=== PATIENT | female | born 1995 | race Caucasian/White ===

== ENCOUNTER 2021-07-13 05:53 | Emergency (ER) | payer OTHER ==
--- NOTE | 2021-07-13 06:06 | ER ---
Nurse's Notes [facility] Name: Lilliana Aragon Age: 25 yrs Sex: Female : 1995 Arrival Date: 07/13/2021 Time: 05:57 Bed 14 Private MD: Diagnosis: Allergic contact dermatitis due to other agents-Icy Hot Presentation: 07/13 06:04 Chief complaint: Patient states: Used IcyHot cream to posterior neck about 0300 this lp1 AM, reports burning to site and redness. Coronavirus screen: At this time, the client does not indicate any symptoms associated with coronavirus-19. Ebola Screen: No symptoms or risks identified at this time. Onset: The symptoms/episode began/occurred gradually. Anaphylaxis evaluation, no signs or symptoms of anaphylaxis were noted. Initial Sepsis Screen: Does the patient meet any 2 criteria? No. Patient's initial sepsis screen is negative. Does the patient have a suspected source of infection? No. Patient's initial sepsis screen is negative. Risk Assessment: Do you want to hurt yourself or someone else? Patient reports no desire to harm self or others. Onset of symptoms was July 13, 2021. 06:04 Method Of Arrival: Ambulatory lp1 06:04 Acuity: CRISTAL 4 lp1 Triage Assessment: 06:11 General: Appears in no apparent distress. Behavior is appropriate for age. Pain: lp1 Complains of pain in thoracic area and neck. Neuro: Level of Consciousness is awake, alert, obeys commands, Oriented to person, place, time, situation. Cardiovascular: Patient's skin is warm and dry. Respiratory: Airway is patent Respiratory effort is even, unlabored, Denies shortness of breath. Derm: Skin is pink, warm \T\ dry. Rash noted that is Slight redness noted to posterior neck, upper back. Musculoskeletal: Circulation, motion, and sensation intact. 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 - Social history:: Smoking status: Patient denies any tobacco usage or history of. Screenin:06 Abuse screen: Denies threats or abuse. Denies injuries from another. Nutritional lp1 screening: No deficits noted. Tuberculosis screening: No symptoms or risk factors identified. Fall Risk None identified. Vital Signs: 06:04 BP 134 / 82; Pulse 67; Resp 16; Temp 98.6; Pulse Ox 100% on R/A; Weight 63.5 kg (R); lp1 Height 5 ft. 3 in. (160.02 cm); 06:04 Body Mass Index 24.80 (63.50 kg, 160.02 cm) lp1 ED Course: 05:57 Patient arrived in ED. wm 05:59 Angela Gentile FNP-C is [facility]. kb 05:59 Doug Caro MD is Attending Physician. kb 06:06 Triage completed. lp1 06:06 Arm band placed on. lp1 06:06 Patient has correct armband on for positive identification. lp1 06:07 Mallory Wolff, RN is Primary Nurse. lp1 06:12 No provider procedures requiring assistance completed. Patient did not have IV access lp1 during this emergency room visit. Administered Medications: 06:11 Drug: Pepcid (famotidine) 20 mg Route: PO; lp1 06:11 Follow up: Response: Medication administered at discharge. lp1 Outcome: 06:05 Discharge ordered by . kb 06:12 Discharged to home ambulatory. lp1 06:12 Condition: good 06:12 Discharge instructions given to patient, Instructed on discharge instructions, follow up and referral plans. medication usage, Demonstrated understanding of instructions, follow-up care, medications, Prescriptions given X 1. 06:12 Patient left the ED. lp1 Signatures: Angela Gentile FNP-C FNP-Mallory Anne, RN RN lp1 Geno Donovan
--- NOTE | 2021-07-13 06:06 | EDPHYS ---
Physician Documentation [facility] Name: Lilliana Aragon Age: 25 yrs Sex: Female : 1995 Arrival Date: 07/13/2021 Time: 05:57 Bed 14 Private MD: ED Physician Doug Caro HPI: 07/13 06:08 This 25 yrs old Female presents to ER via Ambulatory with complaints of Allergic kb Reaction. 06:08 The patient presents with redness of skin. Onset: The symptoms/episode began/occurred kb at 03:00. Associated signs and symptoms: Pertinent positives: rash. Possible causes: icy hot. At home the patient or guardian has treated the symptoms with washed area with soap and water. Severity of symptoms: At their worst the symptoms were mild in the emergency department the symptoms are unchanged. The patient has not experienced similar symptoms in the past. The patient has not recently seen a physician. Pt states she put icy hot on the back of her neck at 0300, it burned upon application, but she thought it was just how it worked. When pt woke up she still had burning to area and it was red so she came in. . 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 - Social history:: Smoking status: Patient denies any tobacco usage or history of. ROS: 06:06 Constitutional: Negative for fever, chills, and weight loss. kb 06:06 Skin: Positive for erythema, of the right posterior aspect of neck and left posterior aspect of neck. 06:06 All other systems are negative. Exam: 06:06 Constitutional: This is a well developed, well nourished patient who is awake, alert, kb and in no acute distress. Head/Face: Normocephalic, atraumatic. ENT: Moist Mucous membranes Respiratory: Respirations even and unlabored. No increased work of breathing. Talking in full sentences MS/ Extremity: Pulses equal, no cyanosis. Neurovascular intact. Full, normal range of motion. Neuro: Awake and alert, GCS 15, oriented to person, place, time, and situation. Moves all extremities. Normal gait. Psych: Awake, alert, with orientation to person, place and time. Behavior, mood, and affect are within normal limits. 06:06 Skin: rash a mild rash is noted, rash can be described as erythematous, consistent with contact dermatitis, on the left posterior aspect of neck and right posterior aspect of neck. Vital Signs: 06:04 BP 134 / 82; Pulse 67; Resp 16; Temp 98.6; Pulse Ox 100% on R/A; Weight 63.5 kg (R); lp1 Height 5 ft. 3 in. (160.02 cm); 06:04 Body Mass Index 24.80 (63.50 kg, 160.02 cm) lp1 MDM: 06:04 Patient medically screened. kb 06:06 Data reviewed: vital signs, nurses notes. Data interpreted: Pulse oximetry: on room air kb is 100 %. Interpretation: normal. Counseling: I had a detailed discussion with the patient and/or guardian regarding: the historical points, exam findings, and any diagnostic results supporting the discharge/admit diagnosis, the need for outpatient follow up, a family practitioner, to return to the emergency department if symptoms worsen or persist or if there are any questions or concerns that arise at home. Administered Medications: 06:11 Drug: Pepcid (famotidine) 20 mg Route: PO; lp1 06:11 Follow up: Response: Medication administered at discharge. lp1 Disposition Summary: 07/13/21 06:05 Discharge Ordered Location: Home kb Condition: Stable kb Diagnosis - Allergic contact dermatitis due to other agents - Icy Hot kb Followup: kb - With: Emergency Department - When: As needed - Reason: Worsening of condition Followup: kb - With: Private Physician - When: 2 - 3 days - Reason: Recheck today's complaints, Continuance of care, Re-evaluation by your physician Discharge Instructions: - Discharge Summary Sheet kb - Contact Dermatitis kb Forms: - Medication Reconciliation Form kb - Thank You Letter kb - Antibiotic Education kb - Prescription Opioid Use kb Prescriptions: - Pepcid 20 mg Oral Tablet - take 1 tablet by ORAL route every 12 hours for 5 days; 10 tablet; Refills: 0, kb Product Selection Permitted Addendum: 07/15/2021 01:16 Co-signature as Attending Physician, Doug Caro MD. [facility] Signatures: Angela Gentile FNP-C FNP-Mallory Anne RN RN lp1 Doug Caro MD MD [id number]
[2021-07-13] MEDS ORDERED: FAMOTIDINE 20 MG TAB ONE (06:09)
[2021-07-13 06:17] VITALS: BP 134/82; TEMP 98.6; O2SAT 100
== END 2021-07-13 06:12 | disposition home or self-care (01) ==
LOC: ER 05:53
DX: L23.89 Allergic contact dermatitis due to other agents (principal); Z88.8 Allergy status to other drugs, medicaments and biological substances
CPT/HCPCS: 99283

== ENCOUNTER 2021-08-02 04:18 | Emergency (ER) | payer OTHER ==
--- NOTE | 2021-08-02 05:39 | ER ---
Nurse's Notes [facility] Name: Lilliana Aragon Age: 25 yrs Sex: Female : 1995 Arrival Date: 08/02/2021 Time: 04:24 Bed 16 Private MD: Diagnosis: Cellulitis and acute lymphangitis of other parts of limb;Sprain of other part of right wrist and hand;Abrasion of right wrist Presentation: 08/02 04:32 Chief complaint: Patient states: "About a week ago I was making an arrest and I had to tw5 wrestle the meagan down to get the cuffs on him. I had EMS look at my wrist then and they said it may just be sprained, but it still hurt so move it. However, the main reason I am here today are these bumps that started to appear on both of my legs. They are hard, hot to the touch and extremely painful. I cannot even walk right now they are so painful.". Coronavirus screen: Vaccine status: Patient reports being unvaccinated. [employer] [place]. Ebola Screen: Patient negative for fever greater than or equal to 101.5 degrees Fahrenheit, and additional compatible Ebola Virus Disease symptoms Patient denies exposure to infectious person. Patient denies travel to an Ebola-affected area in the 21 days before illness onset. Initial Sepsis Screen: Does the patient meet any 2 criteria? No. Patient's initial sepsis screen is negative. Does the patient have a suspected source of infection? No. Patient's initial sepsis screen is negative. Risk Assessment: Do you want to hurt yourself or someone else? Patient reports no desire to harm self or others. Onset of symptoms is unknown. 04:32 Method Of Arrival: Wheelchair tw5 04:32 Acuity: CRISTAL 3 tw5 Triage Assessment: 04:35 General: Appears in no apparent distress. Behavior is calm, cooperative, appropriate tw5 for age. Pain: Complains of pain in right leg and left leg Pain currently is 8 out of 10 on a pain scale. Musculoskeletal: Range of motion: limited in MCP of right ring finger and MCP of right little finger. Injury Description: Bruise. 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 - Social history:: Smoking status: Patient denies any tobacco usage or history of. Screenin:36 Abuse screen: Denies threats or abuse. Denies injuries from another. Nutritional tw5 screening: No deficits noted. Tuberculosis screening: No symptoms or risk factors identified. Fall Risk Gait- Impaired (20 pts.). Assessment: 06:32 Reassessment: Cleared for discharge to home by the provider. . sv1 Vital Signs: 04:32 BP 108 / 78; Pulse 74; Resp 20; Temp 98.1(O); Pulse Ox 99% on R/A; Weight 68.04 kg; tw5 Height 5 ft. 3 in. (160.02 cm); Pain 8/10; 04:49 BP 110 / 75; Pulse 72; Resp 17; Temp 98.6; Pulse Ox 99% ; Weight 68.04 kg; Height 5 ft. sv1 3 in. (160.02 cm); 06:30 BP 111 / 80; Pulse 69; Resp 18; Temp 98.2; Pulse Ox 100% ; Pain 7/10; sv1 04:49 Body Mass Index 26.57 (68.04 kg, 160.02 cm) sv1 ED Course: 04:24 Patient arrived in ED. ja2 04:35 Triage completed. tw5 04:35 Arm band placed on left wrist. tw5 04:40 Anam Escobedo MD is Attending Physician. suha 04:48 Clovis Sims, RN is Primary Nurse. sv1 04:50 Patient has correct armband on for positive identification. Bed in low position. Call sv1 light in reach. Side rails up X2. Adult w/ patient. 05:30 Wrist Right 3 View XRAY In Process Unspecified. EDMS 05:43 Clovis Olivier MD is Referral Physician. suha 06:31 No provider procedures requiring assistance completed. Patient did not have IV access sv1 during this emergency room visit. Administered Medications: 06:12 Drug: Bactrim (trimethoprim-sulfamethoxazole) (160 mg-800 mg (DS) 1 tablet Route: PO; sv1 06:33 Follow up: Response: No adverse reaction sv1 06:12 Drug: Pepcid (famotidine) 40 mg Route: PO; sv1 06:33 Follow up: Response: No adverse reaction sv1 06:13 Drug: Bactroban (mupirocin) Ointment 2 % 1 application Route: Topical; Site: affected sv1 area; 06:34 Follow up: Response: No adverse reaction sv1 06:13 Drug: Doxycycline 200 mg Route: PO; sv1 06:34 Follow up: Response: No adverse reaction sv1 Outcome: 05:39 Discharge ordered by MD. borden 06:31 Discharged to home sv1 06:31 Condition: good 06:31 Discharge instructions given to patient, Demonstrated understanding of instructions. 06:35 Patient left the ED. sv1 Signatures: Dispatcher [employer] EDAnam Yanes MD MD cha Alexander, Jessica ja2 Wood, Tiffany tw5 Clovis Sims RN RN sv1
--- NOTE | 2021-08-02 05:39 | EDPHYS ---
Physician Documentation [facility] Name: Lilliana Aragon Age: 25 yrs Sex: Female : 1995 Arrival Date: 08/02/2021 Time: 04:24 Bed 16 Private MD: ED Physician Anam Escobedo HPI: 08/02 05:31 This 25 yrs old Female presents to ER via Wheelchair with complaints of Wrist suha Injury, BUMBS ON LEG. 05:31 The patient or guardian reports decreased range of motion, pain. 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 - Social history:: Smoking status: Patient denies any tobacco usage or history of. ROS: 05:32 Constitutional: Negative for fever, chills, and weight loss, Eyes: Negative for injury, suha pain, redness, and discharge, ENT: Negative for injury, pain, and discharge, Neck: Negative for injury, pain, and swelling, Cardiovascular: Negative for chest pain, palpitations, and edema, Respiratory: Negative for shortness of breath, cough, wheezing, and pleuritic chest pain, Abdomen/GI: Negative for abdominal pain, nausea, vomiting, diarrhea, and constipation, Back: Negative for injury and pain, : Negative for injury, bleeding, discharge, and swelling, Skin: Negative for injury, rash, and discoloration, Neuro: Negative for headache, weakness, numbness, tingling, and seizure, Psych: Negative for depression, anxiety, suicide ideation, homicidal ideation, and hallucinations, Allergy/Immunology: Negative for hives, rash, and allergies, Endocrine: Negative for neck swelling, polydipsia, polyuria, polyphagia, and marked weight changes, Hematologic/Lymphatic: Negative for swollen nodes, abnormal bleeding, and unusual bruising. 05:32 MS/extremity: Positive for decreased range of motion, erythema, pain, swelling, tenderness, of the right leg and left leg. Exam: 05:32 Constitutional: This is a well developed, well nourished patient who is awake, alert, suha and in no acute distress. Head/Face: Normocephalic, atraumatic. Eyes: Pupils equal round and reactive to light, extra-ocular motions intact. Lids and lashes normal. Conjunctiva and sclera are non-icteric and not injected. Cornea within normal limits. Periorbital areas with no swelling, redness, or edema. ENT: Nares patent. No nasal discharge, no septal abnormalities noted. Tympanic membranes are normal and external auditory canals are clear. Oropharynx with no redness, swelling, or masses, exudates, or evidence of obstruction, uvula midline. Mucous membranes moist. Neck: Trachea midline, no thyromegaly or masses palpated, and no cervical lymphadenopathy. Supple, full range of motion without nuchal rigidity, or vertebral point tenderness. No Meningismus. Chest/axilla: Normal chest wall appearance and motion. Nontender with no deformity. No lesions are appreciated. Cardiovascular: Regular rate and rhythm with a normal S1 and S2. No gallops, murmurs, or rubs. Normal PMI, no JVD. No pulse deficits. Respiratory: Lungs have equal breath sounds bilaterally, clear to auscultation and percussion. No rales, rhonchi or wheezes noted. No increased work of breathing, no retractions or nasal flaring. Abdomen/GI: Soft, non-tender, with normal bowel sounds. No distension or tympany. No guarding or rebound. No evidence of tenderness throughout. Back: No spinal tenderness. No costovertebral tenderness. Full range of motion. Female : Normal external genitalia. Skin: Warm, dry with normal turgor. Normal color with no rashes, no lesions, and no evidence of cellulitis. Neuro: Awake and alert, GCS 15, oriented to person, place, time, and situation. Cranial nerves II-XII grossly intact. Motor strength 5/5 in all extremities. Sensory grossly intact. Cerebellar exam normal. Normal gait. 05:32 Musculoskeletal/extremity: Extremities: noted in the right leg and left leg: erythema, pain, noted in the right wrist: decreased ROM, pain. Vital Signs: 04:32 BP 108 / 78; Pulse 74; Resp 20; Temp 98.1(O); Pulse Ox 99% on R/A; Weight 68.04 kg; tw5 Height 5 ft. 3 in. (160.02 cm); Pain 8/10; 04:49 BP 110 / 75; Pulse 72; Resp 17; Temp 98.6; Pulse Ox 99% ; Weight 68.04 kg; Height 5 ft. sv1 3 in. (160.02 cm); 06:30 BP 111 / 80; Pulse 69; Resp 18; Temp 98.2; Pulse Ox 100% ; Pain 7/10; sv1 04:49 Body Mass Index 26.57 (68.04 kg, 160.02 cm) sv1 MDM: 04:40 Patient medically screened. [facility] 08/02 05:45 Order name: Urine Dipstick-Ancillary EDCT 08/02 04:44 Order name: Wrist Right 3 View XRAY [facility] 08/02 04:44 Order name: Urine Dipstick-Ancillary (obtain specimen); Complete Time: 05:48 [facility] 08/02 04:44 Order name: Urine Test (obtain specimen); Complete Time: 05:48 [facility] 08/02 04:44 Order name: Ice pack; Complete Time: 05:48 [facility] 08/02 05:36 Order name: Splint: cock up velcro; Complete Time: 06:12 suha Administered Medications: 06:12 Drug: Bactrim (trimethoprim-sulfamethoxazole) (160 mg-800 mg (DS) 1 tablet Route: PO; sv1 06:33 Follow up: Response: No adverse reaction sv1 06:12 Drug: Pepcid (famotidine) 40 mg Route: PO; sv1 06:33 Follow up: Response: No adverse reaction sv1 06:13 Drug: Bactroban (mupirocin) Ointment 2 % 1 application Route: Topical; Site: affected sv1 area; 06:34 Follow up: Response: No adverse reaction sv1 06:13 Drug: Doxycycline 200 mg Route: PO; sv1 06:34 Follow up: Response: No adverse reaction sv1 Disposition Summary: 08/02/21 05:39 Discharge Ordered Location: Home suah Problem: new suha Symptoms: have improved suha Condition: Stable suha Diagnosis - Cellulitis and acute lymphangitis of other parts of limb suha - Sprain of other part of right wrist and hand suha - Abrasion of right wrist suha Followup: suha - With: Private Physician - When: 2 - 3 days - Reason: Recheck today's complaints, Continuance of care, Re-evaluation by your physician Followup: suha - With: Clovis Olivier MD - When: 2 - 3 days - Reason: Recheck today's complaints, Re-evaluation by your physician Discharge Instructions: - Discharge Summary Sheet suha - Abrasion suha - Wrist Splint, Adult suha - Wrist Splint, Adult, [id number] suha - Abrasion, [id number] suha - Folliculitis [facility] Forms: - Medication Reconciliation Form [facility] - Thank You Letter [facility] - Antibiotic Education [facility] - Prescription Opioid Use [facility] - Work release form sv1 Prescriptions: - Centany 2 % Topical ointment - apply 1 application by TOPICAL route 3 times per day for 5 days; 15 gram; [facility] Refills: 0, Product Selection Permitted - Ibuprofen 600 mg Oral Tablet - take 1 tablet by ORAL route every 8 hours As needed take with food; 21 tablet; [facility] Refills: 0, Product Selection Permitted - Pepcid 20 mg Oral Tablet - take 1 tablet by ORAL route every 12 hours for 10 days; 20 tablet; Refills: 0, [facility] Product Selection Permitted - Doxycycline Hyclate 100 mg Oral Tablet - take 1 tablet by ORAL route every 12 hours; 20 tablet; Refills: 0, Product [facility] Selection Permitted - Bactrim DS 800-160 mg Oral Tablet - take 1 tablet by ORAL route every 12 hours for 10 days; 20 tablet; Refills: 0, [facility] Product Selection Permitted Signatures: Dispatcher [employer] Anam Gandhi MD MD cha Wood, Tiffany tw5 Clovis Sims, RN RN sv1
[2021-08-02 05:45] LABS: Urine Blood Negative (Negative); Urine Glucose Negative (Negative); Urine Protein Trace (Negative); Urine Specific Gravity >=1.030 (1.005-1.030)
[2021-08-02] MEDS ORDERED: SMZ./TMP. 800/160 MG TABLET ONE (05:57)
[2021-08-02] MEDS ORDERED: FAMOTIDINE 20 MG TAB ONE (05:57)
[2021-08-02] MEDS ORDERED: DOXYCYCLINE 100 MG CAP PO ONE (05:57)
[2021-08-02] MEDS ORDERED: MUPIROCIN 2% OINT 22GM TUBE TOP ONE (05:58)
[2021-08-02 06:42] VITALS: BP 111/80; TEMP 98.2; O2SAT 100
--- NOTE | 2021-08-02 11:53 | RAD REPORT ---
EXAM DESCRIPTION: RAD - Wrist Right 3 View - 08/02/2021 5:30 am CLINICAL HISTORY: PAIN Pain COMPARISON: No comparisons FINDINGS: No fracture or dislocation seen. Soft tissue swelling is seen along medial margin of the hand and wrist.
== END 2021-08-02 06:35 | disposition home or self-care (01) ==
LOC: ER 04:18
DX: S63.8X1A Sprain of other part of right wrist and hand, initial encounter (principal); L03.116 Cellulitis of left lower limb; L03.115 Cellulitis of right lower limb; L03.126 Acute lymphangitis of left lower limb; L03.125 Acute lymphangitis of right lower limb; S60.811A Abrasion of right wrist, initial encounter; Z88.8 Allergy status to other drugs, medicaments and biological substances
CPT/HCPCS: 81003; 99283

== ENCOUNTER 2021-08-03 16:08 | Emergency (ER) | payer OTHER ==
--- NOTE | 2021-08-03 19:35 | ER ---
Nurse's Notes [facility] Name: Lilliana Aragon Age: 25 yrs Sex: Female : 1995 Arrival Date: 08/03/2021 Time: 16:15 Bed Waiting Private MD: Diagnosis: Presentation: 08/03 16:49 Chief complaint: Patient states: she had a recent right wrist injury at work. Patient ap3 reports wounds on her legs that are also not healing. Patient states she was seen in the ER recently, and was informed if the symptoms didn't improve to come get reevaluated. Coronavirus screen: At this time, the client does not indicate any symptoms associated with coronavirus-19. Ebola Screen: No symptoms or risks identified at this time. Initial Sepsis Screen: Does the patient meet any 2 criteria? No. Patient's initial sepsis screen is negative. Does the patient have a suspected source of infection? No. Patient's initial sepsis screen is negative. Risk Assessment: Do you want to hurt yourself or someone else? Patient reports no desire to harm self or others. Onset of symptoms. 16:49 Method Of Arrival: Ambulatory ap3 16:49 Acuity: CRISTAL 4 ap3 Triage Assessment: 16:52 General: Appears in no apparent distress. comfortable, Behavior is calm, cooperative. ap3 Pain: Complains of pain in right arm Pain currently is 8 out of 10 on a pain scale. Pain began 2 weeks ago. Neuro: Level of Consciousness is awake, alert, obeys commands, Oriented to person, place, time, situation. Respiratory: Airway is patent Respiratory effort is even, unlabored. Musculoskeletal: wrist brace on right wrist. 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 - Social history:: Smoking status: Patient denies any tobacco usage or history of. Vital Signs: 16:49 BP 111 / 82; Pulse 78; Resp 18; Temp 98.8(O); Pulse Ox 100% on R/A; Weight 63.5 kg; ap3 Height 5 ft. 3 in. (160.02 cm); 16:49 Body Mass Index 24.80 (63.50 kg, 160.02 cm) ap3 ED Course: 16:15 Patient arrived in ED. ds1 16:52 Triage completed. ap3 19:35 Patient's name was called from ER lobby. No response. Unable to locate patient. Will jh5 disposition as left without being seen by a provider. Administered Medications: No medications were administered Outcome: 19:35 Patient left the ED. jh5 Signatures: Taniya Francis ds1 Delia Francisco, RN RN ap3 Michelle Pineda RN RN jh5
[2021-08-03 20:19] VITALS: BP 111/82; TEMP 98.8; O2SAT 100
== END 2021-08-03 19:35 | disposition left against medical advice (07) ==
LOC: ER 16:08
DX: Z53.21 Procedure and treatment not carried out due to patient leaving prior to being seen by health care provider (principal)
CPT/HCPCS: 99281

== ENCOUNTER 2022-05-30 14:04 | Emergency (ER) | payer OTHER ==
--- OUTSIDE RECORDS SUMMARY | 2022-05-30 14:10 | XMS REPORT | Continuity of Care Document ---
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 rsity of Dosage 00:00:00 [facility] Hep B, Adol or Pedi 1997 Completed Unive rsity of Dosage 00:00:00 [facility] Hep B, Adol or Pedi 1997 Completed Unive rsity of Dosage 00:00:00 [facility] Hep B, Adol or Pedi 1997 Completed Unive rsity of Dosage 00:00:00 [facility] Hep B, Adol or Pedi 1997 Completed Unive rsity of Dosage 00:00:00 [facility] Hep B, Adol or Pedi 1997 Completed Unive rsity of Dosage 00:00:00 [facility] Hep B, Adol or Pedi 1997 Completed Unive rsity of Dosage 00:00:00 [facility] Hep B, Adol or Pedi 1997 Completed Unive rsity of Dosage 00:00:00 [facility] Hep B, Adol or Pedi 1997 Completed Unive rsity of Dosage 00:00:00 [facility] Vital Signs Vital Name Observation Time Observation Value Comments Source Systolic blood 2022-05-21 128 mm[Hg] University of pressure 21:16:00 [facility] Diastolic blood 2022-05-21 87 mm[Hg] University o f pressure 21:16:00 [facility] Heart rate 2022-05-21 83 /min University of 21:16:00 [facility] Body temperature 2022-05-21 36.5 Rita University of 21:16:00 [facility] Respiratory rate 2022-05-21 16 /min University of 21:16:00 [facility] Body height 2022-05-21 157.5 cm University of 21:16:00 [facility] Body weight 2022-05-21 76.403 kg University of 21:16:00 [facility] BMI 2022-05-21 30.81 kg/m2 University of 21:16:00 [facility] Oxygen saturation 2022-05-21 99 /min University of in Arterial blood 21:16:00 [facility] Pulse oxim[facility] Body temperature 2022-05-06 36.78 Rita University of 22:02:00 [facility] Systolic blood 2022-05-06 132 mm[Hg] University of pressure 22:00:00 [facility] Diastolic blood 2022-05-06 89 mm[Hg] University o f pressure 22:00:00 [facility] Heart rate 2022-05-06 74 /min University of 22:00:00 [facility] Respiratory rate 2022-05-06 18 /min University of 22:00:00 [facility] Body height 2022-05-06 160 cm University of 22:00:00 [facility] Body weight 2022-05-06 68.04 kg University of 22:00:00 [facility] BMI 2022-05-06 26.57 kg/m2 University of 22:00:00 [facility] Oxygen saturation 2022-05-06 99 /min University of in Arterial blood 22:00:00 [facility] P[facility] Systolic blood 2022-03-30 126 mm[Hg] University of pressure 16:47:00 [facility] Diastolic blood 2022-03-30 88 mm[Hg] University o f pressure 16:47:00 [facility] Heart rate 2022-03-30 69 /min University of 16:47:00 [facility] Body temperature 2022-03-30 37.06 Rita University of 16:47:00 [facility] Respiratory rate 2022-03-30 16 /min University of 16:47:00 [facility] Body height 2022-03-30 162.6 cm University of 16:47:00 [facility] Body weight 2022-03-30 75.66 kg [facility] 16:47:00 [facility] BMI 2022-03-30 28.63 kg/m2 [facility] 16:47:00 [facility] Oxygen saturation 2022-03-30 98 /min [facility] in Arterial blood 16:47:00 [facility] by Pulse oximetry Branch Systolic blood 2021-11-01 120 mm[Hg] University of pressure 04:26:03 [facility] Diastolic blood 2021-11-01 92 mm[Hg] [place] o f pressure 04:26:03 [facility] Heart rate 2021-11-01 62 /min [facility] 04:26:03 [facility] Respiratory rate 2021-11-01 17 /min [facility] 04:26:03 [facility] Oxygen saturation 2021-11-01 100 /min [facility] in Arterial blood 04:26:03 [facility] by Pulse oximetry Branch Body temperature 2021-11-01 36.44 Rita [facility] 00:42:00 [facility] Body weight 2021-11-01 63.504 kg [facility] 00:42:00 [facility] BP Systolic 2018-11-22 122 mm[Hg] Location: RUE; [facility] 15:50:00 Position: Sitting BP Diastolic 2018-11-22 73 mm[Hg] Location: RUE; [facility] 15:50:00 Position: Sitting Height 2018-11-22 63 [in_us] [facility] 15:50:00 Weight 2018-11-22 175 [lb_av] [facility] 15:50:00 Body Mass Index 2018-11-22 31 kg/m2 [facility] Calculated 15:50:00 Heart Rate 2018-11-22 76 /min [facility] 15:50:00 BP Systolic 2018-11-08 126 mm[Hg] Location: RUE; [facility] 10:10:00 Position: Sitting BP Diastolic 2018-11-08 84 mm[Hg] Location: RUE; [facility] 10:10:00 Position: Sitting Height 2018-11-08 63 [in_us] [facility] 10:10:00 Weight 2018-11-08 175.375 [lb_av] [facility] 10:10:00 Body Mass Index 2018-11-08 31.07 kg/m2 [facility] Calculated 10:10:00 Heart Rate 2018-11-08 90 /min [facility] 10:10:00 Procedures Procedure Date / Time Performing Clinician Source Performed XR KNEE <3 VW RIGHT 2022-05-07 00:59:00 Eri Burgos [facility] XR ANKLE 3+ VW RIGHT 2022-05-06 23:38:00 Russell Rod [facility] XR FOOT 3+ VW RIGHT 2022-05-06 23:38:00 Russell [facility] TIBIA FIBULA 2 VW RIGHT 2022-05-06 23:38:[address] [facility] NOTICE OF PRIVACY 2022-05-06 21:56:28 Doctor Unassigned, [facility] PRACTICES [facility] CONSENT/REFUSAL FOR 2022-05-06 21:54:24 Doctor Unassbarbara, [facility] DIAGNOSIS AND TREATMENT [facility] XR FOREARM 2 VW RIGHT 2022-03-30 17:36:20 Norman, [facility] XR WRIST 3+ VW RIGHT 2022-03-30 17:35:58 Norman, [facility] ASSIGNMENT OF BENEFITS 2022-03-30 16:44:49 Doctor Unassigned, [facility] ABDOMEN PELVIS W 2021-11-01 05:04:00 Nadir Vega [facility] CONTRAST [facility] Branch CT CHEST PULMONARY 2021-11-01 05:04:00 Nadir Vega [facility] ANGIOGRAM Medical Branch US GALL BLADDER 2021-11-01 02:22:29 Silvia [facility] XR ABDOMEN 1 VW 2021-11-01 01:55:00 Silvia [facility] XR CHEST 1 VW 2021-11-01 01:55:00 Silvia [facility] LIPASE 2021-11-01 01:37:00 Silvia [facility] TEST, SERUM 2021-11-01 01:37:00 Nadir Vega [facility] COMP. METABOLIC PANEL 2021-11-01 01:37:00 Nadir Vega [facility] ([id number]) Medical Branch CBC WITH DIFF 2021-11-01 01:37:00 Nadir Vega [facility] Medical Branch COVID-19 (ID NOW RAPID 2021-11-01 01:37:00 Nadir Vega [facility] TESTING) Medical Branch CONSENT/REFUSAL FOR 2021-11-01 00:42:06 Doctor Unassigned, Norma [facility] DIAGNOSIS AND TREATMENT [facility] . [facility] - Affirm VPIII 2018-11-08 00:00:00 [facility] (BV Panel) [Q] HEMOGLOBINOPATHY 2018-11-08 00:00:00 [facility] EVALUATION [Q] OBSTETRIC PANEL 2018-11-08 00:00:00 [facility] [Q] TREPONEMA PALLIDUM AB, 2018-11-08 00:00:00 [facility] PARTICLE AGGLUTINATION [QH] [id number] 2018-11-08 00:00:00 [facility] DEHYDROGENASE, QUANT. [QH] HIV AB, HIV 1/2, EIA, 2018-11-08 00:00:00 [facility] WITH REFLEXES [QLH] CULTURE, URINE, 2018-11-08 00:00:00 [facility] ROUTINE [QLH] URINALYSIS, COMPLETE 2018-11-08 00:00:00 [facility] . [facility] - GC/Chlamydia 2018-11-08 00:00:00 [facility] [QH] DRUG 2018-11-08 00:00:00 [facility] SCREEN,COMPREHENSIVE (URINE) [QH] QUAD SCREEN 2018-11-08 00:00:00 [facility] Plan of Care Planned Activity Planned Date Details Comments Source Future Scheduled Test 2022-05-08 00:00:00 IMM Influenza [facility] Seasonal (>/= 19 yrs) [code = IMM Influenza Seasonal (>/= 19 yrs)] Future Scheduled Test 2018 00:00:00 Screening for [facility] malignant neoplasm of cervix (procedure) [code = 698031055] Future Scheduled Test 1998-06-19 00:00:00 COVID-19 Vaccine (#1) [facility] [code = COVID-19 Vaccine (#1)] Future Scheduled Test 1997 00:00:00 Fluoride Varnish [facility] [code = Fluoride Varnish] Encounters Start End Encounter Admission Attending Care Care Encounter Source Date/Time Date/Time Type Type Clinicians Facility Department ID 2022-02-10 Outpatient maggy [facility] [id number] [facility] 14:51:02 [id number] [facility] 2021-05-21 Outpatient maggy [facility] [id number] [facility] 20:13:56 [id number] [facility] 2022-05-21 2022-05-21 [facility] [id number] Univers 16:00:00 16:57:20 DELIA [facility] 2022-05-21 2022-05-[address] [facility] [id number] Univers 16:00:00 16:57:20 Care Unknown, [facility] [id number] ity [place] [id number] Mani as KATHRIN?BLEA [id number] [address] OFFICE [facility] 2022-05-19 2022-05-19 [facility] [id number] Univers 16:00:00 16:00:00 KALEB [facility] 2022-05-06 2022-05-06 Emergency [facility] [id number] Univers 17:03:00 20:20:00 ERI [facility] 2022-05-06 2022-05-06 Emergency [facility] [id number] Univers 17:03:00 20:20:00 [facility] [id number] [place] NAT[place] [id number] [address] 2022-05-06 2022-05-06 [facility] [id number] Univers 00:00:00 00:00:00 (Out) [facility] [id number] it y of [place] 4.2.7.2.686 Mani as KATHRIN?BLEA [id number] [address] 2022-05-04 2022-05-04 Laboratory Only, Ang Db Test [facility] 1.2.8 40.114 [id number] Univers 13:00:00 13:15:00 Only Nevin Benoit [facility] [id number] ity of [place] 4.2.7.2.686 Mani as KATHRIN?BLEA [id number] [facility] [address] [facility] OFFICE [facility] 2022-05-04 2022-05-04 [facility]patient [facility] [id number] Univers 13:00:00 13:00:00 NEVIN ity [facility] 2022-04-14 2022-04-14 Outpatient [facility] [id number] Univers 15:00:00 15:00:00 JULIO CESAR ity [facility] 2022-03-30 2022-03-30 [facility] [id number] Univers 12:06:40 23:59:00 Encounter [facility] [id number] ity of [place] 4.2.7.2.686 Mani as KATHRIN?BLEA [id number] [facility] [address] [facility] OFFICE [facility] 2022-03-30 2022-03-30 [facility] [id number] Univers 12:06:40 23:59:00 Encounter [facility] [id number] ity of [place] 4.2.7.2.686 Mani as KATHRIN?BLEA [id number] Nc andrew HUGHES [address] [facility] OFFICE [facility] 2022-03-30 2022-03-30 Outpatient R [facility] [id number] Univers 12:06:40 23:59:00 JAREN ittracee o f [facility] 2022-03-30 2022-03-30 Urgent Norman [facility] 1.2.840. 114 [id number] Univers 13:00:00 13:20:00 Care Xavier Delia HEALTH 350.1.13.10 ity of [place] 4.2.7.2.686 Mani as KATHRIN?BLEA [id number] [facility] [address] MEDICAL OFFICE [facility] 2022-03-30 2022-03-30 Orders Doctor OWEN 1.2.840.114 [id number] Univers 00:00:00 00:00:00 Only Unassigned, ROSE MARIE 350.1.13.10 ity of [place] [facility] 4.2.7.2.686 Mani as [id number] [facility] 009 Branch 2021-10-31 2021-11-01 Emergency X NADIR VEGA [facility] ERT [id number] Univers 19:45:00 01:04:00 NADIR VEGA ity of [facility] 2021-10-31 2021-11-01 Emergency Dalmedo, TRAUMA 1.2.840.114 [id number] Univers 19:45:00 01:04:00 [facility] 350.1.13.10 [place] [id number] [facility] 014 Branch 2020-12-19 2020-12-19 Emergency E VANESSA GERMAN [facility]NE 7513 [facility]NE 02:45:00 05:21:00 LIP[place] 2020-08-20 2020-08-23 [facility] [id number] [facility] 23:55:00 06:47:18 [facility] 2019-02-05 2019-02-05 Outpatient [facility] [id number] [place] 00:00:00 00:00:00 Health 2019-02-04 2019-02-04 Outpatient [facility] [id number] [place] 20:46:53 20:46:53 [facility] 2018-12-06 2018-12-06 Emergency E [facility] [id number] [facility] 15:34:00 15:34:00 2018-11-22 2018-11-22 [facility] [id number] 15:30:00 17:09:30 2018-11-22 2018-11-22 Appointmen NISHANT ROJAS Safety Investigator [id number] [place] 15:30:00 15:30:00 t; MICHELLE ROJAS, Ph ysici MICHELLE Urbina M.D. 2018-11-15 2018-11-15 Appointmen NISHANT DEMARCO Safety Investigator [id number] [place] 10:45:00 10:45:00 t; JOSEPH DEMARCO, Physi ci Bernard RUIZ M.D. 2018-11-08 2018-11-08 Appointmen COOLER ROOM WORKER, [facility] [id number] [place] 12:00:00 12:00:00 t; COOLER ROOM WORKER, ROOM1 Julius mendezi ROOM1 ans 2018-11-08 2018-11-08 Appointkim LINDSEY NISHANT Safety Investigator [id number] [place] 10:00:00 10:00:00 t; Bernard STAUFFER Ph, ans IVANA, M.D. Results Test Description Test Time Test Comments Results Result Comments Source TEST, SERUM 2021-11-01 02:18:10 Test Item Value Reference Range Interpretation Comme nts PREG SERUM (test code = 6849177898) Negative SILVA (test code = SILVA) Less than 10 IU/L. ?If low titer or ectopic is suspected, resubmit specimen in 48-72 hours. [facility]. METABOLIC PANEL ([id number])2021-11-01 02:01:26 Test Item Value Reference Range Interpretation Comments NA (test code = 137 mmol/L 135-145 6051741962) K (test code = 3.9 mmol/L 3.5-5.0 8938806190) CL (test code = 107 mmol/L 98-108 3762147231) CO2 TOTAL (test code 24 mmol/L 23-31 = 6167500145) AGAP (test code = 2-16 1510940923) BUN (test code = 10 mg/dL 7-23 9835452112) GLUCOSE (test code = 87 mg/dL 70-110 9752470838) CREATININE (test code 0.59 mg/dL 0.50-1.04 = 2998575299) TOTAL BILI (test code 0.6 mg/dL 0.1-1.1 = 3409568860) CALCIUM (test code = 9.1 mg/dL 8.6-10.6 2001786135) T PROTEIN (test code 7.2 g/dL 6.3-8.2 = 0716306636) ALBUMIN (test code = 4.4 g/dL 3.5-5.0 7442919254) ALK PHOS (test code = 42 U/L 34-122 3670006325) ALTv (test code = 14 U/L 5-35 1742-6) AST(SGOT) (test code 20 U/L 13-40 = 3611853038) eGFR (test code = mL/min/1.73m2 3055154661) SILVA (test code = SILVA) Association of Glomerular Filtration Rate (GFR) and Staging of Kidney Disease* + + +- +| GFR (mL/min/1.73 m2) ?| With Kidney Damage ?| ?Without Kidney Damage+ ------+ ----+ ------+| ?>90 ?| ?Stage one ?| ? Normal ?+ -+ + -+| ?60-89 ?| ?Stage two ?| ? Decreased GFR ? + + +- +| ?30-59 ?| ?Stage three ?| ? Stage three ? + + +- +| ?15-29 ?| ?Stage four ? | ? Stage four ?+ -+ + -+| ?<15 (or dialysis) ? ?| ?Stage five ? | ? Stage five ?+ -+ + -+ *Each stage assumes the associated GFR level has been in effect for at least three months. ?Stages 1 to 5, with or without kidney disease, indicate chronic kidney disease. Notes: Determination of stages one and two (with eGFR >59mL/min/1.73 m2) requires estimation of kidney damage for at least three months as defined by structural or functional abnormalities of the kidney, manifested by either:Pathological abnormalities or Markers of kidney damage (including abnormalities in the composition of the blood or urine or abnormalities in imaging tests). [facility] 02:01:26 Test Item Value Reference Range Interpretation Comments LIPASE (test code = 6896117456) 65 U/L 0-220 Lab Interpretation (test code = Normal 76673-9) [facility] [id number] 01:46:02 Test Item Value Reference Range Interpretation Comments WBC (test code = See_Comment [Automated message] 6690-2) The system [employer] generated this result transmitted ref erence range: 4.30 - 1 1.10 10*3/?L. The re ference range was not u sed to interpret this result as normal/abnor mal. RBC (test code = See_Comment [Automated message] 789-8) The system [employer] generated this result transmitted ref erence range: 3.93 - 5 .25 10*6/?L. The re ference range was not u sed to interpret this result as normal/abnor mal. HGB (test code = 12.8 g/dL 11.6-15.0 718-7) HCT (test code = 40.0 % 35.7-45.2 4544-3) MCV (test code = 85.3 fL 80.6-95.5 787-2) MCH (test code = 27.3 pg 25.9-32.8 785-6) MCHC (test code = 32.0 g/dL 31.6-35.1 786-4) RDW-SD (test code 45.6 fL 39.0-49.9 = 60451-6) RDW-CV (test code 14.8 % 12.0-15.5 = 788-0) PLT (test code = See_Comment [Automated message] 777-3) The system [employer] generated this result transmitted ref erence range: 166 - 35 8 10*3/?L. The re ference range was not u sed to interpret this result as normal/abnor mal. MPV (test code = 11.6 fL 9.5-12.9 44746-9) NRBC/100 WBC (test See_Comment [Automat ed message] code = 6732533300) The syste m which generated this result transmitted ref erence range: 0.0 - 10 .0 /100 WBCs. The refer ence range was not u sed to interpret this result as normal/abnor mal. NRBC x10^3 (test <0.01 See_Comment [Automated message] code = 5195871908) The syste m which generated this result transmitted ref erence range: 10*3/?L. The reference range was not used to interpr et this result as normal/abnormal . GRAN MAT (NEUT) % 59.9 % (test code = 770-8) IMM GRAN % (test 0.20 % code = 9114060558) LYMPH % (test code 31.7 % = 736-9) MONO % (test code 6.8 % = 5905-5) EOS % (test code = 0.9 % 713-8) BASO % (test code 0.5 % = 706-2) GRAN MAT 5.20 10*3/uL 1.88-7.09 x10^3(ANC) (test code = 6806069691) IMM GRAN x10^3 <0.03 0.00-0.06 (test code = 2552613928) LYMPH x10^3 (test 2.75 10*3/uL 1.32-3.29 code = 731-0) MONO x10^3 (test 0.59 10*3/uL 0.33-0.92 code = 742-7) EOS x10^3 (test 0.08 10*3/uL 0.03-0.39 code = 711-2) BASO x10^3 (test 0.04 10*3/uL 0.01-0.07 code = 704-7) [facility] US PELVIS [id number] 11:04:00 [facility] : 1995 Sex: F Patient Name: MEME HERNANDEZ Unit No: [id number] EXAMS: CPT CODE: [id number] US PELVIS COMPLETE 76755 EXAM:US, US TRANSVAGINAL W/PELVIS: 08/21/2020, 0035 hours EXAM: US, DUP AB/PEL/SC LTD: 08/21/2020, 0035 hours Clinical Indication: Left lower quadrant pain. Comparison: Ultrasound dated 08/04/2019. TECHNIQUE: Technique: Grayscale, color and Doppler transabdominal and transvaginal imaging of the pelvis was p erformed with standard technique. FINDINGS: Transabdominal pelvic ultrasound: UTERUS: There is an anteverted uterus measuring 8.0 x 4.7 x 6.2 cm in size. Normal uterine contour and morphology. There isnormal parenchymal echotexture. The endometrial stripe measures 8.3 mm in thickness. OVARIES: RIGHT:3.5 x 2.4 x 2.1 cm. LEFT: 3.8 x 3.9 x 3.3 cm. A 2.2 x 2.1 x 2.2 cm cyst is seen in the left ovary. There are no adnexal masses. The limited Doppler images show normal bilateral ovarian blood flow. Transvaginal pelvic ultrasound: UTERUS: There is an anteverted uterus measuring 8.7 x 4.3 x 5.2 cm in size. Normal uterine contour and morphology. There is normal parenchymal echotexture. The endometrial stripe measures 11.4 mm in thickness. OVARIES: RIGHT: 3.0 x 2.1 x 2.2 cm. LEFT: 4.0 x 3.0 x 3.0 cm. A 2.3 x 2.2 x 2.1 cm cyst is seen in the left ovary. There are no adnexal masses. The limited Doppler images show normal bilateral ovarian blood flow. OTHER FINDINGS: Small free fluid in the cul-de-sac. If there is further concern, followup pelvic sonography or MRI of the pelvis may be performed. IMPRESSION: [facility] NAME: JACINTO HERNANDEZA Radiology Department PHYS: Lawson Regalado [address] : 1995 AGE: 24 SEX: F [place], [place] [address] LOC: [facility] PHONE #: [phone] EXAM DATE: 08/21/2020 STATUS: [facility] ER FAX #: [phone] RAD NO: Page 1 Signed Report (CONTINUED) Patient Name: MEME HERNANDEZ Unit No: [id number] EXAMS: CPT CODE: [id number] US PELVIS COMPLETE 92967 (Continued) 1. Left ovarian cyst 2. Small free fluid seen in the cul-de-sac. SL: DANYELL at 1104 Reported and signed by: Td Hylton M.D. CC: Lawson Moreland MD Technologist: TAI MCKEON RDMS, RVT Probe: Trnscrbd D/ (1104) Champ.JS38 Orig Print D/T: S: 08/22/2020 (1105) [facility] NAME: BOYNYMARIANOMEME Radiology Department PHYS: Lawson Regalado [address]inDOB: 1995 AGE: 24 SEX: F [place] [address] LOC: PattieERS PHONE #: [phone] EXAM DATE: 08/21/2020 STATUS: DEP ER FAX #: [phone] RAD NO: Page 2 Signed Report Patient Name: MEME HERNANDEZ Unit No: [id number] EXAMS: CPT CODE: [id number] US PELVIS COMPLETE 95352 (Continued) [facility] NAME[facility] Radiology Department PHYS: Lawson [address] : 1995 AGE: 24 SEX: F [place] [address] LOC: PattieERS PHONE #: [phone] EXAM DATE: 08/21/2020 STATUS: DEP ER FAX #: [phone] RAD NO: Page 3Signed Report- DUP AB/PEL/SC/[id number] 02:25:[address] [facility] : 1995 Sex: F Patient Name: MEME HERNANDEZ Unit No: [id number] EXAMS: CPT CODE: [id number] DUP AB/PEL/SC/LTD 52411 EXAM: US, US TRANSVAGINAL W/PELVIS: 08/21/2020, 0035 hours EXAM: US, DUP AB/PEL/SC LTD: 08/21/2020, 0035 hours Clinical Indication: Left lower quadrant pain. Comparison: Ultrasound dated 08/04/2019. TECHNIQUE: Technique: Grayscale, color and Doppler transabdominal and transvaginal imaging of the pelvis was pe rformed with standard technique. FINDINGS: Transabdominal pelvic ultrasound: UTERUS: There is an anteverted uterus measuring 8.0 x 4.7 x 6.2 cm in size. Normal uterine contour and morphology. There is normal parenchymal echotexture. The endometrial stripe measures 8.3 mm in thickness. OVARIES: RIGHT: 3.5 x 2.4 x 2.1 cm. LEFT: 3.8 x 3.9 x 3.3 cm. A 2.2 x 2.1 x 2.2 cm cyst is seen in the left ovary. There are no adnexal masses. The limited Doppler images show normal bilateral ovarian blood flow. Transvaginal pelvic ultrasound: UTERUS: There is an anteverted uterus measuring 8.7 x 4.3 x 5.2 cm in size. Normal uterine contour and morphology. There is normal parenchymal echotexture. The endometrial stripe measures 11.4 mm in thickness. OVARIES: RIGHT: 3.0 x 2.1 x 2.2 cm. LEFT: 4.0 x 3.0 x 3.0 cm. A 2.3 x 2.2 x 2.1 cm cyst is seen in the left ovary. There are no adnexal masses. The limited Doppler images show normal bilateral ovarian blood flow. OTHER FINDINGS: Small free fluid in the cul-de-sac. Ifthere is further concern, followup pelvic sonography or MRI of the pelvis may be performed. IMPRESSION: [facility] NAME: MEME HERNANDEZ Radiology Department PHYS: Lawson [address] : 1995 AGE: 24 SEX: F [place] [address] LOC: PattieERS PHONE #: [phone] EXAM DATE: 08/21/2020 STATUS: REG ER FAX #: [phone] RAD NO: Page 1 Signed Report (CONTINUED) Patient Name: MEME HERNANDEZ Unit No: [id number] EXAMS: CPT CODE: [id number] DUP AB/PEL/SC/LTD 09534 (Continued) 1. Left ovarian cyst 2. Small free fluid seen in the cul-de-sac. SL: DANYELL at 0225 Reported and signed by: Td Hylton M.D. CC: Lawson Moreland MD Technologist: TAI MCKEON RDMS, RVT Probe:Trnscrbd D/ (0225) [email or web address] Orig Print D/T: S: 08/21/2020 (0228) [facility] NAME: [facility] Radiology Department PHYS: Lawson [address] : 1995 AGE: 24 SEX: Lu [place] [address] LOC: CLARKE PHONE #: [phone] EXAM DATE: 08/21/2020 STATUS: REG ER FAX #: [phone] RAD NO: Page 2 Signed Report Patient Name: MEME HERNANDEZ Unit No: [id number] EXAMS: CPT CODE: [id number] DUP AB/PEL/SC/LTD 23957 (Continued) [facility] NAME: [facility] Radiology Department PHYS: Lawson [address] : 1995 AGE: 24 SEX: Lu [place] [address] LOC: PattieERS PHONE #: [phone] EXAM DATE: 08/21/2020 STATUS: REG ER FAX #: [phone] RAD NO: Page 3 Signed Report- US TRANSVAGINAL [id number] 02:25:00 [facility] : 1995 Sex: F Patient Name: MEME HERNANDEZ Unit No: [id number] EXAMS: CPT CODE: [id number] US TRANSVAGINAL W/PELVIS 59137 EXAM: US, US TRANSVAGINAL W/PELVIS: 08/21/2020, 0035 hours EXAM: US, DUP AB/PEL/SC LTD: 08/21/2020,0035 hours Clinical Indication: Left lower quadrant pain. Comparison: Ultrasound dated 08/04/2019. TECHNIQUE: Technique: Grayscale, color and Doppler transabdominal and transvaginal imaging of the pelvis was performed with standard technique. FINDINGS: Transabdominal pelvic ultrasound: UTERUS: There is an anteverted uterus measuring 8.0 x 4.7 x 6.2 cm in size. Normal uterine contour and morphology. There is normal parenchymal echotexture. The endometrial stripe measures 8.3 mm in thickness. OVARIES: RIGHT: 3.5 x 2.4 x 2.1 cm. LEFT: 3.8 x 3.9 x 3.3 cm. A 2.2 x 2.1 x 2.2 cm cyst is seen in the left ovary. There are no adnexal masses. The limited Doppler images show normal bilateral ovarian blood flow. Transvaginal pelvic ultrasound: UTERUS: There is an anteverted uterus measuring 8.7 x 4.3 x 5.2 cm in size. Normal uterine contour and morphology. There is normal parenchymal echotexture. The endometrial stripe measures 11.4 mm in thickness. OVARIES: RIGHT: 3.0 x 2.1 x 2.2 cm. LEFT: 4.0 x 3.0 x 3.0cm. A 2.3 x 2.2 x 2.1 cm cyst is seen in the left ovary. There are no adnexal masses. The limited Doppler images show normal bilateral ovarian blood flow. OTHER FINDINGS: Small free fluid in the cul-de- sac. If there is further concern, followup pelvic sonography or MRI of the pelvis may be performed.IMPRESSION: [facility] NAME: [facility] Radiology Department PHYS: Lawson [address] : 1995 AGE: 24 SEX: F [place] [address] LOC: PattieERS PHONE #: [phone] EXAM DATE: 08/21/2020 STATUS: REG ER FAX #: [phone] RAD NO: Page 1 Signed Report (CONTINUED) Patient Name: MEME HERNANDEZ Unit No: [id number] EXAMS: CPT CODE:[id number] US TRANSVAGINAL W/PELVIS 39338 (Continued) 1. Left ovarian cyst 2. Small free fluid seen in the cul-de-sac. SL: DANYELL at 0225 Reported and signed by: Td Hylton M.D. CC: Lawson Moreland MD Technologist: TAI MCKEON RDMS, T Probe: [id number] Trnscrbd D/ (022) [email or web address] Orig Print D/T: S: 08/21/2020 (0228) [facility] Radiology Department PHYS: Lawson [address] : 1995 AGE: 24 SEX: F [place], [place] [address] LOC: PattieERS PHONE #: [phone] EXAM DATE: 08/21/2020 STATUS: REG ER FAX #: [phone] RAD NO: Page2 Signed Report Patient Name: MEME HERNANDEZ Unit No: [id number] EXAMS: CPT CODE: [id number] US TRANSVAGINAL W/PELVIS 93665 (Continued) [facility] NAME: MEME HERNANDEZ Radiology Department PHYS: Lawson [address] : 1995 AGE: 24 SEX: F [place], [place] [address] LOC: CLARKE PHONE #: [phone] EXAM DATE: 08/21/2020 STATUS: REG ER FAX#: [phone] RAD NO: Page 3 Signed ReportUA RFLX MICR CULT IF INDICATED 2020-08-21 00:47:00 Test Item Value Reference Range Interpretation Comments UA COLOR (test code = COLU) YELLOW YELLOW UA APPEARANCE (test code = CLEAR CLEAR APPU) UA GLUCOSE DIPSTICK (test code NEGATIVE NEG = DGLUU) UA BILIRUBIN DIPSTICK (test NEGATIVE NEG code = BILU) UA KETONE DIPSTICK (test code NEGATIVE NEG = KETU) UA SPECIFIC GRAVITY (test code 1.025 1.001-1.035 N = SGU) UA BLOOD DIPSTICK (test code = NEG NEG ROSEANN) UA PH DIPSTICK (test code = 5.0 5-9 MARK) UA PROTEIN DIPSTICK (test code NEGATIVE NEG = PROU) UA UROBILINIOGEN DIPSTICK NEGATIVE mg/dL NEG (test code = URO) UA NITRITE DIPSTICK (test code NEG NEG = CARTER) UA LEUKOCYTE ESTERASE DIPSTICK TRACE NEG A (test code = LEUU) UA WBC (test code = WBCU) 2-5 #/hpf NONE SEEN A UA RBC (test code = RBCU) 0-2 #/hpf NONE SEEN UA EPITHELIAL CELLS (test code RARE #/HPF RARE-FEW = EPIU) UA BACTERIA (test code = BACU) RARE /HPF RARE-FEW UA MUCUS (test code = MUCU) RARE NONE SEEN Indication for culture: Suprapubic PainSpecimen Description: CLEAN CATCHUR HCG [id number] 00:47:00 Test Item Value Reference Range Interpretation Comments UR HCG QUAL (test NEGATIVE 1. Very di lute urine code = HCGQLU) specimens, as indicated by a lowspecific g ravity, may not contain rep resentative levels ofhCG. 2 . False negative result s may occur when the levels of hCGare below the sensi tivity level of the test. If is still suspec fanta, a first morningurine sp ecimen should be colle cted 48 hours later and tested. Indication for culture: Suprapubic PainSpecimen Description: CLEAN CATCHUA RFLX MICR CULT IF [id number] 00:31:00 Test Item Value Reference Range Interpretation Comments UA COLOR (test code = COLU) YELLOW UA APPEARANCE (test code = APPU) CLEAR UA GLUCOSE DIPSTICK (test code = NEGATIVE DGLUU) UA BILIRUBIN DIPSTICK (test code = NEGATIVE BILU) UA KETONE DIPSTICK (test code = KETU) NEGATIVE UA SPECIFIC GRAVITY (test code = SGU) 1.001-1.035 UA BLOOD DIPSTICK (test code = ROSEANN) NEGATIVE UA PH DIPSTICK (test code = MARK) 5-9 UA PROTEIN DIPSTICK (test code = PROU) NEGATIVE UA UROBILINIOGEN DIPSTICK (test code = mg/dL NEG URO) UA NITRITE DIPSTICK (test code = CARTER) NEGATIVE UA LEUKOCYTE ESTERASE DIPSTICK (test NEG code = LEUU) UA WBC (test code = WBCU) #/hpf NONE SEEN UA EPITHELIAL CELLS (test code = EPIU) #/HPF RARE-FEW Indication for culture: Suprapubic PainSpecimen Description: CLEAN CATCHUR HCG [id number] 00:31:00 Test Item Value Reference Range Interpretation Comments UR HCG QUAL (test NEGATIVE 1. Very di lute urine code = HCGQLU) specimens, as indicated by a lowspecific g ravity, may not contain rep resentative levels ofhCG. 2 . False negative result s may occur when the levels of hCGare below the sensi tivity level of the test. If is still suspec fanta, a first morningurine sp ecimen should be colle cted 48 hours later and tested. Indication for culture: Suprapubic PainSpecimen Description: CLEAN CATCH- US TRANSVAGINAL [id number] 03:14:00 Patient Name: MEME HERNANDEZ Unit No: [id number] EXAMS: CPT CODE: [id number] US TRANSVAGINAL [id number] Pelvic and transvaginal ultrasound dated 08/04/2019. HISTORY: Pelvic pain. Vomiting. A transabdominal pelvic ultrasound was performed with subsequent transvaginal imaging to better visualize the endometrium and adnexa. Correlation is made with a prior pelvic ultrasound dated 10/07/2017. The uterusmeasures approximately 7.0 x 4.4 x 5.6 cm and has a normal contour. The myometrium appears heterogeneous with prominence of the myometrial vessels. No myometrial masses are identified. The endometrium appears within normal limits with an AP thickness of 10 mm. A couple of tiny endometrial cysts are noted. The right ovary measures 2.8 x 1.4 x 1.9 cm and the left ovary measures 3.0 x 2.4 x 1.8 cm. The ovaries maintain normal echotexture. Ovarian blood flow is documented bilaterally using Doppler ultras ound. No adnexal masses are identified. Trace free intraperitoneal fluid is noted in the pelvic cul-de-sac. IMPRESSION: 1. No acute sonographic abnormalities of the pelvis are detected. SL: 131 at 0314 Reported and signed by: Aneudy Ortega MD CC: Jose Luis MD; Gm Cuevas DO Technologist: Martha Wan RDMS Probe: [id number] Trnscrbd D/ (031) Tray Orig Print D/T: S: 08/04/2019 (031) [facility] NAME: MEME HERNANDEZ Radiology Department PHYS: Jose Padilla MD [address] : 1995 AGE: 23 SEX: F [place], [place] [address] LOC: CLARKE PHONE #: [phone] EXAM DATE: 08/04/2019 STATUS: REG ER FAX #: [phone] RAD NO: Page 1 Signed Report Patient Name: MEME HERNANDEZ Unit No: [id number] EXAMS: CPT CODE: [id number] US TRANSVAGINAL W/PELVIS 80489 (Continued) [facility] [place] [facility] NAME: MEME HERNANDEZ Radiology Department PHYS: Jose Walker MD [address] : 1995 AGE: 23 SEX: F [place], [place] [address] LOC: CLARKE PHONE #: [phone] EXAM DATE: 08/04/2019 STATUS: REG ER FAX #: [phone] RAD NO: Page 2 Signed Report- DUP AB/PEL/SC/[id number] 03:14:00 Patient Name: MEME HERNANDEZ Unit No: [id number] EXAMS: CPT CODE: [id number] DUP AB/PEL/SC/LTD 05731 Pelvic and transvaginal ultrasound dated 08/04/2019. HISTORY: Pelvic pain. Vomiting. A transabdominalpelvic ultrasound was performed with subsequent transvaginal imaging to better visualize the endometrium and adnexa. Correlation is made with a prior pelvic ultrasound dated 10/07/2017. The uterus measures approximately 7.0 x 4.4 x 5.6 cm and has a normal contour. The myometrium appears heterogeneous with prominence of the myometrial vessels. No myometrial masses are identified. The endometrium appearswithin normal limits with an AP thickness of 10 mm. A couple of tiny endometrial cysts are noted. The right ovary measures 2.8 x 1.4 x 1.9 cm and the left ovary measures 3.0 x 2.4 x 1.8 cm. The ovariesmaintain normal echotexture. Ovarian blood flow is documented bilaterally using Doppler ultrasound. No adnexal masses are identified. Trace free intraperitoneal fluid is noted in the pelvic cul-de-sac.IMPRESSION: 1. No acute sonographic abnormalities of the pelvis are detected. SL: 131 at 0314 Reported and signed by: Aneudy Ortega MD CC: Jose Luis MD; Gm Cuevas DO Technologist: Martha Wan RDMS Probe: Trnscrbd D/ (0314) t.SDR.DMM Orig Print D/T: S: 08/04/2019 (0317) [facility] NAME: MEME HERNANDEZ Radiology Department PHYS: Jose Padilla MD [address] : 1995 AGE: 23 SEX: F [place] [address] LOC: CLARKE PHONE #: [phone] EXAM DATE: 08/04/2019 STATUS: REG ER FAX #: [phone] RAD NO: Page 1 Signed Report Patient Name: MMEE HERNANDEZ Unit No: [id number] EXAMS: CPT CODE: [id number] DUP AB/PEL/SC/LTD 87574 (Continued) [facility] NAME: MEME HERNANDEZ Radiology Department PHYS: Jose Padilla MD [address] : 1995 AGE: 23 SEX: F [place] [address] LOC: PattieERS PHONE #: [phone] EXAM DATE: 08/04/2019 STATUS: REG ER FAX #: [phone] RAD NO: Page 2 Signed Report- US PELVIS [id number] 03:14:00 Patient Name: MEME HERNANDEZ Unit No: [id number] EXAMS: CPT CODE: [id number] US PELVIS COMPLETE 51026 Pelvic and transvaginal ultrasound dated 08/04/2019. HISTORY: Pelvic pain. Vomiting. A transabdominal pelvic ultrasound was performed with subsequent transvaginal imaging to better visualize the endometrium and adnexa. Correlation is made with a prior pelvic ultrasound dated 10/07/2017. The uterus measures approximately 7.0 x 4.4 x 5.6 cm and has a normal contour. The myometrium appears heterogeneous with prominence of the myometrial vessels. No myometrial masses are identified. The endometrium appears within normal limits with an AP thickness of 10 mm. A couple of tiny endometrial cysts are noted.The right ovary measures 2.8 x 1.4 x 1.9 cm and the left ovary measures 3.0 x 2.4 x 1.8 cm. The ovaries maintain normal echotexture. Ovarian blood flow is documented bilaterally using Doppler ultrasound. No adnexal masses are identified. Trace free intraperitoneal fluid is noted in the pelvic cul-de-sac. IMPRESSION: 1. No acute sonographic abnormalities of the pelvis are detected. SL: 131 at 0314 Reported and signed by: Aneudy Ortega MD CC: Jose Luis MD; Gm Cuevas DO Technologist: Martha Wan RDMS Probe: Trnscrbd D/ (0314) t.SDR.DMM Orig Print D/T: S: 08/04/2019 (0317) [facility] NAME: [facility] Radiology Department PHYS: Jose Padilla MD [address] : 07/1996 AGE: 23 SEX: F [place] [address] LOC: PattieERS PHONE #: [phone] EXAM DATE: 08/04/2019 STATUS: REG ER FAX #: [phone] RAD NO: Page 1 Signed Report Patient Name: MEME HERNANDEZ Unit No: [id number] EXAMS: CPT CODE: [id number] US PELVIS COMPLETE 17218 (Continued) [facility] NAME: [facility] Radiology Department PHYS: Jose Padilla MD [address] : 1995 AGE: 23 SEX: F [place] [address] LOC: Lu.ERS PHONE #: [phone] EXAM DATE: 08/04/2019 STATUS: REG ER FAX #: [phone] RAD NO: Page 2 Signed ReportCBC W/AUTO [id number] 23:55:00 Test Item Value Reference Range Interpretation Comments WHITE BLOOD CELL (test code = WBC) 9.5 K/mm3 6.6-12.1 N RED BLOOD CELL (test code = RBC) 4.06 M/mm3 3.45-5.01 N HEMOGLOBIN (test code = HGB) 11.2 g/dL 10.7-13.9 N HEMATOCRIT (test code = HCT) 34.8 % 32.1-42.1 N MEAN CELL VOLUME (test code = MCV) 86 fL 84.1-94.8 N MEAN CELL HGB (test code = MCH) 27.6 pg 27-35 N MEAN CELL HGB CONCETRATION (test 32.2 gm/dL 32.2-34.1 N code = MCHC) RED CELL DISTRIBUTION WIDTH (test 13.9 % 12.4-16.5 N code = RDW) PLATELET COUNT (test code = PLT) 177 K/mm3 133-385 N IMMATURE PLATELET FRACTION (test 0.0 % 0.0-10.8 N code = IPF) MEAN PLATELET VOLUME (test code = 12.5 fl 9.1-12.7 N MPV) NEUTROPHIL % (test code = NT%) 61.8 % 56.5-79.4 N LYMPHOCYTE % (test code = LY%) 30.3 % 14.3-34.3 N MONOCYTE % (test code = MO%) 6.0 % 5.1-10.4 N EOSINOPHIL % (test code = EO%) 1.5 % 0.1-3.0 N BASOPHIL % (test code = BA%) 0.2 % 0.1-1.0 N NEUTROPHIL # (test code = NT#) 5.8 K/mm3 LYMPHOCYTE # (test code = LY#) 2.9 K/mm3 MONOCYTE # (test code = MO#) 0.6 K/mm3 EOSINOPHIL # (test code = EO#) 0.14 K/mm3 BASOPHIL # (test code = BA#) 0.0 K/mm3 RBC MORPHOLOGY REQUIRED (test code NORMAL NORMAL = RBCM) PLATELET MORPHOLOGY REQUIRED (test NORMAL NORMAL code = PLTMR) HCG [id number] 23:40:00 Test Item Value Reference Range Interpretation Comments HCG SERUM (test <1 INTERPRETATI ON:VALUES BETWEEN code = HCG) 15-20 milliInte rnational units/mL NEED T O BERETESTED WITHIN 48 HOURS . All units for these ranges ar e in milliInternatio nalunits/mL0-1 WK AFTER CONCEP TION 0-50 1-2 WKS AFTER NAKIA PTION 40-3002-3 WKS AFTER NAKIA PTION 100-1,0003-4 WK S AFTER CONCEPTION 500- 6,0001-2 MONTHS AFTER CONCEPTIO N 5,000-200,0002- 3 MONTHS AFTER CONCEPTION 10,0 00-100,0002ND TRIMESTER 3,000 -50,0003RD TRIMESTER 1,000 -50,000 SPECIMENS WITH AN HCG LEVEL FROM 0-6 milliInternatio nalunits/mL SHOULD BE CONSI DERED NEGATIVE CHEMISTRY 7 [id number] 23:27:00 Test Item Value Reference Range Interpretation Comments SODIUM (test code = NA) 141 mEq/L 135-145 N POTASSIUM (test code = K) 3.8 mEq/L 3.5-5.0 N CHLORIDE (test code = CL) 106 mEq/L 100-115 N CARBON DIOXIDE (test code = CO2) 26 mEq/L 22-31 N ANION GAP (test code = GAP) 12.40 10-20 N GLUCOSE (test code = GLU) 95 mg/dL 65-110 N BLOOD UREA NITROGEN (test code = 14 mg/dL 7-18 N BUN) GLOMERULAR FILTRATION RATE (test 156 ml/min >60 N code = GFR) CREATININE (test code = CREAT) 0.5 mg/dL 0.5-1.0 N CALCIUM (test code = CA) 8.7 mg/dL 8.4-10.2 N LIVER [id number] 23:27:00 Test Item Value Reference Range Interpretation Comments TOTAL PROTEIN (test code = PROT) 6.3 gm/dL 6.3-8.2 N ALBUMIN (test code = ALB) 3.4 gm/dL 3.4-4.8 N BILIRUBIN TOTAL (test code = BILT) 0.2 mg/dL 0.2-1.0 N BILIRUBIN DIRECT (test code = 0.1 mg/dL <0.2 N BILD) SGOT/AST (test code = AST) 15 units/L 15-37 N SGPT/ALT (test code = ALT) 22 units/L 12-78 N ALKALINE PHOSPHATASE TOTAL (test 57 units/L 46-116 N code = ALKP) [id number] 23:27:00 Test Item Value Reference Range Interpretation Comments LIPASE (test code = LIP) 129 units/L 73-393 N UA RFLX MICR CULT IF [id number] 22:56:00 Test Item Value Reference Range Interpretation Comments UA COLOR (test code = COLU) YELLOW YELLOW UA APPEARANCE (test code = CLEAR CLEAR APPU) UA GLUCOSE DIPSTICK (test code NEGATIVE NEG = DGLUU) UA BILIRUBIN DIPSTICK (test NEGATIVE NEG code = BILU) UA KETONE DIPSTICK (test code NEGATIVE NEG = KETU) UA SPECIFIC GRAVITY (test code 1.017 1.001-1.035 N = SGU) UA BLOOD DIPSTICK (test code = 2+ NEG A ROSEANN) UA PH DIPSTICK (test code = 6.0 5-9 MARK) UA PROTEIN DIPSTICK (test code NEGATIVE NEG = PROU) UA UROBILINIOGEN DIPSTICK NEGATIVE mg/dL NEG (test code = URO) UA NITRITE DIPSTICK (test code NEG NEG = CARTER) UA LEUKOCYTE ESTERASE DIPSTICK NEG NEG (test code = LEUU) UA WBC (test code = WBCU) 0-2 #/hpf NONE SEEN UA RBC (test code = RBCU) 0-2 #/hpf NONE SEEN UA EPITHELIAL CELLS (test code RARE #/HPF RARE-FEW = EPIU) UA MUCUS (test code = MUCU) RARE NONE SEEN Indication for culture: Suprapubic PainPLACENTA THIRD [id number] 18:16:00 RUN DATE: 02/21/19 [facility] PAGE 1 RUN TIME: 0759 Specimen Inquiry RUN USER: INTERFACE -PATIENT: MEME HERNANDEZ LOC: DURGA U #: [id number] AGE/SX: 23/F ROOM: RE02/17/19REG DR: Gm Cuevas DO : [birth year] BED: A DIS: 02/19/19 STATUS: DIS IN TLOC: SPEC #: [id number] RECD: 02/18/19 STATUS: DESMOND LAFLEUR #: [id number] MAURISIO: 02/18/19- SUBM DR: Gm Cuevas DO ENTERED: 02/19/19 SP TYPE: PLACIII OTHR DR: ORDERED: LEVEL V SURGICA/3 CODES: U90102 - FALLOPIAN TUBE [id number] - PLACENTA, NOS PROCEDURES: LEVEL V SURGICA (Incomplete) TISSUES: PLACENTA, NOS - PLACENTA FALLOPIAN TUBE, NOS - BILATERAL FALLOPIAN TUBES CLINICAL HISTORY 23 year old, IUP @ 32.5 weeks, , section (wpd) FINAL DIAGNOSIS Right fallopian tube, ligation: - completely transected unremarkable fallopian tube Left fallopian tube, ligation: - completely transected unremarkable fallopian tube Placenta, 32.5 weeks gestational age, section: - third trimester placenta, 440 gms (90th percentile) - multifocal villous edema - paramarginally inserted, trivascular umbilical cord and membranes free of inflammation Tissue code 1 CPT code(s): 30182 x2, 246[address] [facility] 02/20/19 GROSS DESCRIPTION DANILO OMIC SOURCE OF TISSUE (per Requisition): 1. Right and left tubal segment 2. Placenta Each specimen is labeled with the patient's name and medical record number. Specimen #1 is designated "right tube" and consists of a 0.7 cm in length and 0.4 cm in diameter pink-purple and hyperemic segment of fallopian tube. The lumen is CONTINUED ON NEXT PAGE RUN DATE: 02/21/19 [facility] PAGE 2 RUN TIME: 758 Specimen Inquiry RUN USER: INTERFACE SPEC #: [id number] PATIENT: MEME HERNANDEZ #[id number] (Continued ) GROSS DESCRIPTION (Continued) pinpoint. Compounding Technician sections are submitted as A1. Specimen #2 is designated "left" and consists of a 1.2 cm in length and 0.4 cm in diameter pink-purple and hyperemic segment of fallopian tube. The lumen is pinpoint. Compounding Technician sections are submitted as B1. The specimenwas received in a container, labeled with the patient's name, unit number and designated "placenta".The following attributes are observed: Cord insertion: 2 cm from margin Cord length: 34 cm Number ofvessels: 3 Cord color: Beltran Other cord findings: Slightly edematous surface findings: Steel blue, wrinkled, glistening with focal subchorionic fibrin deposition Vasculature: Displays unremarkable blood vasculature Membranes rupture site: 4 cm to margin Membrane color: Beltran Other membrane findings:Thickened The trimmed placental weight: 440 gm Disk measurement: 17.0 x 15.0 x 4.0 cm in greatest dimension Accessory lobes: None Maternal surface: Lobulated and intact Parenchyma: Red, beefy, and spongy with peripheral fibrosis Parenchyma lesions: There is a 0.5 cm beltran-yellow, firm, peripheral focus which grossly involves less than 5% of the placental parenchyma Cassettes: C1 through C4 mary/george 02/19/19 @ 1334 Signed Zo Mahan MD 02/20/19 1816 END OF REPORT - CT ANGIO [id number] 14:14:00 Patient Name: MEME HERNANDEZ Unit No: [id number] EXAMS: CPT CODE: [id number] CT ANGIO CHEST 63972 EXAMINATION: CTA of the chest with contrast 02/19/2019. CLINICAL HISTORY: Chest pain. Shortness of breath. COMPARISON: Chest x-ray 02/19/2019. TECHNIQUE: CTA of the chest was performed following intravenousadministration of 100 mL of Isovue 300. Reconstructed images, 2-D sagittal, coronal, and oblique reformatted images, and 3-D mid images were also performed and reviewed. One or more of the following dose techniques were utilized; automated exposure control, adjustment of the mA and/or kV according to patient size, and/or utilization of iterative reconstruction technique. DLP: 736.35 mGy-cm. FINDINGS:The heart and great vessels are within normal limits in appearance. There is no evidence of pulmonary embolism. The thoracic aorta is also within normal limits in appearance. The lungs demonstrate mildbilateral dependent atelectasis, left greater than right. There is no evidence of focal consolidation, pleural effusion, nodule, or mass. The mediastinum is within normal limits in appearance. There isno evidence of hilar or mediastinal lymphadenopathy. The visualized portions of the upper abdomen demonstrate free intraperitoneal air, likely related to recent . The visualized osseous structures are within normal limits. The thyroid is prominent and heterogeneous in appearance. IMPRESSION: 1. No CT evidence of pulmonary embolism. 2. Mild bilateral dependent atelectasis. 3. Free intraperitoneal air likely related to recent . 4. The thyroid is more prominent and heterogeneous in appearance than expected. Consider further evaluation with thyroid ultrasound. [facility] NAME: MEME HERNANDEZ Radiology Department PHYS: Laura Dash MD [address] : 1995 AGE: 23 SEX: F [place] [address] LOC: A PHONE #: [phone] EXAM DATE: 02/19/2019 STATUS: ADM IN FAX #: [phone] RAD NO: Page 1 Signed Report 1 Patient Name: MEME FRIEND Unit No: [id number] EXAMS: CPT CODE: [id number] CT ANGIO CHEST 59795 (Continued) at 1414 Reported and signed by: Geno Rosario MD CC: Gm Cuevas DO; Laura Pryor MD Technologist: Alyse Hernandez RT, CT CTDI: 31.08 DLP: 736.35 Trnscrbd D/ (1414) [facility]: Laura Dash MD [address] : 1995 AGE: 23 SEX: F [place] [address] LOC: A PHONE #: [phone] EXAM DATE: 02/19/2019 STATUS: ADM IN FAX #: [phone] RAD NO: Page 2 Signed Report 1 Patient Name: MEME HERNANDEZ Unit No: [id number] EXAMS: CPT CODE: [id number] CT ANGIO CHEST 26414 (Continued) Orig Print D/T: S: 02/19/2019 (1417) [facility] NAME: MEME HERNANDEZ Radiology Department PHYS: Laura Dash MD [address] : 1995 AGE: 23 SEX: F [place], [place] [address] LOC: F.2013 A PHONE #: [phone] EXAM DATE: 02/19/2019 STATUS: ADM IN FAX #: [phone] RAD NO: Page 3 Signed Report 1BLOOD UREA [id number] 14:03:00 Test Item Value Reference Range Interpretation Comments BLOOD UREA NITROGEN (test code = BUN) 5 mg/dL 7-18 L [id number] 14:03:00 Test Item Value Reference Range Interpretation Comments CREATININE (test code = CREAT) 0.5 mg/dL 0.5-1.0 N - XR CHEST 2 [id number] 12:45:00 Patient Name: MEME HERNANDEZ Unit No: [id number] EXAMS: CPT CODE: [id number] XR CHEST 2 V 44918 CLINICAL HISTORY: chest pain; sob COMPARISON: December 13, 2014. PA and lateral films of the chest demonstrate that heart size is normal. Lung horton are clear. No evidence of pneumonia or congestive failure is seen. There is no evidence of pleural effusion or pneumothorax. Regional skeletal structures are within normal limits. Small amount of free peritoneal air is seen thought to be related to recent . IMPRESSION: No evidence of pneumonia or congestive failure is seen. at 1247 Reported and signed by: Frantz Demarco MD CC: Gm Cuevas DO; Laura Pryor MD Technologist: RT Stone Trnscrbd D/ (0918) Ragini Orig Print D/T: S: 02/19/2019 (1248) [facility] NAME: MEME HERNANDEZ Radiology Department PHYS: Laura Dash MD [address] : 1995 AGE: 23 SEX: F [place], [place] [address] LOC: Pattie2013 A PHONE #: [phone] EXAM DATE: 02/19/2019 STATUS: ADM IN FAX #: [phone] RAD NO: Page 1 Signed ReportHGB [id number] 07:21:00 Test Item Value Reference Range Interpretation Comments HEMOGLOBIN (test code = HGB) 9.9 g/dL 10.7-13.9 L HEMATOCRIT (test code = HCT) 30.7 % 32.1-42.1 L DRUGS OF ABUSE [id number] 02:15:00 Test Item Value Reference Range Interpretation Comments UR COCAINE (test code = NEGATIVE NEGATIVE DETE CTION CUT OFF: COCAU) 150 ng/mL UR CANNABINOIDS (test NEGATIVE NEGATIVE DETECT ION CUT OFF: code = CANU) 50 ng/mL UR AMPHETAMINE (test code NEGATIVE NEGATIVE DE TECTION CUT OFF: = AMPHU) 500 ng/mL UR BARBITURATE QUAL (test NEGATIVE NEGATIVE DE TECTION CUT OFF: code = BARBQLU) 200 ng/mL UR BENZODIAZEPINE (test NEGATIVE NEGATIVE DETE CTION CUT OFF: code = BENZU) 150 ng/mL UR OPIATES QUAL (test NEGATIVE NEGATIVE DETECT ION CUT OFF: code = OPIAQLU) 100 ng/mL UR PHENCYCLIDINE (PCP) NEGATIVE NEGATIVE DETEC TION CUT OFF: (test code = PHENCU) 25 ng/m L AG HEPATITIS B [id number] 01:20:00 Test Item Value Reference Range Interpretation Comments AG HEPATITIS B SURFACE (test code NONREACTIVE NONREACTIVE = HBSAG) Comments to Migration Agent: LDO AIS CONSENT FORM SIGNED FOR HIV TESTING? YAB HEPATITIS C [id number] 01:20:00 Test Item Value Reference Range Interpretation Comments AB HEPATITIS C (test code = NONREACTIVE NONREACTIVE HCVAB) SIGNAL TO CUTOFF (test code = 0.05 <0.80 N CUTOFF) Comments to Migration Agent: LDO AIS CONSENT FORM SIGNED FOR HIV TESTING? YRUBELLA [id number] 01:20:00 Test Item Value Reference Range Interpretation Comments RUBELLA SCREEN 10.9 IUnit/ml Results >10. 0IUnits/ml (test code = are considered positive RUBSC) inaccordance wi th the CLSI guidelines and based on the [employer] S tandard for Anti-Rubell a serum as anindicator of immune status and a br eakpoint to detect mostseropositiv e persons. Comments to Migration Agent: LDO AIS CONSENT FORM SIGNED FOR HIV TESTING? YAB [id number] 01:20:00 Test Item Value Reference Range Interpretation Comments AB TREPONEMA (test code = TREPAB) NONREACTIVE NONREACTIVE Comments to Migration Agent: LDO AIS CONSENT FORM SIGNED FOR HIV TESTING? YAB HIV 1 01:20:00 Test Item Value Reference Range Interpretation Comments AB HIV 1 2 (test NONREACTIVE NONREACTIVE Done by Sie M[employer] code = [id number]) 4th Gen HIV Ag/Ab Combo Screen Comments to Migration Agent: LDO AIS CONSENT FORM SIGNED FOR HIV TESTING? Y URINALYSIS [id number] 01:01:00 Test Item Value Reference Range Interpretation Comments UA COLOR (test code = COLU) YELLOW YELLOW UA APPEARANCE (test code = CLEAR CLEAR APPU) UA GLUCOSE DIPSTICK (test code NEGATIVE NEG = DGLUU) UA BILIRUBIN DIPSTICK (test NEGATIVE NEG code = BILU) UA KETONE DIPSTICK (test code TRACE NEG A = KETU) UA SPECIFIC GRAVITY (test code 1.015 1.001-1.035 N = SGU) UA BLOOD DIPSTICK (test code = NEG NEG ROSEANN) UA PH DIPSTICK (test code = 6.0 5-9 MARK) UA PROTEIN DIPSTICK (test code NEGATIVE NEG = PROU) UA UROBILINIOGEN DIPSTICK NEGATIVE mg/dL NEG (test code = URO) UA NITRITE DIPSTICK (test code NEG NEG = CARTER) UA LEUKOCYTE ESTERASE DIPSTICK NEG NEG (test code = LEUU) UA WBC (test code = WBCU) 0-2 #/hpf NONE SEEN UA RBC (test code = RBCU) 0-2 #/hpf NONE SEEN UA EPITHELIAL CELLS (test code RARE #/HPF RARE-FEW = EPIU) UA MUCUS (test code = MUCU) RARE NONE SEEN URINE SAMPLE: CLEAN CATCHCBC W/AUTO [id number] 00:11:00 Test Item Value Reference Range Interpretation Comments WHITE BLOOD CELL (test code = WBC) 10.1 K/mm3 6.6-12.1 N RED BLOOD CELL (test code = RBC) 3.45 M/mm3 3.45-5.01 N HEMOGLOBIN (test code = HGB) 9.6 g/dL 10.7-13.9 L HEMATOCRIT (test code = HCT) 30.4 % 32.1-42.1 L MEAN CELL VOLUME (test code = MCV) 88 fL 84.1-94.8 N MEAN CELL HGB (test code = MCH) 27.8 pg 27-35 N MEAN CELL HGB CONCETRATION (test 31.6 gm/dL 32.2-34.1 L code = MCHC) RED CELL DISTRIBUTION WIDTH (test 13.6 % 12.4-16.5 N code = RDW) PLATELET COUNT (test code = PLT) 175 K/mm3 133-385 N IMMATURE PLATELET FRACTION (test 0.0 % 0.0-10.8 N code = IPF) MEAN PLATELET VOLUME (test code = 11.5 fl 9.1-12.7 N MPV) NEUTROPHIL % (test code = NT%) 66.4 % 56.5-79.4 N LYMPHOCYTE % (test code = LY%) 25.5 % 14.3-34.3 N MONOCYTE % (test code = MO%) 6.2 % 5.1-10.4 N EOSINOPHIL % (test code = EO%) 1.2 % 0.1-3.0 N BASOPHIL % (test code = BA%) 0.3 % 0.1-1.0 N NEUTROPHIL # (test code = NT#) 6.7 K/mm3 LYMPHOCYTE # (test code = LY#) 2.6 K/mm3 MONOCYTE # (test code = MO#) 0.6 K/mm3 EOSINOPHIL # (test code = EO#) 0.12 K/mm3 BASOPHIL # (test code = BA#) 0.0 K/mm3 RBC MORPHOLOGY REQUIRED (test code NORMAL NORMAL = RBCM) PLATELET MORPHOLOGY REQUIRED (test NORMAL NORMAL code = PLTMR) - US [id number] 23:45:00 Patient Name: MEME HERNANDEZ Unit No: [id number] EXAMS: CPT CODE: [id number] [place] [address] Limited obstetrical ultrasound dated 02/17/2019. HISTORY: 32 week . Evaluate for uterine rupture. A limited transabdominal obstetrical ultrasound was performed and reveals presence of a single intrauterine in cephalic position. cardiac activity is documented with a heart rate of 134 bpm. The placenta is positioned in the fundus and demonstrates grade 2 echotexture. There is no ev idence of placenta previa or retroplacental hemorrhage. Amniotic fluid volume appears within normal limits with a measured RUSTAM of 16.4. The cervix is not well visualized. measurements were not obtained. A anatomic survey was not performed. The ovaries were not identified. No adnexal massesor pelvic fluid collections are imaged. IMPRESSION: 1. Single living intrauterine in cephalic position. SL: 131 at 2345 Reported and signed by: Aneudy Ortega MD CC: Gm Cuevas DO Technologist: Elaine Zhao RDMS Probe: Trnscrbd D/ (2345) t.MEJIARNATA Orig Print D/T: S: 02/17/2019 (7494) [facility] NAME: MEME HERNANDEZ Radiology Department PHYS: Gm Beltran DO [address] : 1995 AGE: 23 SEX: F [place] [address] LOC: F.016 A PHONE #: [phone] EXAM DATE: 02/17/2019 STATUS: ADM IN FAX #: [phone] RAD NO: Page 1 Signed Report P atient Name: MEME HERNANDEZ Unit No: [id number] EXAMS: CPT CODE: [id number] [place] [address]248 (Continued) [facility] NAME: MEME HERNANDEZ Radiology Department PHYS: Gm Beltran DO [address] : 1995 AGE: 23 SEX: F [place] [address] LOC: F.016 A PHONE #: [phone] EXAM DATE: 02/17/2019 STATUS: ADM IN FAX #: [phone] RAD NO: Page 2 Signed Report- US FLW [id number] 15:54:00 Patient Name: MEME HERNANDEZ Unit No: [id number] EXAMS: CPT CODE: [id number] [place] [address] [facility] [address] [place], [place] [address] OBSTETRICAL ULTRASOUND REPORT Pat. Name: MEME HERNANDEZ Pat. No: [id number] Study Date: 12/13/2018 2:18pm , Age: 7 1995, 22 Pregnancies: 5, Para 4 LMP: Unknown GA by 1st: 23w1d GA by US: 22w4d GA Selected: 23w1d (From Known E) SUSAN: 04/10/2019 Referring MD:Bennett Collins M.D. Coal Miner: Michelle Cotto RDMS CPT4: USPREGLTD Hist/Ind: Scan 2: previous c/s/ abd pain ( c/s scar ) CHIN UREMENTS AGE GROWTH EVALUATION Measurement GA Range Srce %for GA Ratios ----- ---- ------- BPD 5.3 cm 22w1d (36z0d-39h0h) Hadl BPD 21% FL/BPD 0.81 (0.71 - 0.87) HC 19.8 cm 21w6d (17m5b-85z2p) Hadl HC 13% FL/AC 0.24 (0.20 - 0.24) APD 5.9 cm APD HC/AC 1.09 (1.03 - 1.22) TAD 5.7 cm TAD CI 0.79 (0.70 - 0.86) AC 18.2 cm 22w6d (20w6d- 24w6d) Hadl AC 43% FL 4.3 cm 23w5d (37s1i-59z7w) Hadl FL 62% HL 4.1 cm 24w5d (71j8z-49s7t) Dionisio HL 77% GA for sonogram 22w4d (34o9h-74j8z) Weight Estimate: based on (BPD,HC,AC,FL) Hadlock Weight: 580 gm (495-665) Hadlock : 1lbs, 4oz Normal: 563 gm (377-1003) Aylin Wt% 52% for 23.1 wks Cervical Length: 3.3 cm Heart Rate: 143 bpm MATERNAL ANATOMY Ovaries LxHxW (cm) Right 2.6 x 1.8 x 1.2 Vol: 2.9cc Left 2.3 x 1.1 x 1.9 Vol: 2.5cc CLINICAL SUMMARY Type of Gestation: Patino Intrauterine in vertex presentati on. size is appropriate for gestational age. growth: Consistent with normal growthFetal motion and organs seen: heart motion seen Placental location: Posterior [facility] Rad[facility] Department PHYS: Tristan Lares III, MD [address] : 1995 AGE: 22 SEX: Lu [place] [address] LOC: CUCO PHONE #: [phone] EXAM DATE: 12/13/2018 STATUS: REG ER FAX #: [phone] RAD NO: Page 1 Signed Report (CONTINUED) Patient Name: MEME HERNANDEZ Unit No: [id number] EXAMS: CPT [place]: [id number] [place] [address] (Continued) Placental maturity : Grade 2 There is no evidence of placenta previa. Amniotic fluid volume is normal. Uterus and adnexa: No significant abnormality is seen. Serena Bean M.D. Electronic Signature 12/13/2018 03:54pm at 1554 Reported and signed by: Serena Bean MD CC: Tristan Sarmiento III, MD Technologist: Michelle Cotto RDMS Probe: Trnscrbd D/ (6450) Pierce Orig Print D/T: S: 12/13/2018 (8599) [facility] NAME: MARIANO HERNANDEZERRA Radiology Department PHYS: Tristan Lares III, MD [address] : 1995 AGE: 22 SEX: [place] [address] LOC: F.CLAY PHONE #: [phone] EXAM DATE: 12/13/2018 STATUS: REG ER FAX #: [phone] RAD NO: Page 2 Signed Report Patient Name: MEME HERNANDEZ Unit No: [id number] EXAMS: CPT CODE: [id number] [place] [address] (Continued) [facility] NAME: MEME HERNANDEZ Radiology Department PHYS: Tristan Lares III, MD [address] : 1995 AGE: 22 SEX: F [place], [place] [address] LOC: PattieCLAY PHONE #: [phone] EXAM DATE: 12/13/2018 STATUS: REG ER FAX #: [phone] RAD NO: Page 3 Signed Report PROTHROMBIN [id number] 14:52:00 Test Item Value Reference Range Interpretation Comments PROTHROMBIN TIME PATIENT (test code 12.4 secs 10.4-12.4 N = PTP) THROMBOPLASTIN TIME [id number] 14:52:00 Test Item Value Reference Range Interpretation Comments THROMBOPLASTIN TIME PARTIAL (test 30.7 secs 22-38 N code = PTT) [id number] 14:52:00 Test Item Value Reference Range Interpretation Comments FIBRINOGEN (test code = FIB) 399 mg/dL 309-518 N DRUGS OF ABUSE [id number] 13:00:00 Test Item Value Reference Range Interpretation Comments UR COCAINE (test code = NEGATIVE NEGATIVE DETE CTION CUT OFF: COCAU) 150 ng/mL UR CANNABINOIDS (test NEGATIVE NEGATIVE DETECT ION CUT OFF: code = CANU) 50 ng/mL UR AMPHETAMINE (test code NEGATIVE NEGATIVE DE TECTION CUT OFF: = AMPHU) 500 ng/mL UR BARBITURATE QUAL (test NEGATIVE NEGATIVE DE TECTION CUT OFF: code = BARBQLU) 200 ng/mL UR BENZODIAZEPINE (test NEGATIVE NEGATIVE DETE CTION CUT OFF: code = BENZU) 150 ng/mL UR OPIATES QUAL (test NEGATIVE NEGATIVE DETECT ION CUT OFF: code = OPIAQLU) 100 ng/mL UR PHENCYCLIDINE (PCP) NEGATIVE NEGATIVE DETEC TION CUT OFF: (test code = PHENCU) 25 ng/m L COMPREHENSIVE METABOLIC [id number] 12:54:00 Test Item Value Reference Range Interpretation Comments SODIUM (test code = NA) 137 mEq/L 135-145 N POTASSIUM (test code = K) 3.6 mEq/L 3.5-5.0 N CHLORIDE (test code = CL) 105 mEq/L 100-115 N CARBON DIOXIDE (test code = CO2) 26 mEq/L 22-31 N ANION GAP (test code = GAP) 10.00 10-20 N GLUCOSE (test code = GLU) 112 mg/dL 65-110 H BLOOD UREA NITROGEN (test code = 6 mg/dL 7-18 L BUN) GLOMERULAR FILTRATION RATE (test 203 ml/min >60 N code = GFR) CREATININE (test code = CREAT) 0.4 mg/dL 0.5-1.0 L TOTAL PROTEIN (test code = PROT) 5.9 gm/dL 6.3-8.2 L ALBUMIN (test code = ALB) 2.8 gm/dL 3.4-4.8 L CALCIUM (test code = CA) 8.0 mg/dL 8.4-10.2 L BILIRUBIN TOTAL (test code = BILT) 0.3 mg/dL 0.2-1.0 N SGOT/AST (test code = AST) 14 units/L 15-37 L SGPT/ALT (test code = ALT) 16 units/L 12-78 N ALKALINE PHOSPHATASE TOTAL (test 46 units/L 46-116 N code = ALKP) URINALYSIS [id number] 12:42:00 Test Item Value Reference Range Interpretation Comments UA COLOR (test code = COLU) YELLOW YELLOW UA APPEARANCE (test code = Slightly-Cloudy CLEAR APPU) UA GLUCOSE DIPSTICK (test NEGATIVE NEG code = DGLUU) UA BILIRUBIN DIPSTICK (test NEGATIVE NEG code = BILU) UA KETONE DIPSTICK (test code NEGATIVE NEG = KETU) UA SPECIFIC GRAVITY (test 1.024 1.001-1.035 N code = SGU) UA BLOOD DIPSTICK (test code NEG NEG = ROSEANN) UA PH DIPSTICK (test code = 6.0 5-9 MARK) UA PROTEIN DIPSTICK (test NEGATIVE NEG code = PROU) UA UROBILINIOGEN DIPSTICK NEGATIVE mg/dL NEG (test code = URO) UA NITRITE DIPSTICK (test NEG NEG code = CARTER) UA LEUKOCYTE ESTERASE TRACE NEG A DIPSTICK (test code = LEUU) UA WBC (test code = WBCU) 6-10 #/hpf NONE SEEN A UA RBC (test code = RBCU) 0-2 #/hpf NONE SEEN UA EPITHELIAL CELLS (test MODERATE #/HPF RARE-FEW A code = EPIU) UA BACTERIA (test code = RARE /HPF RARE-FEW BACU) UA MUCUS (test code = MUCU) 2+ NONE SEEN Comments to Migration Agent: DAGOBERTO SEPULVEDA SAMPLE: CLEAN CATCHCBC W/AUTO DIFF 2018-12-13 12:39:00 Test Item Value Reference Range Interpretation Comments WHITE BLOOD CELL (test code = WBC) 8.7 K/mm3 6.6-12.1 N RED BLOOD CELL (test code = RBC) 3.46 M/mm3 3.45-5.01 N HEMOGLOBIN (test code = HGB) 10.1 g/dL 10.7-13.9 L HEMATOCRIT (test code = HCT) 31.2 % 32.1-42.1 L MEAN CELL VOLUME (test code = MCV) 90 fL 84.1-94.8 N MEAN CELL HGB (test code = MCH) 29.2 pg 27-35 N MEAN CELL HGB CONCETRATION (test 32.4 gm/dL 32.2-34.1 N code = MCHC) RED CELL DISTRIBUTION WIDTH (test 14.6 % 12.4-16.5 N code = RDW) PLATELET COUNT (test code = PLT) 135 K/mm3 133-385 N IMMATURE PLATELET FRACTION (test 0.0 % 0.0-10.8 N code = IPF) MEAN PLATELET VOLUME (test code = 11.6 fl 9.1-12.7 N MPV) NEUTROPHIL % (test code = NT%) 73.9 % 56.5-79.4 N LYMPHOCYTE % (test code = LY%) 19.0 % 14.3-34.3 N MONOCYTE % (test code = MO%) 5.3 % 5.1-10.4 N EOSINOPHIL % (test code = EO%) 1.1 % 0.1-3.0 N BASOPHIL % (test code = BA%) 0.2 % 0.1-1.0 N NEUTROPHIL # (test code = NT#) 6.4 K/mm3 LYMPHOCYTE # (test code = LY#) 1.7 K/mm3 MONOCYTE # (test code = MO#) 0.5 K/mm3 EOSINOPHIL # (test code = EO#) 0.10 K/mm3 BASOPHIL # (test code = BA#) 0.0 K/mm3 RBC MORPHOLOGY REQUIRED (test code NORMAL NORMAL = RBCM) PLATELET MORPHOLOGY REQUIRED (test NORMAL NORMAL code = PLTMR) [] DRUG SCREEN,COMPREHENSIVE (URINE)2018-11-08 13:09:00 Test Item Value Reference Interpretation Comments Range Fluoroquin See Below * These results are for medical Resist 1 (test treatment onl y. * * Analysis code = was performed a s non-forensic Fluoroquin testing. * Resist 1) URINE RESULTS DRUG(S) A (test code = DETECTED: URINE RESULTS) See Comment See Comment A PATIENT RESULTS ARE INDICATED (test code = ABOVE. URINE WA S TESTED FOR THE See Comment) FOLLOWING: ANAL GESICS BARBITURATES PHENCYCLIDINEAN TIARRYTHMICS BENZODIAZEPINE METABS. SEDATIVES/HYPNO TICSANTICONVULSA NTS CANNABINOID S STIMULANTSANTID EPRESSANTS COCAINE METABOL ITE VOLATILESANTIHI STAMINES OPIATES/NARCOTI CSANTIPSYCHOTICS MUSCLE RELAXANT S PLEASE REFER TO CURRENT DIRE CTORY OF SERVICES FOR SP ECIFICS ONWHICH DRUGS ARE TESTE D. SPECIMEN RECEIVED DATE A ND TIME: [facility]] URINALYSIS, [id number] 13:09:00 Test Item Value Reference Range Interpretation Comments COLOR; Normal (test YELLOW YELLOW N code = 5778-6) APPEARANCE (test code CLEAR CLEAR N = APPEARANCE) SPECIFIC GRAVITY; 1.025 1.001-1.035 N Normal (test code = 2965-2) PH; Normal (test code 6.0 5.0-8.0 N = 2756-5) GLUCOSE; Normal (test NEGATIVE NEGATIVE N code = 1547-9) BILIRUBIN; Normal NEGATIVE NEGATIVE N (test code = 50253-7) KETONES; Normal (test NEGATIVE NEGATIVE N code = 25976-7) OCCULT BLOOD; Normal NEGATIVE NEGATIVE N (test code = 33586-1) PROTEIN; Normal (test NEGATIVE NEGATIVE N code = 97754-3) NITRITE; Normal (test NEGATIVE NEGATIVE N code = 65088-0) LEUKOCYTE ESTERASE NEGATIVE NEGATIVE N (test code = LEUKOCYTE ESTERASE) WBC; Normal (test 0-5 < OR = 5 N code = 6690-2) RBC; Normal (test NONE SEEN < OR = 2 N code = 789-8) SQUAMOUS EPITHELIAL 0-5 < OR = 5 CELLS (test code = 22921-4) BACTERIA; Normal NONE SEEN NONE SEEN N (test code = 630-4) HYALINE CAST; Normal NONE SEEN NONE SEEN N SPECIME N RECEIVED DATE (test code = 69709-2) AND TI ME: [id number] [facility]] [id number] DEHYDROGENASE, QUANT.2018-11-08 13:09:00 Test Item Value Reference Range Interpretation Comments [id number] 19.3 {U/g 7.0-20.5 SPECIMEN RECEIVED DEHYDROGENASE (test Hgb} DATE AND TIME: code = [id number] [id number] DEHYDROGENASE) [facility][QH] QUAD [id number] 13:09:00 Test Item Value Reference Interpretation Comments Range INTERPRETATION: See Comment Screen negat clara for open (test code = NTD, Down syndr ome INTERPRETATION:) andTrisomy 18. MSAFP RISK OPEN <1 IN 5000 NTD (test code = 01061-9) AGE RISK DOWN 1 IN 1164 SYNDROME (test code = AGE RISK DOWN SYNDROME) QUAD RISK DOWN <1 IN 5000 SYNDROME (test code = QUAD RISK DOWN SYNDROME) MSS3 TRISOMY 18 <1 IN 5000 RISK (test code = MSS3 TRISOMY 18 RISK) MSAFP (test code 37.1 ng/ml = 84656-4) ADJ MULTIPLE OF 0.41 MEDIAN (test code = ADJ MULTIPLE OF MEDIAN) ESTRIOL, 1.11 ng/ml UNCONJUGATED (test code = ESTRIOL, UNCONJUGATED) HCG (test code = 11.65 {IU/ml} HCG) INHIBIN A (test 71 pg/ml code = INHIBIN A) COMMENTS: (test See Comment This patient 's SUSAN code = COMMENTS:) (estimated date of delivery)was us ed to calculate the g estational age. Performanc e of maternal serum AFP, hCG, estriol, anddim thor inhibin A provides a us eful screening test fordetection of open neural tube defects and somechromos omal abnormalities. It should be noted thatnorma l results can never guara ntee the of anorma l baby and that 2 to 3 per cent of newborns haveso me type of physical or men cristine defect, many of whichar e undetectable th rough any known diagnostictechn ique. See Below (test See Below This is a sc reening test, code = See Below) not a diag nostic test. Noretelmat aldoe m establishing th e risk of chromosomeabnor malities during pregnanc y has been approved by the FDA. This risk assessment report is based in part o ndemographic data provided b y the ordering physic rosalva.It has been observed t hat patients who smoke cigar ettesduring may h ave a slightly increa sed risk of having a false positive ALBERTO screen for Down syndrome ortrisomy 18. P lease notify the laboratory promptly if any data are in correct. For assistance with recalculations, please call your local [facility] oratory. Forassistance w ith interpretation of these results, please contact your local [facility] [facility] licensed professional counselor oror call [phone]( [phone]). Interpretive Cu t-offsScreen Positive For Op en NTD: > or = 2.50 adjusted MOM > or = 1.90 adjusted M OM for Insulin-depende nt diabetics > or = 4.00 ad justed MOM for Twins > or = 3.50 adjusted MOM fo r Twins insulin-depende nt Diabetics > or = 4.50 adjusted MOM fo r TripletsScreen Positive For Down Syndrome: "QUAD Risk Down Syndrome" that equals or exceeds 1 in 270Screen Positive For Tr isomy 18: "MSS3 Trisomy 1 8 Risk" that equals or excee ds 1 in 100 GESTATIONAL AGE 19.9 {WEEKS} (test code = GESTATIONAL AGE) MATERNAL WEIGHT 175 {LBS} (test code = MATERNAL WEIGHT) EST'D DATE OF 03/29/2019 DELIVERY (test code = EST'D DATE OF DELIVERY) SUSAN DETERMINED BY LMP (test code = SUSAN DETERMINED BY) MOTHER'S ETHNIC ORIGIN (test code = MOTHER'S ETHNIC ORIGIN) NUMBER OF FETUSES 1 (test code = NUMBER OF FETUSES) INSULIN-DEPEND NO DIABETIC (test code = INSULIN-DEPEND DIABETIC) REPEAT SPECIMEN NO (test code = REPEAT SPECIMEN) HX OF NEURAL TUBE NO DEFECTS (test code = HX OF NEURAL TUBE DEFECTS) HISTORY OF DOWN NO SYNDROME (test code = HISTORY OF DOWN SYNDROME) DONOR EGG (test NO code = DONOR EGG) Donor Age: Egg NOT GIVEN Retrieval (test code = Donor Age: Egg Retrieval) Cigarette smoker NO SPECIMEN RE CEIVED DATE AND (test code = TIME: Cigarette smoker) [facility][Q] TREPONEMA PALLIDUM AB, PARTICLE [id number] 13:09:00 Test Item Value Reference Range Interpretation Comments TREPONEMA PALLIDUM NONREACTIVE Reference Range: AB, PARTICLE NonreactiveSPEC IMEN AGGLUTINATION (test RECEIVED DATE AND TIME: code = TREPONEMA [id number] PALLIDUM AB, PARTICLE AGGLUTINATION) [facility]] CULTURE, URINE, [id number] 13:09:00 Test Item Value Reference Range Interpretation Comments SOURCE: (test URINE, CLEAN CATCH code = SOURCE:) STATUS: (test FINAL code = STATUS:) Result (test Multiple organisms CFU/mL. T hese code = Result) present, each less organis ms, commonly than 10,000 found onexterna l and internal genita mandy, are consideredt o be colonizers. No further testing performed.SPECI MEN RECEIVED DATE A ND TIME: 318 [facility][Q] OBSTETRIC [id number] 13:09:00 Test Item Value Reference Range Interpretation Comments WHITE BLOOD CELL 9.0 {Thousand/u} 3.8-10.8 N COUNT (test code = WHITE BLOOD CELL COUNT) RED BLOOD CELL 4.04 3.80-5.10 N COUNT (test code = {Million/uL} RED BLOOD CELL COUNT) HEMAGLOBIN; Below 11.5 g/dl 11.7-15.5 Low Threshold (test code = 58189-0) HEMATOCRIT; Below 34.2 % 35.0-45.0 Low Threshold (test code = 4544-3) MCV; Normal (test 84.7 fL 80.0-100.0 N code = 787-2) MCHC; Normal (test 33.6 g/dl 32.0-36.0 N code = 98297-7) RDW; Above High 15.2 % 11.0-15.0 Threshold (test code = 788-0) PLATELET COUNT; 168 {Thousand/u} 140-400 N Normal (test code = 777-3) MPV; Normal (test 12.4 fL 7.5-12.5 N code = 05470-3) ABSOLUTE 6426 {cells/uL} 6946-8370 N NEUTROPHILS (test code = ABSOLUTE NEUTROPHILS) ABSOLUTE 1971 {cells/uL} 850-3900 N LYMPHOCYTES (test code = ABSOLUTE LYMPHOCYTES) ABSOLUTE MONOCYTES 450 {cells/uL} 200-950 N (test code = ABSOLUTE MONOCYTES) ABSOLUTE 126 {cells/uL} 15-500 N EOSINOPHILS (test code = ABSOLUTE EOSINOPHILS) ABSOLUTE BASOPHILS 27 {cells/uL} 0-200 N (test code = ABSOLUTE BASOPHILS) NEUTROPHILS (test 71.4 % N code = NEUTROPHILS) LYMPHOCYTES (test 21.9 % N code = LYMPHOCYTES) MONOCYTES; Normal 5.0 % N (test code = 26619-4) EOSINOPHILS; Normal 1.4 % N (test code = 88014-7) BASOPHILS; Normal 0.3 % N SPECIMEN R ECEIVED (test code = DATE AND TIME: 81626-4) [id number] ANTIBODY SCREEN, NO ANTIBODIES N Reference range No RBC W/REFL ID, DETECTED antibodies de tected TITER AND AG; This assay is a Normal (test code = screenin g test for ) the detection o f red blood cell antibodies. The test is not to be us ed for pretransfus ion screening or fo r the medical managem ent of an alloimmun ized . SPEC IMEN RECEIVED DATE A ND TIME: 318 ABO GROUP (test A code = 883-9) RH TYPE (test code RH(D) POSITIVE SPECIME N RECEIVED = 61494-1) DATE AND TIME: RPR (DX) W/REFL NON-REACTIVE NON-REACTIVE N SPECIMEN REC EIVED TITER AND DATE AND TIME: CONFIRMATORY [id number] TESTING (test code = RPR (DX) W/REFL TITER AND CONFIRMATORY TESTING) HEPATITIS B SURFACE NON-REACTIVE NON-REACTIVE N SPECIMEN RECEIVED ANTIGEN; Normal DATE AND CADEN E: (test code = 709846963724 5195-3) RUBELLA ANTIBODY <0.90 Index Inter pretation (IGG); Below Low ----- ----- --------- Threshold (test <0.90 Not code = 54196-0) consistent w ith Immunity 0.90-0 .99 Equivocal > or = 1.00 Consistent with Immunity The presence of rub sowmya IgG antibody suggests immunization or past or current infe ction withrubella virus.SPECIMEN RECEIVED DATE A ND TIME: 318 [facility][Q] HIV-1/2 Antigen and Antibodies, Fourth Generation, with [id number] 13:09:00 Test Item Value Reference Range Interpretation Comments HIV AG/AB, 4TH NON-REACTIVE NON-REACTIVE N HIV-1 antigen and GEN; Normal HIV-1/HIV-2 ant ibodies were (test code = [place] [address]-4) laboratory evid ence of HIVinfection. Yandel RAY NOTE: This informatio n has been disclosed toyou from records whose confidentiality may beprotected by state law. If your state r equires suchprotection, then the state law prohi bits you frommaking any further disclosure of t he informationwith out the specific writte n consent of the personto wh om it pertains, or as otherwise permitted by katharina montes.A general authorization f or the release of medi jeanine orother information is NOT sufficient for this purpose. For ad ditional information ple ase refer tohttp://educat ion.[employer]/fa q/OMN639(Thi s link is being provided for informational/e ducational purposes only.) The performance of this assay has not been clinicallyvalid ated in patients less t encinas 2 years old. SPECIMEN R ECEIVED DATE AND TIME: 1476106 [facility]. [facility] - Affirm VPIII (BV Panel)2018-11-08 00:00:00 Test Item Value Reference Range Interpretation Comments Affirm VPIII (BV Panel) REPORT See Comment (test code = Affirm VPIII (BV Panel) REPORT) ID PhysiciansCOMPREHENSIVE METABOLIC [id number] 20:23:00 Test Item Value Reference Range Interpretation Comments SODIUM (test code = NA) 137 mEq/L 135-145 N POTASSIUM (test code = K) 3.5 mEq/L 3.5-5.0 N CHLORIDE (test code = CL) 103 mEq/L 100-115 N CARBON DIOXIDE (test code = CO2) 25 mEq/L 22-31 N ANION GAP (test code = GAP) 12.70 10-20 N GLUCOSE (test code = GLU) 99 mg/dL 65-110 N BLOOD UREA NITROGEN (test code = 10 mg/dL 7-18 N BUN) GLOMERULAR FILTRATION RATE (test 127 ml/min >60 N code = GFR) CREATININE (test code = CREAT) 0.6 mg/dL 0.5-1.0 N TOTAL PROTEIN (test code = PROT) 6.0 gm/dL 6.3-8.2 L ALBUMIN (test code = ALB) 3.0 gm/dL 3.4-4.8 L CALCIUM (test code = CA) 8.3 mg/dL 8.4-10.2 L BILIRUBIN TOTAL (test code = BILT) 0.3 mg/dL 0.2-1.0 N SGOT/AST (test code = AST) 15 units/L 15-37 N SGPT/ALT (test code = ALT) 14 units/L 12-78 N ALKALINE PHOSPHATASE TOTAL (test 41 units/L 46-116 L code = ALKP) HCG [id number] 20:23:00 Test Item Value Reference Range Interpretation Comments HCG SERUM (test 8508 INTERPRETATI ON:VALUES BETWEEN code = HCG) 15-20 milliInte rnational units/mL NEED T O BERETESTED WITHIN 48 HOURS . All units for these ranges ar e in milliInternatio nalunits/mL0-1 WK AFTER CONCEP TION 0-50 1-2 WKS AFTER NAKIA PTION 40-3002-3 WKS AFTER NAKIA PTION 100-1,0003-4 WK S AFTER CONCEPTION 500- 6,0001-2 MONTHS AFTER CONCEPTIO N 5,000-200,0002- 3 MONTHS AFTER CONCEPTION 10,0 00-100,0002ND TRIMESTER 3,000 -50,0003RD TRIMESTER 1,00 0-50,000 SPECIMENS WITH AN HCG LEVEL FROM 0-6 milliInternatio nalunits/mL SHOULD BE CONSI DERED NEGATIVE UA RFLX MICR CULT IF [id number] 20:15:00 Test Item Value Reference Range Interpretation Comments UA COLOR (test code = COLU) STRAW YELLOW UA APPEARANCE (test code = CLEAR CLEAR APPU) UA GLUCOSE DIPSTICK (test code NEGATIVE NEG = DGLUU) UA BILIRUBIN DIPSTICK (test NEGATIVE NEG code = BILU) UA KETONE DIPSTICK (test code NEGATIVE NEG = KETU) UA SPECIFIC GRAVITY (test code 1.008 1.001-1.035 N = SGU) UA BLOOD DIPSTICK (test code = NEG NEG ROSEANN) UA PH DIPSTICK (test code = 7.0 5-9 MARK) UA PROTEIN DIPSTICK (test code NEGATIVE NEG = PROU) UA UROBILINIOGEN DIPSTICK NEGATIVE mg/dL NEG (test code = URO) UA NITRITE DIPSTICK (test code NEG NEG = CARTER) UA LEUKOCYTE ESTERASE DIPSTICK TRACE NEG A (test code = LEUU) UA WBC (test code = WBCU) 0-2 #/hpf NONE SEEN UA RBC (test code = RBCU) 0-2 #/hpf NONE SEEN UA EPITHELIAL CELLS (test code RARE #/HPF RARE-FEW = EPIU) UA BACTERIA (test code = BACU) RARE /HPF RARE-FEW PROTHROMBIN [id number] 20:06:00 Test Item Value Reference Range Interpretation Comments PROTHROMBIN TIME PATIENT (test code 12.3 secs 10.4-12.4 N = PTP) THROMBOPLASTIN TIME [id number] 20:06:00 Test Item Value Reference Range Interpretation Comments THROMBOPLASTIN TIME PARTIAL (test 30.1 secs 22-38 N code = PTT) [id number] 20:06:00 Test Item Value Reference Range Interpretation Comments FIBRINOGEN (test code = FIB) 385 mg/dL 309-518 N - US PREG AFTER [id number] 19:04:00 Patient Name: MEME HERNANDEZ Unit No: [id number] EXAMS: CPT CODE: [id number] US PREG AFTER TRI 07389 TRANSABDOMINAL OBSTETRICAL PELVIC ULTRASOUND INDICATION: 21 WEEKS, PREVIA . TECHNIQUE: Transabdominal obstetrical pelvic ultrasound was performed with turcios scale and Doppler images. COMPARISONS: Obstetric ultrasound 03/31/2018 FINDINGS: The cervix is closed and the cervical length is 3.6 cm. The placenta is posterior and terminates 3.8 cm from the internal cervical os. There is no evidence of placen ta previa or placental abruption. There is a single viable intrauterine gestation in variable presentation. The spine appears normal as visualized. There is a three-vessel umbilical cord. The urinary bladder appears normal. The placental umbilical cord insertion appears normal. The kidneys are normal. The lower extremities appear normal. The stomach is normal. There is a four-chamber heart. The heart rate is 144 bpm. The upper extremities appear normal. The facialstructures are normal. The brain appears normal. There is no hydrocephalus. The cerebellum appears normal. There is a normal interhemispheric fissure. The amniotic fluid volume appears normal with the largest vertical pocket measuring 4.5 cm. BIOMETRY: Biparietal diameter: 3.7 cm. 17 weeks1 day Head circumference: 13.4 cm. 16 weeks 6 days Abdominal circumference: 11.8 cm. 17 weeks 1 day Femur length: 2.9 cm. 18 weeks 4 days Humerus length: 2.8 cm. 19 weeks 0 days Estimated weight: 222 g. The maternal right ovary measures 2.5 x 1.6 x 2.8 cm. There is normal color Doppler blood flow. There is a normal low resistance venous spectral Doppler waveform with peak velocity of 10 cm/s. The left ovary measures 2.6 x 0.9 x 2.7 cm. There is a normal low resistance arterial and venous spectral Doppler waveform with peak velocity of 15 cm/s. IMPRESSION: 1. There is a single viable intrauterine gestation in variable presentation. The estimated gestational age is 17 weeks and 6 days. The estimated date of delivery is 04/09/2019. 2. There is no placenta previa or placental abruption. 3. The cervix is closed and the cervical length is 3.6 cm. 4. The amniotic fluid volume appears qualitatively normal. [facility] NAME: BOYCHLOEMEME Radiology Department PHYS: Sarah Arboleda MD [address] : 1995 AGE: 22 SEX: F [place], [place] [address] LOC: [place] PHONE #: [phone] EXAM DATE: 11/05/2018 STATUS: REG ER FAX #: [phone] RAD NO: Page 1 Signed Report (CONTINUED) Patient Name: MEME HERNANDEZ Unit No: [id number] EXAMS: CPT CODE: [id number] US PREG AFTER TRI 30356 (Continued) [id number] Reported and signed by: Devendra Chappell DO CC: Sarah Lopez MD Technologist: Elaine Zhao RDMS Probe: Trnscrbd D/ (1903) SharonR.[email or web address] Orig Print D/T: S: 11/05/2018 (190) [facility] NAME: MEME HERNANDEZ Radiology Department PHYS: Sarah Arboleda MD [address] : 1995 AGE: 22 SEX: F [place] [address] LOC: Lu.ERS PHONE #: [phone] EXAM DATE: 11/05/2018 STATUS: REG ER FAX #: [phone] RAD NO: Page 2 Signed Report Patient Name: MEME HERNANDEZ Unit No: [id number] EXAMS: CPT CODE: [id number] US PREG AFTER TRI 49739 (Continued) [facility] NAME: MEME HERNANDEZ Radiology Department PHYS: Sarah Arboleda MD [address] : 1995 AGE: 22 SEX: F [place] [address] LOC: Lu.ERS PHONE #: [phone] EXAM DATE: 11/05/2018 STATUS: REG ER FAX #: [phone] RAD NO: Page3 Signed ReportLEX[facility] W/AUTO [id number] 18:24:00 Test Item Value Reference Range Interpretation Comments WHITE BLOOD CELL (test code = WBC) 9.2 K/mm3 6.6-12.1 N RED BLOOD CELL (test code = RBC) 3.66 M/mm3 3.45-5.01 N HEMOGLOBIN (test code = HGB) 10.2 g/dL 10.7-13.9 L HEMATOCRIT (test code = HCT) 31.9 % 32.1-42.1 L MEAN CELL VOLUME (test code = MCV) 87 fL 84.1-94.8 N MEAN CELL HGB (test code = MCH) 27.9 pg 27-35 N MEAN CELL HGB CONCETRATION (test 32.0 gm/dL 32.2-34.1 L code = MCHC) RED CELL DISTRIBUTION WIDTH (test 14.9 % 12.4-16.5 N code = RDW) PLATELET COUNT (test code = PLT) 143 K/mm3 133-385 N IMMATURE PLATELET FRACTION (test 6.8 % 0.0-10.8 N code = IPF) MEAN PLATELET VOLUME (test code = 12.8 fl 9.1-12.7 H MPV) NEUTROPHIL % (test code = NT%) 74.1 % 56.5-79.4 N LYMPHOCYTE % (test code = LY%) 19.3 % 14.3-34.3 N MONOCYTE % (test code = MO%) 4.7 % 5.1-10.4 L EOSINOPHIL % (test code = EO%) 1.4 % 0.1-3.0 N BASOPHIL % (test code = BA%) 0.2 % 0.1-1.0 N NEUTROPHIL # (test code = NT#) 6.8 K/mm3 LYMPHOCYTE # (test code = LY#) 1.8 K/mm3 MONOCYTE # (test code = MO#) 0.4 K/mm3 EOSINOPHIL # (test code = EO#) 0.13 K/mm3 BASOPHIL # (test code = BA#) 0.0 K/mm3 RBC MORPHOLOGY REQUIRED (test code NORMAL NORMAL = RBCM) PLATELET MORPHOLOGY REQUIRED (test NORMAL NORMAL code = PLTMR) PLACENTA THIRD [id number] 14:26:00 RUN DATE: 04/04/18 [facility] PAGE 1 RUN TIME: 1704 Specimen Inquiry RUN USER: INTERFACE -PATIENT: MEME HERNANDEZ LOC: RANGEL #: [id number] AGE/SX: 22F ROOM: 3034 RE03/31/18REG DR: Yaneth Guidry MD : [birth year] BED: A DIS: 04/04/18 STATUS: DIS IN TLOC: SPEC #: [id number] RECD: 04/02/18 STATUS: DESMOND LAFLEUR #: [id number] MAURISIO: 04/02/18- SUBM DR: Yaneth Guidry MD ENTERED: 04/03/18 SP TYPE: PLACIII OTHR DR: Norris Gonsalves MD ORDERED: LEVEL V SURGICA CODES: [id number] - PLACENTA, NOS COPIES TO: Yaneth Guidry MD [address] [facility] [address] [place], [place] [id number] Norris Gonsalves MD [address] [facility] [address] [place], [place] [id number] PROCEDURES: LEVEL V SURGICA (Incomplete) TISSUES: PLACENTA, NOS - PLACENTA CLINICAL HISTORY 22 year old, 29.3 weeks, , section, IUGR, prematu rity, previa (kr) FINAL DIAGNOSIS Placenta, section: - placenta with third trimester morphology (141 gms), mean placental weight at 29 weeks - 293 gms (placenta is very small for dates, much less than the 10th percentile for weight at 29 weeks) - accelerated villous maturation with multifocalincrease in the syncytial knots, suggestive of hypoperfusion - distal villous hypoplasia, multifocal(see comment) - 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 Pathologic features of uteroplacental malperfusion can be seen in maternal conditions with a component of vascular disease (preeclampsia, hypertension, diabetes mellitus, and autoimmunity). There can be an increased risk for recurrence in future pregnancies. CONTINUED ON NEXT PAGE RUN DATE: 04/04/18 [facility] PAGE 2 RUN TIME: 1704 Specimen Inquiry RUN USER: INTERFACE ----- -------SPEC #: [id number] PATIENT: MEME HERNANDEZ #[id number] (Continued) FINAL DIAGNOSIS (Continued) Tissue code 1 CPT code(s): 96710 pkg/wpd 04/04/18 @ 1419 GROSS DESCRIPTION The specimen was received in a container, labeledwith the patient's name, unit number and designated "placenta". The following attributes are observed: Cord insertion: 1 cm from margin Cord length: 9 cm Number of vessels: 3 Cord color: Blue-beltran Othercord findings: None surface findings: Steel blue, wrinkled, glistening Vasculature: Displays unremarkable blood vasculature Membranes rupture site: 0.0 cm to margin Membrane color: Beltran Other membrane findings: Slightly thickened and opaque with only scant membranes noted along the edge of the placental disc The trimmed placental weight: 141 gm Disk measurement: 13 x 9 x 2.8 cm in greatest dimension Accessory lobes: None Maternal surface: Lobulated and intact Parenchyma: Red, beefy, and spongy Parenchyma lesions: None Cassettes: A through D /wpd 04/03/18 @ 1156 MICROSCOPIC DESCRIPTION The matt centa is composed of small vascular villi which are much smaller and more mature than expected for the given gestational age. Multifocal increase in the syncytial knots is present. Multifocal distal villous hypoplasia is present. The trivascular umbilical cord and membranes are free of inflammation. The decidual blood vessels are muscularized. marcellus/george 04/04/18 @ 1420 Signed Cynthia Ma 04/04/18 1426 END OF REPORT
[2022-05-30] MEDS ORDERED: TETANUS & DIPHTHERIA TOX,ADULT 0.5 ML VIAL ONE (14:43)
[2022-05-30] MEDS ORDERED: HYDROCODONE/APAP 5/325 MG TAB ONE (14:43)
[2022-05-30] MEDS ORDERED: LIDOCAINE 1% MPF 30 ML VIAL ONE (14:44)
--- NOTE | 2022-05-30 16:19 | RAD REPORT ---
EXAM DESCRIPTION: - Finger-Thumb Left - 05/30/2022 3:50 pm CLINICAL HISTORY: PAIN COMPARISON: No comparisons FINDINGS: No left hand fractures identified. Laceration to the second digit. No radiopaque foreign b odies identified. IMPRESSION: No radiopaque foreign body or fracture identified.
--- NOTE | 2022-05-30 16:20 | ER ---
Nurse's Notes [facility] Name: Lilliana Aragon Age: 26 yrs Sex: Female : 1995 Arrival Date: 05/30/2022 Time: 14:05 Bed 9 Private MD: Diagnosis: Laceration without foreign body of left index finger without damage to nail Presentation: 05/30 14:10 Chief complaint: Left index finger laceration from cleaning up glass today. Bleeding hb controlled. Coronavirus screen: At this time, the client does not indicate any symptoms associated with coronavirus-19. Ebola Screen: No symptoms or risks identified at this time. Initial Sepsis Screen: Does the patient meet any 2 criteria? No. Patient's initial sepsis screen is negative. Does the patient have a suspected source of infection? No. Patient's initial sepsis screen is negative. Risk Assessment: Do you want to hurt yourself or someone else? Patient reports no desire to harm self or others. Onset of symptoms was May 30, 2022. 14:10 Method Of Arrival: Ambulatory hb 14:10 Acuity: CRISTAL 4 hb Historical: - Allergies: 14:11 Benadryl; hb 14:11 Amoxicillin; hb - Home Meds: 14:11 None [Active]; hb - PMHx: 14:11 None; hb - PSHx: 14:11 ; hb - Immunization history:: Last tetanus immunization: unknown. - Social history:: Smoking status: Patient denies any tobacco usage or history of. Screenin:09 Abuse screen: Denies threats or abuse. Denies injuries from another. Nutritional eh3 screening: No deficits noted. Tuberculosis screening: No symptoms or risk factors identified. Fall Risk None identified. Assessment: 14:09 General: Appears distressed, uncomfortable, Behavior is cooperative, appropriate for eh3 age, anxious. Pain: Complains of pain in palmar aspect of proximal phalanx of left index finger Pain radiates to left hand Pain currently is 10 out of 10 on a pain scale. Quality of pain is described as sharp, throbbing, Pain began 1 hour ago. Is continuous, Alleviated by nothing. Noted to be grimacing, guarding, resistant to movement. Neuro: Level of Consciousness is awake, alert, obeys commands, Oriented to person, place, time, situation. Cardiovascular: Capillary refill < 3 seconds Patient's skin is warm and dry. Respiratory: Airway is patent Respiratory effort is even, unlabored, Respiratory pattern is regular, symmetrical. GI: No signs and/or symptoms were reported involving the gastrointestinal system. : No signs and/or symptoms were reported regarding the genitourinary system. EENT: No signs and/or symptoms were reported regarding the EENT system. Derm: Skin is healthy with good turgor. Musculoskeletal: Circulation, motion, and sensation intact. Range of motion: intact in all extremities. Injury Description: Laceration sustained to palmar aspect of proximal phalanx of left index finger is 0.5 to 2.5 cm long, was sustained 30-60 minutes ago. a small amount of bleeding noted at this time. 15:00 Reassessment: Patient and/or family updated on plan of care and expected duration. Pain eh3 level reassessed. Patient is alert, oriented x 3, equal unlabored respirations, skin warm/dry/pink. 16:00 Reassessment: Patient and/or family updated on plan of care and expected duration. Pain eh3 level reassessed. Patient is alert, oriented x 3, equal unlabored respirations, skin warm/dry/pink. Vital Signs: 14:10 BP 132 / 88; Pulse 86; Resp 16; Temp 98.1; Pulse Ox 100% on R/A; Weight 63.5 kg; Height hb 5 ft. 3 in. (160.02 cm); Pain 8/10; 14:51 BP 135 / 90; Pulse 92; Resp 18; Pulse Ox 100% on R/A; Pain 10/10; eh3 16:00 BP 137 / 87; Pulse 89; Resp 18; Pulse Ox 100% on R/A; Pain 10/10; eh3 14:10 Body Mass Index 24.80 (63.50 kg, 160.02 cm) hb ED Course: 14:05 Patient arrived in ED. am2 14:07 Anam Scott PA is PHCP. cp 14:07 Torsten Alejandre MD is Attending Physician. cp 14:09 Patient has correct armband on for positive identification. Bed in low position. Call eh3 light in reach. Adult w/ patient. Pulse ox on. Pulse ox on. Door closed. Noise minimized. Lights dimmed. Warm blanket given. 14:11 Triage completed. hb 14:11 Arm band placed on. hb 14:21 Jessica Cisneros, RN is Primary Nurse. eh3 15:52 XRAY Finger-Thumb Left In Process Unspecified. EDMS 16:31 No provider procedures requiring assistance completed. Patient did not have IV access eh3 during this emergency room visit. Dressings: Kerlix X 1; left hand. Administered Medications: 14:51 Drug: Tetanus-Diphtheria Toxoid Adult 0.5 ml {Wrapper Leaf Inspector: vocaltap. Exp: eh3 12/26/2023. Lot #: [id number]. } Route: IM; Site: right deltoid; 15:55 Follow up: Response: No adverse reaction eh3 14:52 Drug: HYDROcodone-acetaminophen 5 mg-325 mg 1 tabs Route: PO; eh3 15:55 Follow up: Response: Pain is decreased eh3 15:20 Drug: Lidocaine (1 %) 10 ml {Note: administered by RONN Crury.} Volume: 20 ml; eh3 Route: Infiltration; 15:55 Follow up: Response: Pain is decreased eh3 Medication: 14:51 Vaccine Information Statement (VIS) provided today. Questions and/or concerns eh3 addressed. VIS edition date: March 13, 2021. Outcome: 16:19 Discharge ordered by MD. cp 16:31 Discharged to home ambulatory, with significant other. eh3 16:31 Condition: stable 16:31 Discharge instructions given to patient, significant other, Instructed on discharge instructions, follow up and referral plans. medication usage, wound care, Demonstrated understanding of instructions, follow-up care, medications, wound care, Prescriptions given X 1. 16:37 Patient left the ED. eh3 Signatures: Dispatcher [employer] EDID Anam Scott PA PA cp Ce Garcia RN RN Dleia Clay am2 Jesscia Cisneros, RN RN eh3 Corrections: (The following items were deleted from the chart) 14:11 14:10 Immunization history: Adult Immunizations up to date, [facility] 14:27 14:09 Pain: Complains of pain in palmar aspect of middle phalanx of right index finger eh3 Pain radiates to right hand Pain currently is 10 out of 10 on a pain scale. Quality of pain is described as sharp, throbbing, Pain began 1 hour ago. Is continuous, Alleviated by nothing. Noted to be grimacing, guarding, resistant to movement, [facility] 14: 14:09 Injury Description: Laceration sustained to palmar aspect of proxima; phalanx of eh3 right index finger is 0.5 to 2.5 cm long, was sustained 30-60 minutes ago. a small amount of bleeding noted at this time. [facility] : 14:09 Pain: Complains of pain in palmar aspect of proxima; phalanx of right index 3 finger Pain radiates to right hand Pain currently is 10 out of 10 on a pain scale. Quality of pain is described as sharp, throbbing, Pain began 1 hour ago. Is continuous, Alleviated by nothing. Noted to be grimacing, guarding, resistant to movement, [facility]
--- NOTE | 2022-05-30 16:20 | EDPHYS ---
Physician Documentation [facility] Name: Lilliana Aragon Age: 26 yrs Sex: Female : 1995 Arrival Date: 05/30/2022 Time: 14:05 Bed 9 Private MD: ED Physician Torsten Alejandre HPI: 05/30 14:45 This 26 yrs old Female presents to ER via Ambulatory with complaints of Finger Injury, cp Laceration. 14:45 The patient or guardian reports a laceration. cp 14:45 The complaints affect the radial side middle phalanx left index finger. Context: cp resulted from piece of broken glass. Onset: The symptoms/episode began/occurred just prior to arrival. Associated signs and symptoms: The patient has no apparent associated signs or symptoms. Historical: - Allergies: 14:11 Benadryl; hb 14:11 Amoxicillin; hb - Home Meds: 14:11 None [Active]; hb - PMHx: 14:11 None; hb - PSHx: 14:11 ; hb - Immunization history:: Last tetanus immunization: unknown. - Social history:: Smoking status: Patient denies any tobacco usage or history of. ROS: 14:50 Constitutional: Negative for body aches, chills, fever, poor PO intake. cp 14:50 Cardiovascular: Negative for chest pain, palpitations. cp 14:50 Respiratory: Negative for cough, shortness of breath, wheezing. 14:50 Abdomen/GI: Negative for abdominal pain, nausea, vomiting, and diarrhea. 14:50 Skin: Positive for laceration(s), of the radial side middle phalanx left index finger. 14:50 All other systems are negative. Exam: 14:55 Constitutional: The patient appears in no acute distress, alert, awake, well developed, cp well nourished. 14:55 Head/Face: Normocephalic, atraumatic. cp 14:55 Cardiovascular: Rate: normal. 14:55 Respiratory: the patient does not display signs of respiratory distress, Respirations: normal, no use of accessory muscles, no retractions, labored breathing, is not present. 14:55 Musculoskeletal/extremity: Extremities: grossly normal except: noted in the left index finger: pain, laceration radial side middle phalanx with mild swelling, no AROM restriction, left index finger neurovascular intact and no signs of tendon injury. Vital Signs: 14:10 BP 132 / 88; Pulse 86; Resp 16; Temp 98.1; Pulse Ox 100% on R/A; Weight 63.5 kg; Height hb 5 ft. 3 in. (160.02 cm); Pain 8/10; 14:51 BP 135 / 90; Pulse 92; Resp 18; Pulse Ox 100% on R/A; Pain 10/10; eh3 16:00 BP 137 / 87; Pulse 89; Resp 18; Pulse Ox 100% on R/A; Pain 10/10; eh3 14:10 Body Mass Index 24.80 (63.50 kg, 160.02 cm) hb Laceration: 16:17 Wound Repair of 2.5cm ( 1.0in ) subcutaneous laceration to radial side middle phalanx cp left index finger. Linear shaped.. Distal neuro/vascular/tendon intact. Anesthesia: Wound infiltrated with 4 mls of 1% lidocaine. Wound prep: Moderate cleansing by me, Wound irrigation by me. Skin closed with 4 4-0 Prolene using interrupted sutures and sterile technique. Dressed with Bacitracin, 4x4's. Patient tolerated well. MDM: 14:10 Patient medically screened. cp 16:19 Data reviewed: vital signs, nurses notes, radiologic studies, plain films. cp 16:19 Differential diagnosis: open fracture, tendon injury, foreign body, simple laceration. cp Test interpretation: by ED physician or midlevel provider: plain radiologic studies. Counseling: I had a detailed discussion with the patient and/or guardian regarding: the historical points, exam findings, and any diagnostic results supporting the discharge/admit diagnosis, radiology results, the need for outpatient follow up, a family practitioner, to return to the emergency department if symptoms worsen or persist or if there are any questions or concerns that arise at home. Response to treatment: the patient's symptoms have markedly improved after treatment, and as a result, I will discharge patient. 05/30 14:38 Order name: XRAY Finger-Thumb Left; Complete Time: 16:22 cp 05/30 16:22 Interpretation: Report reviewed. cp 05/30 14:38 Order name: Dressing - Wound; Complete Time: 16:31 cp 05/30 14:38 Order name: Gloves, Sterile; Complete Time: 14:54 cp 05/30 14:38 Order name: Setup Suture Tray; Complete Time: 14:54 cp 05/30 16:16 Order name: Wound dressing; Complete Time: 16:31 cp Administered Medications: 14:51 Drug: Tetanus-Diphtheria Toxoid Adult 0.5 ml {Drilling Fluids Specialist: [employer]. Exp: 3 12/26/2023. Lot #: [id number]. } Route: IM; Site: right deltoid; 15:55 Follow up: Response: No adverse reaction 3 14:52 Drug: HYDROcodone-acetaminophen 5 mg-325 mg 1 tabs Route: PO; eh3 15:55 Follow up: Response: Pain is decreased 3 15:20 Drug: Lidocaine (1 %) 10 ml {Note: administered by PA. Patricio} Volume: 20 ml; 3 Route: Infiltration; 15:55 Follow up: Response: Pain is decreased 3 Disposition: 18:53 Co-signature as Attending Physician, Torsten Alejandre MD. rn Disposition Summary: 05/30/22 16:19 Discharge Ordered Location: Home cp Problem: new cp Symptoms: have improved cp Condition: Stable cp Diagnosis - Laceration without foreign body of left index finger without damage to nail cp Followup: cp - With: Private Physician - When: 10 - 14 days - Reason: Staple/Suture removal Discharge Instructions: - Discharge Summary Sheet cp - Laceration Care, Adult cp Forms: - Medication Reconciliation Form cp - Thank You Letter cp - Antibiotic Education cp - Prescription Opioid Use cp Prescriptions: - Cephalexin 500 mg Oral Capsule - take 1 capsule by ORAL route every 8 hours for 10 days; 30 capsule; Refills: 0, cp Product Selection Permitted Signatures: Dispatcher [employer] Torsten Darnell MD MD rn Page, Corey, PA PA cp Ce Garcia RN RN hb Hall, Erin, RN RN 3 Corrections: (The following items were deleted from the chart) 14:11 14:10 Immunization history: Adult Immunizations up to date, roshni
[2022-05-30 16:44] VITALS: TEMP 98.1; O2SAT 100
[2022-05-30 16:46] VITALS: BP 137/87
== END 2022-05-30 16:37 | disposition home or self-care (01) ==
LOC: ER 14:04
PROC: 0JQK0ZZ Repair Left Hand Subcutaneous Tissue and Fascia, Open Approach (ICD-10-PCS; principal; 2022-05-30)
DX: S61.211A Laceration without foreign body of left index finger without damage to nail, initial encounter (principal); Z23 Encounter for immunization; Z88.1 Allergy status to other antibiotic agents; Z88.8 Allergy status to other drugs, medicaments and biological substances
CPT/HCPCS: 90471; 90714; 99284

== ENCOUNTER 2022-07-01 19:59 | Emergency (ER) | payer OTHER ==
--- OUTSIDE RECORDS SUMMARY | 2022-07-01 20:05 | XMS REPORT | Continuity of Care Document ---
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 2022-05-06 23:38:[address] [facility] XR TIBIA FIBULA 2 VW RIGHT 2022-05-06 23:38:[address] [facility] NOTICE OF PRIVACY 2022-05-06 21:56:28 Doctor Unassigned, [facility] PRACTICES [facility] CONSENT/REFUSAL FOR 2022-05-06 21:54:24 Doctor Unassbarbara, [facility] DIAGNOSIS AND TREATMENT [place] [facility] [place] XR FOREARM 2 VW RIGHT 2022-03-30 17:36:20 Norman[facility]aren [facility] XR WRIST 3+ VW RIGHT 2022-03-30 17:35:58 Norman [facility] ASSIGNMENT OF BENEFITS 2022-03-30 16:44:49 Doctor Unassigned, [facility] CT ABDOMEN PELVIS W 2021-11-01 05:04:00 Nadir Vega [facility] CONTRAST Medical Branch CT CHEST PULMONARY 2021-11-01 05:04:00 Nadir Vega [facility] ANGIOGRAM Medical Branch US GALL BLADDER 2021-11-01 02:22:29 Silvia [facility] XR ABDOMEN 1 VW 2021-11-01 01:55:00 Silvia [facility] XR CHEST 1 VW 2021-11-01 01:55:00 Silvia [facility] [place] LIPASE 2021-11-01 01:37:00 Silvia [facility] TEST, SERUM 2021-11-01 01:37:00 Nadir Vega [facility] COMP. METABOLIC PANEL 2021-11-01 01:37:00 [facility] ([id number]) Medical Branch CBC WITH DIFF 2021-11-01 01:37:[address] [facility] COVID-19 (ID NOW RAPID 2021-11-01 01:37:00 [facility] TESTING) Medical Branch CONSENT/REFUSAL FOR 2021-11-01 00:42:06 Doctor Unassigned [facility] DIAGNOSIS AND TREATMENT [facility] . [facility] - Affirm VPIII 2018-11-08 00:00:00 [facility] (BV Panel) [Q] HEMOGLOBINOPATHY 2018-11-08 00:00:00 [facility] EVALUATION [Q] OBSTETRIC PANEL 2018-11-08 00:00:00 [facility] [Q] TREPONEMA PALLIDUM AB, 2018-11-08 00:00:00 [facility] PARTICLE AGGLUTINATION [QH] [id number] 2018-11-08 00:00:00 [facility] DEHYDROGENASE, QUANT. [QH] [...] Future Scheduled Test 2022-05-08 00:00:00 IMM Influenza [facility] Seasonal (>/= 19 yrs) [code = IMM Influenza Seasonal (>/= 19 yrs)] Future Scheduled Test 2022-05-08 00:00:00 IMM Influenza [facility] Seasonal (>/= 19 yrs) [code = IMM Influenza Seasonal (>/= 19 yrs)] Future Scheduled Test 2018 00:00:00 Screening for [facility] malignant neoplasm of cervix (procedure) [code = 184344851] Future Scheduled Test 2018 00:00:00 Screening for [facility] malignant neoplasm of cervix (procedure) [code = 396609319] Future Scheduled Test 1998-06-19 00:00:00 COVID-19 Vaccine (#1) [facility] [code = COVID-19 Vaccine (#1)] Future Scheduled Test 1998-06-19 00:00:00 COVID-19 Vaccine (#1) [facility] [code = COVID-19 Vaccine (#1)] Future Scheduled Test 1997 00:00:00 Fluoride Varnish [facility] [code = Fluoride Varnish] Encounters Start End Encounter Admission Attending Care Care Encounter Source Date/Time Date/Time Type Type Clinicians Facility Department ID 2022-02-10 Outpatient maggy [facility] [id number] [facility] 14:51:02 [id number] Critical access hospital 2021-05-21 [facility] [id number] [facility] 20:13:56 44127 Critical access hospital 2022-05-21 2022-05-21 Outpatient Ign[facility] [id number] Univers 16:00:00 16:57:20 DELIA [facility] 2022-05-21 2022-05-21 Urgent Delia Park [facility] 1.2.840.114 [id number] Univers 16:00:00 16:57:20 Care Unknown, [facility] 350.1.13.10 zackery bishop [place] 4.2.7.2.686 Mani as KATHRIN?BLEA [id number] [address] MEDICAL OFFICE BUILDING 2022-05-19 2022-05-19 Outpatient Ignacio [facility] [id number] Univers 16:00:00 16:00:00 KALEB [facility] 2022-05-06 2022-05-06 Emergency [facility] [id number] Univers 17:03:00 20:20:00 ERI vizcarra [facility] 2022-05-06 2022-05-[address] [facility] [id number] Univers 17:03:00 20:20:00 Eri ROSADO 350.1.13.10 ity [facility] [place] [id number] [address] 2022-05-06 2022-05-06 Lisa Morrissey [facility] 1.2.840.114 [id number] Univers 00:00:00 00:00:00 (Out) Rania HEALTH 350.1.13.10 it y of [place] 4.2.7.2.686 Mani as KATHRIN?BLEA [id number] Ne andrew ROMERO [address] MEDICAL OFFICE [facility] 2022-05-04 2022-05-04 Laboratory Only, Ang Db Test [facility] 1.2.8 40.114 [id number] Univers 13:00:00 13:15:00 Only Cy [facility] 350.1.13.10 ity of [place] 4.2.7.2.686 Mani as KATHRIN?BLEA [id number] [address] OFFICE [facility] 2022-05-04 2022-05-04 Outpatient R CY [facility] [id number] Univers 13:00:00 13:00:00 NEVIN ity [facility] 2022-04-14 2022-04-14 Outpatient R TOMÁS [facility] [id number] Univers 15:00:00 15:00:00 JULIO CESAR ity of [facility] 2022-03-30 2022-03-30 [facility] 1.2.728.199 [id number] Univers 12:06:40 23:59:00 Encounter [facility] 350.1.13.10 ity of [place] 4.2.7.2.686 Mani as KATHRIN?BLEA [id number] [facility] 808 [facility] OFFICE [facility] 2022-03-30 2022-03-30 [facility] 1.2.735.149 [id number] Univers 12:06:40 23:59:00 Encounter Jaren HEALTH 350.1.13.10 ity of [place] 4.2.7.2.686 Mani as KATHRIN?BLEA [id number] Ne andrew HUGHES 808 [facility] OFFICE [facility] 2022-03-30 2022-03-30 Outpatient R [facility] [id number] Univers 12:06:40 23:59:00 JAREN ittracee o f [facility] 2022-03-30 2022-03-30 Urgent Jaren Austin [facility] 1.2.840. 114 [id number] Univers 13:00:00 13:20:00 Delia Arias [facility] 350.1.13.10 ity of [place] 4.2.7.2.686 Mani as KATHRIN?BLEA [id number] [address] MEDICAL OFFICE BUILDING 2022-03-30 2022-03-30 Orders Doctor OWEN 1.2.840.114 [id number] Univers 00:00:00 00:00:00 Only Unassigned, ROSE MARIE 350.1.13.10 ity of [place] [facility] 4.2.7.2.686 Mani as [id number] [place] [address] Branch 2021-10-31 2021-11-01 Emergency X NADIR VEGA [facility] ERT [id number] Univers 19:45:00 01:04:00 NADIR VEGA ity of [facility] 2021-10-31 2021-11-01 Emergency Dalmedo, TRAUMA 1.2.840.114 [id number] Univers 19:45:00 01:04:00 Nadir IMAN 350.1.13.10 [id number] [address] Branch 2020-12-19 2020-12-19 Emergency E VANESSA GERMAN 7513 VANESSA 02:45:00 05:21:00 [place]IP[place] 2020-08-20 2020-08-23 Inpatient [facility] [id number] [facility] 23:55:00 06:47:18 70 [facility] 2019-02-05 2019-02-05 Outpatient [facility] [id number] Jacques 00:00:00 00:00:00 Health 2019-02-04 2019-02-04 Outpatient [facility] [id number] Jacques 20:46:53 20:46:53 [facility] 2018-12-06 2018-12-06 Emergency E [id number] 15:34:00 15:34:00 2018-11-22 2018-11-22 [facility] [id number] 15:30:00 17:09:30 2018-11-22 2018-11-22 Appointmen BOB [facility] Washer Off [id number] [place] 15:30:00 15:30:00 t; MICHELLE ROJAS, Ph martin Urbina M.D. 2018-11-15 2018-11-15 Appointmen DEMARCO [facility] [place] Off [id number] [place] 10:45:00 10:45:00 t; JOSEPH DEMARCO, Physi ci Bernard RUIZ M.D. 2018-11-08 2018-11-08 Appointmen BRAID CUTTER, [facility] [id number] [place] 12:00:00 12:00:00 t; BRAID CUT[facility] 2018-11-08 2018-11-08 Appointmen CÉSAR [facility] Washer Off [id number] [place] 10:00:00 10:00:00 t; Bernard STAUFFER Ph nelda Cohen M.D. Results Test Description Test Time Test Comments Results Result Comments Source TEST, SERUM 2021-11-01 02:18:10 Test Item Value Reference Range Interpretation Comme nts PREG SERUM (test code = 3491477437) Negative SILVA (test code = SILVA) Less than 10 IU/L. ?If low titer or ectopic is suspected, resubmit specimen in 48-72 hours. [facility]. METABOLIC PANEL (49369)2021-11-01 02:01:26 Test Item Value Reference Range Interpretation Comments NA (test code = 137 mmol/L 135-145 0815332284) K (test code = 3.9 mmol/L 3.5-5.0 4134748980) CL (test code = 107 mmol/L 98-108 2519165184) CO2 TOTAL (test code 24 mmol/L 23-31 = 0585799082) AGAP (test code = 2-16 8391321125) BUN (test code = 10 mg/dL 7-23 0689599558) GLUCOSE (test code = 87 mg/dL 70-110 3669911998) CREATININE (test code 0.59 mg/dL 0.50-1.04 = 2921359553) TOTAL BILI (test code 0.6 mg/dL 0.1-1.1 = 7568877596) CALCIUM (test code = 9.1 mg/dL 8.6-10.6 3859115551) T PROTEIN (test code 7.2 g/dL 6.3-8.2 = 5307176758) ALBUMIN (test code = 4.4 g/dL 3.5-5.0 0034411674) ALK PHOS (test code = 42 U/L 34-122 7458927468) ALTv (test code = 14 U/L 5-35 1742-6) AST(SGOT) (test code 20 U/L 13-40 = 5130968920) eGFR (test code = mL/min/1.73m2 7896157913) SILVA (test code = SILVA) Association of [...] or urine or abnormalities in imaging tests). [facility] Test Item Value Reference Range Interpretation Comments LIPASE (test code = 0150718594) 65 U/L 0-220 Lab Interpretation (test code = Normal 93619-8) [facility] WITH [id number] 01:46:02 Test Item Value Reference Range Interpretation Comments WBC (test code = See_Comment [Automated message] 6690-2) The system [employer] generated this result transmitted ref erence range: 4.30 - 1 1.10 10*3/?L. The re ference range was not u sed to interpret this result as normal/abnor mal. RBC (test code = See_Comment [Automated message] 059-8) The system [employer] generated this result transmitted ref erence range: [...] RDW-SD (test code 45.6 fL 39.0-49.9 = 78618-8) RDW-CV (test code 14.8 % 12.0-15.5 = 788-0) PLT (test code = See_Comment [Automated message] 777-3) The system [employer] generated this result transmitted ref erence range: 166 - 35 8 10*3/?L. The re ference range was not u sed to interpret this result as normal/abnor mal. MPV (test code = 11.6 fL 9.5-12.9 65722-6) NRBC/100 WBC (test See_Comment [Automat ed message] code = 7002449420) The syste m which generated this result transmitted ref erence range: 0.0 - 10 .0 /100 WBCs. The refer ence range was not u sed to interpret this result as normal/abnor mal. NRBC x10^3 (test <0.01 See_Comment [Automated message] code = 8844569496) The syste m which generated this result transmitted ref erence range: 10*3/?L. The reference range was not used to interpr et this result as normal/abnormal . GRAN MAT (NEUT) % 59.9 % (test code = 770-8) IMM GRAN % (test 0.20 % code = 1719695608) LYMPH % (test code 31.7 % = 736-9) MONO % (test code 6.8 % = 5905-5) EOS % (test code = 0.9 % 713-8) BASO % (test code 0.5 % = 706-2) GRAN MAT 5.20 10*3/uL 1.88-7.09 x10^3(ANC) (test code = 3970921909) IMM GRAN x10^3 <0.03 0.00-0.06 (test code = 8111991844) LYMPH x10^3 (test 2.75 10*3/uL 1.32-3.29 code = 731-0) MONO x10^3 (test 0.59 10*3/uL 0.33-0.92 code = 742-7) EOS x10^3 (test 0.08 10*3/uL 0.03-0.39 code = 711-2) BASO x10^3 (test 0.04 10*3/uL 0.01-0.07 code = 704-7) [facility]- PELVIS [id number] 11:04:[address] [facility] : 1995 Sex: F Patient Name: MEME HERNANDEZ Unit No: [id number] EXAMS: CPT CODE: [id number] US PELVIS COMPLETE 02018 EXAM:US, US TRANSVAGINAL W/PELVIS: 08/21/2020, 0035 hours [...] the pelvis may be performed. IMPRESSION: The [facility] NAME: MEME HERNANDEZ Radiology Department PHYS: Lawson Regal[address] : 1995 AGE: 24 SEX: F [place], [place] [address] LOC:CLARKE PHONE #: [phone] EXAM DATE: 08/21/2020 STATUS: DEP ER FAX #: [phone] RAD NO: Page 1Signed Report (CONTINUED) Patient Name: MEME HERNANDEZ Unit No: [id number] EXAMS: CPT CODE: [id number] PELVIS COMPLETE 67358 (Continued) 1. Left ovarian cyst 2. Small free fluid seen in the cul-de-sac. SL: DANYELL at 1104 Reported and signed by: Td Hylton M.D. CC: Lawson Moreland MD Technologist: TAI MCKEON RDMS, RVT Probe: Trnscrbd D/ (1104) [email or web address] Orig Print D/T: S: 08/22/2020 (1105) [facility] NAME: [facility] Radiology Department PHYS: Lawson Regalado [address] : 1995 AGE: 24 SEX: Lu [place] [address] LOC: [place] PHONE #: [phone] EXAM DATE: 08/21/2020 STATUS: [facility] ER FAX #: [phone] RAD NO: Page 2 Signed Report Patient Name: MEME HERNANDEZ Unit No: [id number] EXAMS: CPT CODE: [id number] US PELVIS COMPLETE 39785 (Continued) [facility] NAME: [facility] Radiology Department PHYS: Lawson Regalado [address] : 1995 AGE: 24 SEX: F [place] [address] LOC: [place] PHONE #: [phone] EXAM DATE: 08/21/2020 STATUS: DEP ER FAX #: [phone] RAD NO: Page 3 Signed Report- DUP AB/PEL/SC/[id number] 02:25:[address] [facility] : 1995 Sex: F Patient Name: MEME HERNANDEZ Unit No: [id number] EXAMS: CPT CODE: [id number] DUP AB/PEL/SC/LTD 61538 EXAM: US, US TRANSVAGINAL W/PELVIS: 08/21/2020, 0035 [...] the pelvis may be performed. IMPRESSION: [facility] NAME: MEME HERNANDEZ Radiology Department PHYS: DAVID MorelandLawson [address] : 1995 AGE: 24 SEX: F [place] [address] LOC: Lu.ERS PHONE #: [phone] EXAM DATE: 08/21/2020 STATUS: REG ER FAX #: [phone] RAD NO: Page 1Signed Report (CONTINUED) Patient Name: MEME HERNANDEZ Unit No: [id number] EXAMS: CPT CODE: [id number] AB/PEL/SC/LTD 30765 (Continued) 1. Left ovarian cyst 2. Small free fluid seen in the cul-de-sac.SL: LIVIAH at 0225 Reported and signedby: Td Hylton M.D. CC: Lawson Moreland MD Technologist: TAI MCKEON RDMS, RVT Probe: Trnscrbd D/ (224) [email or web address] Orig Print D/T: S: 08/21/2020 (022) [facility] NAME: MARIANO HERNANDEZERRA Radiology Department PHYS: DAVID MorelandLawson [address] : 1995 AGE: 24 SEX: F [place] [address] LOC: PattieERS PHONE #: [phone] EXAM DATE: 08/21/2020 STATUS: REG ER FAX #: [phone] RAD NO: Page 2 Signed Report Patient Name: MEME HERNANDEZ Unit No: [id number] EXAMS: CPT CODE: [id number] DUP AB/PEL/SC/LTD 60001 (Continued) [facility] NAME: MEME HERNANDEZ Radiology Department PHYS: Lawson Regalado [address] : 1995 AGE: 24 SEX: F [place], [place] [address] LOC: PattieERS PHONE #: [phone] EXAM DATE: 08/21/2020 STATUS: REG ER FAX #: [phone] RAD NO: Page 3 Signed Report- US TRANSVAGINAL [id number] 02:25:00 [facility] : 1995 Sex: F Patient Name: MEME HERNANDEZ Unit No: [id number] EXAMS: CPT CODE: [id number] US TRANSVAGINAL W/PELVIS 98356 EXAM: US, US TRANSVAGINAL W/PELVIS: 08/21/2020, 0035 hours EXAM: US, DUP AB/PEL/SC LTD: 08/21/2020,0035 hours Clinical Indication: Left lower quadrant pain. Comparison: Ultrasound dated 08/04/2019. TECHNIQUE: Technique: Grayscale, color and Doppler transabdominal and transvaginal imaging of the pelv is was performed with standard technique. FINDINGS: Transabdominal [...] the pelvis may be performed. IMPRESSION: The [facility] [place] [facility] NAME: JACINTO HERNANDEZA Radiology Department PHYS: Lawson [address] : 1995 AGE: 24 SEX: F [place], [place] [address] 670 LOC: CLARKE PHONE #: [phone] EXAM DATE: 08/21/2020 STATUS: REG ER FAX #: [phone] RAD NO: Page 1 Signed Report (CONTINUED) Patient Name: MEME HERNANDEZ Unit No: [id number] EXAMS: CPT CODE:[id number] US TRANSVAGINAL W/PELVIS 38845 (Continued) 1. Left ovarian cyst 2. Small free fluid seen in the cul-de-sac. SL: DANYELL at 0225 Reported and signed by: Td Hylton M.D. CC: Lawson Moreland MD Technologist: TAI MCKEON RDMS, RVT Probe: [id number] Trnscrbd D/ (0225) [email or web address] Orig Print D/T: S: 08/21/2020 (0228) [facility] NAME: MEME HERNANDEZ Radiology Department [facility] [address] : 1995 AGE: 24 SEX: F [place] [address] LOC: PattieERS PHONE #: [phone] EXAM DATE: 08/21/2020 STATUS: REG ER FAX #: [phone] RAD NO: Page 2 Signed Report Patient Name: MEME HERNANDEZ Unit No: [id number] EXAMS: CPT CODE: [id number] US TRANSVAGINAL W/PELVIS 13367 (Continued) [facility] NAME: [facility] Radiology Department PHYS: [facility] [place] [address] : 1995 AGE: 24 SEX: F [place] [address] LOC: PattieERS PHONE #: [phone] EXAM DATE: 08/21/2020 STATUS: REG ER FAX #: [phone] RAD NO: Page 3 Signed ReportUA RFLX [...] culture: Suprapubic PainSpecimen Description: CLEAN CATCHUR HCG [id number] 00:47:00 Test Item Value Reference Range Interpretation [...] Description: CLEAN CATCHUA RFLX MICR CULT IF [id number] 00:31:00 Test Item Value Reference Range Interpretation [...] culture: Suprapubic PainSpecimen Description: CLEAN CATCHUR HCG [id number] 00:31:00 Test Item Value Reference Range Interpretation [...] Suprapubic PainSpecimen Description: CLEAN CATCH- US TRANSVAGINAL [id number] 03:14:00 Patient Name: MEME HERNANDEZ Unit No: [id number] EXAMS: CPT CODE: [id number] US TRANSVAGINAL W/[id number] Pelvic and transvaginal ultrasound dated 08/04/2019. HISTORY: [...] Cuevas DO Technologist: Martha Wan RDMS Probe: [id number] Trnscrbd D/ (0314) Tray Orig Print D/T: S: 08/04/2019 (0317) [facility] NAME: MEME HERNANDEZ Radiology Department PHYS: Jose Padilla MD [address] : 1995 AGE: 23 SEX: F [place], [place] [address] LOC: CLARKE PHONE #: [phone] EXAM DATE: 08/04/2019 STATUS: REG ER FAX #: [phone] RAD NO: Page 1 Signed Report Patient Name: MEME HRENANDEZ Unit No: [id number] EXAMS: CPT CODE: [id number] US TRANSVAGINAL W/PELVIS 48037 (Continued) [facility] NAME: MARIANO HERNANDEZERRA Radiology Department PHYS: Jose Walker MD [address] : 1995 AGE: 23 SEX: F [place], [place] [address] LOC: [place] PHONE #: [phone] EXAM DATE: 08/04/2019 STATUS: REG ER FAX #: [phone] RAD NO: Page 2 Signed Report- DUP AB/PEL/SC/[id number] 03:14:00 Patient Name: MEME HERNANDEZ Unit No: [id number] EXAMS: CPT CODE: [id number] DUP AB/PEL/SC/LTD 00781Skyigo and transvaginal ultrasound dated 08/04/2019. HISTORY: Pelvic [...] blood flow is documented bilaterally using Doppler ultrasound.No adnexal masses are identified. Trace free intraperitoneal fluid is noted in the pelvic cul-de-sac. IMPRESSION: 1. No acute sonographic abnormalities of the pelvis are detected. SL: 131 at 0314 Reported and signed by: Aneudy Ortega MD CC: Jose Luis MD; Gm Cuevas DO Technologist: Martha Wan RDMS Probe: Trnscrbd D/ (031) [email or web address] Orig Print D/T: S: 08/04/2019 (031) [facility] NAME: [facility] Radiology Department PHYS: Jose Padilla MD [address] : 1995 AGE: 23 SEX: F [place] [address] LOC: PattieERS PHONE #: [phone] EXAM DATE: 08/04/2019 STATUS: REG ER FAX #: [phone] RAD NO: Page 1 Signed Report Patient Name: MEME HERNANDEZ Unit No: [id number] EXAMS: CPT CODE: [id number] [facility] AB/PEL/SC/LTD 93771 (Continued) [facility] NAME: [facility] Radiology Department PHYS: Jose Padilla MD [address] : 1995 AGE: 23 SEX: F [place] [address] LOC: PattieERS PHONE #: [phone] EXAM DATE: 08/04/2019 STATUS: REG ER FAX #: [phone] RAD NO: Page 2 Signed Report- US PELVIS [id number] 03:14:00 Patient Name: MEME HERNANDEZ Unit No: [id number] EXAMS: CPT CODE: [id number] US PELVIS COMPLETE 87890 Pelvic and transvaginal ultrasound dated 08/04/2019. HISTORY: Pelvic pain. Vomiting. A transabdominal pelvic ultrasound was performed with subsequent transvaginal imaging to better visualize the endometrium and adnexa. Correlation is made with a prior pelvic ultrasound dated 10/07/2017. The uterus measures approximately 7.0 x 4.4 x 5.6 cm and has a normal contour. The myometrium appears heterogeneous w ith prominence of the myometrial vessels. No myometrial [...] Martha Wan RDMS Probe: Trnscrbd D/ (0314) tGINNY Orig Print D/T: S: 08/04/2019 (0317) [facility] NAME: MEME HERNANDEZ Radiology Department PHYS: Jose Padilla MD [id number] : 07/1996 AGE: 23 SEX: F [place] [address] LOC: F.ERS PHONE #: [phone] EXAM DATE: 08/04/2019 STATUS: REG ER FAX #: [phone] RAD NO: Page 1 Signed Report Patient Name: MEME HERNANDEZ Unit No: [id number] EXAMS: CPT CODE: [id number] US PELVIS COMPLETE [id number] (Continued) [facility] NAME: MEME HERNANDEZ Radiology Department PHYS: Jose Padilla MD [address] : 1995 AGE: 23 SEX: F [place] [address] LOC: F.ERS PHONE #: [phone] EXAM DATE: 08/04/2019 STATUS: BENOIT LANDRY FAX #: [phone] RAD NO: Page 2 Signed ReportCBC W/AUTO [id number] 23:55:00 Test Item Value Reference Range Interpretation [...] (test NORMAL NORMAL code = PLTMR) HCG [id number] 23:40:00 Test Item Value Reference Range Interpretation [...] 3 MONTHS AFTER CONCEPTION 10,0 00-100,0002ND TRIMESTER 3,00 0-50,0003RD TRIMESTER 1,000 -50,000 SPECIMENS WITH AN HCG LEVEL FROM 0-6 milliInternatio nalunits/mL SHOULD BE CONSI DERED NEGATIVE CHEMISTRY 7 [id number] 23:27:00 Test Item Value Reference Range Interpretation [...] = CA) 8.7 mg/dL 8.4-10.2 N LIVER [id number] 23:27:00 Test Item Value Reference Range Interpretation [...] 57 units/L 46-116 N code = ALKP) [id number] 23:27:00 Test Item Value Reference Range Interpretation Comments LIPASE (test code = LIP) 129 units/L 73-393 N UA RFLX MICR CULT IF [id number] 22:56:00 Test Item Value Reference Range Interpretation [...] SEEN Indication for culture: Suprapubic PainPLACENTA THIRD [id number] 18:16:00 RUN DATE: 02/21/19 [facility] PAGE 1 RUN TIME: 0759 Specimen Inquiry RUN USER: INTERFACE --PATIENT: [facility] HER[facility]NDEZ [facility] #: [id number] AGE/SX: ROOM: 2011 RE02/17/19REG DR:Gm Cuevas DO : [birth year] BED: A DIS: 02/19/19 STATUS: DIS IN TLOC: SPEC #: [id number] RECD: 02/18/19 STATUS: DESMOND CIARRA #: [id number] MAURISIO: 02/18/19- SUBM DR: Gm Cuevas DO ENTERED: 02/19/19 SP TYPE: PLACIII OTHR DR: ORDERED: LEVEL V SURGICA/3 CODES: Z65612 - FALLOPIAN TUBE [id number] - PLACENTA, NOS PROCEDURES: LEVEL V SURGICA (Incomplete) TISSUES: PLACENTA, NOS - PLACENTA FALLOPIANTUBE, NOS - BILATERAL FALLOPIAN TUBES CLINICAL HISTORY 23 year old, IUP @ 32.5 weeks, , Cesareansection (wpd) FINAL DIAGNOSIS Right fallopian tube, ligation: - completely transected unremarkable fallopian tube Left fallopian tube, ligation: - completely transected unremarkable fallopian tube Placenta, 32.5 weeks gestational age, section: - third trimester placenta, 440 gms (90th percentile) - multifocal villous edema - paramarginally inserted, trivascular umbilical cord and membranes free of inflammation Tissue code 1 CPT code(s): [address] , [address] [facility] 02/20/19 GROSS DESCRIPTION ANATOMIC SOURCE OF TISSUE (per Requisition): 1. Right and left tubal segment 2. Placenta Each specimenis labeled with the patient's name and medical record number. Specimen #1 is designated "right tube"and consists of a 0.7 cm in length and 0.4 cm in diameter pink-purple and hyperemic segment of fallopian tube. The lumen is CONTINUED ON NEXT PAGE RUN DATE: 02/21/19 [facility] PAGE 2 RUN TIME: 758 Specimen Inquiry RUN USER: INTERFACE SPEC #: [id number] PATIENT: DAVIDMEME #[id number] (Continu ed) GROSS DESCRIPTION (Continued) pinpoint. School Adjustment Counselor sections are submitted as A1. Specimen #2 is designated "left" and consists of a 1.2 cm in length and 0.4 cm in diameter pink-purple and hyperemic segment of fallopian tube. The lumen is pinpoint. School Adjustment Counselor sections are submitted as B1. The specimen was received in a container, labeled with the patient's name, unit number and designated "placenta". The following attributes are observed: Cord insertion: 2 cm from margin Cord length: 34 cm Number of vessels: 3 Cord color: Beltran Other cord findings: Slightly edematous surface findings: Steel blue, wrinkled, glistening with focal subchorionic fibrin deposition Vasculature: Displays unremarkable blood vasculature Membranes rupture site: 4 cm to margin Membrane color: Beltran Other membrane findings: Thickened The trimmed placental weight: 440 gm Disk [...] 1816 END OF REPORT - CT ANGIO [id number] 14:14:00 Patient Name: MEME HERNANDEZ Unit No: [id number] EXAMS: CPT CODE: [id number] CT ANGIO CHEST 84790 EXAMINATION: CTA of the chest with contrast 02/19/2019. CLINICAL HISTORY: Chest pain. Shortness of breath. COMPARISON: Chest x-ray 02/19/2019. TECHNIQUE: CTA of the chest was performed following intravenous administration of 100 mL of Isovue 300. Reconstructed images, 2-D sagittal, coronal, and oblique reformatted images, and 3-D mid images were also performed and reviewed. One or more of the following dose techniques were utilized; automated exposure control, adjustment of the mA and/or kV according to patient size, and/or utilization of iterative reconstruction technique. DLP: 736.35 mGy-cm. FINDINGS: The heart and great vessels are within normal limits in appearance. There is no evidence of pulmonaryembolism. The thoracic aorta is also within normal limits in appearance. The lungs demonstrate mild bilateral dependent atelectasis, left greater than right. There is no evidence of focal consolidation, pleural effusion, nodule, or mass. The mediastinum is within normal limits in appearance. There is no evidence of hilar or mediastinal lymphadenopathy. The [...] Consider further evaluation with thyroid ultrasound. [facility] NAME: MEME HERNANDEZ Radiology Department PHYS: Laura Dash MD [address] : 1995 AGE: 23 SEX: F [place], [place] [address] LOC: F A PHONE #: [phone] EXAM DATE: 02/19/2019 STATUS: ADM IN FAX #: [phone] RAD NO: Page 1 Signed Report 1 Patient Name: MEME HERNANDEZ Unit No: [id number] EXAMS: CPT CODE: [id number] CT ANGIO CHEST 45978 (Continued) at 1414 Reported and signed by: Geno Rosario MD CC: Gm Cuevas DO; Laura Pryor MD Technologist: Alyse Hernandez, RT, CT CTDI: 31.08 DLP:736.35 Trnscrbd D/ (6271) [facility]: MEME [facility]Z Ra diology Department PHYS: Laura Dash MD [address] : 1995 AGE: 23 SEX: F [place] [address] LOC: F.2013 A PHONE #: [phone] EXAM DATE: 02/19/2019 STATUS:ADM IN FAX #: [phone] RAD NO: Page 2 Signed Report 1 Patient Name: MEME HERNANDEZ Unit No: [id number] EXAMS: CPT CODE: [id number] CT ANGIO CHEST 71107 (Continued) Orig Print D/T: S: 02/19/2019 (9465) [facility] NAME: MARIANO HERNANDEZERRA Radiology Department PHYS: Sunitha Dash [address] : 1995 AGE: 23 SEX: F [place] [address] LOC: F PHONE #: [phone] EXAM DATE: 02/19/2019 STATUS: ADM IN FAX #: [phone] RAD NO: Page 3 Signed Report 1BLOOD UREA [id number] 14:03:00 Test Item Value Reference Range Interpretation Comments BLOOD UREA NITROGEN (test code = BUN) 5 mg/dL 7-18 L [id number] 14:03:00 Test Item Value Reference Range Interpretation Comments CREATININE (test code = CREAT) 0.5 mg/dL 0.5-1.0 N - XR CHEST 2 [id number] 12:45:00 Patient Name: MEME HERNANDEZ Unit No: [id number] EXAMS: CPT CODE: [id number] XR CHEST 2 V 34000 CLINICAL HISTORY: chest pain; sob COMPARISON: December [...] pneumonia or congestive failure is seen. at 1245 Reported and signed by: Frantz Demarco MD CC: Gm Cuevas DO; Laura Pryor MD Technologist: RT Stone Trnscrbd D/ (3048) tEHYOS Orig Print D/T: S: 02/19/2019 (7806) [facility] NAME: MEME HERNANDEZ Radiology Department PHYS: Laura Dash MD [address] : 1995 AGE: 23 SEX: F [place], [place] [address] LOC: F.2013 A PHONE #: [phone] EXAM DATE: 02/19/2019 STATUS: ADM IN FAX #: [phone] RAD NO: Page 1 Signed ReportHGB [id number] 07:21:00 Test Item Value Reference Range Interpretation Comments HEMOGLOBIN (test code = HGB) 9.9 g/dL 10.7-13.9 L HEMATOCRIT (test code = HCT) 30.7 % 32.1-42.1 L DRUGS OF ABUSE [id number] 02:15:00 Test Item Value Reference Range Interpretation [...] PHENCU) 25 ng/m L AG HEPATITIS B [id number] 01:20:00 Test Item Value Reference Range Interpretation Comments AG HEPATITIS B SURFACE (test code NONREACTIVE NONREACTIVE = HBSAG) Comments to Assistant Brand Manager: [facility] AIS CONSENT FORM SIGNED FOR HIV TESTING? HOWARDB HEPATITIS C [id number] 01:20:00 Test Item Value Reference Range Interpretation Comments AB HEPATITIS C (test code = NONREACTIVE NONREACTIVE HCVAB) SIGNAL TO CUTOFF (test code = 0.05 <0.80 N CUTOFF) Comments to Assistant Brand Manager: [facility] AIS CONSENT FORM SIGNED FOR HIV TESTING? YRUBELLA [id number] 01:20:00 Test Item Value Reference Range Interpretation Comments RUBELLA SCREEN 10.9 IUnit/ml Results >10. 0IUnits/ml (test code = are considered positive RUBSC) inaccordance wi th the CLSI guidelines and based on the [employer] S tandard for Anti-Rubell a serum as anindicator of immune status and a br eakpoint to detect mostseropositiv e persons. Comments to Assistant Brand Manager: [facility] CONSENT FORM SIGNED FOR HIV TESTING? HOWARDB [id number] 01:20:00 Test Item Value Reference Range Interpretation Comments AB TREPONEMA (test code = TREPAB) NONREACTIVE NONREACTIVE Comments to Assistant Brand Manager: [facility] CONSENT FORM SIGNED FOR HIV TESTING? HOWARDB HIV 1 01:20:00 Test Item Value Reference Range Interpretation Comments AB HIV 1 2 (test NONREACTIVE NONREACTIVE Done by [facility] code = NBJ86GD) 4th Gen HIV Ag/Ab Combo Screen Comments to Assistant Brand Manager: [facility] CONSENT FORM SIGNED FOR HIV TESTING? Y URINALYSIS [id number] 01:01:00 Test Item Value Reference Range Interpretation [...] NONE SEEN URINE SAMPLE: CLEAN CATCHCBC W/AUTO [id number] 00:11:00 Test Item Value Reference Range Interpretation [...] NORMAL NORMAL code = PLTMR) - US [id number] 23:45:00 Patient Name: MEME HERNANDEZ Unit No: [id number] EXAMS: CPT CODE: [id number] [place] L[place] [address]7034 Limited obstetrical ultrasound dated 02/17/2019. HISTORY: 32 week . Evaluate for uterine rupture. A limited transabdominal obstetrical ultrasound was performed and reveals presence of a single intrauterine in cephalic position. cardiac activity is documented with a heart rate of134 bpm. The placenta is positioned in the fundus and demonstrates grade 2 echotexture. There is no e vidence of placenta previa or retroplacental hemorrhage. Amniotic fluid volume appears within normallimits with a measured RUSTAM of 16.4. The cervix is not well visualized. measurements were not obtained. A anatomic survey was not performed. The ovaries were not identified. No adnexal masses or pelvic fluid collections are imaged. IMPRESSION: 1. Single living intrauterine in cephalic position. SL: 131 at 2340 Reported and signed by: Aneudy Ortega MD CC: Gm Cuevas DO Technologist: Elaine Zhao RDMS Probe: Trnscrbd D/ (3883) tGINNY Orig Print D/T: S: 02/17/2019 (7177) [facility] [place] NAME: MEME HERNANDEZ Radiology Department PHYS: Gm Beltran DO [address] : 1995 AGE: 23 SEX: F [place], [place] [address] LOC: F.016 A PHONE #: [phone] EXAM DATE: 02/17/2019 STATUS: ADM IN FAX #: [phone] RAD NO: Page 1 Signed Report Patient Name: MEME HERNANDEZ Unit No: [id number] EXAMS: CPT CODE: [id number] [place] L[place] [address]250 (Continued) [facility] NAME: MEME HERNANDEZ Radiology Department PHYS: Gm Beltran [address] : 1995 AGE: 23 SEX: F [place] [address]177 LOC: FFranklyn Valentin PHONE #: [phone] EXAM DATE: 02/17/2019 STATUS: ADM IN FAX #: [phone] RAD NO: Page 2 Signed Report- US FLW [id number] 15:54:00 Patient Name: MEME HERNANDEZ Unit No: [id number] EXAMS: [place]: [id number] [address] [place] [address] [place], [place] [address] OBSTETRICAL ULTRASOUND REPORT Pat. Name: MEME HERNANDEZ Pat. No: [id number] Study Date: 12/13/2018 2:18pm , Age: 7 1995, 22 Pregnancies: 5, Para 4 LMP: Unknown GA by 1st: 23w1d GA by US: 22w4d GA Selected: 23w1d (From Known E) SUSAN: 04/10/2019 Referring MD:Bennett Collins M.D. Sugar Cane Planter Machine Operator: Michelle Cotto RDMS CPT4: USPREGLTD Hist/Ind: Scan 2: previous c/s/ abd pain ( c/s scar ) CHIN UREMENTS AGE GROWTH EVALUATION Measurement GA Range Srce %for GA Ratios ----- ---- ------- BPD 5.3 cm 22w1d (97u8f-68p6y) Hadl BPD 21% FL/BPD 0.81 (0.71 - 0.87) HC 19.8 cm 21w6d (15t2u-97e0d) Hadl HC 13% FL/AC 0.24 (0.20 - 0.24) APD 5.9 cm APD HC/AC 1.09 (1.03 - 1.22) TAD 5.7 cm TAD CI 0.79 (0.70 - 0.86) AC 18.2 cm 22w6d (20w6d- 24w6d) Hadl AC 43% FL 4.3 cm 23w5d (34v4r-85g3h) Hadl FL 62% HL 4.1 cm 24w5d (30e7a-23z7c) Dionisio HL 77% GA for sonogram 22w4d (52v4e-15u0p) Weight Estimate: based on (BPD,HC,AC,FL) Hadlock Weight: 580 gm (495-665) Hadlock : 1lbs, 4oz Normal: 563 gm (377-1003) Aylin Wt% 52% for 23.1 wks Cervical Length: 3.3 cm Heart Rate: 143 bpm MATERNAL ANATOMY Ovaries LxHxW (cm) Right 2.6 x 1.8 x 1.2 Vol: 2.9cc Left 2.3 x 1.1 x 1.9 Vol: 2.5cc CLINICAL SUMMARY Type of Gestation: Patino Intrauterine in vertex present ation. size is appropriate for gestational age. growth: Consistent with normal growth motion and organs seen: heart motion seen Placental location: Posterior [facility] NAME: MEME HERNANDEZ Radiology Department PHYS: Tristan Lares III, MD [address] : 1995 AGE: 22 SEX: F [place], [place] [address] LOC: CUCO PHONE #: [phone] EXAM DATE: 12/13/2018 STATUS: REG ER FAX #: [phone] RAD NO: Page 1 Signed Report (CONTINUED) Patient Name: MEME HERNANDEZ Unit No: [id number] EXAMS: CPT CODE: [id number] [place] [address] (Continued) Placental maturity : Grade 2 There is no evidence of placenta previa. Amniotic fluidvolume is normal. Uterus and adnexa: No significant abnormality is seen. Serena Bean M.D. Electronic Signature 12/13/2018 03:54pm at 1554 Reported and signed by: Serena Bean MD CC: Tristan Sarmiento III, MD Technologist: Michelle Cotto RDMS Probe: Trnscrbd D/ (1554) Pierce Orig Print D/T: S: 12/13/2018 (1554) [facility] NAME: [facility] Radiology Department PHYS: Tristan Lares III, MD [address] : 1995 AGE: 22 SEX: F [place] [address] LOC: [facility]attie[facility]AY PHONE #: [phone] EXAM DATE: 12/13/2018 STATUS: REG ER FAX #: [phone] RAD NO: Page 2 Signed Report Patient Name: MEME HERNANDEZ Unit No: [id number] EXAMS: CPT CODE: [id number] US FLWUP 14585 (Continued) [facility] NAME: [facility] Radiology Department PHYS: Tristan Lares III, MD [address] : 1995 AGE: 22 SEX: F [place] [address] LOC: PattieCLAY PHONE #: [phone] EXAM DATE: 12/13/2018 STATUS: REG ER FAX #: [phone] RAD NO: Page 3 Signed ReportPROTHROMBIN [id number] 14:52:00 Test Item Value Reference Range Interpretation Comments PROTHROMBIN TIME PATIENT (test code 12.4 secs 10.4-12.4 N = PTP) THROMBOPLASTIN TIME [id number] 14:52:00 Test Item Value Reference Range Interpretation Comments THROMBOPLASTIN TIME PARTIAL (test 30.7 secs 22-38 N code = PTT) [id number] 14:52:00 Test Item Value Reference Range Interpretation Comments FIBRINOGEN (test code = FIB) 399 mg/dL 309-518 N DRUGS OF ABUSE [id number] 13:00:00 Test Item Value Reference Range Interpretation [...] = PHENCU) 25 ng/m L COMPREHENSIVE METABOLIC [id number] 12:54:00 Test Item Value Reference Range Interpretation [...] units/L 46-116 N code = ALKP) URINALYSIS [id number] 12:42:00 Test Item Value Reference Range Interpretation [...] = MUCU) 2+ NONE SEEN Comments to Assistant Brand Manager: DAGOBERTO SEPULVEDA SAMPLE: CLEAN CATCHCBC W/AUTO DIFF [...] D. SPECIMEN RECEIVED DATE A ND TIME: [facility] URINALYSIS, [id number] 13:09:00 Test Item Value Reference Range Interpretation Comments COLOR; Normal (test YELLOW YELLOW N code = 5778-6) APPEARANCE (test code CLEAR CLEAR N = APPEARANCE) SPECIFIC GRAVITY; 1.025 1.001-1.035 N Normal (test code = 2965-2) PH; Normal (test code 6.0 5.0-8.0 N = 2756-5) GLUCOSE; Normal (test NEGATIVE NEGATIVE N code = 1547-9) BILIRUBIN; Normal NEGATIVE NEGATIVE N (test code = 65317-3) KETONES; Normal (test NEGATIVE NEGATIVE N code = 27813-7) OCCULT BLOOD; Normal NEGATIVE NEGATIVE N (test code = 78241-3) PROTEIN; Normal (test NEGATIVE NEGATIVE N code = 29555-0) NITRITE; Normal (test NEGATIVE NEGATIVE N code = 42200-2) LEUKOCYTE ESTERASE NEGATIVE NEGATIVE N (test code = LEUKOCYTE ESTERASE) WBC; Normal (test 0-5 < OR = 5 N code = 6690-2) RBC; Normal (test NONE SEEN < OR = 2 N code = 789-8) SQUAMOUS EPITHELIAL 0-5 < OR = 5 CELLS (test code = 19623-3) BACTERIA; Normal NONE SEEN NONE SEEN N (test code = 630-4) HYALINE CAST; Normal NONE SEEN NONE SEEN N SPECIME N RECEIVED DATE (test code = 86016-8) AND TI ME: [id number] [facility][QH] [id number] DEHYDROGENASE, QUANT.2018-11-08 13:09:00 Test Item Value Reference Range Interpretation Comments [id number] 19.3 {U/g 7.0-20.5 SPECIMEN RECEIVED DEHYDROGENASE (test Hgb} DATE AND TIME: code = 466856718002 FYZBNZZ-5-KFYYLKHAV DEHYDROGENASE) [facility][QH] QUAD [id number] 13:09:00 Test Item Value Reference Interpretation Comments Range INTERPRETATION: See Comment Screen negat clara for open (test code = NTD, Down syndr ome INTERPRETATION:) andTrisomy 18. MSAFP RISK OPEN <1 IN 5000 NTD (test code = 75522-1) AGE RISK DOWN 1 IN 1164 SYNDROME (test code = AGE RISK DOWN SYNDROME) QUAD RISK DOWN <1 IN 5000 SYNDROME (test code = QUAD RISK DOWN SYNDROME) MSS3 TRISOMY 18 <1 IN 5000 RISK (test code = MSS3 TRISOMY 18 RISK) MSAFP (test code 37.1 ng/ml = 63727-7) ADJ MULTIPLE OF 0.41 MEDIAN (test code [...] See Below) not a diag nostic test. Noreagent syste m establishing th e risk of chromosomeabnor [...] screen for Down syndrome ortrisomy 18. P danis notify the laboratory promptly if any data are in correct. For assistance with recalculations, please call your local [employer] [facility] lab oratory. Forassistance w ith interpretation of these results, please contact your local [employer] genetic vocational guidance counselor oror call [phone]( [phone]). Interpretive Cu t-offsScreen Positive For Op en NTD: > or = 2.50 adjusted MOM > or = 1.90 adjusted M OM for Insulin-depende nt diabetics > or = 4.00 adj usted MOM for Twins > or = 3.50 adjusted MOM fo r Twins insulin-depende nt Diabetics > or = 4.50 adj usted MOM for TripletsScr een Positive For Down Syndro me: "QUAD Risk Down Syndr ome" that equals or excee ds 1 in 270Screen Posit clara For Trisomy 18: "MS S3 Trisomy 18 Risk" that equals or exceeds 1 in 10 0 GESTATIONAL AGE 19.9 {WEEKS} (test code = [...] AND (test code = TIME: Cigarette smoker) [facility][Q] TREPONEMA PALLIDUM AB, PARTICLE [id number] 13:09:00 Test Item Value Reference Range Interpretation Comments TREPONEMA PALLIDUM NONREACTIVE Reference Range: AB, PARTICLE NonreactiveSPEC IMEN AGGLUTINATION (test RECEIVED DATE AND TIME: code = TREPONEMA 08597837350 8 PALLIDUM AB, PARTICLE AGGLUTINATION) [facility]] CULTURE, URINE, [id number] 13:09:00 Test Item Value Reference Range Interpretation Comments SOURCE: (test URINE, CLEAN CATCH code = SOURCE:) STATUS: (test FINAL code = STATUS:) Result (test Multiple organisms CFU/mL. T hese code = Result) present, each less organis ms, commonly than 10,000 found onexterna l and internal genita mandy, are consideredt o be colonizers. No further testing performed.SPECI MEN RECEIVED DATE A ND TIME: [facility][Q] OBSTETRIC [id number] 13:09:00 Test Item Value Reference Range Interpretation Comments WHITE BLOOD CELL 9.0 {Thousand/u} 3.8-10.8 N COUNT (test code = WHITE BLOOD CELL COUNT) RED BLOOD CELL 4.04 3.80-5.10 N COUNT (test code = {Million/uL} RED BLOOD CELL COUNT) HEMAGLOBIN; Below 11.5 g/dl 11.7-15.5 Low Threshold (test code = 62394-3) HEMATOCRIT; Below 34.2 % 35.0-45.0 Low Threshold (test code = 4544-3) MCV; Normal (test 84.7 fL 80.0-100.0 N code = 787-2) MCHC; Normal (test 33.6 g/dl 32.0-36.0 N code = 90217-7) RDW; Above High 15.2 % 11.0-15.0 Threshold (test code = 788-0) PLATELET COUNT; 168 {Thousand/u} 140-400 N Normal (test code = 777-3) MPV; Normal (test 12.4 fL 7.5-12.5 N code = 71146-2) ABSOLUTE 6426 {cells/uL} 6143-6672 N NEUTROPHILS (test code = ABSOLUTE NEUTROPHILS) [...] Normal 5.0 % N (test code = 29039-3) EOSINOPHILS; Normal 1.4 % N (test code = 20416-9) BASOPHILS; Normal 0.3 % N SPECIMEN R ECEIVED (test code = DATE AND TIME: 13361-6) [id number] ANTIBODY SCREEN, NO ANTIBODIES N Reference range [...] code RH(D) POSITIVE SPECIME N RECEIVED = 01094-3) DATE AND TIME: 992395406499 RPR (DX) W/REFL NON-REACTIVE NON-REACTIVE N SPECIMEN REC EIVED TITER AND DATE AND TIME: CONFIRMATORY TESTING (test code = RPR (DX) W/REFL TITER AND CONFIRMATORY TESTING) HEPATITIS B SURFACE NON-REACTIVE NON-REACTIVE N SPECIMEN RECEIVED ANTIGEN; Normal DATE AND CADEN E: (test code = 198926421514 5195-3) RUBELLA ANTIBODY <0.90 Index Inter pretation (IGG); Below Low ----- Threshold (test -- <0.90 code = 37463-4) Not consiste nt with Immunity 0.90-0 .99 Equivocal > or = 1.00 Consistent with Immunity The presence of rub sowmya IgG antibody suggests immunization or past or current infe ction withrubella virus.SPECIMEN RECEIVED DATE A ND TIME: [facility][Q] HIV-1/2 Antigen and Antibodies, Fourth Generation, with [id number] 13:09:00 Test Item Value Reference Range Interpretation Comments HIV AG/AB, 4TH NON-REACTIVE NON-REACTIVE N HIV-1 antigen and GEN; Normal HIV-1/HIV-2 ant ibodies were (test code = [place] [address]-2) laboratory evid ence of HIVinfection. P LEASE NOTE: This informatio n has been disclosed toyou from records whose confidentiality may beprotected by state law. If your state r equires suchprotection, then the state law prohi bits you frommaking any further disclosure of t he informationwith out the specific writte n consent of the personto om it pertains, or as otherwise permitted by katharina w.A general authorization f or the release of [facility] information is NOT sufficient for this purpose. For ad ditional information ple ase refer tohttp://educat ion.Playrcart.Pin-Digital/fa q/HVO095(Thi s link is being provided for informational/e ducational purposes only.) The performance of this assay has not been clinicallyvalid ated in patients less t encinas 2 years old. SPECIMEN R ECEIVED DATE AND TIME: [id number] [facility] - Affirm VPIII (BV Panel)2018-11-08 00:00:00 Test Item Value Reference Range Interpretation Comments Affirm VPIII (BV Panel) REPORT See Comment (test code = Affirm VPIII (BV Panel) REPORT) [facility] PhysiciansCOMPREHENSIVE METABOLIC [id number] 20:23:00 Test Item Value Reference Range Interpretation [...] units/L 46-116 L code = ALKP) HCG [id number] 20:23:00 Test Item Value Reference Range Interpretation [...] DERED NEGATIVE UA RFLX MICR CULT IF [id number] 20:15:00 Test Item Value Reference Range Interpretation [...] code = BACU) RARE /HPF RARE-FEW PROTHROMBIN [id number] 20:06:00 Test Item Value Reference Range Interpretation Comments PROTHROMBIN TIME PATIENT (test code 12.3 secs 10.4-12.4 N = PTP) THROMBOPLASTIN TIME [id number] 20:06:00 Test Item Value Reference Range Interpretation Comments THROMBOPLASTIN TIME PARTIAL (test 30.1 secs 22-38 N code = PTT) [id number] 20:06:00 Test Item Value Reference Range Interpretation Comments FIBRINOGEN (test code = FIB) 385 mg/dL 309-518 N - US PREG AFTER [id number] 19:04:00 Patient Name: MEME HERNANDEZ Unit No: [id number] EXAMS: CPT CODE: [id number] US PREG AFTER TRI 78632 TRANSABDOMINAL OBSTETRICAL PELVIC ULTRASOUND INDICATION: 21 WEEKS, PREVIA . TECHNIQUE: Transabdominal obstetrical pelvic ultrasound was performed with turcios scale and Doppler images. COMPARISONS: Obstetric ultrasound 03/31/2018 FINDINGS: The cervix is closed and the cervical length is 3.6 cm. The placenta is posterior and terminates 3.8 cm from the internal cervical os. There is no evidence of place nta previa or placental abruption. There is a single viable intrauterine gestation in variable presentation. The spine appears normal as visualized. There is a three-vessel umbilical cord. The urinary bladder appears normal. The placental umbilical cord insertion appears normal. The kidneys are n ormal. The lower extremities appear normal. The stomach is normal. There is a four-chamber heart. The heart rate is 144 bpm. The upper extremities appear normal. The facial structures are normal. The brain appears normal. There is no hydrocephalus. The cerebellum appears normal. There is a normal interhemispheric fissure. The amniotic fluid volume appears normal with the largest vertical pocket measuring 4.5 cm. BIOMETRY: Biparietal diameter: 3.7 cm. 17 weeks 1 day Head circumference: 13.4 cm. 16 weeks 6 days Abdominal circumference: 11.8 cm. 17 weeks 1 dayFemur length: 2.9 cm. 18 weeks 4 days Humerus length: 2.8 cm. 19 weeks 0 days Estimated weight: 222 g. The maternal right ovary measures 2.5 x 1.6 x 2.8 cm. There is normal color Doppler blood flow. There is a normal low resistance venous spectral Doppler waveform with peak velocity of 10 cm/s.The left ovary measures 2.6 x 0.9 x 2.7 cm. There is a normal low resistance arterial and venous spec tral Doppler waveform with peak velocity of 15 [...] amniotic fluid volume appears qualitatively normal. [facility] NAME: MEME HERNANDEZ Radiology Department PHYS: Sarah Arboleda MD [address] : 1995 AGE: 22 SEX: F [place], [place] [address] LOC:PattieERS PHONE #: [phone] EXAM DATE: 11/05/2018 STATUS: REG ER FAX #: [phone] RAD NO: Page 1Signed Report (CONTINUED) Patient Name: MEME HERNANDEZ Unit No: [id number] EXAMS: CPT CODE: [id number] US PREG AFTER 1ST TRI 09987 (Continued) at 1904 Reported and signed by: Devendra Chappell DO CC: Sarah Lopez MD Technologist: Elaine Zhao RD Probe: Trnscrbd D/ (1903) [email or web address] Orig Print D/T: S: 11/05/2018 (1906) [facility] NAME: MEME HERNANDEZ Radiology Department PHYS: Sarah Arboleda MD [address] : 1995 AGE: 22 SEX: F [place] [address] LOC: PattieERS PHONE #: [phone] EXAM DATE: 11/05/2018 STATUS: REG ER FAX #: [phone] RAD NO: Page 2 Signed Report Patient Name: MEME HERNANDEZ Unit No: [id number] EXAMS: CPT CODE: [id number] US PREG AFTER 1ST TRI 89901 (Continued) [facility] PHYS: Sarah Arboleda MD [address] : 1995 AGE: 22 SEX: F [place] [address] : Lu.ERS PHONE #: [phone] EXAM DATE: 11/05/2018 STATUS: REG ER FAX #: [phone] RAD NO: Page 3 Signed ReportCBC W/AUTO [id number] 18:24:00 Test Item Value Reference Range Interpretation [...] NORMAL NORMAL code = PLTMR) PLACENTA THIRD [id number] 14:26:00 RUN DATE: 04/04/18 [facility] PAGE 1 RUN TIME: 1704 Specimen Inquiry RUN USER: INTERFACE --PATIENT: MEME HERNANDEZ LOC: [place] U #: [id number] AGE/SX: 22/ ROOM: [facility] RE03/31/18REG DR: Yaneth Guidry MD : [birth year] BED: A DIS: 04/04/18 STATUS: DIS IN TLOC: SPEC #: [id number] RECD: 04/02/18 STATUS: DESMOND NO #: [id number] MAURISIO: 04/02/18- [facility] [place] DR: Yaneth Guidry MD ENTERED: 04/03/18 SP TYPE: PLACIII OTHR DR: Norris Gonsalves MD ORDERED: LEVEL V SURGICA CODES: [id number] - PLACENTA, NOS COPIES TO: Yaneth Guidry MD [address] [facility] [address] [place] [address] Norris Gonsalves MD [address] [facility] [address] [place] [address] PROCEDURES: LEVEL V SURGICA (Incomplete) TISSUES: PLACENTA, NOS - PLACENTA CLINICAL HISTORY 22 year old, 29.3 weeks, , section, IUGR, florin turity, previa (kr) FINAL DIAGNOSIS Placenta, section: - placenta with third trimester morphology (141 gms), mean placental weight at 29 weeks - 293 gms (placenta is very small for dates, muchless than the 10th percentile for weight at 29 weeks) - accelerated villous maturation with multifocal increase in the syncytial knots, suggestive of hypoperfusion - distal villous hypoplasia, multifocal (see comment) - 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 Pathologic features of uteroplacental malperfusion can be seen in maternal conditions with a component of vascular disease (preeclampsia, hypertension, diabetes mellitus, and autoimmunity). There can be an increased risk for recurrence in future pregnancies. CONTINUED ON NEXTPAGE RUN DATE: 04/04/18 [facility] PAGE 2 RUN TIME: 1704 Specimen Inquiry RUN USER: INTERFACE -- SPEC #: [id number] PATIENT: MARIANO HERNANDEZERRA #[id number] (Continued) FINAL DIAGNOSIS (Continued) Tissue code 1 CPT code(s): 45749 [facility] 04/04/18 @ 1419 GROSS DESCRIPTION The specimen was received in a container, labeled with the patient's name, unit number and designated "placenta". The following attributes are observed: Cord insertion: 1 cm from margin Cord length: 9 cm Number of vessels: 3 Cord color: Blue-beltran Other cord findings: None surface findings: Steel blue, wrinkled, glistening Vasculature: Displays unremarkable blood vasculature Membranes rupture site: 0.0 cm to margin Membrane color: Beltran Othermembrane findings: Slightly thickened and opaque with only scant membranes noted along the edge of the placental disc The trimmed placental weight: 141 gm Disk measurement: 13 x 9 x 2.8 cm in greatestdimension Accessory lobes: None Maternal surface: Lobulated and intact Parenchyma: Red, beefy, and spongy Parenchyma lesions: None Cassettes: A through D /wpd 04/03/18 @ 9226 MICROSCOPIC DESCRIPTIONThe placenta is composed of small vascular villi which are much smaller and more mature than expected for the given gestational age. Multifocal increase in the syncytial knots is present. Multifocal distal villous hypoplasia is present. The trivascular umbilical cord and membranes are free of inflammation. The decidual blood vessels are muscularized. [facility]/d 04/04/18 @ 1420 Signed Cynthia Ma 04/04/18 2614 END OF REPORT
[2022-07-01] MEDS ORDERED: BUPIVACAINE 0.5% PF 10 ML VIAL ONE (20:19)
--- NOTE | 2022-07-01 20:45 | EDPHYS ---
Physician Documentation [facility] Name: Lilliana Aragon Age: 26 yrs Sex: Female : 1995 Arrival Date: 07/01/2022 Time: 20:02 Bed 15 Private MD: ED Physician Torsten Alejandre HPI: 07/01 20:13 This 26 yrs old Female presents to ER via Ambulatory with complaints of Toothache. [facility] 20:42 This is a 26-year-old female with history of atrial fibrillation the presents emerged m part with dental pain beginning approximately 2 days ago after she chipped her tooth. Patient states she is developed increased swelling to her jaw and her face. Denies fever.. Historical: - Allergies: 20:14 Amoxicillin; tw5 20:14 Benadryl; tw5 - PMHx: 20:14 Atrial fibrillation; tw5 - PSHx: 20:14 ; tw5 - Immunization history:: Flu vaccine is not up to date. - Social history:: Smoking status: Patient reports the use of cigarette tobacco products. ROS: 20:42 Constitutional: Negative for fever, chills, and weight loss, Cardiovascular: Negative jm for chest pain, palpitations, and edema, Respiratory: Negative for shortness of breath, cough, wheezing, and pleuritic chest pain, Abdomen/GI: Negative for abdominal pain, nausea, vomiting, diarrhea, and constipation. 20:42 All other systems are negative. Exam: 20:42 Constitutional: This is a well developed, well nourished patient who is awake, alert, jmm and in no acute distress. Head/Face: atraumatic. Eyes: EOMI, no conjunctival erythema appreciated 20:42 Neck: Trachea midline, Supple Chest/axilla: Normal chest wall appearance and motion. Cardiovascular: Regular rate and rhythm. No edema appreciated Respiratory: Normal respirations, no respiratory distress appreciated Abdomen/GI: Non distended Back: Normal ROM Skin: General appearance color normal MS/ Extremity: Moves all extremities, no obvious deformities appreciated, no edema noted to the lower extremities Neuro: Awake and alert Psych: Behavior is normal, Mood is normal, Patient is cooperative and pleasant 20:42 ENT: Mouth: Dental exam: dental caries, specifically in the lower right second bicuspid (#29), gum swelling. 20:42 ENT: No submandibular tenderness or swelling appreciated.. Vital Signs: 20:12 BP 138 / 95; Pulse 83; Resp 18; Temp 98.6; Pulse Ox 98% ; Weight 63.5 kg; Height 5 ft. tw5 4 in. (162.56 cm); Pain 8/10; 20:36 Pain 4/10; ke1 20:58 BP 138 / 95; Pulse 73; Resp 17; Temp 98.5; Pulse Ox 98% on R/A; Pain 1/10; ke1 20:12 Body Mass Index 24.03 (63.50 kg, 162.56 cm) tw5 MDM: 20:13 Patient medically screened. [facility] 20:43 Data reviewed: vital signs, nurses notes. Counseling: I had a detailed discussion with kavya the patient and/or guardian regarding: the historical points, exam findings, and any diagnostic results supporting the discharge/admit diagnosis, the need for outpatient follow up, to return to the emergency department if symptoms worsen or persist or if there are any questions or concerns that arise at home. ED course: 3 mils of 0.5% bupivacaine were injected near the site of pain. Good anesthesia was achieved. Patient tolerated the procedure well. Patient advised follow-up dentist otherwise given strict return precautions. Patient understood and agrees to plan of care.. Administered Medications: 20:20 Drug: Marcaine (bupivacaine) (0.5 %) 10 ml {Note: BY RONN Marc.} Volume: 10 ml; Route: ke1 Infiltration; 20:36 Follow up: Pain 4/10 Adult; Response: Pain is decreased ke1 20:36 Drug: Clindamycin 300 mg Route: PO; ke1 21:00 Follow up: Response: No adverse reaction ke1 Disposition: 22:44 Co-signature as Attending Physician, Torsten Alejandre MD. rn Disposition Summary: 07/01/22 20:44 Discharge Ordered Location: Home [facility] Condition: Stable [facility] Diagnosis - Dental caries, unspecified [facility] Followup: [facility] - With: Uriel Pete DDS - When: 2 - 3 days - Reason: Recheck today's complaints, Continuance of care, Re-evaluation by your physician Discharge Instructions: - Discharge Summary Sheet [facility] - Dental Caries, Adult [facility] Forms: - Medication Reconciliation Form [facility] - Thank You Letter jm - Antibiotic Education jmm - Prescription Opioid Use jmm Prescriptions: - Clindamycin HCl 300 mg Oral Capsule - take 1 capsule by ORAL route every 6 hours for 10 days; 40 capsule; Refills: 0, [facility] Product Selection Permitted - Diclofenac Sodium 75 mg Oral Tablet Sustained Release - take 1 tablet by ORAL route 2 times per day; 30 tablet; Refills: 0, Product [facility] Selection Permitted Signatures: Monico Blanca PA PA jmm Nieto, Roman, MD MD rn Wood, Tiffany tw5 Solomon Rosas RN RN ke1
--- NOTE | 2022-07-01 20:45 | ER ---
Nurse's Notes [facility] Name: Lilliana Aragon Age: 26 yrs Sex: Female : 1995 Arrival Date: 07/01/2022 Time: 20:02 Bed 15 Private MD: Diagnosis: Dental caries, unspecified Presentation: 07/01 20:12 Chief complaint: Patient states: "I broke my tooth, I have been using numbing cream and tw5 ibuprofen but my tooth is getting worse. I feel like my face is getting swollen.". Coronavirus screen: Vaccine status: Patient reports being unvaccinated. Ebola Screen: Patient negative for fever greater than or equal to 101.5 degrees Fahrenheit, and additional compatible Ebola Virus Disease symptoms Patient denies exposure to infectious person. Patient denies travel to an Ebola-affected area in the 21 days before illness onset. Initial Sepsis Screen: Does the patient meet any 2 criteria? No. Patient's initial sepsis screen is negative. Does the patient have a suspected source of infection? No. Patient's initial sepsis screen is negative. Risk Assessment: Do you want to hurt yourself or someone else? Patient reports no desire to harm self or others. Onset of symptoms is unknown. 20:12 Method Of Arrival: Ambulatory tw5 20:12 Acuity: CRISTAL 4 tw5 Triage Assessment: 20:20 General: Appears uncomfortable, Behavior is appropriate for age. Pain: Pain: Complains ke1 of pain in toothache. 20:20 EENT: Reports pain in right jaw. ke1 Historical: - Allergies: 20:14 Amoxicillin; tw5 20:14 Benadryl; tw5 - PMHx: 20:14 Atrial fibrillation; tw5 - PSHx: 20:14 ; tw5 - Immunization history:: Flu vaccine is not up to date. - Social history:: Smoking status: Patient reports the use of cigarette tobacco products. Screenin:19 Abuse screen: Denies threats or abuse. Nutritional screening: No deficits noted. ke1 Tuberculosis screening: No symptoms or risk factors identified. Fall Risk None identified. Assessment: 20:59 Reassessment: Patient states feeling better. Patient states symptoms have improved. ke1 Vital Signs: 20:12 BP 138 / 95; Pulse 83; Resp 18; Temp 98.6; Pulse Ox 98% ; Weight 63.5 kg; Height 5 ft. tw5 4 in. (162.56 cm); Pain 8/10; 20:36 Pain 4/10; ke1 20:58 BP 138 / 95; Pulse 73; Resp 17; Temp 98.5; Pulse Ox 98% on R/A; Pain 1/10; ke1 20:12 Body Mass Index 24.03 (63.50 kg, 162.56 cm) tw5 ED Course: 20:02 Patient arrived in ED. ja 20:03 Monico Blanca PA is PHCP. [facility] 20:03 Torsten Alejandre MD is Attending Physician. [facility] 20:07 Solomon Rosas, JOANNE is Primary Nurse. ke1 20:14 Triage completed. tw5 20:14 Arm band placed on. tw5 20:21 Bed in low position. Call light in reach. ke1 20:44 Uriel Pete DDS is Referral Physician. [facility] 20:59 No provider procedures requiring assistance completed. Patient did not have IV access ke1 during this emergency room visit. Administered Medications: 20:20 Drug: Marcaine (bupivacaine) (0.5 %) 10 ml {Note: BY RONN Marc.} Volume: 10 ml; Route: ke1 Infiltration; 20:36 Follow up: Pain 4/10 Adult; Response: Pain is decreased ke1 20:36 Drug: Clindamycin 300 mg Route: PO; ke1 21:00 Follow up: Response: No adverse reaction ke1 Medication: 20:59 VIS not applicable for this client. ke1 Outcome: 20:44 Discharge ordered by . [facility] 20:59 Discharged to home ambulatory. ke1 20:59 Condition: good 20:59 Discharge instructions given to patient. 21:00 Patient left the ED. ke1 Signatures: Monico Blanca PA PA jmm Alexander, Jessica ja Suzanna Barajas tw5 Solomon Rosas, JOANNE RN ke1 Corrections: (The following items were deleted from the chart) 20:21 20:20 Pain: ke1 ke1
[2022-07-01 21:24] VITALS: BP 138/95; O2SAT 98
[2022-07-01 21:26] VITALS: TEMP 98.5
== END 2022-07-01 21:00 | disposition home or self-care (01) ==
LOC: ER 19:59
DX: K02.9 Dental caries, unspecified (principal); Z72.0 Tobacco use; Z88.1 Allergy status to other antibiotic agents; Z88.8 Allergy status to other drugs, medicaments and biological substances
CPT/HCPCS: 99283

== ENCOUNTER 2022-07-13 21:12 | Emergency (ER) | payer OTHER ==
--- OUTSIDE RECORDS SUMMARY | 2022-07-13 21:18 | XMS REPORT | Continuity of Care Document ---
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 (procedure) [code = 015170194] Future Scheduled Test 1998-06-19 00:00:00 COVID-19 Vaccine (#1) [facility] [code = COVID-19 Vaccine (#1)] Future Scheduled Test 1998-06-19 00:00:00 COVID-19 Vaccine (#1) [facility] [code = COVID-19 Vaccine (#1)] Future Scheduled Test 1998-06-19 00:00:00 COVID-19 Vaccine (#1) [facility] [code = COVID-19 Vaccine (#1)] Future Scheduled Test 1997 00:00:[address] [facility] [code = Fluoride Varnish] Encounters Start End Encounter Admission Attending Care Care Encounter Source Date/Time Date/Time Type Type Clinicians Facility Department ID 2022-02-10 Outpatient maggy [facility] [id number] [facility] 14:51:02 [id number] Critical access hospital 2021-05-21 Outpatient maggy [facility] [id number] [facility] 20:13:56 [id number] Critical access hospital 2022-05-21 2022-05-21 Outpatient Ignacio [facility] [id number] Univers 16:00:00 16:57:20 DELIA vizcarra [facility] 2022-05-21 2022-05-21 Urgent Delia Park [facility] 1.2.840.114 [id number] Univers 16:00:00 16:57:20 Care Unknown, [facility] HEALTH 350.1.13.10 zackery [facility] 4.2.7.2.686 Mani as KATHRIN?BLEA [id number] [address] MEDICAL OFFICE [facility] 2022-05-19 2022-05-19 Outpatient R [facility] [id number] Univers 16:00:00 16:00:00 KALEB ity [facility] 2022-05-06 2022-05-06 Emergency X [facility] ERT [id number] Univers 17:03:00 20:20:00 ERI ity [facility] 2022-05-06 2022-05-06 Emergency [facility] [id number] Univers 17:03:00 20:20:00 Eri Ruggiero [place] 350.1.13.10 ity of [place] 4.2.7.2.686 [place] [facility] [id number] [address] 2022-05-06 2022-05-06 Letter Yuni [facility] 1.2.840.114 [id number] Univers 00:00:00 00:00:00 (Out) Ophis [employer] 350.1.13.10 it y of [place] 4.2.7.2.686 Mani as KATHRIN?BLEA [id number] [address] MEDICAL OFFICE [facility] 2022-05-04 2022-05-04 Laboratory Only, Ang Db Test [facility] 1.2.8 40.114 [id number] Univers 13:00:00 13:15:00 Only Cy [employer] 350.1.13.10 ity of [place] 4.2.7.2.686 Mani as KATHRIN?BLEA [id number] [address] MEDICAL OFFICE [facility] 2022-05-04 2022-05-04 Outpatient R [facility] [id number] Univers 13:00:00 13:00:00 NEVIN [facility] 2022-04-14 2022-04-14 Outpatient R [facility] [id number] Univers 15:00:00 15:00:00 JULIO CESAR ity [facility] 2022-03-30 2022-03-30 [facility] [id number] Univers 12:06:40 23:59:00 Encounter [facility] 350.1.13.10 ity of [place] 4.2.7.2.686 Mani as KATHRIN?BLEA [phone] [place] andrew HUGHES [address] MEDICAL OFFICE BUILDING 2022-03-30 2022-03-30 [facility] 1.2.595.058 [id number] Univers 12:06:40 23:59:00 Encounter [facility] 350.1.13.10 ity of [place] 4.2.7.2.686 Mani as KATHRIN?BLEA [id number] [facility] [facility] [address] MEDICAL OFFICE [facility] 2022-03-30 2022-03-30 Outpatient R [facility] [id number] Univers 12:06:40 23:59:00 JAREN ity o f [facility] 2022-03-30 2022-03-30 Urgent [facility] 1.2.840. 114 [id number] Univers 13:00:00 13:20:00 Care [facility] 350.1.13.10 ity of [place] 4.2.7.2.686 Mani as KATHRIN?BLEA [id number] [facility] [address] MEDICAL OFFICE [facility] 2022-03-30 2022-03-30 Orders Doctor OWEN 1.2.840.114 [id number] Univers 00:00:00 00:00:00 Only Unassigned, ROSE MARIE 350.1.13.10 ity of [place] [facility] 4.2.7.2.[id number] [facility] 009 Branch 2021-10-31 2021-11-01 Emergency X NADIR VEGA [facility] ERT [id number] Univers 19:45:00 01:04:00 SILVIA NADIR ity of [facility] 2021-10-31 2021-11-01 Emergency Georgeepi, TRAUMA 1.2.840.114 [id number] Univers 19:45:00 01:04:00 [facility] 350.1.13.10 it y of [place].7.[place].[address] [place] [id number] [facility] 014 Branch 2020-12-19 2020-12-19 Emergency E MARTITA [place] 7513 MHNE 02:45:00 05:21:00 [place] 2020-08-20 2020-08-23 [facility] [id number] [facility] 23:55:00 06:47:18 [facility] 2019-02-05 2019-02-05 Outpatient [facility] [id number] [place] 00:00:00 00:00:00 Health 2019-02-04 2019-02-04 Outpatient [facility] [id number] [place] 20:46:53 20:46:53 [facility] 2018-12-06 2018-12-06 Emergency E MHSW SW 7508 SW 15:34:00 15:34:00 2018-11-22 2018-11-22 [facility] [id number] 15:30:00 17:09:30 2018-11-22 2018-11-22 Appointmen [facility] Multiple Needle Stitcher [id number] [place] 15:30:00 15:30:00 t; MICHELLE ROJAS, Ph martin Urbina M.D. 2018-11-15 2018-11-15 [facility] Multiple Needle Stitcher [id number] [place] 10:45:00 10:45:00 t; JOSEPH DEMARCO, Bernard Mitchell M.D. 2018-11-08 2018-11-08 Appointmen ROD AND TUBE STRAIGHTENER, [facility] [id number] [place] 12:00:00 12:00:00 t; ROD AND TUBE STRAIGHTENER, ROOM1 [facility] ROOM1 [facility] 2018-11-08 2018-11-08 [facility] Multiple Needle Stitcher [id number] [place] 10:00:00 10:00:00 t; Bernard STAUFFER Ph nedla Cohen M.D. Results Test Description Test Time Test Comments Results Result Comments Source TEST, SERUM 2021-11-01 02:18:10 Test Item Value Reference Range Interpretation Comme nts PREG SERUM (test code = 0705951472) Negative SILVA (test code = SILVA) Less than 10 IU/L. ?If low titer or ectopic is suspected, resubmit specimen in 48-72 hours. [facility] METABOLIC PANEL (78313)2021-11-01 02:01:26 Test Item Value Reference Range Interpretation Comments NA (test code = 137 mmol/L 135-145 5644329013) K (test code = 3.9 mmol/L 3.5-5.0 1650975013) CL (test code = 107 mmol/L 98-108 7080107395) CO2 TOTAL (test code 24 mmol/L 23-31 = 6756491567) AGAP (test code = 2-16 5572334625) BUN (test code = 10 mg/dL 7-23 5458184878) GLUCOSE (test code = 87 mg/dL 70-110 9401711592) CREATININE (test code 0.59 mg/dL 0.50-1.04 = 9906549114) TOTAL BILI (test code 0.6 mg/dL 0.1-1.1 = 5532740323) CALCIUM (test code = 9.1 mg/dL 8.6-10.6 4407744916) T PROTEIN (test code 7.2 g/dL 6.3-8.2 = 7314075983) ALBUMIN (test code = 4.4 g/dL 3.5-5.0 1697006447) ALK PHOS (test code = 42 U/L 34-122 1914486018) ALTv (test code = 14 U/L 5-35 1742-6) AST(SGOT) (test code 20 U/L 13-40 = 4360681566) eGFR (test code = mL/min/1.73m2 3412974380) SILVA (test code = SILVA) Association of [...] or urine or abnormalities in imaging tests). [facility] Test Item Value Reference Range Interpretation Comments LIPASE (test code = 4881750454) 65 U/L 0-220 Lab Interpretation (test code = Normal 17142-2) [facility] WITH [id number] 01:46:02 Test Item Value Reference Range Interpretation Comments WBC (test code = See_Comment [Automated message] 6690-2) The system [employer] generated this result transmitted ref erence range: 4.30 - 1 1.10 10*3/?L. The re ference range was not u sed to interpret this result as normal/abnor mal. RBC (test code = See_Comment [Automated message] 789-8) The system [employer] generated this result transmitted ref erence range: [...] RDW-SD (test code 45.6 fL 39.0-49.9 = 88619-5) RDW-CV (test code 14.8 % 12.0-15.5 = 788-0) PLT (test code = See_Comment [Automated message] 777-3) The system whic h generated this result transmitted ref erence range: 166 - 35 8 10*3/?L. The re ference range was not u sed to interpret this result as normal/abnor mal. MPV (test code = 11.6 fL 9.5-12.9 80177-4) NRBC/100 WBC (test See_Comment [Automat ed message] code = 2323287051) The syste m which generated this result transmitted ref erence range: 0.0 - 10 .0 /100 WBCs. The refer ence range was not u sed to interpret this result as normal/abnor mal. NRBC x10^3 (test <0.01 See_Comment [Automated message] code = 5719785507) The syste m which generated this result transmitted ref erence range: 10*3/?L. The reference range was not used to interpr et this result as normal/abnormal . GRAN MAT (NEUT) % 59.9 % (test code = 770-8) IMM GRAN % (test 0.20 % code = 2799766550) LYMPH % (test code 31.7 % = 736-9) MONO % (test code 6.8 % = 5905-5) EOS % (test code = 0.9 % 713-8) BASO % (test code 0.5 % = 706-2) GRAN MAT 5.20 10*3/uL 1.88-7.09 x10^3(ANC) (test code = 0442191916) IMM GRAN x10^3 <0.03 0.00-0.06 (test code = 6149628447) LYMPH x10^3 (test 2.75 10*3/uL 1.32-3.29 code = 731-0) MONO x10^3 (test 0.59 10*3/uL 0.33-0.92 code = 742-7) EOS x10^3 (test 0.08 10*3/uL 0.03-0.39 code = 711-2) BASO x10^3 (test 0.04 10*3/uL 0.01-0.07 code = 704-7) [facility] US PELVIS [id number] 11:04:00 [facility] : 1995 Sex: F Patient Name: MEME HERNANDEZ Unit No: [id number] EXAMS: CPT CODE: [id number] US PELVIS COMPLETE 47981 EXAM: US, US TRANSVAGINAL W/PELVIS: 08/21/2020, 0035 [...] the pelvis may be performed. IMPRESSION: [facility] NAME: MARIANO HERNANDEZERRA Radiology Department PHYS: Lawson Regalado [address] : 1995 AGE: 24 SEX: F [place] [address] LOC: PattieERS PHONE #: [phone] EXAM DATE: 08/21/2020 STATUS: DEP ER FAX #: [phone] RAD NO: Page 1 Signed Report (CONTINUED) Patient Name: MEME HERNANDEZ Unit No: [id number] EXAMS: CPT CODE: [id number] US PELVIS COMPLETE 67021 (Continued) 1. Left ovarian cyst 2. Small free fluid seen in the cul-de-sac. SL: DANYELL at 1104 Reported and signed by: Td Hylton M.D. CC: Lawson Moreland MD Technologist: TAI MCKEON RDMS, FANTAT Probe: Trnscrbd D/ (1104) [email or web address] Orig Print D/T: S: 08/22/2020 (1105) [facility] Rad[facility] Department PHYS: Lawson Regalado [address]inDOB: 1995 AGE: 24 SEX: F [place] [address] LOC: PattieERS PHONE #: [phone] EXAM DATE: 08/21/2020 STATUS: DEP ER FAX #: [phone] RAD NO: Page 2 Signed Report PatientName: MEME HERNANDEZ Unit No: [id number] EXAMS: CPT CODE: [id number] US PELVIS COMPLETE 73637 (Continued) [facility] NAME: MEME HERNANDEZ Radiology Department PHYS: Lawson Regalado [address] : 1995 AGE: 24 SEX: F [place], [place] [address] LOC: FConorERS PHONE #: [phone] EXAM DATE: 08/21/2020 STATUS: DEP ER FAX #: [phone] RAD NO: Page 3 Signed Report- DUP AB/PEL/SC/LNT9705-08-34 02:25:[address] [facility] [address] [facility] : 1995 Sex: F Patient Name: MEME HERNANDEZ Unit No: [id number] EXAMS: CPT CODE: [id number] DUP AB/PEL/SC/LTD 81060 EXAM:US, US TRANSVAGINAL W/PELVIS: 08/21/2020, 0035 hours [...] the pelvis may be performed. IMPRESSION: [facility] NAME: MEME HERNANDEZ Radiology Department PHYS: Lawson Regalado [address] : 1995 AGE: 24 SEX: F [place], [place] [address] LOC: CLARKE PHONE #: [phone] EXAM DATE: 08/21/2020 STATUS: REG ER FAX #: [phone] RAD NO: Page 1 Signed Report (CONTINUED) Patient Name: MEME HERNANDEZ Unit No: [id number] EXAMS: CPT CODE: [id number] DUP AB/PEL/SC/LTD 87002 (Continued) 1. Left ovarian cyst 2. Small free fluid seen in the cul-de-sac. SL: DANYELL at 0225 Reported and signed by: Td Hylton M.D. CC: Lawson Moreland MD Technologist: TAI MCKEON RDMS, RVT Probe: Trnscrbd D/ (0225) [email or web address] Orig Print D/T: S: 08/21/2020 (0228) [facility] NAME: TEDMNJACINTOA Radiology Department PHYS: [facility],Lawson Juarez FanninDOB: 1995 AGE: 24 SEX: F [place], [place] [address] LOC: F.ERS PHONE #: [phone] EXAM DATE: 08/21/2020 STATUS: REG ER FAX #: [phone] RAD NO: Page 2 Signed Report Patient Name: MEME HERNANDEZ Unit No: [id number] EXAMS: CPT CODE: [id number] DUP AB/PEL/SC/LTD 55910 (Continued) [facility] NAME: [facility] Radiology Department PHYS: [facility] [address] : 1995 AGE: 24 SEX: F [place], [place] [address] LOC: F.ERS PHONE #: [phone] EXAM DATE: 08/21/2020 STATUS: REG ER FAX #: [phone] RAD NO: Page3 Signed Report- US TRANSVAGINAL W/[id number] 02:25:00 [facility] : 1995 Sex: F Patient Name: MEME HERNANDEZ Unit No: [id number] EXAMS: CPT CODE: [id number] US TRANSVAGINAL W/PELVIS 83081KMVK: US, US TRANSVAGINAL W/PELVIS: 08/21/2020, 0035 hours EXAM: US, DUP AB/PEL/SC LTD: 08/21/2020, 0035 hours Clinical Indication: Left lower quadrant pain. Comparison: Ultrasound dated 08/04/2019. TECHNIQUE: Technique: Grayscale, color and Doppler transabdominal and transvaginal imaging of the pelvis was performed with standard technique. FINDINGS: Transabdominal pelvic ultrasound: UTERUS: There isan anteverted uterus measuring 8.0 x 4.7 x 6.2 cm in size. Normal uterine contour and morphology. There is normal parenchymal echotexture. The endometrial stripe measures 8.3 mm in thickness. OVARIES: R IGHT: 3.5 x 2.4 x 2.1 cm. LEFT: [...] OTHER FINDINGS: Small free fluid in the cul-de-sa c. If there is further concern, followup pelvic sonography or MRI of the pelvis may be performed. IMPRESSION: [facility] NAME: MEME HERNANDEZ Radiology Department PHYS: Lawson Regalado [address] : 1995 AGE: 24 SEX: F [place], [place] [address] LOC: FConorERS PHONE #: [phone] EXAM DATE: 08/21/2020 STATUS: REG ER FAX #: [phone] RAD NO: Page 1 Signed Report (CONTINUED) Patient Name: MEME HERNANDEZ Unit No: [id number] EXAMS: CPT CODE: [id number] US TRANSVAGINAL W/PELVIS 90294 (Continued) 1. Left ovarian cyst 2. Small free fluid seen in the cul-de-sac. SL: DANYELL at 0225 Reported and signed by: Td Hylton M.D. CC: Lawson Moreland MD Technologist: TAI MCKEON RDMS,RVT Probe: [id number] Trnscrbd D/ (224) t.JS38 Orig Print D/T: S: 08/21/2020 (022)[facility] NAME: [facility] Radiology Department PHYS: Lawson Regalado [address] : 1995 AGE: 24 SEX: F [place] [address] LOC: PattieERS PHONE #: [phone] EXAM DATE: 08/21/2020 STATUS: REG ER FAX #: [phone] RAD NO: Page 2 Signed Report Patient Name: MEME HERNANDEZ Unit No: [id number] EXAMS: CPT CODE: [id number] US TRANSVAGINALW/PELVIS 07234 (Continued) [facility] NAME: [facility] Radiology Department PHYS: Lawson Regalado [address] : 1995 AGE: 24 SEX: F [place] [address] LOC: PattieERS PHONE #: [phone] EXAM DATE: 08/21/2020 STATUS: REG ER FAX #: [phone] RAD NO: Page 3 Signed ReportUA RFLX MICR CULT IF [id number] 00:47:00 Test Item Value Reference Range Interpretation [...] culture: Suprapubic PainSpecimen Description: CLEAN CATCHUR HCG [id number] 00:47:00 Test Item Value Reference Range Interpretation [...] Description: CLEAN CATCHUA RFLX MICR CULT IF [id number] 00:31:00 Test Item Value Reference Range Interpretation [...] culture: Suprapubic PainSpecimen Description: CLEAN CATCHUR HCG [id number] 00:31:00 Test Item Value Reference Range Interpretation [...] Suprapubic PainSpecimen Description: CLEAN CATCH- US TRANSVAGINAL W/[id number] 03:14:00 Patient Name: MEME HERNANDEZ Unit No: [id number] EXAMS: CPT CODE: [id number] US TRANSVAGINAL W/[id number] Pelvic and transvaginal ultrasound dated 08/04/2019. HISTORY: [...] Cuevas DO Technologist: Martha Wan RDMS Probe: [id number] Trnscrbd D/ (031) t.DMQuinton Orig Print D/T: S: 08/04/2019 (031) [facility] NAME: [facility] Radiology Department PHYS: Jose Padilla MD [address] : 1995 AGE: 23 SEX: F [place] [address] LOC: PattieERS PHONE #:[phone] EXAM DATE: 08/04/2019 STATUS: REG ER FAX #: [phone] RAD NO: Page 1 Signed Report Patient Name: MEME HERNANDEZ Unit No: [id number] EXAMS: CPT CODE: [id number] US TRANSVAGINAL W/PELVIS 13688 (Continued) [facility] NAME: [facility] Radiology Department PHYS: Jose iSmeon MD [address] : 1995 AGE: 23 SEX: F [place] [address] LOC: PattieERS PHONE #: [phone] EXAM DATE: 08/04/2019 STATUS: REG ER FAX #: [phone] RADNO: Page 2 Signed Report- DUP AB/PEL/SC/[id number] 03:14:00 Patient Name: MEME HERNANDEZ Unit No: [id number] EXAMS: CPT CODE: [id number] DUP AB/PEL/SC/LTD 74601 Pelvic and transvaginal ultrasound dated 08/04/2019. HISTORY: [...] Martha Wan RDMS Probe: Trnscrbd D/ (031) Tray Orig Print D/T: S: 08/04/2019 (031) [facility] NAME: MEME HERNANDEZ Radiology Department PHYS: Jose Padilla MD [address] : 1995 AGE: 23 SEX: F [place], [place] [address] LOC: CLARKE PHONE #: [phone] EXAM DATE: 08/04/2019 STATUS: REG ER FAX #: [phone] RAD NO: Page 1 Signed Report Patient Name: DVAIDMEME Unit No: [id number] EXAMS: CPT CODE: [id number] DUP AB/PEL/SC/LTD 69105 (Continued) [facility] NAME: MEME HERNANDEZ Radiology Department PHYS: Jose Padilla MD [address] : 1995 AGE: 23 SEX: F [place], [place] [address] LOC: CLARKE PHONE #: [phone] EXAM DATE: 08/04/2019 STATUS: BENOIT LANDRY FAX #: [phone] RAD NO: Page 2 Signed Report- US PELVIS [id number] 03:14:00 Patient Name: MEME HERNANDEZ Unit No: [id number] EXAMS: CPT CODE: [id number] US PELVIS COMPLETE 04071Emzdbf and transvaginal ultrasound dated 08/04/2019. HISTORY: Pelvic [...] Technologist: Martha Wan RDMS Probe: Trnscrbd D/ (313) Tray Orig Print D/T: S: 08/04/2019 (316) [facility] NAME: MEME HERNANDEZ Radiology Department PHYS: Jose Padilla MD [address] : 1995 AGE: 23 SEX: F [place], [place] [address] LOC: PattieERS PHONE #: [phone] EXAM DATE: 08/04/2019 STATUS: REG ER FAX #: [phone] RAD NO: Page 1 Signed Report Patient Name: MEME HERNANDEZ Unit No: [id number] EXAMS: CPT CODE: [id number] US PELVIS COMPLETE 65935 (Continued) [facility] NAME: MEME HERNANDEZ Radiology Department PHYS: Jose Padilla MD [address] : 1995 AGE: 23 SEX: F [place], [place] [address] LOC: CLARKE PHONE #:[phone] EXAM DATE: 08/04/2019 STATUS: REG ER FAX #: [phone] RAD NO: Page 2 Signed ReportCBC W/AUTO [id number] 23:55:00 Test Item Value Reference Range Interpretation [...] (test NORMAL NORMAL code = PLTMR) HCG [id number] 23:40:00 Test Item Value Reference Range Interpretation [...] SHOULD BE CONSI DERED NEGATIVE CHEMISTRY 7 [id number] 23:27:00 Test Item Value Reference Range Interpretation [...] = CA) 8.7 mg/dL 8.4-10.2 N LIVER [id number] 23:27:00 Test Item Value Reference Range Interpretation [...] 57 units/L 46-116 N code = ALKP) [id number] 23:27:00 Test Item Value Reference Range Interpretation Comments LIPASE (test code = LIP) 129 units/L 73-393 N UA RFLX MICR CULT IF [id number] 22:56:00 Test Item Value Reference Range Interpretation [...] SEEN Indication for culture: Suprapubic PainPLACENTA THIRD [id number] 18:16:00 RUN DATE: 02/21/19 [facility] PAGE 1 RUN TIME: 758 Specimen Inquiry RUN USER: INTERFACE -PATIENT: MEME HERNANDEZ LOC: BELINDA U #: [id number] AGE/SX: ROOM: 2011 RE02/17/19REG DR: Gm Cuevas DO : [birth year] BED: A DIS: 02/19/19 STATUS: DIS IN TLOC: SPEC #: [id number] RECD: 02/18/19 STATUS: DESMOND REQ #: [id number] MAURISIO: 02/18/19- [facility] DR: Gm Cuevas DO ENTERED: 02/19/19 SP TYPE: PLACIII CONNOR DR: ORDERED: LEVEL V SURGICA/3 CODES: [id number] - FALLOPIAN TUBE US5543 - PLACENTA, NOS PROCEDURES: LEVEL V SURGICA [...] of inflammation Tissue code 1 CPT code(s): 95962 x2, 70432 [facility] 02/20/19 GROSS DESCRIPTION JOSETTE TOMIC SOURCE OF TISSUE (per Requisition): 1. Right [...] [facility] PAGE 2 RUN TIME: 0759 Specimen Inquiry RUN USER: INTERFACE SPEC #: [id number] PATIENT: MEME HERNANDEZ #[id number] (Contin ued) GROSS DESCRIPTION (Continued) pinpoint. Credentialing Coordinator sections are submitted as A1. Specimen #2 is designated "left" and consists of a 1.2 cm in length and 0.4 cm in diameter pink-purple and hyperemic segment of fallopian tube. The lumen is pinpoint. Credentialing Coordinator sections are submitted as B1. The specimen [...] surface: Lobulated and intact Parenchyma: Red, beefy, andspongy with peripheral fibrosis Parenchyma lesions: There is a 0.5 cm beltran-yellow, firm, peripheral focus which grossly involves less than 5% of the placental parenchyma Cassettes: C1 through C4 mary/george07/ @ 1334 Signed Zo Mahan MD 02/20/19 1816 END OF REPORT - CT ANGIO [id number] 14:14:00 Patient Name: DAVIDMEME Unit No: [id number] EXAMS: CPT CODE: [id number] CT ANGIO CHEST 39209 EXAMINATION: CTA of the chest with contrast [...] Consider further evaluation with thyroid ultrasound. [facility] NAME: EMME HERNANDEZ Radiology Department PHYS: Laura Dash MD [address] : 1995 AGE: 23 SEX: F [place] [address] LOC: A PHONE #: [phone] EXAM DATE: 02/19/2019 STATUS: ADM IN FAX #: [phone] RAD NO: Page 1 Signed Report 1 Patient Name: MEME FRIEND Unit No: [id number] EXAMS: CPT CODE: [id number] CT ANGIO CHEST 94198 (Continued) at 1414 Reported and signed by: Geno Rosario MD CC: Gm Cuevas DO; Laura Pryor MD Technologist: Alyse Hernandez RT, CT CTDI: 31.08 DLP: 736.35 Trnscrbd D/ (1414) [facility] BO[facility] Radiology Department PHYS: Laura Dash MD [address] : 1995 AGE: 23 SEX: F [place] [address] LOC: A PHONE #: [phone] EXAM DATE: 02/19/2019 STATUS: ADM IN FAX #: [phone] RAD NO: Page 2 Signed Report 1 Patient Name: MEME HERNANDEZ Unit No:[id number] EXAMS: CPT CODE: [id number] CT ANGIO CHEST 82948 (Continued) Orig Print D/T: S: 02/19/2019(1417) [facility] NAME: MEME HERNANDEZ Radiology Department PHYS: Laura Dash MD [address] : 1995 AGE: 23 SEX: F [place] [address] LOC: A PHONE #: [phone] EXAM DATE: 02/19/2019 STATUS: ADM IN FAX #: [phone] RAD NO: Page3 Signed Report 1BLOOD UREA [id number] 14:03:00 Test Item Value Reference Range Interpretation Comments BLOOD UREA NITROGEN (test code = BUN) 5 mg/dL 7-18 L [id number] 14:03:00 Test Item Value Reference Range Interpretation Comments CREATININE (test code = CREAT) 0.5 mg/dL 0.5-1.0 N - XR CHEST 2 [id number] 12:45:00 Patient Name: MEME HERNANDEZ Unit No: [id number] EXAMS: CPT CODE: [id number] XR CHEST 2 V 55187 CLINICAL HISTORY: chest pain; sob COMPARISON: December [...] Pryor MD Technologist: RT Stone Trnscrbd D/ (3102) Ragini Mckeon D/T: S: 02/19/2019 (6899) [facility] NAME: MEME HERNANDEZ Radiology Department PHYS: Laura Dash MD [address] : 1995 AGE: 23 SEX: F [place], [place] [address] LOC: F.2013 A PHONE #: [phone] EXAM DATE: 02/19/2019 STATUS: ADM IN FAX #: [phone] RAD NO: Page 1 Signed ReportHGB [id number] 07:21:00 Test Item Value Reference Range Interpretation Comments HEMOGLOBIN (test code = HGB) 9.9 g/dL 10.7-13.9 L HEMATOCRIT (test code = HCT) 30.7 % 32.1-42.1 L DRUGS OF ABUSE [id number] 02:15:00 Test Item Value Reference Range Interpretation [...] PHENCU) 25 ng/m L AG HEPATITIS B [id number] 01:20:00 Test Item Value Reference Range Interpretation Comments AG HEPATITIS B SURFACE (test code NONREACTIVE NONREACTIVE = HBSAG) Comments to Electronic Prepress System Operator: LDO AIS CONSENT FORM SIGNED FOR HIV TESTING? HOWARDB HEPATITIS C [id number] 01:20:00 Test Item Value Reference Range Interpretation Comments AB HEPATITIS C (test code = NONREACTIVE NONREACTIVE HCVAB) SIGNAL TO CUTOFF (test code = 0.05 <0.80 N CUTOFF) Comments to Electronic Prepress System Operator: LDO AIS CONSENT FORM SIGNED FOR HIV TESTING? YRUBELLA [id number] 01:20:00 Test Item Value Reference Range Interpretation Comments RUBELLA SCREEN 10.9 IUnit/ml Results >10. 0IUnits/ml (test code = are considered positive RUBSC) inaccordance wi th the CLSI guidelines and based on the [employer] S tandard for Anti-Rubell a serum as anindicator of immune status and a br eakpoint to detect mostseropositiv e persons. Comments to Electronic Prepress System Operator: LDO AIS CONSENT FORM SIGNED FOR HIV TESTING? HOWARDB [id number] 01:20:00 Test Item Value Reference Range Interpretation Comments AB TREPONEMA (test code = TREPAB) NONREACTIVE NONREACTIVE Comments to Electronic Prepress System Operator: LDO AIS CONSENT FORM SIGNED FOR HIV TESTING? YAB HIV 1 01:20:00 Test Item Value Reference Range Interpretation Comments AB HIV 1 2 (test NONREACTIVE NONREACTIVE Done by [facility] code = [id number]) 4th Gen HIV Ag/Ab Combo Screen Comments to Electronic Prepress System Operator: LDO AIS CONSENT FORM SIGNED FOR HIV TESTING? Y URINALYSIS [id number] 01:01:00 Test Item Value Reference Range Interpretation [...] NITRITE DIPSTICK (test code NEG NEG = CARETR) UA LEUKOCYTE ESTERASE DIPSTICK NEG NEG (test code = LEUU) UA WBC (test code = WBCU) 0-2 #/hpf NONE SEEN UA RBC (test code = RBCU) 0-2 #/hpf NONE SEEN UA EPITHELIAL CELLS (test code RARE #/HPF RARE-FEW = EPIU) UA MUCUS (test code = MUCU) RARE NONE SEEN URINE SAMPLE: CLEAN CATCHCBC W/AUTO [id number] 00:11:00 Test Item Value Reference Range Interpretation [...] NORMAL NORMAL code = PLTMR) - US [id number] 23:45:00 Patient Name: MEME HERNANDEZ Unit No: [id number] EXAMS: CPT CODE: [id number] [place] L[place] 20485 Limited obstetrical ultrasound dated 02/17/2019. HISTORY: 34 [...] Technologist: Elaine Zhao RDMS Probe: Trnscrbd D/ (1276) Tray Orig Print D/T: S: 02/17/2019 (6721) [facility] NAME: JACINTO HERNANDEZA Radiology Department PHYS: RUBIN CuevasGm Elvis DO [address] : 1995 AGE: 23 SEX: F [place] [address] LOC: F.016 A PHONE #: [phone] EXAM DATE: 02/17/2019 STATUS: ADM IN FAX #: [phone] RAD NO: Page 1 Signed Report P atient Name: MEME HERNANDEZ Unit No: [id number] EXAMS: CPT CODE: [id number] [place] LTD 60278 (Continued) [facility] NAME: MEME HERNANDEZ Radiology Department PHYS: YANGMARIANO CuevasGm Elvis DO [address] : 1995 AGE: 23 SEX: F [place] [address] LOC: F.016 A PHONE #: [phone] EXAM DATE: 02/17/2019 STATUS: ADM IN FAX #: [phone] RAD NO: Page 2 Signed Report- US FLW [id number] 15:54:00 Patient Name: MEME HERNANDEZ Unit No: [id number] EXAMS: C[place]: [id number] [place] [address] [facility] [address], [place] [address] OBSTETRICAL ULTRASOUND REPORT Pat. Name: MEME HERNANDEZ Pat. No: [id number] Study Date: 12/13/2018 2:18pm , Age: 7 1995, 22 Pregnancies: 5, Para 4 LMP: Unknown GA by 1st: 23w1d GA by US: 22w4d GA Selected: 23w1d (From Known E) SUSAN: 04/10/2019 Referring MD:Bennett Collins M.D. Etl Data Architect: Michelle Cotto RDMS CPT4: USPREGLTD Hist/Ind: Scan 2: previous c/s/ abd pain ( c/s scar ) CHIN UREMENTS AGE GROWTH EVALUATION Measurement GA Range Srce %for GA Ratios ----- ---- ------- BPD 5.3 cm 22w1d (62b0g-07d2k) Hadl BPD 21% FL/BPD 0.81 (0.71 - 0.87) HC 19.8 cm 21w6d (05g5u-96z0l) Hadl HC 13% FL/AC 0.24 (0.20 - 0.24) APD 5.9 cm APD HC/AC 1.09 (1.03 - 1.22) TAD 5.7 cm TAD CI 0.79 (0.70 - 0.86) AC 18.2 cm 22w6d (20w6d- 24w6d) Hadl AC 43% FL 4.3 cm 23w5d (20h0h-53m9e) Hadl FL 62% HL 4.1 cm 24w5d (66f1m-13x0p) Dionisio HL 77% GA for sonogram 22w4d (39d5l-87h7o) Weight Estimate: based on (BPD,HC,AC,FL) Hadlock Weight: 580 gm (495-665) Hadlock : 1lbs, 4oz Normal: 563 gm (377-1003) [facility] Wt% 52% for 23.1 wks Cervical Length:3.3 cm Heart Rate: 143 bpm MATERNAL ANATOMY Ovaries LxHxW (cm) Right 2.6 x 1.8 x 1.2 Vol: 2.9cc Left 2.3 x 1.1 x 1.9 Vol: 2.5cc CLINICAL SUMMARY Type of Gestation: Patino Intrauterine in vertex presenta tion. size is appropriate for gestational age. growth: Consistent with normal growth motion and organs seen: heart motion seen Placental location: Posterior [facility] NAME: MEME HERNANDEZ Radiology Department PHYS: Tristan Lares III, MD [address] : 1995 AGE: 22 SEX: F [place], [place] [address] LOC: LuMANDI PHONE #: [phone] EXAM DATE: 12/13/2018 STATUS: REG ER FAX #: [phone] RAD NO: Page 1 Signed Report (CONTINUED) Patient Name: MEME HERNANDEZ Unit No: [id number] EXAMS: CPT [place]: [id number] [address] (Continued) Placental maturity : Grade 2 There is no evidence of placenta previa. Amniotic fluid volume is normal. Uterus and adnexa: No significant abnormality is seen. Serena Bean M.D. Electronic Signature 12/13/2018 03:54pm Electronically Signed by Serena Bean MD on12/13/2018 at 1554 Reported and signed by: Serena Bean MD CC: Tristan Sarmiento III, MD Technologist: Michelle Cotto RDMS Probe: Trnscrbd D/ (2434) t.SDR.NMG Orig Print D/T: S: 12/13/2018 (3314) [facility] NAME: DAVIDJACINTOA Radiology Department PHYS: Tristan Lares III, MD [address] : 1995 AGE: 22 SEX: F [place] [address] LOC: PattieCLAY PHONE #: [phone] EXAM DATE: 12/13/2018 STATUS: REG ER FAX #: [phone] RAD NO: Page 2 Signed Report Patient Name: MEME HERNANDEZ Unit No: [id number] EXAMS: CPT CODE: [id number] [place] [address] (Continued) [facility] NAME: MEME HERNANDEZ Radiology Department PHYS:Tristan Lares III, MD [address] : 1995 AGE: 22 SEX: F [place] [address] ACCT NO: [id number] LOC: PattieCLAY PHONE #: [phone] EXAM DATE: 12/13/2018 STATUS: REG ER FAX #: [phone] RAD NO: Page 3 Signed ReportPROTHROMBIN [id number] 14:52:00 Test Item Value Reference Range Interpretation Comments PROTHROMBIN TIME PATIENT (test code 12.4 secs 10.4-12.4 N = PTP) THROMBOPLASTIN TIME [id number] 14:52:00 Test Item Value Reference Range Interpretation Comments THROMBOPLASTIN TIME PARTIAL (test 30.7 secs 22-38 N code = PTT) [id number] 14:52:00 Test Item Value Reference Range Interpretation Comments FIBRINOGEN (test code = FIB) 399 mg/dL 309-518 N DRUGS OF ABUSE [id number] 13:00:00 Test Item Value Reference Range Interpretation [...] = PHENCU) 25 ng/m L COMPREHENSIVE METABOLIC [id number] 12:54:00 Test Item Value Reference Range Interpretation [...] units/L 46-116 N code = ALKP) URINALYSIS [id number] 12:42:00 Test Item Value Reference Range Interpretation [...] = MUCU) 2+ NONE SEEN Comments to Electronic Prepress System Operator: DAGOBERTO SEPULVEDA SAMPLE: CLEAN CATCHCBC W/AUTO DIFF [...] REQUIRED (test NORMAL NORMAL code = PLTMR) [QH] DRUG SCREEN,COMPREHENSIVE (URINE)2018-11-08 13:09:00 Test Item Value [...] D. SPECIMEN RECEIVED DATE A ND TIME: [facility]] URINALYSIS, [id number] 13:09:00 Test Item Value Reference Range Interpretation Comments COLOR; Normal (test YELLOW YELLOW N code = 5778-6) APPEARANCE (test code CLEAR CLEAR N = APPEARANCE) SPECIFIC GRAVITY; 1.025 1.001-1.035 N Normal (test code = 2965-2) PH; Normal (test code 6.0 5.0-8.0 N = 2756-5) GLUCOSE; Normal (test NEGATIVE NEGATIVE N code = 1547-9) BILIRUBIN; Normal NEGATIVE NEGATIVE N (test code = 72203-1) KETONES; Normal (test NEGATIVE NEGATIVE N code = 85852-1) OCCULT BLOOD; Normal NEGATIVE NEGATIVE N (test code = 62103-7) PROTEIN; Normal (test NEGATIVE NEGATIVE N code = 44542-0) NITRITE; Normal (test NEGATIVE NEGATIVE N code = 42504-6) LEUKOCYTE ESTERASE NEGATIVE NEGATIVE N (test code = LEUKOCYTE ESTERASE) WBC; Normal (test 0-5 < OR = 5 N code = 6690-2) RBC; Normal (test NONE SEEN < OR = 2 N code = 789-8) SQUAMOUS EPITHELIAL 0-5 < OR = 5 CELLS (test code = 93671-9) BACTERIA; Normal NONE SEEN NONE SEEN N (test code = 630-4) HYALINE CAST; Normal NONE SEEN NONE SEEN N SPECIME N RECEIVED DATE (test code = 13051-7) AND TI ME: [id number] [facility][QH] [id number] DEHYDROGENASE, QUANT.2018-11-08 13:09:00 Test Item Value Reference Range Interpretation Comments [id number]-3-OSJHPBDVU 19.3 {U/g 7.0-20.5 SPECIMEN RECEIVED DEHYDROGENASE (test Hgb} DATE AND TIME: code = 841936611198 [id number]-[id number] DEHYDROGENASE) [facility][QH] QUAD [id number] 13:09:00 Test Item Value Reference Interpretation Comments Range INTERPRETATION: See Comment Screen negat clara for open (test code = NTD, Down syndr ome INTERPRETATION:) andTrisomy 18. MSAFP RISK OPEN <1 IN 5000 NTD (test code = 44979-8) AGE RISK DOWN 1 IN 1164 SYNDROME (test code = AGE RISK DOWN SYNDROME) QUAD RISK DOWN <1 IN 5000 SYNDROME (test code = QUAD RISK DOWN SYNDROME) MSS3 TRISOMY 18 <1 IN 5000 RISK (test code = MSS3 TRISOMY 18 RISK) MSAFP (test code 37.1 ng/ml = 07169-4) ADJ MULTIPLE OF 0.41 MEDIAN (test code [...] assistance with recalculations, please call your local [facility] lab oratory. Forassistance w ith interpretation of these results, please contact your local [facility] genetic compliance counsel oror call [phone]( [phone]). Interpretive Cu t-offsScreen Positive For Op en NTD: > or = 2.50 adjusted MOM > or = 1.90 adjusted M OM for Insulin-depende nt diabetics > or = 4.00 adj usted MOM for Twins > or = 3.50 adjusted MOM fo r Twins insulin-depende nt Diabetics > or = 4.50 adj usted MOM for TripletsSc reen Positive For Do wn Syndrome: "QUAD Risk Down Syndrome" that equals or exceeds 1 in 270Screen Posit clara For Trisomy 18: "MS S3 Trisomy 18 Risk" that e quals or exceeds 1 in 10 0 GESTATIONAL [...] CEIVED DATE AND (test code = TIME: 318 Cigarette smoker) [facility][Q] TREPONEMA PALLIDUM AB, PARTICLE [id number] 13:09:00 Test Item Value Reference Range Interpretation Comments TREPONEMA PALLIDUM NONREACTIVE Reference Range: AB, PARTICLE NonreactiveSPEC IMEN AGGLUTINATION (test RECEIVED DATE AND TIME: code = TREPONEMA [id number] 8 PALLIDUM AB, PARTICLE AGGLUTINATION) [facility][QLH] CULTURE, URINE, [id number] 13:09:00 Test Item Value Reference Range Interpretation Comments SOURCE: (test URINE, CLEAN CATCH code = SOURCE:) STATUS: (test FINAL code = STATUS:) Result (test Multiple organisms CFU/mL. T hese code = Result) present, each less organis ms, commonly than 10,000 found onexterna l and internal genita mandy, are consideredt o be colonizers. No further testing performed.SPECI MEN RECEIVED DATE A ND TIME: 318 [facility][Q] OBSTETRIC [id number] 13:09:00 Test Item Value Reference Range Interpretation Comments WHITE BLOOD CELL 9.0 {Thousand/u} 3.8-10.8 N COUNT (test code = WHITE BLOOD CELL COUNT) RED BLOOD CELL 4.04 3.80-5.10 N COUNT (test code = {Million/uL} RED BLOOD CELL COUNT) HEMAGLOBIN; Below 11.5 g/dl 11.7-15.5 Low Threshold (test code = 21019-1) HEMATOCRIT; Below 34.2 % 35.0-45.0 Low Threshold (test code = 4544-3) MCV; Normal (test 84.7 fL 80.0-100.0 N code = 787-2) MCHC; Normal (test 33.6 g/dl 32.0-36.0 N code = 15211-9) RDW; Above High 15.2 % 11.0-15.0 Threshold (test code = 788-0) PLATELET COUNT; 168 {Thousand/u} 140-400 N Normal (test code = 777-3) MPV; Normal (test 12.4 fL 7.5-12.5 N code = 98940-4) ABSOLUTE 6426 {cells/uL} 1015-1706 N NEUTROPHILS (test code = ABSOLUTE NEUTROPHILS) [...] Normal 5.0 % N (test code = 20871-4) EOSINOPHILS; Normal 1.4 % N (test code = 74520-1) BASOPHILS; Normal 0.3 % N SPECIMEN R ECEIVED (test code = DATE AND TIME: 18381-2) [id number] ANTIBODY SCREEN, NO ANTIBODIES N Reference range No RBC W/REFL ID, DETECTED antibodies de tected TITER AND AG; This assay is a Normal (test code = screenin g test for 890-4) the detection o f red blood cell antibodies. The test is not to be us ed for pretransfus ion screening or fo r the medical managem ent of an alloimmun ized . SPEC IMEN RECEIVED DATE A ND TIME: ABO GROUP (test A code = 883-9) RH TYPE (test code RH(D) POSITIVE SPECIME N RECEIVED = 81923-9) DATE AND TIME: RPR (DX) W/REFL NON-REACTIVE NON-REACTIVE N SPECIMEN REC EIVED TITER AND DATE AND TIME: CONFIRMATORY TESTING (test code = RPR (DX) W/REFL TITER AND CONFIRMATORY TESTING) HEPATITIS B SURFACE NON-REACTIVE NON-REACTIVE N SPECIMEN RECEIVED ANTIGEN; Normal DATE AND CADEN E: (test code = 823976515164 5195-3) RUBELLA ANTIBODY <0.90 Index Inter pretation (IGG); Below Low ----- ----- --------- Threshold (test <0.90 Not co nsistent code = 99037-9) with Immunit y 0.90-0.99 Equiv ocal > or = 1.00 Consistent with Immunity The presence of rub sowmya IgG antibody suggests immunization or past or current infe ction withrubella virus.SPECIMEN RECEIVED DATE A ND TIME: [facility][Q] HIV-1/2 Antigen and Antibodies, Fourth Generation, with [id number] 13:09:00 Test Item Value Reference Range Interpretation Comments HIV AG/AB, 4TH NON-REACTIVE NON-REACTIVE N HIV-1 antigen and GEN; Normal HIV-1/HIV-2 ant ibodies were (test code = [place] [address]-3) laboratory evid ence of HIVinfection. Yandel RAY [...] pertains, or as otherwise permitted by katharina Nam general authorization f or the release of medi [facility] orother information is NOT sufficient for this purpose. For ad ditional information ple ase refer tohttp://educat ion.[employer] 3D Inspection/fa q/ECS839(Thi s link is being provided for informational/e ducational purposes only.) The performance of this assay has not been clinicallyvalid ated in patients less t encinas 2 years old. SPECIMEN R ECEIVED DATE AND TIME: 4286611 [facility]. [facility] - Affirm VPIII (BV Panel)2018-11-08 00:00:00 Test Item Value Reference Range Interpretation Comments Affirm VPIII (BV Panel) REPORT See Comment (test code = Affirm VPIII (BV Panel) REPORT) [facility]iciansCOMPREHENSIVE METABOLIC [id number] 20:23:00 Test Item Value Reference Range Interpretation [...] units/L 46-116 L code = ALKP) HCG [id number] 20:23:00 Test Item Value Reference Range Interpretation [...] DERED NEGATIVE UA RFLX MICR CULT IF [id number] 20:15:00 Test Item Value Reference Range Interpretation [...] code = BACU) RARE /HPF RARE-FEW PROTHROMBIN [id number] 20:06:00 Test Item Value Reference Range Interpretation Comments PROTHROMBIN TIME PATIENT (test code 12.3 secs 10.4-12.4 N = PTP) THROMBOPLASTIN TIME [id number] 20:06:00 Test Item Value Reference Range Interpretation Comments THROMBOPLASTIN TIME PARTIAL (test 30.1 secs 22-38 N code = PTT) [id number] 20:06:00 Test Item Value Reference Range Interpretation Comments FIBRINOGEN (test code = FIB) 385 mg/dL 309-518 N - US PREG AFTER [id number] 19:04:00 Patient Name: MEME HERNANDEZ Unit No: [id number] EXAMS: CPT CODE: [id number] US PREG AFTER TRI 63774 TRANSABDOMINAL OBSTETRICAL PELVIC ULTRASOUND INDICATION: 21 WEEKS, PREVIA . TECHNIQUE: Transabdominal obstetrical pelvic ultrasound was performed with turcios scale and Doppler images. COMPARISONS: Obstetric ultrasound 03/31/2018 FINDINGS: The cervix is closed and the cervical length is 3.6 cm. The placenta is posterior and terminates 3.8 cm from the internal cervical os. There is no evidence of placenta previa or placental abruption. There is a single viable intrauterine gestation in variable presentation. The spine appears normal as visualized. There is a three-vessel umbilical cord. The urinary bladder appears normal. The placental umbilical cord insertion appears normal. The kidneys arenormal. The lower extremities appear normal. The stomach [...] is 17 weeks and 6 days. The e stimated date of delivery is 04/09/2019. 2. There is no placenta previa or placental abruption. 3. Thecervix is closed and the cervical length is 3.6 cm. 4. The amniotic fluid volume appears qualitatively normal. [facility] NAME: MARIANO HERNANDEZERRA Radiology Department PHYS: Sarah Arboleda MD [address] : 1995 AGE: 22 SEX: F [place], [place] [address] LOC:PattieERS PHONE #: [phone] EXAM DATE: 11/05/2018 STATUS: REG ER FAX #: [phone] RAD NO: Page 1 Signed Report (CONTINUED) Patient Name: MEME HERNANDEZ Unit No: [id number] EXAMS: CPT CODE: [id number] PREG AFTER TRI 50215 (Continued) at 1904 Reported and signed by: Devendra Chappell DO CC: Sarah Lopez MD Technologist: Elaine Zhao RDMS Probe: Trnscrbd D/ (190) t.SDR.JB33 Orig Print D/T: S: 11/05/2018 (190) [facility] NAME: BOYCHLOEMEME Radiology Department PHYS: Sarah Arboleda MD [address] : 1995 AGE: 22 SEX: F [place], [place] [address] LOC: PattieERS PHONE #: [phone] EXAM DATE: 11/05/2018 STATUS: REG ER FAX #: [phone] RAD NO: Page 2 Signed Report Patient Name: MEME HERNANDEZ Unit No: [id number] EXAMS: CPT CODE: [id number] US PREG AFTER 1ST TRI 60475(Continued) [facility] NAME: MEME HERNANDEZ Radiology Department PHYS: Sarah Arboleda MD [address] : 1995 AGE: 22 SEX: F [place] [address] LOC: CLARKE PHONE #: [phone] EXAM DATE: 11/05/2018 STATUS: REG ER FAX #: [phone] RAD NO: Page3 Signed ReportCBC W/AUTO [id number] 18:24:00 Test Item Value Reference Range Interpretation [...] NORMAL NORMAL code = PLTMR) PLACENTA THIRD [id number] 14:26:00 RUN DATE: 04/04/18 [facility] PAGE 1 RUN TIME: 1704 Specimen Inquiry RUN USER: INTERFACE -PATIENT: MEME HERNANDEZ LOC: RANGEL U #: [id number] AGE/SX: 22/F ROOM: [facility] RE03/31/18[facility] DR: Yaneth Guidry MD : [birth year] BED: A DIS: 04/04/18 STATUS: DIS IN TLOC: SPEC #: [id number] RECD: 04/02/18-820 STATUS: DESMOND LAFLEUR #: [id number] MAURISIO: 04/02/18- SUBM DR: Yaneth Guidry MD ENTERED: 04/03/18 SP TYPE: PLACIII OTHR DR: Norris Gonsalves MD ORDERED: LEVEL V SURGICA CODES: RJ1309 - PLACENTA, NOS COPIES TO: Yaneth Guidry MD [address] [place], [place] [id number] Norris Gonsalves MD [address] [facility] [address] [place] [address] PROCEDURES: LEVEL V SURGICA (Incomplete) TISSUES: PLACENTA, NOS - PLACENTA CLINICAL HISTORY 22 year old, 29.3 weeks, , section, IUGR, premat urity, previa (kr) FINAL DIAGNOSIS Placenta, section: - [...] Inquiry RUN USER: INTERFACE -- SPEC #: [id number] PATIENT: MEME HERNANDEZ #[id number] (Continued) FINAL DIAGNOSIS (Continued) Tissue code 1 CPT code(s): 413[address] [facility] 04/04/18 @ 6625 GROSS DESCRIPTION The specimen was received in [...] Cassettes: A through D /wpd 04/03/18 @ 5876 MICROSCOPIC DESCRIPTION The placenta is composed of small vascular villi which are much smaller and more mature than expected for the given gestational age. Multifocal increase in the syncytial knots is present. Multifocal distal villous hypoplasia is present. The trivascular umbilical cord and membranes are free of inflammation. The decidual blood vessels are muscularized. [facility]/wpd 04/04/18 @ 1420 Signed Cynthia Ma 08/28/18 1426 END OF REPORT
[2022-07-13] MEDS ORDERED: IBUPROFEN 400 MG TAB ONE (22:47)
[2022-07-13] MEDS ORDERED: HYDROCODONE/APAP 5/325 MG TAB ONE (22:47)
--- NOTE | 2022-07-13 23:56 | ER ---
Nurse's Notes [facility] Name: Lilliana Aragon Age: 26 yrs Sex: Female : 1995 Arrival Date: 07/13/2022 Time: 21:25 Bed 25 Private MD: Diagnosis: Sprain of ankle-right Presentation: 07/13 22:11 Chief complaint: Patient states: she fell through a vent in her trailer twice once bb today and again yesterday injuring her right ankle. Coronavirus screen: At this time, the client does not indicate any symptoms associated with coronavirus-19. Ebola Screen: No symptoms or risks identified at this time. Initial Sepsis Screen: Does the patient meet any 2 criteria? No. Patient's initial sepsis screen is negative. Does the patient have a suspected source of infection? No. Patient's initial sepsis screen is negative. Risk Assessment: Do you want to hurt yourself or someone else? Patient reports no desire to harm self or others. Onset of symptoms was July 13, 2022. 22:11 Method Of Arrival: Wheelchair bb 22:11 Acuity: CRISTAL 4 bb Triage Assessment: 07/14 00:06 General: Appears in no apparent distress. Behavior is calm, cooperative, appropriate tw5 for age. 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 - Social history:: Smoking status: Reported history of juuling and/or vaping. Screenin:52 Abuse screen: Denies threats or abuse. Denies injuries from another. Nutritional tw5 screening: No deficits noted. Tuberculosis screening: No symptoms or risk factors identified. Fall Risk None identified. Assessment: 22:52 General: Reports "My foot went through the grate in the floor.". Pain: Complains of tw5 pain in right ankle Pain currently is 8 out of 10 on a pain scale. Neuro: Level of Consciousness is awake, alert, obeys commands, Oriented to person, place. Musculoskeletal: Swelling present in right ankle. 07/14 00:05 Reassessment: Patient states feeling better. Patient states symptoms have improved. tw5 Pain: Pain currently is 4 out of 10 on a pain scale. Vital Signs: 07/13 22:11 BP 137 / 91; Pulse 71; Resp 16 S; Temp 98.4(O); Pulse Ox 98% on R/A; Weight 68.04 kg bb (R); Height 5 ft. 4 in. (162.56 cm) (R); Pain 8/10; 22:11 Body Mass Index 25.75 (68.04 kg, 162.56 cm) bb ED Course: 21:25 Patient arrived in ED. bp1 21:25 Anam Scott PA is PHCP. cp 21:25 Anam Escobedo MD is Attending Physician. cp 22:12 Triage completed. bb 22:12 Arm band placed on Patient placed in an exam room, on a stretcher, on pulse oximetry. bb X-ray ordered. 22:46 XRAY Ankle RIGHT 3 view In Process Unspecified. EDMS 22:52 Patient has correct armband on for positive identification. Placed in gown. Bed in low tw5 position. Call light in reach. Side rails up X 1. Pulse ox on. NIBP on. Door closed. Noise minimized. Lights dimmed. Warm blanket given. Verbal reassurance given. 22:52 No provider procedures requiring assistance completed. Patient did not have IV access tw5 during this emergency room visit. 23:43 Suzanna Barajas is Primary Nurse. tw5 23:55 Clovsi Olivier MD is Referral Physician. cp 07/14 00:05 Orthoglass splint: stirrup splint applied on right leg. tw5 Administered Medications: 07/13 22:51 Drug: Ibuprofen 800 mg Route: PO; tw5 07/14 00:05 Follow up: Response: No adverse reaction tw5 07/13 22:51 Drug: HYDROcodone-acetaminophen 5 mg-325 mg 1 tabs Route: PO; tw5 07/14 00:05 Follow up: Response: No adverse reaction; Pain is decreased; RASS: Alert and Calm (0) tw5 Medication: 07/13 22:52 VIS not applicable for this client. tw5 Outcome: 23:56 Discharge ordered by . cp 07/14 00:05 Discharged to home with crutches, with family. tw5 Condition: improved Discharge instructions given to patient, family, Instructed on discharge instructions, follow up and referral plans. medication usage, crutch walking, Demonstrated understanding of instructions, follow-up care, medications, crutch walking, Prescriptions given X 1. 00:06 Patient left the ED. tw5 Signatures: Dispatcher [employer] Aye Wallis RN RN Anam Man PA PA cp [place], Brittany bp1 Wood, Tiffany tw5
--- NOTE | 2022-07-13 23:56 | EDPHYS ---
Physician Documentation [facility] Name: Lilliana Aragon Age: 26 yrs Sex: Female : 1995 Arrival Date: 07/13/2022 Time: 21:25 Bed 25 Private MD: ED Physician Anam Escobedo HPI: 07/13 22:30 This 26 yrs old Female presents to ER via Wheelchair with complaints of Ankle Injury. cp 22:30 The patient presents with an injury. The complaints affect the right ankle. Context: cp resulted from fall through vent after covered was removed by child. Patient report this happened initially yesterday and then again today. Patient has been unable to put weight on right ankle after re injury today. 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 - Social history:: Smoking status: Reported history of juuling and/or vaping. ROS: 22:35 Constitutional: Negative for body aches, chills, fever. cp 22:35 Neck: Negative for pain with movement, pain at rest, stiffness. 22:35 Respiratory: Negative for cough, shortness of breath, wheezing. 22:35 Abdomen/GI: Negative for abdominal pain, nausea, vomiting, and diarrhea. 22:35 Back: Negative for pain at rest, pain with movement. 22:35 MS/extremity: Positive for ecchymosis, pain, swelling, tenderness, of the medial side of right ankle, Negative for decreased range of motion, deformity, paresthesias. 22:35 Neuro: Negative for altered mental status, headache, numbness, tingling, weakness. 22:35 All other systems are negative. Exam: 22:40 Constitutional: The patient appears in no acute distress, alert, awake, non-toxic, well cp developed, well nourished, uncomfortable. 22:40 Head/Face: Normocephalic, atraumatic. cp 22:40 Chest/axilla: Inspection: normal. 22:40 Cardiovascular: Rate: normal, Rhythm: regular, Pulses: Pulses are 2+ in right dorsalis pedis artery. 22:40 Respiratory: the patient does not display signs of respiratory distress, Respirations: normal, no use of accessory muscles, no retractions, labored breathing, is not present. 22:40 Abdomen/GI: Exam negative for discomfort, distension, guarding, Inspection: abdomen appears normal. 22:40 Back: pain, is absent, ROM is normal. 22:40 Musculoskeletal/extremity: Extremities: grossly normal except: noted in the right ankle: mild swelling, marked tenderness to palpation noted medial aspect right ankle, mild ecchymosis, Achilles tendon intact, no pain to palpation noted base of right fifth metatarsal and/or proximal right fibula, ROM: limited passive range of motion due to pain, in the right ankle, the right foot and right ankle Sensation intact. Vital Signs: 22:11 BP 137 / 91; Pulse 71; Resp 16 S; Temp 98.4(O); Pulse Ox 98% on R/A; Weight 68.04 kg bb (R); Height 5 ft. 4 in. (162.56 cm) (R); Pain 8/10; 22:11 Body Mass Index 25.75 (68.04 kg, 162.56 cm) bb Procedures: 07/14 00:25 Splinting: Splint applied to right ankle using Orthoglass splint, sugar tong type. cp applied by myself. nurse. Examined by me, post splint application: neurovascular intact, Patient tolerated well. MDM: 07/13 22:16 Patient medically screened. [facility] 23:55 Data reviewed: vital signs, nurses notes, radiologic studies, plain films, and as a cp result, I will discharge patient. 23:55 Differential diagnosis: fracture, sprain, dislocation, contusion. Counseling: I had a cp detailed discussion with the patient and/or guardian regarding: the historical points, exam findings, and any diagnostic results supporting the discharge/admit diagnosis, radiology results, to return to the emergency department if symptoms worsen or persist or if there are any questions or concerns that arise at home. Response to treatment: the patient's symptoms have mildly improved after treatment, and as a result, I will discharge patient. 07/13 22:15 Order name: XRAY Ankle RIGHT 3 view bb 07/13 23:34 Order name: Jacob wrap-joint; Complete Time: 00:05 cp 07/13 23:34 Order name: Splint: ankle; Complete Time: 00:05 cp 07/13 23:34 Order name: Crutches; Complete Time: 00:05 cp Administered Medications: 22:51 Drug: Ibuprofen 800 mg Route: PO; tw5 07/14 00:05 Follow up: Response: No adverse reaction tw5 07/13 22:51 Drug: HYDROcodone-acetaminophen 5 mg-325 mg 1 tabs Route: PO; 07/14 00:05 Follow up: Response: No adverse reaction; Pain is decreased; RASS: Alert and Calm (0) 5 Disposition Summary: 07/13/22 23:56 Discharge Ordered Location: Home cp Problem: new cp Symptoms: have improved cp Condition: Stable cp Diagnosis - Sprain of ankle - right cp Followup: cp - With: Clovis Olivier MD - When: 1 week - Reason: pain swelling Discharge Instructions: - Discharge Summary Sheet cp - Ankle Sprain cp Forms: - Medication Reconciliation Form cp - Thank You Letter cp - Antibiotic Education cp - Prescription Opioid Use cp Prescriptions: - Diclofenac Sodium 75 mg Oral Tablet Sustained Release - take 1 tablet by ORAL route 2 times per day; 30 tablet; Refills: 0, Product cp Selection Permitted Signatures: Dispatcher [employer] EDAnam Yanes MD MD cha Ballard, Brenda, RN RN Anam Man PA PA Suzanna Hollins tw5
[2022-07-14 08:44] VITALS: BP 137/91; TEMP 98.4; O2SAT 98
--- NOTE | 2022-07-14 12:01 | RAD REPORT ---
EXAM DESCRIPTION: RAD - Ankle Right 3 View - 07/13/2022 10:45 pm CLINICAL HISTORY: PAIN. COMPARISON: None. TECHNIQUE: Three views of the right ankle were obtained: AP, oblique, and lateral radiographs. FINDINGS: No acute osseous abnormality is identified. No ankle mortise widening. The talar dome appe ars intact. Small chronic osseous fragment along the dorsum of the navicular. Small chronic peroneal ossicle. IMPRESSION: No acute osseous abnormality identified. Electronically signed by: Gilma Browning MD 07/13/2022 11:28 PM ASSOCIATE PROFESSOR OF EDUCATION Due to temporary technical issues with the PACS/Fluency reporting system, reports are being signed by the in house radiologists without review as a courtesy to insure prompt reporting. The interpreting radiologist is fully responsible for the content of the report.
== END 2022-07-14 00:06 | disposition home or self-care (01) ==
LOC: ER 21:12
DX: S93.401A Sprain of unspecified ligament of right ankle, initial encounter (principal); Z88.1 Allergy status to other antibiotic agents; Z88.8 Allergy status to other drugs, medicaments and biological substances
CPT/HCPCS: 99284

== ENCOUNTER 2022-07-28 19:01 | Emergency (ER) | payer OTHER ==
--- OUTSIDE RECORDS SUMMARY | 2022-07-28 19:07 | XMS REPORT | Continuity of Care Document ---
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 Diastolic 2018-11-08 84 mm[Hg] Location: RUE; [facility] 10:10:00 Position: Sitting Height 2018-11-08 63 [in_us] [facility] 10:10:00 Weight 2018-11-08 175.375 [lb_av] [facility] 10:10:00 Body Mass Index 2018-11-08 31.07 kg/m2 [facility] Calculated 10:10:00 Heart Rate 2018-11-08 90 /min [facility] 10:10:00 Procedures Procedure Date / Time Performing Clinician Source Performed XR KNEE <3 VW RIGHT 2022-05-07 00:59:00 Eri Burgos [facility] XR ANKLE 3+ VW RIGHT 2022-05-06 23:38:00 Russell Rod [facility] XR FOOT 3+ VW RIGHT 2022-05-06 23:38:00 Russell Rod [facility] XR TIBIA FIBULA 2 VW RIGHT 2022-05-06 23:38:00 Eri Burgos [facility] NOTICE OF PRIVACY 2022-05-06 21:56:28 Doctor Johnson, [facility] PRACTICES [place] [facility] [place] CONSENT/REFUSAL FOR 2022-05-06 21:54:24 Doctor Johnson [facility] DIAGNOSIS AND TREATMENT [place] [facility] [place] XR FOREARM 2 VW RIGHT 2022-03-30 17:36:20 [facility] XR WRIST 3+ VW RIGHT 2022-03-30 17:35:58 Norman, [facility] ASSIGNMENT OF BENEFITS 2022-03-30 16:44:49 Doctor Johnson, [facility] [place] [facility] CT ABDOMEN PELVIS W 2021-11-01 05:04:00 Nadir Vega [facility] CONTRAST Medical Branch CT CHEST PULMONARY 2021-11-01 05:04:00 [facility] ANGIOGRAM Medical Branch US GALL BLADDER 2021-11-01 02:22:29 Silvia [facility] XR ABDOMEN 1 VW 2021-11-01 01:55:00 Silvia [facility] XR CHEST 1 VW 2021-11-01 01:55:00 Silvia [facility] LIPASE 2021-11-01 01:37:00 Silvia [facility] TEST, SERUM 2021-11-01 [facility]:37[facility]. METABOLIC PANEL 2021-11-01 01:37:00 [facility] ([id number]) [facility] [place] CBC WITH DIFF 2021-11-01 01:37:00 Silvia [facility] COVID-19 (ID NOW RAPID 2021-11-01 01:37:00 [facility] CONSENT/REFUSAL FOR 2021-11-01 00:42:06 Doctor Unassigned, [facility] DIAGNOSIS AND TREATMENT [place] [facility] . [facility] - Affirm VPIII 2018-11-08 00:00:00 [facility] (BV Panel) [Q] HEMOGLOBINOPATHY 2018-11-08 00:00:00 [facility] EVALUATION [Q] OBSTETRIC PANEL 2018-11-08 00:00:00 [facility] [Q] TREPONEMA PALLIDUM AB, 2018-11-08 00:00:00 [facility] PARTICLE AGGLUTINATION [QH] [id number] 2018-11-08 00:00:00 [facility] DEHYDROGENASE, QUANT. [QH] HIV AB, HIV 1/2, EIA, 2018-11-08 00:00:00 [facility] WITH REFLEXES [QLH] CULTURE, URINE, 2018-11-08 00:00:00 [facility] ROUTINE [QLH] URINALYSIS, COMPLETE 2018-11-08 00:00:00 [facility] . [facility] - GC/Chlamydia 2018-11-08 00:00:00 [facility] [QH] DRUG 2018-11-08 00:00:00 [facility] SCREEN,COMPREHENSIVE (URINE) [Q] QUAD SCREEN 2018-11-08 00:00:00 [facility] Plan of Care Planned Activity Planned Date Details Comments Source Future Scheduled Test 2022-05-08 00:00:00 IMM Influenza [facility] Seasonal (>/= 19 yrs) [code = IMM Influenza Seasonal (>/= 19 yrs)] Future Scheduled Test 2022-05-08 00:00:00 IMM Influenza [facility] Seasonal (>/= 19 yrs) [code = IMM Influenza Seasonal (>/= 19 yrs)] Future Scheduled Test 2022-05-08 00:00:00 IMM Influenza [facility] Seasonal (>/= 19 yrs) [code = IMM Influenza Seasonal (>/= 19 yrs)] Future Scheduled Test 2022-05-08 00:00:00 IMM Influenza [facility] Seasonal (>/= 19 yrs) [code = IMM Influenza Seasonal (>/= 19 yrs)] Future Scheduled Test 2018 00:00:00 Screening for [facility] malignant neoplasm of cervix (procedure) [code = 673269253] Future Scheduled Test 2018 00:00:00 Screening for [facility] malignant neoplasm of cervix (procedure) [code = 091822971] Future Scheduled Test 2018 00:00:00 Screening for [facility] malignant neoplasm of cervix (procedure) [code = 842301985] Future Scheduled Test 2018 00:00:00 Screening for [facility] malignant neoplasm of cervix (procedure) [code = 432099573] Future Scheduled Test 1998-06-19 00:00:00 COVID-19 Vaccine (#1) [facility] [code = COVID-19 Vaccine (#1)] Future Scheduled Test 1998-06-19 00:00:00 COVID-19 Vaccine (#1) [facility] [code = COVID-19 Vaccine (#1)] Future Scheduled Test 1998-06-19 00:00:00 COVID-19 Vaccine (#1) [facility] [code = COVID-19 Vaccine (#1)] Future Scheduled Test 1998-06-19 00:00:00 COVID-19 Vaccine (#1) [facility] [code = COVID-19 Vaccine (#1)] Future Scheduled Test 1997 00:00:00 Fluoride Varnish [facility] [code = Fluoride Varnish] Encounters Start End Encounter Admission Attending Care Care Encounter Source Date/Time Date/Time Type Type Clinicians Facility Department ID 2022-07-25 Outpatient derick [facility] [id number] [place] 13:01:02 [id number] [facility] 2022-02-10 Outpatient maggy [facility] [id number] Legacy 14:51:02 [facility] 2021-05-21 Outpatient giles.dasha [facility] [id number] Legacy 20:13:56 [id number] [facility] 2022-05-21 2022-05-21 Outpatient R ADAMARIS [facility] [id number] Univers 16:00:00 16:57:20 DELIA [facility] 2022-05-21 2022-05-21 Urgent Delia Park [facility] [id number] Univers 16:00:00 16:57:20 Care Unknown, [facility] [id number] ity [facility] 4.2.7.2.686 Mani as KATHRIN?BLEA [id number] [facility] [address] MEDICAL OFFICE BUILDING 2022-05-19 2022-05-19 [facility] [id number] Univers 16:00:00 16:00:00 KALEB [facility] 2022-05-06 2022-05-06 Emergency X [facility] ERT [id number] Univers 17:03:00 20:20:00 ERI [facility] 2022-05-06 2022-05-06 Emergency [facility] [id number] Univers 17:03:00 20:20:00 Eri ROSADO 350.1.13.10 ity [facility] 4.2.7.2.686 [place] [facility] [id number] [address] 2022-05-06 2022-05-06 Lisa Morrissey [facility] 1.2.840.114 [id number] Univers 00:00:00 00:00:00 (Out) Rania HEALTH 350.1.13.10 it y of [facility] 4.2.7.2.686 Mani as KATHRIN?BLEA [id number] [facility] [address] [place] MEDICAL OFFICE [facility] 2022-05-04 2022-05-04 Laboratory Only, Ang Db Test [facility] 1.2.8 40.114 [id number] Univers 13:00:00 13:15:[address] [facility] 350.1.13.10 ity of [facility] 4.2.7.2.686 Mani as KATHRIN?BLEA [id number] [facility] [address] [place] MEDICAL OFFICE [facility] 2022-05-04 2022-05-04 Outpatient R MONICO [facility] [id number] Univers 13:00:00 13:00:00 NEVIN ity [facility] 2022-04-14 2022-04-14 Outpatient R TOMÁS [facility] [id number] Univers 15:00:00 15:00:00 JULIO CESAR ity [facility] 2022-03-30 2022-03-30 [facility] [id number] Univers 12:06:40 23:59:00 Encounter [facility] 350.1.13.10 ity of [place] 4.2.7.2.686 Mani as KATHRIN?BLEA [id number] [facility] [address] [place] [address] OFFICE [facility] 2022-03-30 2022-03-30 [facility] [id number] Univers 12:06:40 23:59:00 Encounter [facility] 350.1.13.10 ity of [place] 4.2.7.2.686 Mani as KATHRIN?BLEA [id number] [facility] [address] [place] [address] MEDICAL OFFICE [facility] 2022-03-30 2022-03-30 Outpatient R [facility] [id number] Univers 12:06:40 23:59:00 JAREN zackery o [facility] 2022-03-30 2022-03-30 [facility] 1.2.840. 114 [id number] Univers 13:00:00 13:20:00 Delia Arias HEALTH 350.1.13.10 ity of [place] 4.2.7.2.686 Mani as KATHRIN?BLEA [id number] [address] MEDICAL OFFICE BUILDING 2022-03-30 2022-03-30 Orders Doctor OWEN 1.2.840.114 [id number] Univers 00:00:00 00:00:00 Only Unassigned, ROSE MARIE 350.1.13.10 ity of [place] [facility] 4.2.7.2.686 Mani as [id number] [facility] [address] 2021-10-31 2021-11-01 Emergency X NADIR VEGA [facility] E[facility] [id number] Univers 19:45:00 01:04:00 NADIR VEGA ity of [facility] 2021-10-31 2021-11-01 Emergency Dalmedo, TRAUMA 1.2.840.114 [id number] Univers 19:45:00 01:04:00 [facility] 350.1.13.10 it y of [place]7.2.686 [place] [id number] [facility] [address] Branch 2020-12-19 2020-12-19 Emergency E VANESSA GERMAN [facility] [id number] [facility]NE 02:45:00 05:21:00 [place] 2020-08-20 2020-08-23 Inpatient [facility] [id number] [facility] 23:55:00 06:47:18 [facility] 2019-02-05 2019-02-05 Outpatient [facility] [id number] [place] 00:00:00 00:00:00 Health 2019-02-04 2019-02-04 Outpatient [facility] [id number] [place] 20:46:53 20:46:53 Health 2018-12-06 2018-12-06 Emergency E [facility] [id number] [facility] 15:34:00 15:34:00 2018-11-22 2018-11-22 [facility]patient [facility] [id number] 15:30:00 17:09:30 2018-11-22 2018-11-22 Appointmen NISHANT ROJAS Service Coordinator [id number] [place] 15:30:00 15:30:00 t; MICHELLE ROJAS, Ph ysici MICHELLE Urbina M.D. 2018-11-15 2018-11-15 Appointmen [facility] Service Coordinator [id number] [place] 10:45:00 10:45:00 t; JOSEPH DEMARCO, Physi Bernard Bacon M.D. 2018-11-08 2018-11-08 Appointmen DISPATCHER CHIEF COAL SLURRY, [facility] [id number] [place] 12:00:00 12:00:00 t; DISPATCHER CHIEF COAL SLURRY, [facility] 2018-11-08 2018-11-08 Appointkim [facility]IND[facility]Y [facility] Service Coordinator [id number] [place] 10:00:00 10:00:00 t; Bernard STAUFFER nelda Cohen M.D. Results Test Description Test Time Test Comments Results Result Comments Source TEST, SERUM 2021-11-01 02:18:10 Test Item Value Reference Range Interpretation Comme nts PREG SERUM (test code = 4512677480) Negative SILVA (test code = SILVA) Less than 10 IU/L. ?If low titer or ectopic is suspected, resubmit specimen in 48-72 hours. [facility]OLIC PAN[facility] (17005)2021-11-01 02:01:26 Test Item Value Reference Range Interpretation Comments NA (test code = 137 mmol/L 135-145 8920297107) K (test code = 3.9 mmol/L 3.5-5.0 2774244430) CL (test code = 107 mmol/L 98-108 0042821132) CO2 TOTAL (test code 24 mmol/L 23-31 = 6224578934) AGAP (test code = 2-16 4724681840) BUN (test code = 10 mg/dL 7-23 5009032873) GLUCOSE (test code = 87 mg/dL 70-110 7892733578) CREATININE (test code 0.59 mg/dL 0.50-1.04 = 0799502341) TOTAL BILI (test code 0.6 mg/dL 0.1-1.1 = 7060479441) CALCIUM (test code = 9.1 mg/dL 8.6-10.6 6781806822) T PROTEIN (test code 7.2 g/dL 6.3-8.2 = 2812774812) ALBUMIN (test code = 4.4 g/dL 3.5-5.0 4309107509) ALK PHOS (test code = 42 U/L 34-122 7654345066) ALTv (test code = 14 U/L 5-35 2-6) AST(SGOT) (test code 20 U/L 13-40 = 8965883962) eGFR (test code = mL/min/1.73m2 3477060583) SILVA (test code = SILVA) Association of [...] or urine or abnormalities in imaging tests). [facility]2022-[facility]-27 02:01:26 Test Item Value Reference Range Interpretation Comments LIPASE (test code = 6286720961) 65 U/L 0-220 Lab Interpretation (test code = Normal 38783-8) [facility] WITH [id number] 01:46:02 Test Item Value Reference Range Interpretation Comments WBC (test code = See_Comment [Automated message] 6690-2) The system [employer] generated this result transmitted ref erence range: 4.30 - 1 1.10 10*3/?L. The re ference range was not u sed to interpret this result as normal/abnor mal. RBC (test code = See_Comment [Automated message] 459-8) The system [employer] generated this result transmitted ref erence range: [...] RDW-SD (test code 45.6 fL 39.0-49.9 = 28142-3) RDW-CV (test code 14.8 % 12.0-15.5 = 788-0) PLT (test code = See_Comment [Automated message] 577-3) The system [employer] generated this result transmitted ref erence range: 166 - 35 8 10*3/?L. The re ference range was not u sed to interpret this result as normal/abnor mal. MPV (test code = 11.6 fL 9.5-12.9 60676-0) NRBC/100 WBC (test See_Comment [Automat ed message] code = 8624133588) The [employer] which generated this result transmitted ref erence range: 0.0 - 10 .0 /100 WBCs. The refer ence range was not u sed to interpret this result as normal/abnor mal. NRBC x10^3 (test <0.01 See_Comment [Automated message] code = 1713820478) The syste m which generated this result transmitted ref erence range: 10*3/?L. The reference range was not used to interpr et this result as normal/abnormal . GRAN MAT (NEUT) % 59.9 % (test code = 770-8) IMM GRAN % (test 0.20 % code = 8205216582) LYMPH % (test code 31.7 % = 736-9) MONO % (test code 6.8 % = 5905-5) EOS % (test code = 0.9 % 713-8) BASO % (test code 0.5 % = 706-2) GRAN MAT 5.20 10*3/uL 1.88-7.09 x10^3(ANC) (test code = 0673352205) IMM GRAN x10^3 <0.03 0.00-0.06 (test code = 2977441916) LYMPH x10^3 (test 2.75 10*3/uL 1.32-3.29 code = 731-0) MONO x10^3 (test 0.59 10*3/uL 0.33-0.92 code = 742-7) EOS x10^3 (test 0.08 10*3/uL 0.03-0.39 code = 711-2) BASO x10^3 (test 0.04 10*3/uL 0.01-0.07 code = 704-7) [facility] US PELVIS [id number] 11:04:00 [facility] : 1995 Sex: F Patient Name: MEME HERNANDEZ Unit No: [id number] EXAMS: CPT CODE: [id number] US PELVIS COMPLETE 60060 EXAM: US, US TRANSVAGINAL W/PELVIS: 08/21/2020, 0035 [...] the pelvis may be performed. IMPRESSION: [facility] NAME: MEME HERNANDEZ Radiology Department PHYS: Lawson Regalado [address] : 1995 AGE: 24 SEX: F [place], [place] [address] LOC: CLARKE PHONE #: [phone] EXAM DATE: 08/21/2020 STATUS: DEP ER FAX #: [phone] RAD NO: Page1 Signed Report (CONTINUED) Patient Name: MEME HERNANDEZ Unit No: [id number] EXAMS: CPT CODE: [id number] US PELVIS COMPLETE 57788 (Continued) 1. Left ovarian cyst 2. Small free fluid seen in the cul-de-sac. SL: JSYED-H at 1104 Reported and signed by: Td Hylton M.D. CC: Lawson Moreland MD Technologist: TAI MCKEON RDMS, RVT Probe: Trnscrbd D/ (1104) [email or web address] Orig Print D/T: S: 08/22/2020 (1105) [facility] NAME: MEME HERNANDEZ Radiology Department PHYS: Lawson Regalado [address]OB: 1995 AGE: 24 SEX: F [place] [address] LOC: PattieERS PHONE #: [phone] EXAM DATE: 08/21/2020 STATUS: DEP ER FAX #: [phone] RAD NO: Page 2 Signed Report Patient Name: MEME HERNANDEZ Unit No: [id number] EXAMS: CPT CODE: [id number] US PELVIS COMPLETE 55199 (Continued) [facility] NAME: KIRSTIETEDCHLOEMEME Radiology Department PHYS: Lawson Regalado [address] : 1995 AGE: 24 SEX: F [place] [address] LOC:PattieERS PHONE #: [phone] EXAM DATE: 08/21/2020 STATUS: DEP ER FAX #: [phone] RAD NO: Page 3 Signed Report- DUP AB/PEL/SC/[id number] 02:25:00 [facility] [place] : 1995 Sex: F Patient Name: MEME HERNANDEZ Unit No: [id number] EXAMS: CPT CODE: [id number] DUP AB/PEL/SC/LTD 44141 EXAM: US, US TRANSVAGINAL W/PELVIS: 08/21/2020, 0035 [...] the pelvis may be performed. IMPRESSION: [facility] Rad[facility] Department PHYS: Lawson Regalado [address] : 1995 AGE: 24 SEX: F [place] [address] LOC: PattieERS PHONE #: [phone] EXAM DATE: 08/21/2020 STATUS: REG ER FAX #: [phone] RAD NO: Page 1 Signed Report (CONTINUED) Patient Name: MEME HERNANDEZ Unit No: [id number] EXAMS: CPT CODE: [id number] DUP AB/PEL/SC/LTD 15694 (Continued) 1. Left ovarian cyst 2. Small free fluid seen in the cul-de-sac. SL: DANYELL at 0225 Reported and signed by: Td Hylton M.D. CC: Lawson Moreland MD Technologist: TAI MCKEON RDMS, RVT Probe: Trnscrbd D/ (022) [email or web address] Orig Print D/T: S: 08/21/2020 (022) [facility] NAME: [facility] Radiology Department PHYS: DAVID Segura MerlyLawson [address] : 1995 AGE: 24 SEX: F [place] [address] LOC: Lu.ERS PHONE #: [phone] EXAM DATE: 08/21/2020 STATUS: REG ER FAX #: [phone] RAD NO: Page 2 Signed Report Patient Name:MEME HERNANDEZ Unit No: [id number] EXAMS: CPT CODE: [id number] DUP AB/PEL/SC/LTD 16945 (Continued) [facility] NAME: [facility] Radiology Department PHYS: DAVID MorilloeverryColtonHernandezLawson [address] : 1995 AGE: 24 SEX: F [place] [address] LOC: CLARKE PHONE #: [phone] EXAM DATE: 08/21/2020 STATUS: BENOIT ER FAX #: [phone] RAD NO: Page 3 Signed Report- US TRANSVAGINAL [id number] 02:25:00 [facility] : 1995 Sex: F Patient Name: MEME HERNANDEZ Unit No: [id number] EXAMS: CPT CODE: [id number] US TRANSVAGINAL W/PELVIS 80028 EXAM: US, US TRANSVAGINAL W/PELVIS: 08/21/2020, 0035 [...] endometrial stripe measures 8.3 mm in thickness. OVARIES:RIGHT: 3.5 x 2.4 x 2.1 cm. LEFT: [...] of the pelvis may be performed.IMPRESSION: [facility] NAME: [facility] Radiology Department PHYS: Lawson Regalado [address] : 1995 AGE: 24 SEX: F [place], [place] [address] LOC: CLARKE PHONE #: [phone] EXAM DATE: 08/21/2020 STATUS: REG ER FAX #: [phone] RAD NO: Page 1 Signed Report (CONTINUED) Patient Name: MEME HERNANDEZ Unit No: [id number] EXAMS: CPT CODE:[id number] US TRANSVAGINAL W/PELVIS 19905 (Continued) 1. Left ovarian cyst 2. Small free fluid seen in the cul-de-sac. SL: LIVIAH at 0225 Reported and signed by: Td Hylton M.D. CC: Lawson Moreland MD Technologist: TAI MCKEON RDMS, RVT Probe: [id number] Trnscrbd D/ (224) [email or web address] Orig Print D/T: S: 08/21/2020 (227) [facility] NAME: [facility] Radiology Department PHYS: Lawson Regalado [address] : 1995 AGE: 24 SEX: F [place], [place] [address] LOC: PattieERS PHONE #: [phone] EXAM DATE: 08/21/2020 STATUS: REG ER FAX #: [phone] RAD NO: Page 2 Signed Report Patient Name: MEME HERNANDEZ Unit No: [id number] EXAMS: CPT CODE: [id number] US TRANSVAGINAL W/PELVIS 07884 (Continued) [facility] NAME: MEME HERNANDEZ Radiology Department PHYS: DAVID HernandezLawson [address] : 1995 AGE: 24 SEX: F [place], [place] [address] LOC: CL[place]KE PHONE #: [phone] EXAM DATE: 08/21/2020 STATUS: REG ER FAX #: [phone] RAD NO: Page 3 Signed ReportUA RFLX MICR CULT IF [id number] 00:47:00 Test Item Value Reference Range Interpretation [...] culture: Suprapubic PainSpecimen Description: CLEAN CATCHUR HCG [id number] 00:47:00 Test Item Value Reference Range Interpretation [...] Description: CLEAN CATCHUA RFLX MICR CULT IF [id number] 00:31:00 Test Item Value Reference Range Interpretation [...] culture: Suprapubic PainSpecimen Description: CLEAN CATCHUR HCG [id number] 00:31:00 Test Item Value Reference Range Interpretation [...] Suprapubic PainSpecimen Description: CLEAN CATCH- US TRANSVAGINAL [id number] 03:14:00 Patient Name: MEME HERNANDEZ Unit No: [id number] EXAMS: CPT CODE: [id number] US TRANSVAGINAL [id number] Pelvic and transvaginal ultrasound dated 08/04/2019. HISTORY: [...] Cuevas DO Technologist: Martha Wan RDMS Probe: [id number] Trnscrbd D/ (0314) Tray Orig Print D/T: S: 08/04/2019 (0317) [facility] NAME: MEME HERNANDEZ Radiology Department PHYS: Jose Padilla MD [address] : 1995 AGE: 23 SEX: F [place], [place] [address] LOC: F.ERS PHONE #: [phone] EXAM DATE: 08/04/2019 STATUS: REG ER FAX #: [phone] RAD NO: Page 1 Signed Report Patient Name: MEME HERNANDEZ Unit No: [id number] EXAMS: CPT CODE: [id number] US TRANSVAGINAL W/PELVIS 32096 (Continued) [facility] NAME: MEME HERNANDEZ Radiology Department PHYS: Jose Walker MD [address] : 1995 AGE: 23 SEX: F [place], [place] [address] LOC: CLARKE PHONE #: [phone] EXAM DATE: 08/04/2019 STATUS: REG ER FAX #: [phone] RAD NO: Page 2 Signed Report- DUP AB/PEL/SC/[id number] 03:14:00 Patient Name: MEME HERNANDEZ Unit No: [id number] EXAMS: CPT CODE: [id number] DUP AB/PEL/SC/LTD [id number] and transvaginal ultrasound dated 08/04/2019. HISTORY: Pelvic [...] Martha Wan RDMS Probe: Trnscrbd D/ (0314) rTay Orig Print D/T: S: 08/04/2019 (0317) [facility] NAME: MARIANO HERNANDEZERRA Radiology Department PHYS: Jose Padilla MD [address] : 1995 AGE: 23 SEX: F [place] [address] LOC: PattieERS PHONE #: [phone] EXAMDATE: 08/04/2019 STATUS: REG ER FAX #: [phone] RAD NO: Page 1 Signed Report Patient Name: MEME HERNANDEZ Unit No: [id number] EXAMS: CPT CODE: [id number] DUP AB/PEL/SC/LTD 08635 (Continued) [facility] Department PHYS: Jose Padilla MD [address] : 1995 AGE: 23 SEX: F [place] [address] LOC: ERS PHONE#: [phone] EXAM DATE: 08/04/2019 STATUS: REG ER FAX #: [phone] RAD NO: Page 2 Signed Report- US PELVIS [id number] 03:14:00 Patient Name: MEME HERNANDEZ Unit No: [id number] EXAMS: CPT CODE: [id number] US PELVIS COMPLETE [address] Pelvic and transvaginal ultrasound dated 08/04/2019. HISTORY: Pelvic pain. Vomiting. A transabdominal pelvic ultrasound was performed with subsequent transvaginal imaging to better visualize the endometrium and adnexa. Correlation is made with a prior pelvic ultrasound dated 10/07/2017. The uterus measures approximately 7.0 x 4.4 x 5.6 cm and has a normal contour. The myometrium appears heterogeneouswith prominence of the myometrial vessels. No myometrial [...] of the pelvis are detected. SL: 131 Electroni román Signed by Aneudy Ortega MD on 08/04/2019 at 0314 Reported and signed by: Aneudy Ortega MD CC: Jose Luis MD; Gm Cuevas DO Technologist: Martha Wan RDMS Probe: Trnscrbd D/ (0314) t.LON Orig Print D/T: S: 08/04/2019 (031) [facility] NAME: JACINTO HERNANDEZA Radiology Department PHYS: Jose Padilla MD [address] : 1995 AGE: 23 SEX: F [place] [address] LOC: PattieERS PHONE #: [phone] EXAM DATE: 08/04/2019 STATUS: REG ER FAX #: [phone] RAD NO: Page 1 Signed Report Patient Name: MEME HERNANDEZ Unit No: [id number] EXAMS: CPT CODE: [id number] US PELVIS COMPLETE 40448 (Continued) [facility] NAME: MEME HERNANDEZ Radiology Department PHYS: Jose Padilla MD [address] : 1995 AGE: 23 SEX: F [place] [address] LOC: Lu.ERS PHONE #: [phone] EXAM DATE: 08/04/2019 STATUS: REG ER FAX #: [phone] RAD NO: Page 2 Signed ReportCBC W/AUTO [id number] 23:55:00 Test Item Value Reference Range Interpretation [...] (test NORMAL NORMAL code = PLTMR) HCG [id number] 23:40:00 Test Item Value Reference Range Interpretation [...] SHOULD BE CONSI DERED NEGATIVE CHEMISTRY 7 [id number] 23:27:00 Test Item Value Reference Range Interpretation [...] = CA) 8.7 mg/dL 8.4-10.2 N LIVER [id number] 23:27:00 Test Item Value Reference Range Interpretation [...] 57 units/L 46-116 N code = ALKP) [id number] 23:27:00 Test Item Value Reference Range Interpretation Comments LIPASE (test code = LIP) 129 units/L 73-393 N UA RFLX MICR CULT IF [id number] 22:56:00 Test Item Value Reference Range Interpretation [...] SEEN Indication for culture: Suprapubic PainPLACENTA THIRD [id number] 18:16:00 RUN DATE: 02/21/19 [facility] PAGE 1 RUN TIME: 9 Specimen Inquiry RUN USER: INTERFACE --------- ---PATIENT: MEME HERNANDEZ LOC: BELINDA U #: [id number] AGE/SX: ROOM: Conor2013 RE02/17/19REG DR: Gm Cuevas DO : [birth year] BED: A DIS: 02/19/19 STATUS: DIS IN TLOC: SPEC #: [id number] RECD: 02/18/19 STATUS: DESMOND RELauri #: [id number] MAURISIO: 02/18/19- SUBM DR: Gm Cuevas DO ENTERED: 02/19/19 SP TYPE: PLACIII OTHR DR: ORDERED: LEVEL V SURGICA/3 CODES: Q22742 - FALLOPIAN TUBE XR9061 - PLACENTA, NOS PROCEDURES: LEVEL V SURGICA (Incomplete) TISSUES: PLACENTA, NOS - PLACENTA FALLOPIAN TUBE, NOS - BILATERAL FALLOPIAN TUBES CLINICAL HISTORY 23 year old, IUP @ 32.5 weeks, , section (wpd) FINAL DIAGNOSIS Right fallopian tube, ligation: - completely transected unremarkablefallopian tube Left fallopian tube, ligation: - completely transected unremarkable fallopian tube Placenta, 32.5 weeks gestational age, section: - third trimester placenta, 440 gms (90th percentile) - multifocal villous edema - paramarginally inserted, trivascular umbilical cord and membranes free of inflammation Tissue code 1 CPT code(s): 09081 x2, 70058 [facility] 02/20/19 GROSS DESCRIPTION ANATOMIC SOURCE OF TISSUE [...] Specimen Inquiry RUN USER: INTERFACE SPEC #: [id number] PATIENT: MEME HERNANDEZ #[id number] (Cont inued) GROSS DESCRIPTION (Continued) pinpoint. Bulb Assembler sections are submitted as A1. Specimen #2 is designated "left" and consists of a 1.2 cm in length and 0.4 cm in diameter pink-purple and hyperemic segment of fallopian tube. The lumen is pinpoint. Bulb Assembler sections are submitted as B1. The specimen [...] the placental parenchyma Cassettes: C1 through C4 jm/wpd 02/19/19 @ 1334 Signed Zo Mahan MD 02/20/19 1816 END OF REPORT - CT ANGIO [id number] 14:14:00 Patient Name: MEME HERNANDEZ Unit No: [id number] EXAMS: CPT CODE: [id number] CT ANGIO CHEST 64248 EXAMINATION: CTA of the chest with contrast [...] Free intraperitoneal air likely related to recent C- section. 4. The thyroid is more prominent and heterogeneous in appearance than expected. Consider further evaluation with thyroid ultrasound. [facility] NAME: MEME HERNANDEZ Radiology Department PHYS: Laura Dash MD [address] : 1995 AGE: 23 SEX: F [place], [place] [address] LOC: F A PHONE #: [phone] EXAM DATE: 02/19/2019 STATUS: ADM IN FAX #: [phone] RAD NO: Page 1 Signed Report 1 Patient Name: MEME HERNANDEZ Unit No: [id number] EXAMS: CPT CODE: [id number] CT ANGIO CHEST 68390 (Continued) at 1414 Reported and signed by: Geno Rosario MD CC: Gm Cuevas DO; Laura Pryor MD Technologist: Alyse Hernandez RT, CT CTDI: 31.08 DLP: 736.35 Trnscrbd D/ (1414) t.SDR.[facility] NAME: MEME HERNANDEZ Radiology Department PHYS: Laura Dash MD [address] : 1995 AGE: 23 SEX: F [place], [place] [address] LOC: F.2013 A PHONE #: [phone] EXAM DATE: 02/19/2019 STATUS: ADM IN FAX #: [phone] RAD NO: Page 2 Signed Report 1 Patient Name: MEME HERNANDEZ Unit No: [id number] EXAMS: CPT CODE: [id number] CT ANGIO CHEST 13505 (Continued) Orig Print D/T: S: 02/19/2019 (1417) [facility] NAME: MEME HERNANDEZ Radiology Department PHYS: Laura Dash MD [address] : 1995 AGE: 23 SEX: F [place], [place] [address] LOC: F.2013 A PHONE #: [phone] EXAM DATE: 02/19/2019 STATUS: ADM IN FAX #: [phone] RAD NO: Page 3 Signed Report 1BLOOD UREA [id number] 14:03:00 Test Item Value Reference Range Interpretation Comments BLOOD UREA NITROGEN (test code = BUN) 5 mg/dL 7-18 L [id number] 14:03:00 Test Item Value Reference Range Interpretation Comments CREATININE (test code = CREAT) 0.5 mg/dL 0.5-1.0 N - XR CHEST 2 [id number] 12:45:00 Patient Name: MEME HERNANDEZ Unit No: [id number] EXAMS: CPT CODE: [id number] XR CHEST 2 V 31181 CLINICAL HISTORY: chest pain; sob COMPARISON: December [...] Pryor MD Technologist: RT Stone Trnscrbd D/ (1243) Ragini Orig Print D/T: S: 02/19/2019 (1243) [facility] NAME: MEME HERNANDEZ Radiology Department PHYS: Laura Dash MD [address] : 1995 AGE: 23 SEX: F [place], [place] [address] LOC: F.2013 A PHONE #: [phone] EXAM DATE: 02/19/2019 STATUS: ADM IN FAX #: [phone] RAD NO: Page 1 Signed ReportHGB [id number] 07:21:00 Test Item Value Reference Range Interpretation Comments HEMOGLOBIN (test code = HGB) 9.9 g/dL 10.7-13.9 L HEMATOCRIT (test code = HCT) 30.7 % 32.1-42.1 L DRUGS OF ABUSE [id number] 02:15:00 Test Item Value Reference Range Interpretation [...] PHENCU) 25 ng/m L AG HEPATITIS B [id number] 01:20:00 Test Item Value Reference Range Interpretation Comments AG HEPATITIS B SURFACE (test code NONREACTIVE NONREACTIVE = HBSAG) Comments to Rn Chronic: LDO AIS CONSENT FORM SIGNED FOR HIV TESTING? YAB HEPATITIS C [id number] 01:20:00 Test Item Value Reference Range Interpretation Comments AB HEPATITIS C (test code = NONREACTIVE NONREACTIVE HCVAB) SIGNAL TO CUTOFF (test code = 0.05 <0.80 N CUTOFF) Comments to Rn Chronic: LDO AIS CONSENT FORM SIGNED FOR HIV TESTING? YRUBELLA [id number] 01:20:00 Test Item Value Reference Range Interpretation Comments RUBELLA SCREEN 10.9 IUnit/ml Results >10. 0IUnits/ml (test code = are considered positive RUBSC) inaccordance wi th the CLSI guidelines and based on the [employer] S tandard for Anti-Rubell a serum as anindicator of immune status and a br eakpoint to detect mostseropositiv e persons. Comments to Rn Chronic: LDO AIS CONSENT FORM SIGNED FOR HIV TESTING? YAB [id number] 01:20:00 Test Item Value Reference Range Interpretation Comments AB TREPONEMA (test code = TREPAB) NONREACTIVE NONREACTIVE Comments to Rn Chronic: LDO AIS CONSENT FORM SIGNED FOR HIV TESTING? YAB HIV 1 01:20:00 Test Item Value Reference Range Interpretation Comments AB HIV 1 2 (test NONREACTIVE NONREACTIVE Done by [facility] code = FCB42GC) 4th Gen HIV Ag/Ab Combo Screen Comments to Rn Chronic: LDO AIS CONSENT FORM SIGNED FOR HIV TESTING? Y URINALYSIS [id number] 01:01:00 Test Item Value Reference Range Interpretation [...] NONE SEEN URINE SAMPLE: CLEAN CATCHCBC W/AUTO [id number] 00:11:00 Test Item Value Reference Range Interpretation [...] NORMAL NORMAL code = PLTMR) - US [id number] 23:45:00 Patient Name: MEME HERNANDEZ Unit No: [id number] EXAMS: CPT CODE: [id number] [place] LTD 48668 Limited obstetrical ultrasound dated 02/17/2019. HISTORY: 34 [...] Elaine Zhao RDMS Probe: Trnscrbd D/ (2345) tGINNY Orig Print D/T: S: 02/17/2019 (2848) [facility] Rad[facility] Department PHYS: Gm Beltran DO [address] : 1995 AGE: 23 SEX: F [place], [place] [address] LOC: F.016 A PHONE#: [phone] EXAM DATE: 02/17/2019 STATUS: ADM IN FAX #: [phone] RAD NO: Page 1 Signed Report Patient Name: MEME HERNANDEZ Unit No: [id number] EXAMS: CPT CODE: [id number] US LTD 89024(Continued) [facility] Rad[facility] Department PHYS: Gm Beltran DO [address] : 1995 AGE: 23 SEX: F [place], [place] [address] LOC: Saeid Valentin PHONE #: [phone] EXAM DATE: 02/17/2019 STATUS: ADM IN FAX #: [phone] RAD NO: Page 2 Signed Report- US FLW [id number] 15:54:00 Patient Name: MEME HERNANDEZ Unit No: [id number] EXAMS: C[place]: [id number] [address] [facility] [address] [place], [place] [address] OBSTETRICAL ULTRASOUND REPORT Pat. Name: MEME HERNANDEZ Pat. No: [id number] Study Date: 12/13/2018 2:18pm , Age: 05 1995, 22 Pregnancies: 5, Para 4 LMP: Unknown GA by 1st: 23w1d GA by US: 22w4d GA Selected: 23w1d (From Known E) SUSAN: 04/10/2019 Referring MD:Bennett Collins M.D. Needle Straightener: Michelle Cotto RDMS CPT4: USPREGLTD Hist/Ind: Scan 2: previous c/s/ abd pain ( c/s scar ) CHIN UREMENTS AGE GROWTH EVALUATION Measurement GA Range Srce %for GA Ratios ----- ---- ------- BPD 5.3 cm 22w1d (56i6e-50h8l) Hadl BPD 21% FL/BPD 0.81 (0.71 - 0.87) HC 19.8 cm 21w6d (77j3h-28v6q) Hadl HC 13% FL/AC 0.24 (0.20 - 0.24) APD 5.9 cm APD HC/AC 1.09 (1.03 - 1.22) TAD 5.7 cm TAD CI 0.79 (0.70 - 0.86) AC 18.2 cm 22w6d (20w6d- 24w6d) Hadl AC 43% FL 4.3 cm 23w5d (65g9x-09o4f) Hadl FL 62% HL 4.1 cm 24w5d (06k5m-44t3a) Dionisio HL 77% GA for sonogram 22w4d (35g3k-95a4c) Weight Estimate: based on (BPD,HC,AC,FL) Hadlock Weight: 580 gm (495-665) Hadlock : 1lbs, 4oz Normal: 563 gm (377-1003) Aylin Wt% 52% for 23.1 wks Cervical Length: 3.3 cm Heart Rate: 143 bpm MATERNAL ANATOMY Ovaries LxHxW (cm) Right 2.6 x 1.8 x 1.2 Vol: 2.9cc Left 2.3 x 1.1 x 1.9 Vol: 2.5cc CLINICAL SUMMARY Type of Gestation: Patino Intrauterine in vertex presentat ion. size is appropriate for gestational age. growth: Consistent with normal growth motion and organs seen: heart motion seen Placental location: Posterior [facility] NAME: MEME HERNANDEZ Radiology Department PHYS: Tristan Lares III, MD [address] : 1995 AGE: 22 SEX: Lu [place], [place] [address] LOC: PattieCLAY PHONE #: [phone] EXAM DATE: 12/13/2018 STATUS: REG ER FAX #: [phone] RAD NO: Page 1 Signed Report (CONTINUED) Patient Name: MEME HERNANDEZ Unit No: [id number] EXAMS: CPT [place]: [id number] [place] [address] (Continued) Placental maturity : Grade 2 There is no evidence of placenta previa. Amniotic fluid vo lume is normal. Uterus and adnexa: No significant abnormality is seen. Serena Bean M.D. Electronic Signature 12/13/2018 03:54pm at 2634 Reported and signed by: Serena Bean MD CC: Tristan Sarmiento III, MD Technologist: Michelle Cotto RDMS Probe: Trnscrbd D/ (9546) DaniellaG Orig Print D/T: S: 12/13/2018 (8148) [facility] NAME: MEME HERNANDEZ Radiology Department PHYS: Tristan Lares III, MD [address] : 1995 AGE: 22 SEX: Lu [place] [address] LOC: PattieCLAY PHONE #: [phone] EXAM DATE: 12/13/2018 STATUS: REG ER FAX #: [phone] RAD NO: Page 2 Signed Report Patient Name: MEME HERNANDEZ Unit No: [id number] EXAMS: CPT CODE: [id number] [place] [address] (Continued) [facility] NAME: MEME HERNANDEZ Radiology Department PHYS: Tristan Lares III, MD [address] : 1995 AGE: 22 SEX: F [place] [address] ACCT NO: [id number] LOC: PattieCLAY PHONE #: [phone] EXAM DATE: 12/13/2018 STATUS: REG ER FAX #: [phone] RAD NO: Page 3 Signed ReportPROTHROMBIN [id number] 14:52:00 Test Item Value Reference Range Interpretation Comments PROTHROMBIN TIME PATIENT (test code 12.4 secs 10.4-12.4 N = PTP) THROMBOPLASTIN TIME [id number] 14:52:00 Test Item Value Reference Range Interpretation Comments THROMBOPLASTIN TIME PARTIAL (test 30.7 secs 22-38 N code = PTT) [id number] 14:52:00 Test Item Value Reference Range Interpretation Comments FIBRINOGEN (test code = FIB) 399 mg/dL 309-518 N DRUGS OF ABUSE [id number] 13:00:00 Test Item Value Reference Range Interpretation [...] = PHENCU) 25 ng/m L COMPREHENSIVE METABOLIC [id number] 12:54:00 Test Item Value Reference Range Interpretation [...] units/L 46-116 N code = ALKP) URINALYSIS [id number] 12:42:00 Test Item Value Reference Range Interpretation [...] = MUCU) 2+ NONE SEEN Comments to Rn Chronic: DAGOBERTO SEPULVEDA SAMPLE: CLEAN CATCHCBC W/AUTO DIFF [...] D. SPECIMEN RECEIVED DATE A ND TIME: [facility]] URINALYSIS, [id number] 13:09:00 Test Item Value Reference Range Interpretation Comments COLOR; Normal (test YELLOW YELLOW N code = 5778-6) APPEARANCE (test code CLEAR CLEAR N = APPEARANCE) SPECIFIC GRAVITY; 1.025 1.001-1.035 N Normal (test code = 2965-2) PH; Normal (test code 6.0 5.0-8.0 N = 2756-5) GLUCOSE; Normal (test NEGATIVE NEGATIVE N code = 1547-9) BILIRUBIN; Normal NEGATIVE NEGATIVE N (test code = 85398-1) KETONES; Normal (test NEGATIVE NEGATIVE N code = 70970-3) OCCULT BLOOD; Normal NEGATIVE NEGATIVE N (test code = 71198-6) PROTEIN; Normal (test NEGATIVE NEGATIVE N code = 44889-2) NITRITE; Normal (test NEGATIVE NEGATIVE N code = 91763-9) LEUKOCYTE ESTERASE NEGATIVE NEGATIVE N (test code = LEUKOCYTE ESTERASE) WBC; Normal (test 0-5 < OR = 5 N code = 6690-2) RBC; Normal (test NONE SEEN < OR = 2 N code = 789-8) SQUAMOUS EPITHELIAL 0-5 < OR = 5 CELLS (test code = 91180-4) BACTERIA; Normal NONE SEEN NONE SEEN N (test code = 630-4) HYALINE CAST; Normal NONE SEEN NONE SEEN N SPECIME N RECEIVED DATE (test code = 97897-7) AND TI ME: [id number] [facility][QH] [id number] DEHYDROGENASE, QUANT.2018-11-08 13:09:00 Test Item Value Reference Range Interpretation Comments [id number]-4-LZFEWDJKJ 19.3 {U/g 7.0-20.5 SPECIMEN RECEIVED DEHYDROGENASE (test Hgb} DATE AND TIME: code = 632584073058 QBRICFR-3-MNECNDARI DEHYDROGENASE) [facility][QH] QUAD [id number] 13:09:00 Test Item Value Reference Interpretation Comments Range INTERPRETATION: See Comment Screen negat clara for open (test code = NTD, Down syndr ome INTERPRETATION:) andTrisomy 18. MSAFP RISK OPEN <1 IN 5000 NTD (test code = 54932-5) AGE RISK DOWN 1 IN 1164 SYNDROME (test code = AGE RISK DOWN SYNDROME) QUAD RISK DOWN <1 IN 5000 SYNDROME (test code = QUAD RISK DOWN SYNDROME) MSS3 TRISOMY 18 <1 IN 5000 RISK (test code = MSS3 TRISOMY 18 RISK) MSAFP (test code 37.1 ng/ml = 27311-5) ADJ MULTIPLE OF 0.41 MEDIAN (test code [...] assistance with recalculations, please call your local [facility] oratory. Forassistance w ith interpretation of these results, please contact your local [employer] genetic certified substance abuse counselor oror call [phone]( [phone]). Interpretive Cu t-offsScreen Positive For Op en [...] AND (test code = TIME: Cigarette smoker) [facility][Q] TREPONEMA PALLIDUM AB, PARTICLE [id number] 13:09:00 Test Item Value Reference Range Interpretation Comments TREPONEMA PALLIDUM NONREACTIVE Reference Range: AB, PARTICLE NonreactiveSPEC IMEN AGGLUTINATION (test RECEIVED DATE AND TIME: code = TREPONEMA 16133892111 8 PALLIDUM AB, PARTICLE AGGLUTINATION) [facility]] CULTURE, URINE, [id number] 13:09:00 Test Item Value Reference Range Interpretation Comments SOURCE: (test URINE, CLEAN CATCH code = SOURCE:) STATUS: (test FINAL code = STATUS:) Result (test Multiple organisms CFU/mL. T hese code = Result) present, each less organis ms, commonly than 10,000 found onexterna l and internal genita mandy, are consideredt o be colonizers. No further testing performed.SPECI MEN RECEIVED DATE A ND TIME: [facility][Q] OBSTETRIC [id number] 13:09:00 Test Item Value Reference Range Interpretation Comments WHITE BLOOD CELL 9.0 {Thousand/u} 3.8-10.8 N COUNT (test code = WHITE BLOOD CELL COUNT) RED BLOOD CELL 4.04 3.80-5.10 N COUNT (test code = {Million/uL} RED BLOOD CELL COUNT) HEMAGLOBIN; Below 11.5 g/dl 11.7-15.5 Low Threshold (test code = 59340-5) HEMATOCRIT; Below 34.2 % 35.0-45.0 Low Threshold (test code = 4544-3) MCV; Normal (test 84.7 fL 80.0-100.0 N code = 787-2) MCHC; Normal (test 33.6 g/dl 32.0-36.0 N code = 99432-8) RDW; Above High 15.2 % 11.0-15.0 Threshold (test code = 788-0) PLATELET COUNT; 168 {Thousand/u} 140-400 N Normal (test code = 777-3) MPV; Normal (test 12.4 fL 7.5-12.5 N code = 65043-8) ABSOLUTE 6426 {cells/uL} 6251-9939 N NEUTROPHILS (test code = ABSOLUTE NEUTROPHILS) [...] Normal 5.0 % N (test code = 75354-4) EOSINOPHILS; Normal 1.4 % N (test code = 04823-7) BASOPHILS; Normal 0.3 % N SPECIMEN R ECEIVED (test code = DATE AND TIME: 16267-0) [id number] ANTIBODY SCREEN, NO ANTIBODIES N Reference range [...] code RH(D) POSITIVE SPECIME N RECEIVED = 23848-2) DATE AND TIME: 466429884450 RPR (DX) W/REFL NON-REACTIVE NON-REACTIVE N SPECIMEN REC EIVED TITER AND DATE AND TIME: CONFIRMATORY 026531062299 TESTING (test code = RPR (DX) W/REFL TITER AND CONFIRMATORY TESTING) HEPATITIS B SURFACE NON-REACTIVE NON-REACTIVE N SPECIMEN RECEIVED ANTIGEN; Normal DATE AND CADEN E: (test code = 853899759955 5195-3) RUBELLA ANTIBODY <0.90 Index Inter pretation (IGG); Below Low ----- ----- --------- Threshold (test <0.90 Not co nsistent code = 84302-7) with Immunit y 0.90-0.99 Equiv ocal > or = 1.00 Consistent with Immunity The presence of rub sowmya IgG antibody suggests immunization or past or current infe ction withrubella virus.SPECIMEN RECEIVED DATE A ND TIME: 318 [facility][Q] HIV-1/2 Antigen and Antibodies, Fourth Generation, with [id number] 13:09:00 Test Item Value Reference Range Interpretation Comments HIV AG/AB, 4TH NON-REACTIVE NON-REACTIVE N HIV-1 antigen and GEN; Normal HIV-1/HIV-2 ant ibodies were (test code = [place] [address]-7) laboratory evid ence of HIVinfection. P FLOR NOTE: This informatio n has been disclosed [...] ad ditional information ple ase refer tohttp://educat ion.ItsMyURLs.[employer]/fa q/LTX553(Thi s link is being provided for informational/e ducational purposes only.) The performance of this assay has not been clinicallyvalid ated in patients less t encinas 2 years old. SPECIMEN R ECEIVED DATE AND TIME: 3306251 [facility] - Affirm VPIII (BV Panel)2018-11-08 00:00:00 Test Item Value Reference Range Interpretation Comments Affirm VPIII (BV Panel) REPORT See Comment (test code = Affirm VPIII (BV Panel) REPORT) MD PhysiciansCOMPREHENSIVE METABOLIC [id number] 20:23:00 Test Item Value Reference Range Interpretation [...] units/L 46-116 L code = ALKP) HCG [id number] 20:23:00 Test Item Value Reference Range Interpretation [...] DERED NEGATIVE UA RFLX MICR CULT IF [id number] 20:15:00 Test Item Value Reference Range Interpretation [...] code = BACU) RARE /HPF RARE-FEW PROTHROMBIN [id number] 20:06:00 Test Item Value Reference Range Interpretation Comments PROTHROMBIN TIME PATIENT (test code 12.3 secs 10.4-12.4 N = PTP) THROMBOPLASTIN TIME [id number] 20:06:00 Test Item Value Reference Range Interpretation Comments THROMBOPLASTIN TIME PARTIAL (test 30.1 secs 22-38 N code = PTT) [id number] 20:06:00 Test Item Value Reference Range Interpretation Comments FIBRINOGEN (test code = FIB) 385 mg/dL 309-518 N - US PREG AFTER [id number] 19:04:00 Patient Name: MEME HERNANDEZ Unit No: [id number] EXAMS: CPT CODE: [id number] US PREG AFTER 47764 TRANSABDOMINAL OBSTETRICAL PELVIC ULTRASOUND INDICATION: 21 WEEKS, [...] waveform with peak velocity of 10 cm/s. T he left ovary measures 2.6 x 0.9 x 2.7 cm. There is a normal low resistance arterial and venous spectral Doppler waveform with peak velocity of 15 cm/s. IMPRESSION: 1. There is a single viable intrauterine gestation in variable presentation. The estimated gestational age is 17 weeks and 6 days. The est imated date of delivery is 04/09/2019. 2. There is no placenta previa or placental abruption. 3. The cervix is closed and the cervical length is 3.6 cm. 4. The amniotic fluid volume appears qualitativelynormal. The [facility] NAME: MEME HERNANDEZ Radiology Department PHYS: Sarah Arboleda MD [address] : 1995 AGE: 22 SEX: F [place], [place] [address] LOC: PattieERS PHONE #: [phone] EXAM DATE: 11/05/2018 STATUS: REG ER FAX #: [phone] RAD NO: Page 1 Signed Report (CONTINUED) Patient Name: MEME HERNANDEZ Unit No: [id number] EXAMS: CPT CODE: [id number] PREG AFTER 1ST TRI 24624 (Continued) at 1904 Reported and signed by: Devendra Chappell DO CC: Sarah Lopez MD Technologist: Elaine Zhao RDMS Probe: Trnscrbd D/ (1904) RonyJB33 Orig Print D/T: S: 11/05/2018 (190) [facility] Radiology Department PHYS: Sarah Arboleda MD [address] : 1995 AGE: 22 SEX: F [place] [address] LOC: PattieERS PHONE #: [phone] EXAM DATE: 11/05/2018 STATUS: REG ER FAX #: [phone] RAD NO: Page 2 Signed Report Patient Name: MEME HERNANDEZ Unit No: [id number] EXAMS: CPT CODE: [id number] US PREG AFTER TRI 94007 (Continued) [facility] NAME: [facility] Radiology Department PHYS: Sarah Arboleda MD [address] : 1995 AGE: 22 SEX: F [place] [address] LOC: PattieERS PHONE #: [phone] EXAM DATE: 11/05/2018 STATUS: REG ER FAX #: [phone] RAD NO: Page 3 Signed ReportCBC W/AUTO [id number] 18:24:00 Test Item Value Reference Range Interpretation [...] NORMAL NORMAL code = PLTMR) PLACENTA THIRD [id number] 14:26:00 RUN DATE: 04/04/18 [facility] PAGE 1 RUN TIME: 1704 Specimen Inquiry RUN USER: INTERFACE -PATIENT: MEME HERNANDEZ LOC: RANGEL #: [id number] AGE/SX: 22/ ROOM: [facility] RE03/31/18REG DR: Yaneth Guidry MD : [birth year] BED: A DIS: 04/04/18 STATUS: DIS IN TLOC: SPEC #: [id number] RECD: 04/02/18 STATUS: [facility] #: [id number] MAURISIO: 04/02/18- [facility] DR: Yaneth Guidry MD ENTERED: 04/03/18 SP TYPE: PLACIII OTHR DR: Norris Gonsalves MD ORDERED: LEVEL V SURGICA CODES: YM1915 - PLACENTA, NOS COPIES TO: Yaneth Guidry MD [address] [facility] [address] [place] [address] Norris Gonsalves MD [address] [facility] [address] [place] [address] PROCEDURES: LEVEL V SURGICA (Incomplete) [...] TIME: 1704 Specimen Inquiry RUN USER: INTERFACE ---- --------SPEC #: [id number] PATIENT: MEME HERNANDEZ #[id number] (Continued) FINAL DIAGNOSIS (Continued) Tissue code 1 CPT code(s): 19169 pkg/wpd 04/04/18 @ 1419 GROSS DESCRIPTION The specimen was received in a container, labeled with the patient's name, unit number and designated "placenta". The following attributes are observed: Cord insertion: 1 cm from margin Cord length: 9 cm Number of vessels: 3 Cord color: Blue-beltran Other cord findings: None surface findings: Steel blue, wrinkled, glistening Vasculature: Displaysunremarkable blood vasculature Membranes rupture site: 0.0 cm [...] /wpd 04/03/18 @ 1156 MICROSCOPIC DESCRIPTION The placenta is composed of small vascular villi which are much smaller and more mature than expected for the given gestational age. Multifocal increase in the syncytial knots is present. Multifocal distalvillous hypoplasia is present. The trivascular umbilical cord and membranes are free of inflammation. The decidual blood vessels are muscularized. marcellus/wpd 04/04/18 @ 1420 Signed Cynthia Ma 04/04/18 1426 END OF REPORT
[2022-07-28] MEDS ORDERED: NA CHLORIDE 0.9% 1,000 ML ONE (19:51)
[2022-07-28] MEDS ORDERED: ONDANSETRON 4 MG/2 ML VIAL ONE (19:51)
[2022-07-28] MEDS ORDERED: MORPHINE 4 MG/ML SYR ONE (19:51)
[2022-07-28 20:26] LABS: Absolute Lymphocytes (CBC) 1.6 K/uL (0.7-4.9)
[2022-07-28 20:31] LABS: Hematocrit 42.8 % (36.0-45.0); MCV 86.2 fL (80-100); MPV 9.2 fL (7.6-11.3); RBC Red Blood Cell Count 4.96 M/uL (3.86-4.86)
--- NOTE | 2022-07-28 20:41 | RAD REPORT ---
EXAM DESCRIPTION: [place] Single View07/28/2022 8:30 pm CLINICAL HISTORY: Chest pain COMPARISON: none FINDINGS: The lungs appear clear of acute infiltrate. The heart is normal size IMPRESSION: No acute abnormalities displayed
[2022-07-28 20:42] LABS: Albumin 4.4 g/dL (3.4-5.0); Bilirubin Total 0.4 mg/dL (0.2-1.0); Magnesium 2.2 mg/dL (1.6-2.4); Potassium 3.6 mmol/L (3.5-5.1); Protein, Total 8.4 g/dL (6.4-8.2); Troponin High Sensitivity 5.1 pg/mL (<58.9)
--- NOTE | 2022-07-28 22:04 | EDPHYS ---
Physician Documentation [facility] Name: Lilliana Aragon Age: 26 yrs Sex: Female : 1995 Arrival Date: 07/28/2022 Time: 19:02 Bed 2 Private MD: TED Physician Radha Nguyen HPI: 07/28 19:39 This 26 yrs old Female presents to ER via Wheelchair with complaints of Left Side sd2 Numbess and Pain. 19:39 26 yo F presents with CC of L sided chest pain radiating to her left arm with sd2 associated numbness to the area. Pt reports hx of A-fib diagnosed in October of this year. Pt did have an ablation performed but had first recurrence of her A-fib 2 months ago with continual episodes daily since then. Was able to be seen by cardiology today who started her on metoprolol 25 mg and gave her one dose at the clinic but reports symptoms have not improved since then. She is unsure how high her heart rate was at the clinic. Does take baby ASA daily but has not taken any for the past few days. Reports associated SOB.. 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 Flu vaccine is not up to date. - Social history:: Smoking status: Reported history of juuling and/or vaping. ROS: 19:39 Constitutional: Negative for fever, chills, and weight loss, Eyes: Negative for injury, sd2 pain, redness, and discharge, Cardiovascular: Positive chest pain, palpitations, and negative for edema, Respiratory: Positive for shortness of breath, negative for cough, wheezing. Abdomen/GI: Negative for abdominal pain, nausea, vomiting, diarrhea. MS/Extremity: Negative for injury and deformity, Skin: Negative for injury, rash, and discoloration, Neuro: Negative for headache, Positive for numbness and tingling. Exam: 19:39 Constitutional: This is a well developed, well nourished patient who is awake, alert, sd2 and in mild distress. Head/Face: Normocephalic, atraumatic. Eyes: EOMI, normal conjunctiva bilaterally Chest/axilla: Normal chest wall appearance and motion. Nontender with no deformity. Cardiovascular: Regular rate and rhythm with a normal S1 and S2. No gallops, murmurs, or rubs. 2+ distal pulses. Respiratory: Pt is tachypneic taking short shallow breaths but is redirectable to take nice long deep breaths, LCTAB Abdomen/GI: Soft, non-tender, with normal bowel sounds. No guarding or rebound. No evidence of tenderness throughout. Skin: Warm, dry with normal turgor. Normal color with no rashes, no lesions, and no evidence of cellulitis. MS/ Extremity: Pulses equal, no cyanosis. Neurovascular intact. Full, normal range of motion. Ambulatory without difficulty. Psych: Awake, alert, with orientation to person, place and time. Behavior, mood, and affect are within normal limits. 19:55 ECG was reviewed by the Attending Physician. NSR, rate 76, no STEMI criteria sd2 Vital Signs: 19:23 BP 132 / 84; Pulse 76; Resp 18; Temp 98.2; Pulse Ox 100% ; tw5 19:29 Weight 82.55 kg; Height 5 ft. 3 in. (160.02 cm); Pain 8/10; tw5 20:36 BP 118 / 86; Pulse 70; Resp 20 S; Pulse Ox 100% on R/A; as6 22:35 BP 116 / 83; Pulse 72; Resp 17; Pulse Ox 100% on R/A; kd3 19:29 Body Mass Index 32.24 (82.55 kg, 160.02 cm) tw5 MDM: 19:29 Patient medically screened. sd2 19:39 Differential Diagnosis Differential diagnosis includes but is not limited to: ACS, sd2 DVT/PE, pneumothorax, dissection, musculoskeletal, anxiety, anemia, electrolyte abnormality, pneumonia, CHF, COPD among others. Data reviewed: vital signs, nurses notes. 22:01 Data reviewed: lab test result(s), EKG, radiologic studies. Counseling: I had a sd2 detailed discussion with the patient and/or guardian regarding: the historical points, exam findings, and any diagnostic results supporting the discharge/admit diagnosis, lab results, radiology results, the need for outpatient follow up, to return to the emergency department if symptoms worsen or persist or if there are any questions or concerns that arise at home. Medical screen evaluation completed. [facility] emergency medical condition absent. ED course: Labs and imaging reviewed. Labs grossly WNCL. Trop neg. EKG with no ischemic changes or signs of arrhythmia. No events noted on telemetry throughout stay or evidence of A-fib. Suspect possible panic attack with the hyperventilation and paresthesias being experienced upon arrival. Pt reports just a feeling of soreness and pain to her left side of her body now that has improved but continues to be present. Pt is PERC negative here in ER. Low suspicion for PE. Advised pt and of negative results and need to continue Metoprolol as prescribed by Cardiology and follow up outpt. Verbalized understanding of strict return precautions. . 07/28 19:30 Order name: CBC with Diff; Complete Time: 20:41 sd2 07/28 19:30 Order name: CMP; Complete Time: 20:59 sd2 07/28 19:30 Order name: Magnesium; Complete Time: 20:59 sd2 07/28 19:30 Order name: Troponin High Sensitivity; Complete Time: 20:59 sd2 07/28 19:30 Order name: BNP; Complete Time: 20:59 sd2 07/28 19:30 Order name: XRAY Chest (1 view); Complete Time: 20:59 sd2 07/28 19:30 Order name: EKG - Nurse/Tech; Complete Time: 19:57 sd2 Administered Medications: 19:57 Drug: NS 0.9% 1000 ml Route: IV; Rate: 1 bolus; Site: left antecubital; as6 22:37 Follow up: IV Status: Completed infusion; IV Intake: 1000ml kd3 19:57 Drug: morphine 4 mg Route: IVP; Infused Over: 4 mins; Site: left antecubital; as6 22:37 Follow up: Response: No adverse reaction; Pain is decreased kd3 19:57 Drug: Zofran (Ondansetron) 4 mg Route: IVP; Site: left antecubital; as6 22:37 Follow up: Response: No adverse reaction kd3 Disposition Summary: 07/28/22 22:03 Discharge Ordered Location: Home sd2 Problem: new sd2 Symptoms: have improved sd2 Condition: Stable sd2 Diagnosis - Palpitations sd2 - Chest pain, unspecified sd2 - Left-sided body pain sd2 Followup: sd2 - With: Private Physician - When: 2 - 3 days - Reason: Recheck today's complaints, Continuance of care, Re-evaluation by your physician Discharge Instructions: - Discharge Summary Sheet sd2 - Atrial Fibrillation sd2 - Palpitations sd2 - Nonspecific Chest Pain, Adult, [id number] sd2 Forms: - Medication Reconciliation Form sd2 - Thank You Letter sd2 - Antibiotic Education sd2 - Prescription Opioid Use sd2 Signatures: Dispatcher [employer] Suzanna Costa tw5 Vlad Huston RN RN as6 Radha Nguyen MD MD sd2 Tanisha Mandel RN kd3
--- NOTE | 2022-07-28 22:04 | ER ---
Nurse's Notes [facility] Name: Lilliana Aragon Age: 26 yrs Sex: Female : 1995 Arrival Date: 07/28/2022 Time: 19:02 Bed 2 Private MD: Diagnosis: Palpitations;Chest pain, unspecified;Left-sided body pain Presentation: 07/28 19:23 Chief complaint: Patient states: " My chests hurts and my left arm feels numb and tw5 tingly." Spouse and/or significant other states: "She went to the doctor because she has a-fib. They put her on metoprolol. Then about an hour ago she started complaining of a sharp pain in my chest and my left side of my body feels numb.". Coronavirus screen: Vaccine status:. 19:23 Method Of Arrival: Wheelchair tw5 19:29 Ebola Screen: Patient negative for fever greater than or equal to 101.5 degrees tw5 Fahrenheit, and additional compatible Ebola Virus Disease symptoms Patient denies exposure to infectious person. Patient denies travel to an Ebola-affected area in the 21 days before illness onset. Initial Sepsis Screen: Does the patient meet any 2 criteria? No. Patient's initial sepsis screen is negative. Does the patient have a suspected source of infection? No. Patient's initial sepsis screen is negative. Risk Assessment: Do you want to hurt yourself or someone else? Patient reports no desire to harm self or others. Onset of symptoms was July 28, 2022 at 18:00. 19:29 Acuity: CRISTAL 2 tw5 Triage Assessment: 19:29 General: Appears uncomfortable, Behavior is cooperative, appropriate for age, anxious. tw5 Pain: Pain currently is 8 out of 10 on a pain scale. 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 Flu vaccine is not up to date. - Social history:: Smoking status: Reported history of juuling and/or vaping. Screenin:37 [facility] ED Fall Risk Assessment (Adult) History of falling in the last 3 months, as6 including since admission No falls in past 3 months (0 pts) Confusion or Disorientation No (0 pts) Intoxicated or Sedated No (0 pts) Impaired Gait No (0 pts) Mobility Assist Device Used No (0 pt) Altered Elimination No (0 pt) Score/Fall Risk Level 0 - 2 = Low Risk. Abuse screen: Denies threats or abuse. Denies injuries from another. Nutritional screening: No deficits noted. Tuberculosis screening: No symptoms or risk factors identified. Assessment: 20:36 General: Appears in no apparent distress. Behavior is calm, cooperative. Pain: as6 Complains of pain in chest Pain radiates to left arm. Neuro: Level of Consciousness is awake, alert, obeys commands, Oriented to person, place, time, situation. Cardiovascular: Reports chest pain, shortness of breath. Respiratory: Respiratory effort is even, unlabored. Vital Signs: 19:23 BP 132 / 84; Pulse 76; Resp 18; Temp 98.2; Pulse Ox 100% ; tw5 19:29 Weight 82.55 kg; Height 5 ft. 3 in. (160.02 cm); Pain 8/10; tw5 20:36 BP 118 / 86; Pulse 70; Resp 20 S; Pulse Ox 100% on R/A; as6 22:35 BP 116 / 83; Pulse 72; Resp 17; Pulse Ox 100% on R/A; kd3 19:29 Body Mass Index 32.24 (82.55 kg, 160.02 cm) tw5 ED Course: 19:02 Patient arrived in ED. ja2 19:12 Radha Nguyen MD is Attending Physician. sd2 19:29 Triage completed. tw5 19:29 Arm band placed on Patient placed in an exam room. tw5 19:32 Vlad Huston, JOANNE is Primary Nurse. as6 20:13 X-ray completed. Portable x-ray completed in exam room. Patient tolerated procedure mh1 well. 20:31 XRAY Chest (1 view) In Process Unspecified. EDMS 20:38 Placed in gown. Bed in low position. Call light in reach. Side rails up X2. as6 22:33 No provider procedures requiring assistance completed. IV discontinued, intact, kd3 bleeding controlled, No redness/swelling at site. Pressure dressing applied. Administered Medications: 19:57 Drug: NS 0.9% 1000 ml Route: IV; Rate: 1 bolus; Site: left antecubital; as6 22:37 Follow up: IV Status: Completed infusion; IV Intake: 1000ml kd3 19:57 Drug: morphine 4 mg Route: IVP; Infused Over: 4 mins; Site: left antecubital; as6 22:37 Follow up: Response: No adverse reaction; Pain is decreased kd3 19:57 Drug: Zofran (Ondansetron) 4 mg Route: IVP; Site: left antecubital; as6 22:37 Follow up: Response: No adverse reaction kd3 Medication: 20:38 VIS not applicable for this client. as6 Intake: 22:37 IV: 1000ml; Total: 1000ml. kd3 Outcome: 22:03 Discharge ordered by . sd2 22:33 Discharged to home ambulatory. kd3 22:33 Condition: stable 22:33 Discharge instructions given to patient, family, Instructed on discharge instructions, follow up and referral plans. Demonstrated understanding of instructions. 22:37 Patient left the ED. kd3 Signatures: Dispatcher [employer] EDMS Mirian Anderson 1 Michelle Read Tiffany tw5 Vlad Huston RN RN as6 Tanisha Mandel RN RN kd3 Radha Nguyen MD MD sd2
[2022-07-28 22:43] VITALS: TEMP 98.2; O2SAT 100
[2022-07-28 22:46] VITALS: BP 116/83
== END 2022-07-28 22:37 | disposition home or self-care (01) ==
LOC: ER 19:01
DX: R07.89 Other chest pain (principal); R00.2 Palpitations; M79.10 Myalgia, unspecified site; I48.91 Unspecified atrial fibrillation; Z88.1 Allergy status to other antibiotic agents; Z88.8 Allergy status to other drugs, medicaments and biological substances
CPT/HCPCS: 85025; 36415; 83735; 84484; 80053; 83880; 71045; J7030; J2405; 93005

== ENCOUNTER 2022-08-01 20:19 | Emergency (ER) | payer OTHER ==
--- OUTSIDE RECORDS SUMMARY | 2022-08-01 20:26 | XMS REPORT | Continuity of Care Document ---
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 [facility] ASSIGNMENT OF BENEFITS 2022-03-30 16:44:49 Doctor Unassigned, [facility] [place] CT ABDOMEN PELVIS W 2021-11-01 05:04:00 Nadir Vega [facility] CONTRAST [facility] CT CHEST PULMONARY 2021-11-01 05:04:00 Nadir Vega [facility] ANGIOGRAM Medical Branch US GALL BLADDER 2021-11-01 02:22:29 Silvia [facility] XR ABDOMEN 1 VW 2021-11-01 01:55:00 Silvia [facility] XR CHEST 1 VW 2021-11-01 01:55:00 Silvia [facility] LIPASE 2021-11-01 01:37:00 Silvia [facility] TEST, SERUM 2021-11-01 01:37:[address] [facility] COMP. METABOLIC PANEL 2021-11-01 01:37:00 Silvia [facility] ([id number]) [facility] CBC WITH DIFF 2021-11-01 01:37:00 Silvia [facility] COVID-19 (ID NOW RAPID 2021-11-01 01:37:00 Silvia [facility] TESTING) Medical Branch CONSENT/REFUSAL FOR 2021-11-01 00:42:06 Doctor Johnson [facility] DIAGNOSIS AND TREATMENT [facility] [place] [Q] HEMOGLOBINOPATHY 2018-11-08 00:00:00 [facility] EVALUATION [Q] OBSTETRIC PANEL 2018-11-08 00:00:00 [facility] [Q] TREPONEMA PALLIDUM AB, 2018-11-08 00:00:00 [facility] PARTICLE AGGLUTINATION [QH] [id number]-4-AQYOBHITT 2018-11-08 00:00:00 [facility] DEHYDROGENASE, QUANT. [QH] HIV AB, HIV 1/2, EIA, 2018-11-08 00:00:00 [facility] WITH REFLEXES [QLH] CULTURE, URINE, 2018-11-08 00:00:00 [facility] ROUTINE [QLH] URINALYSIS, COMPLETE 2018-11-08 00:00:00 [facility] . [facility] - GC/Chlamydia 2018-11-08 00:00:00 [facility] [QH] DRUG 2018-11-08 00:00:00 [facility] SCREEN,COMPREHENSIVE (URINE) [QH] QUAD SCREEN 2018-11-08 00:00:00 [facility] - Affirm VPIII 2018-11-08 00:00:00 [facility] (BV Panel) Plan of Care Planned Activity Planned Date Details Comments Source Future Scheduled Test 2022-05-08 00:00:00 IMM Influenza [facility] Seasonal (>/= 19 yrs) [code = IMM Influenza Seasonal (>/= 19 yrs)] Future Scheduled Test 2022-05-08 00:00:00 IMM Influenza [facility] Seasonal (>/= 19 yrs) [code = IMM Influenza Seasonal (>/= 19 yrs)] Future Scheduled Test 2022-05-08 00:00:00 IMM Influenza [facility] Seasonal (>/= 19 yrs) [code = IMM Influenza Seasonal (>/= 19 yrs)] Future Scheduled Test 2022-05-08 00:00:00 IMM Influenza [facility] Seasonal (>/= 19 yrs) [code = IMM Influenza Seasonal (>/= 19 yrs)] Future Scheduled Test 2022-05-08 00:00:00 IMM Influenza [facility] Seasonal (>/= 19 yrs) [code = IMM Influenza Seasonal (>/= 19 yrs)] Future Scheduled Test 2022-05-08 00:00:00 IMM Influenza [facility] Seasonal (>/= 19 yrs) [code = IMM Influenza Seasonal (>/= 19 yrs)] Future Scheduled Test 2018 00:00:00 Screening for [facility] malignant neoplasm of cervix (procedure) [code = 237105404] Future Scheduled Test 2018 00:00:00 Screening for [facility] malignant neoplasm of cervix (procedure) [code = 345731419] Future Scheduled Test 2018 00:00:00 Screening for [facility] malignant neoplasm of cervix (procedure) [code = 939244223] Future Scheduled Test 2018 00:00:00 Screening for [facility] malignant neoplasm of cervix (procedure) [code = 034773277] Future Scheduled Test 2018 00:00:00 Screening for [facility] malignant neoplasm of cervix (procedure) [code = 098922344] Future Scheduled Test 2018 00:00:00 Screening for [facility] malignant neoplasm of cervix (procedure) [code = 128067602] Future Scheduled Test 1998-06-19 00:00:00 COVID-19 Vaccine (#1) [facility] [code = COVID-19 Vaccine (#1)] Future Scheduled Test 1998-06-19 00:00:00 COVID-19 Vaccine (#1) [facility] [code = COVID-19 Vaccine (#1)] Future Scheduled Test 1998-06-19 00:00:00 COVID-19 Vaccine (#1) [facility] [code = COVID-19 Vaccine (#1)] Future Scheduled Test 1998-06-19 00:00:00 COVID-19 Vaccine (#1) [facility] [code = COVID-19 Vaccine (#1)] Future Scheduled Test 1998-06-19 00:00:00 COVID-19 Vaccine (#1) [facility] [code = COVID-19 Vaccine (#1)] Future Scheduled Test 1998-06-19 00:00:00 COVID-19 Vaccine (#1) [facility] [code = COVID-19 Vaccine (#1)] Future Scheduled Test 1997 00:00:00 Fluoride Varnish [facility] [code = Fluoride Varnish] Encounters Start End Encounter Admission Attending Care Care Encounter Source Date/Time Date/Time Type Type Clinicians Facility Department ID 2022-07-25 Outpatient derick [facility] [id number] [facility] 13:01:02 [id number] [facility] 2022-02-10 Outpatient maggy [facility] [id number] [facility] 14:51:02 [id number] [facility] 2021-05-21 Outpatient maggy [facility] [id number] [facility] 20:13:56 [id number] [facility] 2022-07-29 2022-07-29 Emergency EM BECKY Stone LIZA [id number] [facility] 00:09:00 01:43:00 Devendra 05 [facility] 2022-05-21 2022-05-21 Outpatient [facility] [id number] Univers 16:00:00 16:57:20 DELIA tracee [facility] 2022-05-21 2022-05-21 Urgent Delia Park [facility] [id number] Univers 16:00:00 16:57:20 Care Unknown, [facility] 350.1.13.10 ity of [place] 4.2.7.2.686 Mani as KATHRIN?BLEA [id number] [address] MEDICAL OFFICE [facility] 2022-05-19 2022-05-19 Outpatient R [facility]IR [facility] [id number] Univers 16:00:00 16:00:00 KALEB [facility] 2022-05-06 2022-05-[address] [facility] ERT [id number] Univers 17:03:00 20:20:00 ERI [facility] 2022-05-06 2022-05-06 Emergency [facility] [id number] Univers 17:03:00 20:20:00 Eri Ruggiero [place] 350.1.13.10 ity [facility] 4.2.7.2.686 [place] [facility] [id number] [address] 2022-05-06 2022-05-06 Letter Yuni, [facility] [id number] Univers 00:00:00 00:00:00 (Out) [facility] 350.1.13.10 it y of [place] 4.2.7.2.686 Mani as KATHRIN?BLEA [id number] [address] MEDICAL OFFICE [facility] 2022-05-04 2022-05-04 Laboratory Only, Ang Db Test [facility] 1.2.8 40.114 [id number] Univers 13:00:00 13:15:00 Only Cy Nevin [facility] 350.1.13.10 ity of [place] 4.2.7.2.686 Mani as KATHRIN?BLEA [id number] In andrew HUGHES [address] [place] MEDICAL OFFICE [facility] 2022-05-04 2022-05-04 Outpatient [facility] [id number] Univers 13:00:00 13:00:00 NEVIN ity [facility] 2022-04-14 2022-04-14 Outpatient [facility] [id number] Univers 15:00:00 15:00:00 JULIO CESAR ity [facility] 2022-03-30 2022-03-30 [facility] [id number] Univers 12:06:40 23:59:00 Encounter [facility] 350.1.13.10 ity [facility] 4.2.7.2.686 Mani as KATHRIN?BLEA [id number] In andrew HUGHES 808 [facility] OFFICE [facility] 2022-03-30 2022-03-30 [facility] [id number] [id number] Univers 12:06:40 23:59:00 Encounter [facility] 350.1.13.10 ity of [place] 4.2.7.2.686 Mani as KATHRIN?BLEA [id number] In anrdew HUGHES 808 [facility] OFFICE [facility] 2022-03-30 2022-03-30 Outpatient R [facility] [id number] Univers 12:06:40 23:59:00 JAREN ity o f [facility] 2022-03-30 2022-03-30 Urgent [facility] 1.2.840. 114 [id number] Univers 13:00:00 13:20:00 Care Xavier Delia [facility] 350.1.13.10 ity of [place] 4.2.7.2.686 Mani as KATHRIN?BLEA [phone] [facility] [address] [place] MEDICAL OFFICE [facility] 2022-03-30 2022-03-30 Orders Doctor WEAVER 1.2.840.114 [id number] Univers 00:00:00 00:00:00 Only Unassigned, ROSE MARIE 350.1.13.10 ity of [place] [facility] 4.2.7.2.686 Mani as [id number] [facility] 009 Branch 2021-10-31 2021-11-01 Emergency X NADIR VEGA [facility] ERT [id number] Univers 19:45:00 01:04:00 NADIR VEGA ity of [facility] 2021-10-31 2021-11-01 Emergency Georgemedo, TRAUMA 1.2.840.114 [id number] Univers 19:45:00 01:04:00 [facility] 350.1.13.10 it [place] [id number] [facility] 014 Branch 2020-12-19 2020-12-19 Emergency E VANESSA GERMAN [facility]NE [id number] [facility]NE 02:45:00 05:21:00 [place] 2020-08-20 2020-08-23 Inpatient [facility] [id number] [facility] 23:55:00 06:47:18 [facility] 2019-02-05 2019-02-05 Outpatient [facility] [id number] [place] 00:00:00 00:00:00 Health 2019-02-04 2019-02-04 Outpatient [facility] [id number] [place] 20:46:53 20:46:53 [facility] 2018-12-06 2018-12-06 Emergency E [facility] [id number] SW 15:34:00 15:34:00 2018-11-22 2018-11-22 Outpatient [facility] [id number] 15:30:00 17:09:30 2018-11-22 2018-11-22 Appointmen BOB RUST Soldering Inspector [id number] [place] 15:30:00 15:30:00 t; MICHELLE ROJAS, Ph ysici MICHELLE Urbina M.D. 2018-11-15 2018-11-15 Appointmen DAV RUST Soldering Inspector [id number] [place] 10:45:00 10:45:00 t; JOSEPH DEMARCO, Physi ci Bernard RUIZ M.D. 2018-11-08 2018-11-08 Appointmen REEL OPERATOR, [facility] [id number] [place] 12:00:00 12:00:00 t; REEL OPERATOR, ROOM1 Phy sici ROOM1 ans 2018-11-08 2018-11-08 Appointkim LINDSEY RUST Soldering Inspector [id number] [place] 10:00:00 10:00:00 t; Bernard STAUFFER nelda Cohen M.D. Results Test Description Test Time Test Comments Results Result Comments Source DRUGS OF ABUSE SCREEN UR 2022-07-29 01:17:00 Test Item Value Reference Range Interpretation Comme nts URN COCAINE (test code = COCAURN) NEGATIVE NEGATIVE URN CANNABINOIDS (test code = NEGATIVE NEGATIVE CANNABURN) URN AMPHETAMINE (test code = NEGATIVE NEGATIVE AMPHETURN) URN BARBITURATE (test code = NEGATIVE NEGATIVE BARBITURN) URN BENZODIAZEPINE (test code = NEGATIVE NEGATIVE Cut-off value:200 ng/mL BENZOURN) URN OPIATES (test code = NEGATIVE NEGATIVE Cut -off value:2000 ng/mL OPIATURN) URN PHENCYCLIDINE (PCP) (test NEGATIVE NEGATIVE Cutoffs:Barbiturates 200 code = PHENCURN) ng/mLBenzod iazepines 200 ng/mLTHC Cannab inoids 50 ng/mLOpiates(Mo rphine) 2000 ng/mLAmphetamin e 1000 ng/mLCocaine 30 0 ng/mLPCP phencyclidine 2 5 ng/mL Unconfirmed scr eening results shouldnot be us ed for non-medical pur poses. TROP-I HIGH [id number] 01:08:00 Test Item Value Reference Range Interpretation Comments TROP-I HIGH < 3 ng/L 0-34 N CAUTION: Units of the SENSITIVITY (test current te st methodology code = TROPIHS) (ng/L) diffe rfrom the prior test meth odology (ng/mL) by a fa ctor of 1000. 99t h Percentile Uppe r Reference Limit (URL): Fe males: 34 ng/LMales: 54 n g/L In order to distin guish acute elevations of h igh sensitivitytrop onin from other clinical conditions, the FourthUnive rsal Definition of M yocardial Infarction stressesclinica l assessment and the demonstration o f a rise and/orfall in s erial troponin result s above the URL. These resu lts were obtained using Siemens Atellica IM TnI Hreagent. Results from di fferent methodologies s hould not becompared to o ne another as quantitative results and URLs mayvar y by method. BASIC METABOLIC [id number] 01:08:00 Test Item Value Reference Range Interpretation Comments SODIUM (test code = 138 mEq/L 134-147 N NA) POTASSIUM (test code 4.0 mEq/L 3.4-5.0 N = K) CHLORIDE (test code 107 mEq/L 100-108 N = CL) CARBON DIOXIDE (test 24 mEq/l 21-33 N code = CO2) ANION GAP (test code 11 0-20 N = GAP) GLUCOSE (test code = 115 mg/dL 70-110 H GLU) BLOOD UREA NITROGEN 8 mg/dL 7-18 N (test code = BUN) GLOMERULAR 105.5 110-120 L The Glomerular FILTRATION RATE Filtration R ate is a (test code = GFR) calculated parameterbased on serum Creatinine, pat ient age and sex. GFR va luesless than 60 mL/min/ 1.73 square meters a re indicative ofCh ronic Kidney Disease. Values less than 15 mL/min/1.73squa re meters indicate Kidney failure. The calculation forGFR is based on the CKD-EPI (2020) calculat ion. This formulais race indifferent and is the recommended for ermias for GFRby the Natio nal Kidney Foundati on for Adults.The GFR will not calculate if th e sex is unknown or if thepatient's ag e is <18 years. CREATININE (test 0.8 mg/dL 0.6-1.3 N code = CREAT) CALCIUM (test code = 9.3 mg/dL 8.0-10.5 N CA) HCG SERUM [id number] 00:55:00 Test Item Value Reference Range Interpretation Comments HCG SERUM QUAL (test code = SERUM NEGATIVE NEGATIVE HCGQL) CBC W/AUTO [id number] 00:50:00 Test Item Value Reference Range Interpretation Comments WHITE BLOOD CELL (test code = 11.3 x10 3/uL 4.5-11.0 H WBC) RED BLOOD CELL (test code = 4.70 x10 6/uL 3.54-5.02 N RBC) HEMOGLOBIN (test code = HGB) 13.6 g/dL 11.0-15.0 N HEMATOCRIT (test code = HCT) 40.3 % 33.0-45.0 N MEAN CELL VOLUME (test code = 85.7 fL 81.0-99.0 N MCV) MEAN CELL HGB (test code = MCH) 28.9 pg 27.0-33.0 N MEAN CELL HGB CONCETRATION 33.7 g/dL 33.0-37.0 N (test code = MCHC) RED CELL DISTRIBUTION WIDTH CV 12.3 % 11.5-14.5 N (test code = RDW) RED CELL DISTRIBUTION WIDTH SD 38.6 fL 37.0-54.0 N (test code = RDW-SD) PLATELET COUNT (test code = 263 x10 3/uL 150-400 N PLT) MEAN PLATELET VOLUME (test code 11.0 fL 7.0-9.0 H = MPV) NEUTROPHIL % (test code = NT%) 69.5 % 56.0-77.0 N IMMATURE GRANULOCYTE % (test 0.4 % 0.0-2.0 N code = IG%) LYMPHOCYTE % (test code = LY%) 23.1 % 14.0-32.0 N MONOCYTE % (test code = MO%) 5.3 % 4.8-9.0 N EOSINOPHIL % (test code = EO%) 1.2 % 0.3-3.7 N BASOPHIL % (test code = BA%) 0.5 % 0.0-2.0 N NUCLEATED RBC % (test code = 0.0 % 0-0 N NRBC%) NEUTROPHIL # (test code = NT#) 7.88 x10 3/uL 2.0-7.6 H IMMATURE GRANULOCYTE # (test 0.04 x10 3/uL 0.00-0.03 H code = IG#) LYMPHOCYTE # (test code = LY#) 2.62 x10 3/uL 1.0-3.8 N MONOCYTE # (test code = MO#) 0.60 x10 3/uL 0.1-0.8 N EOSINOPHIL # (test code = EO#) 0.14 x10 3/uL 0.0-0.2 N BASOPHIL # (test code = BA#) 0.06 x10 3/uL 0.0-0.2 N NUCLEATED RBC # (test code = 0.00 x10 3/uL 0.0-0.1 N NRBC#) MANUAL DIFF REQUIRED (test code NO = MDIFF) - XR CHEST 1 [id number] 00:00:00 [facility] 1995 Sex: F FAX:Devendra Stone MD [place]: St: REG Name: MEME HERNANDEZ [facility] : 1995 Age/S: 26/F [address] [place] [address] Blvd Unit #: [id number] Loc: [place] [address] Phys: Devendra Stone MD Acct: [id number] Dis Date: Status: REG ER PHONE #: [phone] Exam Date: 07/29/202231 FAX #: [phone] Reason: ChestPain EXAMS: CPT CODE: [id number] XR CHEST 1 V 34003 PROCEDURE INFORMATION: Exam: XR Chest Exam date and time: 07/29/2022 12:30 AM Age: 26 years old Clinical indication: Other: Chest pain TECHNIQUE: Imaging protocol: Radiologic exam of the chest. Views: 1 view. COMPARISON: DX XR CHEST 2 V 02/19/2019 12:37 PM FINDINGS: Lungs: The lungs are clear. Pleural spaces: No pleural effusion. No pneumothorax. Heart/Mediastinum: Cardiomediastinal silhouette is normal in size. Bones/joints: No acute bony finding. IMPRESSION: No evidence for acute cardiopulmonary disease. at 0049 Reported and signed by: Clovis Solano M.D. CC: Devendra Stone MD Technologist: RT Lavelle(Ignacio) Trnscrd Date/Time/By: 07/29/2022 (0049) : By: [email or web address] Orig Print D/T: S: 07/29/2022 (0050) PAGE 1 Signed Report TEST, [id number] 02:18:10 Test Item Value Reference Range Interpretation Comments PREG SERUM (test code Negative = 1276452623) SILVA (test code = SILVA) Less than 10 IU/L. ?If low titer or ectopic is suspected, resubmit specimen in 48-72 hours. [facility]. METABOLIC PANEL ([id number])2021-11-01 02:01:26 Test Item Value Reference Range Interpretation Comments NA (test code = 137 mmol/L 135-145 9961597539) K (test code = 3.9 mmol/L 3.5-5.0 3994324731) CL (test code = 107 mmol/L 98-108 7579362297) CO2 TOTAL (test code 24 mmol/L 23-31 = 0640106225) AGAP (test code = 2-16 8419907075) BUN (test code = 10 mg/dL 7-23 2938109324) GLUCOSE (test code = 87 mg/dL 70-110 2820997845) CREATININE (test code 0.59 mg/dL 0.50-1.04 = 0658538421) TOTAL BILI (test code 0.6 mg/dL 0.1-1.1 = 9044633704) CALCIUM (test code = 9.1 mg/dL 8.6-10.6 4206178118) T PROTEIN (test code 7.2 g/dL 6.3-8.2 = 1116013809) ALBUMIN (test code = 4.4 g/dL 3.5-5.0 1776630664) ALK PHOS (test code = 42 U/L 34-122 6798489727) ALTv (test code = 14 U/L 5-35 1742-6) AST(SGOT) (test code 20 U/L 13-40 = 5396403347) eGFR (test code = mL/min/1.73m2 8371157962) SILVA (test code = SILVA) Association of [...] or urine or abnormalities in imaging tests). [facility] 02:01[facility]26 Test Item Value Reference Range Interpretation Comments LIPASE (test code = 4289667504) 65 U/L 0-220 Lab Interpretation (test code = Normal 39137-0) [facility] WITH [id number] 01:46:02 Test Item Value Reference Range Interpretation Comments WBC (test code = See_Comment [Automated message] 6690-2) The system [employer] generated this result transmitted ref erence range: 4.30 - 1 1.10 10*3/?L. The re ference range was not u sed to interpret this result as normal/abnor mal. RBC (test code = See_Comment [Automated message] 789-8) The system [employer] generated this result transmitted ref erence range: [...] RDW-SD (test code 45.6 fL 39.0-49.9 = 73247-9) RDW-CV (test code 14.8 % 12.0-15.5 = 788-0) PLT (test code = See_Comment [Automated message] 777-3) The system [employer] generated this result transmitted ref erence range: 166 - 35 8 10*3/?L. The re ference range was not u sed to interpret this result as normal/abnor mal. MPV (test code = 11.6 fL 9.5-12.9 44508-8) NRBC/100 WBC (test See_Comment [Automat ed message] code = 0366754390) The syste [employer] which generated this result transmitted ref erence range: 0.0 - 10 .0 /100 WBCs. The refer ence range was not u sed to interpret this result as normal/abnor mal. NRBC x10^3 (test <0.01 See_Comment [Automated message] code = 1936193130) The syste m which generated this result transmitted ref erence range: 10*3/?L. The reference range was not used to interpr et this result as normal/abnormal . GRAN MAT (NEUT) % 59.9 % (test code = 770-8) IMM GRAN % (test 0.20 % code = 1145312905) LYMPH % (test code 31.7 % = 736-9) MONO % (test code 6.8 % = 5905-5) EOS % (test code = 0.9 % 713-8) BASO % (test code 0.5 % = 706-2) GRAN MAT 5.20 10*3/uL 1.88-7.09 x10^3(ANC) (test code = 0840335192) IMM GRAN x10^3 <0.03 0.00-0.06 (test code = 3614301335) LYMPH x10^3 (test 2.75 10*3/uL 1.32-3.29 code = 731-0) MONO x10^3 (test 0.59 10*3/uL 0.33-0.92 code = 742-7) EOS x10^3 (test 0.08 10*3/uL 0.03-0.39 code = 711-2) BASO x10^3 (test 0.04 10*3/uL 0.01-0.07 code = 704-7) [facility] PELVIS [id number] 11:04:00 [facility] : 1995 Sex: F Patient Name: MEME HERNANDEZ Unit No: [id number] EXAMS: CPT CODE: [id number] US PELVIS COMPLETE 45202 EXAM: US, US TRANSVAGINAL W/PELVIS: 08/21/2020, 0035 [...] the pelvis may be performed. IMPRESSION: [facility] NAME: MEME HERNANDEZ Radiology Department PHYS: Lawson Regalado [address] : 1995 AGE: 24 SEX: F [place], [place] [address] LOC: PattieERS PHONE #: [phone] EXAM DATE: 08/21/2020 STATUS: DEP ER FAX #: [phone] RAD NO: Page1 Signed Report (CONTINUED) Patient Name: MEME HERNANDEZ Unit No: [id number] EXAMS: CPT CODE: [id number] US PELVIS COMPLETE 87076 (Continued) 1. Left ovarian cyst 2. Small free fluid seen in the cul-de-sac. SL: JSYED-H at 1104 Reported and signed by: Td Hylton M.D. CC: Lawson Moreland MD Technologist: TAI MCKEON RDMS, RVT Probe: Trnscrbd D/ (1104) [email or web address] Orig Print D/T: S: 08/22/2020 (1105) [facility] NAME: JACINTO HERNANDEZA Radiology Department PHYS: Lawson Regalado [address]DOB: 1995 AGE: 24 SEX: F [place] [address] LOC: Lu.ERS PHONE #: [phone] EXAM DATE: 08/21/2020 STATUS: DEP ER FAX #: [phone] RAD NO: Page 2 Signed Report Patient Name: MEME HERNANDEZ Unit No: [id number] EXAMS: CPT CODE: [id number] US PELVIS COMPLETE 10893 (Continued) [facility] NAME: [facility] Radiology Department PHYS: Lawson Regalado [address] : 1995 AGE: 24 SEX: F [place] [address] LOC:F.ERS PHONE #: [phone] EXAM DATE: 08/21/2020 STATUS: DEP ER FAX #: [phone] RAD NO: Page 3 Signed Report- DUP AB/PEL/SC/[id number] 02:25:00 [facility] : 1995 Sex: F Patient Name: MEME HERNANDEZ Unit No: [id number] EXAMS: CPT CODE: [id number] DUP AB/PEL/SC/LTD 91813 EXAM: US, US TRANSVAGINAL W/PELVIS: 08/21/2020, 0035 [...] the pelvis may be performed. IMPRESSION: [facility] NAME: MARIANO HERNANDEZERRA Radiology Department PHYS: DAVID MorelandLawson [address] : 1995 AGE: 24 SEX: F [place] [address] LOC:Lu.ERS PHONE #: [phone] EXAM DATE: 08/21/2020 STATUS: REG ER FAX #: [phone] RAD NO: Page 1 Signed Report (CONTINUED) Patient Name: JACINTO HERNANDEZA Unit No: [id number] EXAMS: CPT CODE: [id number] AB/PEL/SC/LTD 28159 (Continued) 1. Left ovarian cyst 2. Small free fluid seen in the cul-de-sac.SL: DANYELL at 0225 Reported and signedby: Td Hylton M.D. CC: Lawson Moreland MD Technologist: TAI MCKEON RDMS, RVT Probe: Trnscrbd D/ (022) [email or web address] Orig Print D/T: S: 08/21/2020 (022) [facility] NAME: [facility] Rad[facility] Department PHYS: Lawson Regalado [address] : 1995 AGE: 24 SEX: F [place], [place] [address] LOC: Lu.ERS PHONE #: [phone] EXAM DATE: 08/21/2020 STATUS: REG ER FAX #: [phone] RAD NO: Page 2 Signed Report Patient Name: MEME HERNANDEZ Unit No: [id number] EXAMS: CPT CODE: [id number] DUP AB/PEL/SC/LTD 58850 (Continued) [facility] NAME: [facility] Radiology Department PHYS: Lawson Regalado [address] : 1995 AGE: 24 SEX: F [place] [address] LOC: CLARKE PHONE #: [phone] EXAM DATE: 08/21/2020 STATUS: REG ER FAX #: [phone] RAD NO: Page 3 Signed Report- US TRANSVAGINAL W/[id number] 02:25:00 [facility] 1995 Sex: F Patient Name: MEME HERNANDEZ Unit No: [id number] EXAMS: CPT CODE: [id number] US TRANSVAGINAL W/PELVIS 04439 EXAM: US, US TRANSVAGINAL W/PELVIS: 08/21/2020, 0035 [...] the pelvis may be performed. IMPRESSION: [facility] NAME: MEME HERNANDEZ Radiology Department PHYS: Lawson Regalado [address] : 1995 AGE: 24 SEX: F [place], [place] [address] LOC: CLARKE PHONE #: [phone] EXAM DATE: 08/21/2020 STATUS: REG ER FAX #: [phone] RAD NO: Page 1 Signed Report (CONTINUED) Patient Name: MEME HERNANDEZ Unit No: [id number] EXAMS: CPT CODE: [id number] US TRANSVAGINAL W/PELVIS 99068 (Continued) 1. Left ovarian cyst 2. Small free fluid seen in the cul-de-sac. SL: DANYELL at 0225 Reported and signed by: Td Hylton M.D. CC: Lawson Moreland MD Technologist: TAI MCKEON RDMS, RVT Probe: [id number] Trnscrbd D/ (0225) RonyJS38 Orig Print D/T: S: 08/21/2020 (0228) [facility] NAME: MEME HERNANDEZ Radiology Department PHYS: Lawson Regalado [address] : 1995 AGE: 24 SEX: F [place] [address] LOC:CLARKE PHONE #: [phone] EXAM DATE: 08/21/2020 STATUS: REG ER FAX #: [phone] RAD NO: Page 2 Signed Report Patient Name: MEME HERNANDEZ Unit No: [id number] EXAMS: CPT CODE: [id number] US TRANSVAGINAL W/PELVIS 49271 (Continued) [facility] NAME: MEME HERNANDEZ Radiology Department PHYS: Lawson Regalado : 1995 AGE: 24 SEX: F [place] [address] LOC: PattieERS PHONE #: [phone] EXAM DATE: 08/21/2020 STATUS: REG ER FAX #: [phone] RAD NO: Page 3 Signed ReportUA RFLX MICR CULT IF [id number] 00:47:00 Test Item Value Reference Range Interpretation [...] culture: Suprapubic PainSpecimen Description: CLEAN CATCHUR HCG [id number] 00:47:00 Test Item Value Reference Range Interpretation [...] Description: CLEAN CATCHUA RFLX MICR CULT IF [id number] 00:31:00 Test Item Value Reference Range Interpretation [...] culture: Suprapubic PainSpecimen Description: CLEAN CATCHUR HCG [id number] 00:31:00 Test Item Value Reference Range Interpretation [...] Suprapubic PainSpecimen Description: CLEAN CATCH- US TRANSVAGINAL [id number] 03:14:00 Patient Name: MEME HERNANDEZ Unit No: [id number] EXAMS: CPT CODE: [id number] US TRANSVAGINAL W/PELVIS 91138 Pelvic and transvaginal ultrasound dated 08/04/2019. HISTORY: Pelvic pain. Vomiting. A transabdominal pelvic ultrasound was performed with subsequent transvaginal imaging to better visualize theendometrium and adnexa. Correlation is made with a prior pelvic ultrasound dated 10/07/2017. The uterus measures approximately 7.0 x 4.4 x 5.6 cm and has a normal contour. The myometrium appears heterogeneous with prominence of the myometrial vessels. No myometrial masses are identified. The endometriumappears within normal limits with an AP thickness of 10 mm. A couple of tiny endometrial cysts are noted. The right ovary measures 2.8 x 1.4 x 1.9 cm and the left ovary measures 3.0 x 2.4 x 1.8 cm. Theovaries maintain normal echotexture. Ovarian blood flow is documented bilaterally using Doppler ultrasound. No adnexal masses are identified. Trace free intraperitoneal fluid is noted in the pelvic cul-de-sac. IMPRESSION: 1. No acute sonographic abnormalities of the pelvis are detected. SL: 131 at 0314 Reported and signed by: Aneudy Vanegas MD CC: Jose Luis MD; Gm Cuevas DO Technologist: Martha Wan RDMS Probe: [id number] Trnscrbd D/ (313) Tray Orig Print D/T: S: 08/04/2019 (316) [facility] NAME: MEME HERNANDEZ Radiology Department PHYS: Jose Padilla MD [address] : 1995 AGE: 23 SEX: F [place] [id number] LOC: PattieERS PHONE #:[phone] EXAM DATE: 08/04/2019 STATUS: REG ER FAX #: [phone] RAD NO: Page 1 Signed Report Patient Name: MEME HERNANDEZ Unit No: [id number] EXAMS: CPT CODE: [id number] US TRANSVAGINAL W/PELVIS 90637 (Continued) [facility] NAME: MEME HERNANDEZ Radiology Department PHYS: Jose Simeon MD [address] : 1995 AGE: 23 SEX: F [place] [address] LOC: CLARKE PHONE #: [phone] EXAM DATE: 08/04/2019 STATUS: REG ER FAX #: [phone] RAD NO: Page 2 Signed Report- DUP AB/PEL/SC/[id number] 03:14:00 Patient Name: MEME HERNANDEZ Unit No: [id number] EXAMS: CPT CODE: [id number] DUP AB/PEL/SC/LTD 81888 Pelvic and transvaginal ultrasound dated 08/04/2019. HISTORY: [...] Orig Print D/T: S: 08/04/2019 (0317) [facility] NAME: [facility] Radiology Department PHYS: Jose Padilla MD [address] : 1995 AGE: 23 SEX: F [place] [address] LOC: PattieERS PHONE #: [phone] EXAM DATE: 08/04/2019 STATUS: REG ER FAX #: [phone] RAD NO: Page 1 Signed Report Patient Name: MEME HERNANDEZ Unit No: [id number] EXAMS: CPT CODE: [id number] [facility] AB/PEL/SC/LTD 73472 (Continued) [facility] NAME: [facility] Radiology Department PHYS: Jose Padilla MD [address] : 1995 AGE: 23 SEX: F [place] [address] LOC: PattieERS PHONE#: [phone] EXAM DATE: 08/04/2019 STATUS: REG ER FAX #: [phone] RAD NO: Page 2 Signed Report- US PELVIS [id number] 03:14:00 Patient Name: MEME HERNANDEZ Unit No: [id number] EXAMS: CPT CODE: [id number] US PELVIS COMPLETE 25879 Pelvic and transvaginal ultrasound dated 08/04/2019. HISTORY: [...] and signed by: Aneudy Ortega MD CC: oJse Luis MD; Gm Cuevas DO Technologist: Martha Wan RDMS Probe: Trnscrbd D/ (0314) t.SDR.DMM Orig Print D/T: S: 08/04/2019 (0317) [facility] NAME: MEME HERNANDEZ Radiology Department PHYS: Jose Padilla MD [address] : 1995 AGE: 23 SEX: F [place] [address] LOC: PattieERS PHONE #: [phone] EXAM DATE: 08/04/2019 STATUS: REG ER FAX #: [phone] RAD NO: Page 1 Signed Report Patient Name: DAVIDMEME Unit No: [id number] EXAMS: CPT CODE: [id number] US PELVIS COMPLETE 76474 (Continued) [facility] NAME: MEME HERNANDEZ Radiology Department PHYS: Jose Padilla MD [address] : 1995 AGE: 23 SEX: F [place] [address] LOC: Lu.ERS PHONE#: [phone] EXAM DATE: 08/04/2019 STATUS: REG ER FAX #: [phone] RAD NO: Page 2 Signed ReportCBC W/AUTO [id number] 23:55:00 Test Item Value Reference Range Interpretation [...] (test NORMAL NORMAL code = PLTMR) HCG [id number] 23:40:00 Test Item Value Reference Range Interpretation [...] SHOULD BE CONSI DERED NEGATIVE CHEMISTRY 7 [id number] 23:27:00 Test Item Value Reference Range Interpretation [...] = CA) 8.7 mg/dL 8.4-10.2 N LIVER [id number] 23:27:00 Test Item Value Reference Range Interpretation [...] 57 units/L 46-116 N code = ALKP) [id number] 23:27:00 Test Item Value Reference Range Interpretation Comments LIPASE (test code = LIP) 129 units/L 73-393 N UA RFLX MICR CULT IF [id number] 22:56:00 Test Item Value Reference Range Interpretation [...] SEEN Indication for culture: Suprapubic PainPLACENTA THIRD [id number] 18:16:00 RUN DATE: 02/21/19 [facility] PAGE 1 RUN TIME: 758 Specimen Inquiry RUN USER: INTERFACE --PATIENT: MEME HERNANDEZ LOC: DURGA U #: [id number] AGE/SX: 23/F ROOM: 2013 RE02/17/19REG DR: Gm Cuevas DO : [birth year] BED: A DIS: 02/19/19 STATUS: DIS IN TLOC: SPEC #: [id number] RECD: 02/18/19 STATUS: DESMOND RELauri #: [id number] MAURISIO: 02/18/19- SUBM DR: Gm Cuevas DO ENTERED: 02/19/19 SP TYPE: PLACIII OTHR DR: ORDERED: LEVEL V SURGICA/3 CODES: [id number] - FALLOPIAN TUBE YT4184 - PLACENTA, NOS PROCEDURES: LEVEL V SURGICA [...] of inflammation Tissue code 1 CPT code(s): 11521 x2, 66022 [facility] 02/20/19 GROSS DESCRIPTION ANATO ANGIE SOURCE OF TISSUE (per Requisition): 1. Right and left tubal segment 2. Placenta Each specimen islabeled with the patient's name and medical record number. Specimen #1 is designated "right tube" and consists of a 0.7 cm in length and 0.4 cm in diameter pink-purple and hyperemic segment of fallopian tube. The lumen is CONTINUED ON NEXT PAGE RUN DATE: 02/21/19 [facility] PAGE 2 RUN TIME: 758 Specimen Inquiry RUN USER: INTERFACE SPEC #: [id number] PATIENT: MEME HERNANDEZ #[id number] (Continue d) GROSSDESCRIPTION (Continued) pinpoint. Aml Analyst sections are submitted as A1. Specimen #2 is designated "left" and consists of a 1.2 cm in length and 0.4 cm in diameter pink-purple and hyperemic segment of fallopian tube. The lumen is pinpoint. Aml Analyst sections are submitted as B1. The specimen was received in a container, labeled with the patient's name, unit number and designated "placenta". The following attributes are observed: Cord insertion: 2 cm from margin Cord length: 34 cm Number of vessels: 3 Cord color: Beltran Other cord findings: Slightly edematous surface findings: Steel blue, wrinkled, glistening with focal subchorionic fibrin deposition Vasculature: Displays unremarkableblood vasculature Membranes rupture site: 4 cm to margin Membrane color: Beltran Other membrane findings: Thickened The trimmed placental weight: 440 gm Disk measurement: 17.0 x 15.0 x 4.0 cm in greatest dimension Accessory lobes: None Maternal surface: Lobulated and intact Parenchyma: Red, beefy, and spongy with peripheral fibrosis Parenchyma lesions: There is a 0.5 cm beltran-yellow, firm, peripheral focuswhich grossly involves less than 5% of the placental parenchyma Cassettes: C1 through C4 jm/wpd 02/19/19 @ 1334 Signed Zo Mahan MD 02/20/19 1816 END OF REPORT - CT ANGIO [id number] 14:14:00 Patient Name: MEME HERNANDEZ Unit No: [id number] EXAMS: CPT CODE: [id number] CT ANGIO CHEST 01361 EXAMINATION: CTA of the chest with contrast [...] Consider further evaluation with thyroid ultrasound. [facility] NAME: MEME HERNANDEZ Radiology Department PHYS: Laura Dash MD [address] : 1995 AGE: 23 SEX: F [place], [place] [address] LOC: F A PHONE #: [phone] EXAM DATE: 02/19/2019 STATUS: ADM IN FAX #: [phone] RAD NO: Page 1 Signed Report 1 Patient Name: DAVIDMEME Unit No: [id number] EXAMS: CPT CODE: [id number] CT ANGIO CHEST 72301 (Continued) at 1414 Reported and signed by: Geno Rosario MD CC: Gm Cuevas DO; Laura Pryor MD Technologist: Alyse Hernandez, RT, CT CTDI: 31.08 DLP: 736.35 Trnscrbd D/ (1414) tKIAR.[facility] NAME: MEME HERNANDEZ Radiology Department PHYS: Laura Dash MD [address] : 1995 AGE: 23 SEX: F [place], [place] [address] LOC: F.2013 A PHONE #: [phone] EXAM DATE: 02/19/2019 STATUS: ADM IN FAX #: [phone] RAD NO: Page 2 Signed Report 1 Patient Name: MEME HERNANDEZ Unit No: [id number] EXAMS: CPT CODE: [id number] CT ANGIO CHEST 25168 (Continued) Orig Print D/T: S: 02/19/2019 (3245) [facility] NAME: MARIANO HERNANDEZERRA Radiology Department PHYS: Laura Dash MD [address] : 1995 AGE: 23 SEX: F [place] [address] LOC: F.2013 A PHONE #: [phone] EXAM DATE: 02/19/2019 STATUS: ADM IN FAX #: [phone] RAD NO: Page 3 Signed Report 1BLOOD UREA [id number] 14:03:00 Test Item Value Reference Range Interpretation Comments BLOOD UREA NITROGEN (test code = BUN) 5 mg/dL 7-18 L [id number] 14:03:00 Test Item Value Reference Range Interpretation Comments CREATININE (test code = CREAT) 0.5 mg/dL 0.5-1.0 N - XR CHEST 2 [id number] 12:45:00 Patient Name: MEME HERNANDEZ Unit No: [id number] EXAMS: CPT CODE: [id number] XR CHEST 2 V 40259 CLINICAL HISTORY: chest pain; sob COMPARISON: December [...] Pryor MD Technologist: RT Stone Trnscrbd D/ (7763) Ragini Orig Print D/T: S: 02/19/2019 (8483) [facility] NAME: MEME HERNANDEZ Radiology Department PHYS: Laura Dash MD [address] : 1995 AGE: 23 SEX: F [place], [place] [address] LOC: F A PHONE #: [phone] EXAM DATE: 02/19/2019 STATUS: ADM IN FAX #: [phone] RAD NO: Page 1 Signed ReportHGB [id number] 07:21:00 Test Item Value Reference Range Interpretation Comments HEMOGLOBIN (test code = HGB) 9.9 g/dL 10.7-13.9 L HEMATOCRIT (test code = HCT) 30.7 % 32.1-42.1 L DRUGS OF ABUSE [id number] 02:15:00 Test Item Value Reference Range Interpretation [...] PHENCU) 25 ng/m L AG HEPATITIS B [id number] 01:20:00 Test Item Value Reference Range Interpretation Comments AG HEPATITIS B SURFACE (test code NONREACTIVE NONREACTIVE = HBSAG) Comments to Belt Press Operator: LDO AIS CONSENT FORM SIGNED FOR HIV TESTING? YAB HEPATITIS C [id number] 01:20:00 Test Item Value Reference Range Interpretation Comments AB HEPATITIS C (test code = NONREACTIVE NONREACTIVE HCVAB) SIGNAL TO CUTOFF (test code = 0.05 <0.80 N CUTOFF) Comments to Belt Press Operator: [facility] CONSENT FORM SIGNED FOR HIV TESTING? YRUBELLA [id number] 01:20:00 Test Item Value Reference Range Interpretation Comments RUBELLA SCREEN 10.9 IUnit/ml Results >10. 0IUnits/ml (test code = are considered positive RUBSC) inaccordance wi th the CLSI guidelines and based on the [employer] S tandard for Anti-Rubell a serum as anindicator of immune status and a br eakpoint to detect mostseropositiv e persons. Comments to Belt Press Operator: [facility] CONSENT FORM SIGNED FOR HIV TESTING? YAB [id number] 01:20:00 Test Item Value Reference Range Interpretation Comments AB TREPONEMA (test code = TREPAB) NONREACTIVE NONREACTIVE Comments to Belt Press Operator: [facility] CONSENT FORM SIGNED FOR HIV TESTING? YAB HIV 1 01:20:00 Test Item Value Reference Range Interpretation Comments AB HIV 1 2 (test NONREACTIVE NONREACTIVE Done by [facility] Centaur code = VPO49VA) 4th Gen HIV Ag/Ab Combo Screen Comments to Belt Press Operator: [facility] CONSENT FORM SIGNED FOR HIV TESTING? Y URINALYSIS [id number] 01:01:00 Test Item Value Reference Range Interpretation [...] NONE SEEN URINE SAMPLE: CLEAN CATCHCBC W/AUTO [id number] 00:11:00 Test Item Value Reference Range Interpretation [...] NORMAL NORMAL code = PLTMR) - US [id number] 23:45:00 Patient Name: MEME HERNANDEZ Unit No: [id number] EXAMS: CPT CODE: [id number] [place] L[place] 50033 Limited obstetrical ultrasound dated 02/17/2019. HISTORY: 34 [...] Technologist: Elaine Zhao RDMS Probe: Trnscrbd D/ (7185) Tray Orig Print D/T: S: 02/17/2019 (6403) [facility] NAME: MEME HERNANDEZ Radiology Department PHYS: Gm Beltran DO [address] : 1995 AGE: 23 SEX: F [place], [place] [address] LOC: Saeid Valentin PHONE #: [phone] EXAM DATE: 02/17/2019 STATUS: ADM IN FAX #: [phone] RAD NO: Page 1 Signed Report Patient Name: MEME HERNANDEZ Unit No: [id number] EXAMS: CPT CODE: [id number] [place] LTD 31199 (Continued) [facility] NAME: MEME HERNANDEZ Radiology Department PHYS: Gm Beltran DO [address] : 1995 AGE: 23 SEX: F [place], [place] [address] LOC: Saeid Valentin PHONE #: [phone] EXAM DATE: 02/17/2019 STATUS: ADM IN FAX #: [phone] RAD NO: Page 2 Signed Report- US FLW [id number] 15:54:00 Patient Name: MEME HERNANDEZ Unit No: [id number] EXAMS: [place]: [id number] [address] [facility] [address] [place], [place] [address] OBSTETRICAL ULTRASOUND REPORT Pat. Name: MEME HERNANDEZ Pat. No: [id number] Study Date: 12/13/2018 2:18pm , Age: 7 1995, 22 Pregnancies: 5, Para 4 LMP: Unknown GA by 1st: 23w1d GA by US: 22w4d GA Selected: 23w1d (From Known E) SUSAN: 04/10/2019 Referring MD:Bennett Collins M.D. Track Inspecting Supervisor: Michelle Cotto RDMS CPT4: USPREGLTD Hist/Ind: Scan 2: previous c/s/ abd pain ( c/s scar ) CHIN UREMENTS AGE GROWTH EVALUATION Measurement GA Range Srce %for GA Ratios ----- ---- ------- BPD 5.3 cm 22w1d (01r6r-86n4u) Hadl BPD 21% FL/BPD 0.81 (0.71 - 0.87) HC 19.8 cm 21w6d (29l9l-83o6a) Hadl HC 13% FL/AC 0.24 (0.20 - 0.24) APD 5.9 cm APD HC/AC 1.09 (1.03 - 1.22) TAD 5.7 cm TAD CI 0.79 (0.70 - 0.86) AC 18.2 cm 22w6d (20w6d- 24w6d) Hadl AC 43% FL 4.3 cm 23w5d (33d5q-97n0r) Hadl FL 62% HL 4.1 cm 24w5d (76o1b-68o0b) Dionsiio HL 77% GA for sonogram 22w4d (43c1m-15d4z) Weight Estimate: based on (BPD,HC,AC,FL) Hadlock Weight: [...] seen: heart motion seen Placental location: Posterior [facility] NAME: MEME HERNANDEZ Radiology Department PHYS: Tristan Lares III, MD [address] : 1995 AGE: 22 SEX: F [place], [place] [address] LOC: CUCO PHONE #: [phone] EXAM DATE: 12/13/2018 STATUS: REG ER FAX #: [phone] RAD NO: Page 1 Signed Report (CONTINUED) Patient Name: MEME HERNANDEZ Unit No: [id number] EXAMS: CPT [place]: [id number] [address] (Continued) Placental maturity : Grade 2 There is no evidence of placenta previa. Amniotic fluid vo lume is normal. Uterus and adnexa: No significant abnormality is seen. Serena Bean M.D. Electronic Signature 12/13/2018 03:54pm at 1554 Reported and signed by: Serena Bean MD CC: Tristan Sarmiento III, MD Technologist: Michelle Cotto RDMS Probe: Trnscrbd D/ (1554) Champ.NMG Orig Print D/T: S: 12/13/2018 (1554) [facility] NAME: MARIANO HERNANDEZERRA Radiology Department PHYS: Tristan Lares [address] : 1995 AGE: 22 SEX: F [place] [address] LOC: PattieCLAY PHONE #: [phone] EXAM DATE: 12/13/2018 STATUS: REG ER FAX #: [phone] RAD NO: Page 2 Signed Report Patient Name: MEME HERNANDEZ Unit No: [id number] EXAMS: CPT CODE: [id number] [place] [address] (Continued) [facility] NAME: MARIANO GUANERRA Radiology Department PHYS: Tristan Lares III [place] [address] : 1995 AGE: 22 SEX: F [place] [address] LOC: PattieCLAY PHONE #: [phone] EXAM DATE: 12/13/2018 STATUS: REG ER FAX #: [phone] RAD NO: Page 3 Signed ReportPROTHROMBIN [id number] 14:52:00 Test Item Value Reference Range Interpretation Comments PROTHROMBIN TIME PATIENT (test code 12.4 secs 10.4-12.4 N = PTP) THROMBOPLASTIN TIME [id number] 14:52:00 Test Item Value Reference Range Interpretation Comments THROMBOPLASTIN TIME PARTIAL (test 30.7 secs 22-38 N code = PTT) [id number] 14:52:00 Test Item Value Reference Range Interpretation Comments FIBRINOGEN (test code = FIB) 399 mg/dL 309-518 N DRUGS OF ABUSE [id number] 13:00:00 Test Item Value Reference Range Interpretation [...] = PHENCU) 25 ng/m L COMPREHENSIVE METABOLIC [id number] 12:54:00 Test Item Value Reference Range Interpretation [...] units/L 46-116 N code = ALKP) URINALYSIS [id number] 12:42:00 Test Item Value Reference Range Interpretation [...] = MUCU) 2+ NONE SEEN Comments to Belt Press Operator: DAGOBERTO CLAUDIAMENDEL SAMPLE: CLEAN CATCHCBC W/AUTO DIFF 2018-12-13 12:39:00 [...] D. SPECIMEN RECEIVED DATE A ND TIME: [id number] [facility]] URINALYSIS, [id number] 13:09:00 Test Item Value Reference Range Interpretation Comments COLOR; Normal (test YELLOW YELLOW N code = 5778-6) APPEARANCE (test code CLEAR CLEAR N = APPEARANCE) SPECIFIC GRAVITY; 1.025 1.001-1.035 N Normal (test code = 2965-2) PH; Normal (test code 6.0 5.0-8.0 N = 2756-5) GLUCOSE; Normal (test NEGATIVE NEGATIVE N code = 1547-9) BILIRUBIN; Normal NEGATIVE NEGATIVE N (test code = 50587-7) KETONES; Normal (test NEGATIVE NEGATIVE N code = 62890-9) OCCULT BLOOD; Normal NEGATIVE NEGATIVE N (test code = 75447-7) PROTEIN; Normal (test NEGATIVE NEGATIVE N code = 15659-0) NITRITE; Normal (test NEGATIVE NEGATIVE N code = 03769-7) LEUKOCYTE ESTERASE NEGATIVE NEGATIVE N (test code = LEUKOCYTE ESTERASE) WBC; Normal (test 0-5 < OR = 5 N code = 6690-2) RBC; Normal (test NONE SEEN < OR = 2 N code = 789-8) SQUAMOUS EPITHELIAL 0-5 < OR = 5 CELLS (test code = 52035-4) BACTERIA; Normal NONE SEEN NONE SEEN N (test code = 630-4) HYALINE CAST; Normal NONE SEEN NONE SEEN N SPECIME N RECEIVED DATE (test code = 46207-6) AND TI ME: [id number] [facility][QH] [id number] DEHYDROGENASE, QUANT.2018-11-08 13:09:00 Test Item Value Reference Range Interpretation Comments BPOZMVD-2-HAXLNAWLV 19.3 {U/g 7.0-20.5 SPECIMEN RECEIVED DEHYDROGENASE (test Hgb} DATE AND TIME: code = 227237475526 SFTCFSD-2-OLVNJWARB DEHYDROGENASE) [facility][QH] QUAD [id number] 13:09:00 Test Item Value Reference Interpretation Comments Range INTERPRETATION: See Comment Screen negat clara for open (test code = NTD, Down syndr ome INTERPRETATION:) andTrisomy 18. MSAFP RISK OPEN <1 IN 5000 NTD (test code = 83451-3) AGE RISK DOWN 1 IN 1164 SYNDROME (test code = AGE RISK DOWN SYNDROME) QUAD RISK DOWN <1 IN 5000 SYNDROME (test code = QUAD RISK DOWN SYNDROME) MSS3 TRISOMY 18 <1 IN 5000 RISK (test code = MSS3 TRISOMY 18 RISK) MSAFP (test code 37.1 ng/ml = 21695-7) ADJ MULTIPLE OF 0.41 MEDIAN (test code [...] assistance with recalculations, please call your local [facility] lab oratory. Forassistance w ith interpretation of these results, please contact your local [facility] genetic certified rehabilitation counselor oror call [phone]( [phone]). Interpretive Cu t-offsScreen Positive For Op en [...] AND (test code = TIME: Cigarette smoker) [facility][Q] TREPONEMA PALLIDUM AB, PARTICLE [id number] 13:09:00 Test Item Value Reference Range Interpretation Comments TREPONEMA PALLIDUM NONREACTIVE Reference Range: AB, PARTICLE NonreactiveSPEC IMEN AGGLUTINATION (test RECEIVED DATE AND TIME: code = TREPONEMA 40091121125 8 PALLIDUM AB, PARTICLE AGGLUTINATION) [facility]] CULTURE, URINE, [id number] 13:09:00 Test Item Value Reference Range Interpretation Comments SOURCE: (test URINE, CLEAN CATCH code = SOURCE:) STATUS: (test FINAL code = STATUS:) Result (test Multiple organisms CFU/mL. T hese code = Result) present, each less organis ms, commonly than 10,000 found onexterna l and internal genita mandy, are consideredt o be colonizers. No further testing performed.SPECI MEN RECEIVED DATE A ND TIME: [facility][Q] OBSTETRIC [id number] 13:09:00 Test Item Value Reference Range Interpretation Comments WHITE BLOOD CELL 9.0 {Thousand/u} 3.8-10.8 N COUNT (test code = WHITE BLOOD CELL COUNT) RED BLOOD CELL 4.04 3.80-5.10 N COUNT (test code = {Million/uL} RED BLOOD CELL COUNT) HEMAGLOBIN; Below 11.5 g/dl 11.7-15.5 Low Threshold (test code = 62423-5) HEMATOCRIT; Below 34.2 % 35.0-45.0 Low Threshold (test code = 4544-3) MCV; Normal (test 84.7 fL 80.0-100.0 N code = 787-2) MCHC; Normal (test 33.6 g/dl 32.0-36.0 N code = 34838-8) RDW; Above High 15.2 % 11.0-15.0 Threshold (test code = 788-0) PLATELET COUNT; 168 {Thousand/u} 140-400 N Normal (test code = 777-3) MPV; Normal (test 12.4 fL 7.5-12.5 N code = 72233-8) ABSOLUTE 6426 {cells/uL} 7931-2471 N NEUTROPHILS (test code = ABSOLUTE NEUTROPHILS) [...] Normal 5.0 % N (test code = 31727-2) EOSINOPHILS; Normal 1.4 % N (test code = 33871-8) BASOPHILS; Normal 0.3 % N SPECIMEN R ECEIVED (test code = DATE AND TIME: 75195-2) [id number] ANTIBODY SCREEN, NO ANTIBODIES N Reference range [...] code RH(D) POSITIVE SPECIME N RECEIVED = 96072-9) DATE AND TIME: RPR (DX) W/REFL NON-REACTIVE NON-REACTIVE N SPECIMEN REC EIVED TITER AND DATE AND TIME: CONFIRMATORY TESTING (test code = RPR (DX) W/REFL TITER AND CONFIRMATORY TESTING) HEPATITIS B SURFACE NON-REACTIVE NON-REACTIVE N SPECIMEN RECEIVED ANTIGEN; Normal DATE AND CADEN E: (test code = 667380507195 5195-3) RUBELLA ANTIBODY <0.90 Index Inter pretation (IGG); Below Low ----- ----- --------- Threshold (test <0.90 Not co nsistent code = 01288-1) with Immunit y 0.90-0.99 Equi vocal > or = 1.00 Consistent with Immunity The presence of rub sowmya IgG antibody suggests immunization or past or current infe ction withrubella virus.SPECIMEN RECEIVED DATE A ND TIME: [facility][Q] HIV-1/2 Antigen and Antibodies, Fourth Generation, with [id number] 13:09:00 Test Item Value Reference Range Interpretation Comments HIV AG/AB, 4TH NON-REACTIVE NON-REACTIVE N HIV-1 antigen and GEN; Normal HIV-1/HIV-2 ant ibodies were (test code = [place] [address]-5) laboratory evid ence of HIVinfection. P LECAL NOTE: This informatio n has been disclosed [...] ad ditional information ple ase refer tohttp://educat ion.[employer]/fa q/BIE742(Thi s link is being provided for informational/e ducational purposes only.) The performance of this assay has not been clinicallyvalid ated in patients less t encinas 2 years old. SPECIMEN R ECEIVED DATE AND TIME: [id number] [facility]. [facility] - Affirm VPIII (BV Panel)2018-11-08 00:00:00 Test Item Value Reference Range Interpretation Comments Affirm VPIII (BV Panel) REPORT See Comment (test code = Affirm VPIII (BV Panel) REPORT) [facility]iciansCOMPREHENSIVE METABOLIC [id number] 20:23:00 Test Item Value Reference Range Interpretation [...] units/L 46-116 L code = ALKP) HCG [id number] 20:23:00 Test Item Value Reference Range Interpretation [...] DERED NEGATIVE UA RFLX MICR CULT IF [id number] 20:15:00 Test Item Value Reference Range Interpretation [...] code = BACU) RARE /HPF RARE-FEW PROTHROMBIN [id number] 20:06:00 Test Item Value Reference Range Interpretation Comments PROTHROMBIN TIME PATIENT (test code 12.3 secs 10.4-12.4 N = PTP) THROMBOPLASTIN TIME [id number] 20:06:00 Test Item Value Reference Range Interpretation Comments THROMBOPLASTIN TIME PARTIAL (test 30.1 secs 22-38 N code = PTT) [id number] 20:06:00 Test Item Value Reference Range Interpretation Comments FIBRINOGEN (test code = FIB) 385 mg/dL 309-518 N - US PREG AFTER [id number] 19:04:00 Patient Name: MEME HERNANDEZ Unit No: [id number] EXAMS: CPT CODE: [id number] US PREG AFTER 78938 TRANSABDOMINAL OBSTETRICAL PELVIC ULTRASOUND INDICATION: 21 WEEKS, [...] The amniotic fluid volume appears qualitativelynormal. [facility] NAME: MEME HERNANDEZ Radiology Department PHYS: Sarah Arboleda MD [address] : 1995 AGE: 22 SEX: F [place] [address] LOC: [place] PHONE #: [phone] EXAM DATE: 11/05/2018 STATUS: REG ER FAX #: [phone] RAD NO: Page 1 Signed Report (CONTINUED) Patient Name: MEME HERNANDEZ Unit No: [id number] EXAMS: CPT CODE: [id number] US PREG AFTER 1ST TRI 67599 (Continued) at 1904 Reported and signed by: Devendra Chappell DO CC: Sarah Lopez MD Technologist: Elaine Zhao, Probe: Trnscrbd D/ (1903) t.JB33 Orig Print D/T: S: 11/05/2018 (1906) [facility] NAME: MEME HERNANDEZ Radiology Department PHYS: Sarah Arboleda MD [address] : 1995 AGE: 22 SEX: F [place] [address] LOC: PattieERS PHONE #: [phone] EXAM DATE: 11/05/2018 STATUS: REG ER FAX #: [phone] RAD NO: Page 2 Signed Report Patient Name: MEME HERNANDEZ Unit No: [id number] EXAMS: CPT CODE: [id number] US PREG AFTER 1ST TRI 17854 (Continued) [facility] NAME: MARIANO HERNANDEZERRA Radiology Department PHYS: Sarah Arboleda MD [address] : 1995 AGE: 22 SEX: F [place] [address] LOC: Lu.ERS PHONE #: [phone] EXAM DATE: 11/05/2018 STATUS: REG ER FAX #: [phone] RAD NO: Page 3 Signed ReportCBC W/AUTO [id number] 18:24:00 Test Item Value Reference Range Interpretation [...] NORMAL NORMAL code = PLTMR) PLACENTA THIRD [id number] 14:26:00 RUN DATE: 04/04/18 [facility] PAGE 1 RUN TIME: 1704 Specimen Inquiry RUN USER: INTERFACE -PATIENT: MEME HERNANDEZ LOC: [facility] U #: [id number] AGE/SX: 22 ROOM: [facility] RE03/31/18REG DR: Yaneth Guidry MD : [birth year] BED: A DIS: 04/04/18 STATUS: DIS IN TLOC: SPEC #: [id number] RECD: 04/02/18 STATUS: DESMOND SARABIALauri #: [id number] MAURISIO: 04/02/18- SUBM DR: Yaneth Guidry MD ENTERED: 04/03/18 SP TYPE: PLACIII OTHR DR: Norris Gonsalves MD ORDERED: LEVEL V SURGICA CODES: [id number] - PLACENTA, NOS COPIES TO: Yaneth Guidry MD [address] [facility] [address] [place] [address] Norris Gonsalves MD [address] [facility] [address] [place] [address] PROCEDURES: LEVEL V SURGICA (Incomplete) TISSUES: PLACENTA, [...] Inquiry RUN USER: INTERFACE -- SPEC #: [id number] PATIENT: MEME HERNANDEZ #[id number] (Continued) FINAL DIAGNOSIS (Continued) Tissue code 1 CPT code(s): [id number] pkg/wpd 04/04/18 @ 6885 GROSS DESCRIPTION The specimen was received in [...] Cassettes: A through D /wpd 04/03/18 @ 9687 MICROSCOPIC DESCRIPTION The placenta is composed of small vascular villi which are much smaller and more mature than expectedfor the given gestational age. Multifocal increase in the syncytial knots is present. Multifocal distal villous hypoplasia is present. The trivascular umbilical cord and membranes are free of inflammation. The decidual blood vessels are muscularized. marcellus/wpd 04/04/18 @ 1420 Signed Cynthia Ma 04/04/18 1426 END OF REPORT
--- NOTE | 2022-08-01 21:06 | ER ---
Nurse's Notes [facility] Name: Lilliana Aragon Age: 26 yrs Sex: Female : 1995 Arrival Date: 08/01/2022 Time: 20:20 Bed IW1 [facility] MD: Diagnosis: Assessment: 08/01 20:40 Reassessment: Called for in lobby at 2039 no answer. vc1 21:04 Reassessment: called name in lob no answer. vc1 ED Course: 20:20 Patient arrived in ED. as 20:58 Anam Scott PA is PHCP. cp 20:58 Adelso Cruz MD is Attending Physician. cp Administered Medications: No medications were administered Outcome: 21:05 Patient left the ED. vc1 Signatures: Carolina Ambrosio as Anam Scott PA PA cp Calcote, Vanessa, RN RN vc1
== END 2022-08-01 21:05 | disposition left against medical advice (07) ==
LOC: ER 20:19
DX: Z02.9 Encounter for administrative examinations, unspecified (principal)

== ENCOUNTER 2022-10-20 17:57 | Emergency (ER) | payer OTHER ==
--- OUTSIDE RECORDS SUMMARY | 2022-10-20 18:03 | XMS REPORT | Continuity of Care Document ---
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 2022-03-30 16 /min University of 16:47:00 [facility] Body height 2022-03-30 162.6 cm University of 16:47:00 [facility] Body weight 2022-03-30 75.66 kg University of 16:47:00 [facility] BMI 2022-03-30 28.63 kg/m2 University of 16:47:00 [facility] Oxygen saturation 2022-03-30 98 /min University of in Arterial blood 16:47:00 [facility] Pulse oximetry [facility] Systolic blood 2021-11-01 120 mm[Hg] University of pressure 04:26:03 [facility] Diastolic blood 2021-11-01 92 mm[Hg] [facility] o f pressure 04:26:03 [facility] Heart rate 2021-11-01 62 /min [facility] 04:26:03 [facility] Respiratory rate 2021-11-01 17 /min [facility] 04:26:03 [facility] Oxygen saturation 2021-11-01 100 /min [facility] Arterial blood 04:26:03 [facility] by Pulse oximetry [place] Body temperature 2021-11-[address] [facility] 00:42:00 [facility] Body weight 2021-11-[address] [facility] 00:42:00 [facility] BP Diastolic 2018-11-22 73 mm[Hg] Location: RUE; [facility] 15:50:00 Position: Sitting Height 2018-11-22 63 [in_us] [facility] 15:50:00 Weight 2018-11-22 175 [lb_av] [facility] 15:50:00 Body Mass Index 2018-11-22 31 kg/m2 [facility] Calculated 15:50:00 Heart Rate 2018-11-22 76 /min [facility] 15:50:00 BP Systolic 2018-11-22 122 mm[Hg] Location: RUE; [facility] 15:50:00 Position: Sitting BP Systolic 2018-11-08 126 mm[Hg] Location: RUE; [...] FOOT 3+ VW RIGHT 2022-05-06 23:38:00 [facility] TIBIA FIBULA 2 VW RIGHT 2022-05-06 23:38:00 Eri Burgos [facility] NOTICE OF PRIVACY 2022-05-06 21:56:28 Doctor Unassigned, [facility] PRACTICES [facility] [place] CONSENT/REFUSAL FOR 2022-05-06 21:54:24 Doctor Unassigned, [facility] DIAGNOSIS AND TREATMENT [facility] [place] XR FOREARM 2 VW RIGHT 2022-03-30 17:36:[facility] WRIST 3+ VW RIGHT 2022-03-30 17:35:[address] [facility] ASSIGNMENT OF BENEFITS 2022-03-30 16:44:49 Doctor Unassigned, [facility] [place] CT ABDOMEN PELVIS W 2021-11-01 05:04:00 Nadir Vega [facility] CONTRAST Medical Branch CT CHEST PULMONARY 2021-11-01 05:04:00 Nadir Vega [facility] ANGIOGRAM Medical Branch US GALL BLADDER 2021-11-01 02:22:[address] [facility] XR ABDOMEN 1 VW 2021-11-01 01:55:[address] [facility] XR CHEST 1 VW 2021-11-01 01:55:[address] [facility] LIPASE 2021-11-01 01:37:[address] [facility] TEST, SERUM 2021-11-01 01:37:00 Silvia [facility] COMP. METABOLIC PANEL 2021-11-01 01:37:00 Silvia [facility] ([id number]) Medical Branch CBC WITH DIFF 2021-11-01 01:37:[address] [facility] COVID-19 (ID NOW RAPID 2021-11-01 01:37:00 Silvia [facility] TESTING) Medical Branch CONSENT/REFUSAL FOR 2021-11-01 00:42:06 Doctor Unassbarbara, [facility] DIAGNOSIS AND TREATMENT [facility] [place] . [facility] - Affirm VPIII 2018-11-08 00:00:00 [facility] (BV Panel) [Q] HEMOGLOBINOPATHY 2018-11-08 00:00:00 [facility] EVALUATION [Q] OBSTETRIC PANEL 2018-11-08 00:00:00 [facility] [Q] TREPONEMA PALLIDUM AB, 2018-11-08 00:00:00 [facility] PARTICLE AGGLUTINATION [QH] [id number] 2018-11-08 00:00:00 [facility] DEHYDROGENASE, QUANT. [QH] [...] Future Scheduled Test 2022-05-08 00:00:00 IMM Influenza [facility] Seasonal (>/= 19 yrs) [code = IMM Influenza Seasonal (>/= 19 yrs)] Future Scheduled Test 2022-05-08 00:00:00 IMM Influenza [facility] Seasonal (>/= 19 yrs) [code = IMM Influenza Seasonal (>/= 19 yrs)] Future Scheduled Test 2022-05-08 00:00:00 IMM Influenza [facility] Seasonal (>/= 19 yrs) [code = IMM Influenza Seasonal (>/= 19 yrs)] Future Scheduled Test 2022-05-08 00:00:00 IMM Influenza [facility] Seasonal (>/= 19 yrs) [code = IMM Influenza Seasonal (>/= 19 yrs)] Future Scheduled Test 2022-05-08 00:00:00 IMM Influenza [facility] Seasonal (>/= 19 yrs) [code = IMM Influenza Seasonal (>/= 19 yrs)] Future Scheduled Test 2022-05-08 00:00:00 IMM Influenza [facility] Seasonal (>/= 19 yrs) [code = IMM Influenza Seasonal (>/= 19 yrs)] Future Scheduled Test 2022-05-08 00:00:00 IMM Influenza [facility] Seasonal (>/= 19 yrs) [code = IMM Influenza Seasonal (>/= 19 yrs)] Future Scheduled Test 2022-05-08 00:00:00 IMM Influenza [facility] Seasonal (>/= 19 yrs) [code = IMM Influenza Seasonal (>/= 19 yrs)] Future Scheduled Test 2018 00:00:00 Screening for [facility] malignant neoplasm of cervix (procedure) [code = 524098688] Future Scheduled Test 2018 00:00:00 Screening for [facility] malignant neoplasm of cervix (procedure) [code = 889263398] Future Scheduled Test 2018 00:00:00 Screening for [facility] malignant neoplasm of cervix (procedure) [code = 206721325] Future Scheduled Test 2018 00:00:00 Screening for [facility] malignant neoplasm of cervix (procedure) [code = 679428833] Future Scheduled Test 2018 00:00:00 Screening for [facility] malignant neoplasm of cervix (procedure) [code = 986557551] Future Scheduled Test 2018 00:00:00 Screening for [facility] malignant neoplasm of cervix (procedure) [code = 757586103] Future Scheduled Test 2018 00:00:00 Screening for [facility] malignant neoplasm of cervix (procedure) [code = 202445415] Future Scheduled Test 2018 00:00:00 Screening for [facility] malignant neoplasm of cervix (procedure) [code = 760981913] Future Scheduled Test 1998-06-19 00:00:00 COVID-19 Vaccine (#1) [facility] [code = COVID-19 Vaccine (#1)] Future Scheduled Test 1998-06-19 00:00:00 COVID-19 Vaccine (#1) [facility] [code = COVID-19 Vaccine (#1)] Future Scheduled Test 1998-06-19 00:00:00 COVID-19 Vaccine (#1) [facility] [code = COVID-19 Vaccine (#1)] Future Scheduled Test 1998-06-19 00:00:00 COVID-19 Vaccine (#1) [facility] [code = COVID-19 Vaccine (#1)] Future Scheduled Test 1998-06-19 00:00:00 COVID-19 Vaccine (#1) [facility] [code = COVID-19 Vaccine (#1)] Future Scheduled Test 1998-06-19 00:00:00 COVID-19 Vaccine (#1) [facility] [code = COVID-19 Vaccine (#1)] Future Scheduled Test 1998-06-19 00:00:00 COVID-19 Vaccine (#1) [facility] [code = COVID-19 Vaccine (#1)] Future Scheduled Test 1998-06-19 00:00:00 COVID-19 Vaccine (#1) [facility] [code = COVID-19 Vaccine (#1)] Future Scheduled Test 1997 00:00:00 Fluoride Varnish [facility] [code = Fluoride Varnish] Encounters Start End Encounter Admission Attending Care Care Encounter Source Date/Time Date/Time Type Type Clinicians Facility Department ID 2022-07-25 Outpatient lc.otilia [facility] [id number] [facility] 13:01:02 [id number] [facility] 2022-02-10 Outpatient maggy [facility] [id number] [facility] 14:51:02 [id number] [facility] 2021-05-21 Outpatient lc.dasha [facility] [id number] [facility] 20:13:56 [id number] [facility] 2022-10-20 2022-10-20 Outpatient R [facility] [id number] Univers 18:00:00 18:00:00 ATTENDING ity [facility] 2022-10-20 2022-10-20 Telephone [facility] [id number] Univers 00:00:00 00:00:00 [id number] [facility] 4.2.7.2.686 Mani as KATHRIN?BLEA [id number] [address] MEDICAL OFFICE BUILDING 2022-08-09 2022-08-09 Emergency EM BECKY Gonzalez [id number] [facility] 14:19:00 17:22:00 Fernando 43 [facility] 2022-07-29 2022-07-29 Emergency EM BECKY Stone [id number] [facility] 00:09:00 01:43:00 Devendra 05 [facility] 2022-05-21 2022-05-21 [facility] [id number] Univers 16:00:00 16:57:20 DELIA vizcarra [facility] 2022-05-21 2022-05-21 Urgent Delia Park [facility] [id number] Univers 16:00:00 16:57:20 Care Unknown, Attending HEALTH [id number] ity of [place] 4.2.7.2.686 Mani as KATHRIN?BLEA [id number] [address] MEDICAL OFFICE [facility] 2022-05-19 2022-05-19 [facility] [id number] Univers 16:00:00 16:00:00 KALEB [facility] 2022-05-06 2022-05-06 Emergency X [facility] ERT [id number] Univers 17:03:00 20:20:00 ERI [facility] 2022-05-06 2022-05-06 Emergency [facility] [id number] Univers 17:03:00 20:20:00 Eri Ruggiero [place] [id number] ity of [place] 4.2.7.2.686 [place] [facility] [id number] [address] 2022-05-06 2022-05-06 Lisa Morrissey [facility] [id number] Univers 00:00:00 00:00:00 (Out) [facility] [id number] it y of [place] 4.2.7.2.686 Mani as KATHRIN?BLEA [id number] [address] MEDICAL OFFICE [facility] 2022-05-04 2022-05-04 Laboratory Only, Ang Db Test [facility] [id number] Univers 13:00:00 13:15:00 Only Nevin Benoit [facility] [id number] ity of [place] 4.2.7.2.686 Mani as KATHRIN?BLEA [id number] [address] OFFICE [facility] 2022-05-04 2022-05-04 Outpatient R MONICO [facility] [id number] Univers 13:00:00 13:00:00 NEVIN tracee [facility] 2022-04-14 2022-04-14 [facility] [id number] Univers 15:00:00 15:00:00 JULIO CESAR ity [facility] 2022-03-30 2022-03-30 [facility] [id number] Univers 12:06:40 23:59:00 Encounter [facility] [id number] ity of [place] 4.2.7.2.686 Mani as KATHRIN?BLEA [id number] Wy andrew HUGHES [address] [place] MEDICAL OFFICE BUILDING 2022-03-30 2022-03-30 [facility] [id number] Univers 12:06:40 23:59:00 Encounter [facility] [id number] ity of [place] 4.2.7.2.686 Mani as KATHRIN?BLEA [id number] Wy andrew HU[facility]ES [address] [place] MEDICAL OFFICE [facility] 2022-03-30 2022-03-30 Outpatient R [facility] [id number] Univers 12:06:40 23:59:00 JAREN vizcarra o f [facility] 2022-03-30 2022-03-30 Urgent [facility] 1.2.840. [id number] Univers 13:00:00 13:20:00 Care [facility] 350.1.13.10 ity of [place] 4.2.7.2.686 Mani as KATHRIN?BLEA [id number] Wy dicobie [facility] [address] [place] MEDICAL OFFICE BUILDING 2022-03-30 2022-03-30 Orders Doctor OWEN [id number] Univers 00:00:00 00:00:00 Only Unassigned, ROSE MARIE 350.1.13.10 ity of [facility] 4.2.7.2.686 Mani as [id number] [address] 2021-10-31 2021-11-01 Emergency X NADIR VEGA [facility] ERT [id number] Univers 19:45:00 01:04:00 NADIR VEGA ity of [facility] 2021-10-31 2021-11-01 Emergency [place], TRAUMA [id number] Univers 19:45:00 01:04:00 Nadir [place] 350.1.13.10 it y of 4.2.7.2.686 Sony hummel [id number] [address] 2020-12-19 2020-12-19 Emergency E MAXI RAVI [facility] [id number] [facility]NE 02:45:00 05:21:00 [place] 2020-08-20 2020-08-23 Inpatient [facility] [id number] [facility] 23:55:00 06:47:18 70 [facility] 2019-02-05 2019-02-05 Outpatient [facility] MED [id number] [place] 00:00:00 00:00:00 Health 2019-02-04 2019-02-04 Outpatient [facility] MED [id number] [place] 20:46:53 20:46:53 [facility] 2018-12-06 2018-12-06 Emergency E MHSW SW [id number] SW 15:34:00 15:34:00 2018-11-22 2018-11-22 [id number] 15:30:00 17:09:30 2018-11-22 2018-11-22 Appointmen [facility]OB [facility] Show Host [id number] [place] 15:30:00 15:30:00 t; MICHELLE ROJAS, Ph ysindiana Urbina M.D. 2018-11-15 2018-11-15 Appointmen DAV [facility] Show Host [id number] [place] 10:45:00 10:45:00 t; JOSEPH DEMARCO, Bernard Mitchell M.D. 2018-11-08 2018-11-08 Appointmen JURY CONSULTANT, [facility] [id number] [place] 12:00:00 12:00:00 t; JURY CONSULTANT, ROOM1 [facility] ROOM1 [facility] 2018-11-08 2018-11-08 Appointmen CÉSAR [facility] Show Host [id number] [place] 10:00:00 10:00:00 t; Bernard STAUFFER Ph nelda Cohen M.D. Results Test Description Test Time Test Comments Results Result Comments Source B-TYPE NATRIURETIC PEPTIDE 2022-08-09 15:32:00 Test Item Value Reference Range Interpretation Comme nts B-TYPE NATRIURETIC PEPTIDE (test code = BNP) < 2.0 PG/ML 0-100 N COMPREHENSIVE METABOLIC [id number] 15:26:00 Test Item Value Reference Range Interpretation Comments SODIUM (test code = 139 mEq/L 134-147 N NA) POTASSIUM (test code 4.0 mEq/L 3.4-5.0 N = K) CHLORIDE (test code 104 mEq/L 100-108 N = CL) CARBON DIOXIDE (test 24 mEq/l 21-33 N code = CO2) ANION GAP (test code 15 0-20 N = GAP) GLUCOSE (test code = 99 mg/dL 70-110 N GLU) BLOOD UREA NITROGEN 9 mg/dL 7-18 N (test code = BUN) GLOMERULAR 105.5 110-120 L The Glomerular FILTRATION RATE Filtration R ate is a (test code = GFR) calculated parameterbased on serum Creatinine, pat ient age and sex. GFR va luesless than 60 mL/min/ 1.73 square meters a re indicative ofCh ronic Kidney Disease. Values less than 15 mL/min/1.73squa re meters indicate Kidney failure. The calculation for GFR is based on the CK D-EPI (2020) calculat ion. This formulais race indifferent and is the recommended for ermias for GFRby the [facility] Kidney Foundati on for Adults.The GFR will not calculate if th e sex is unknown or if thepatient's ag e is <18 years. CREATININE (test 0.8 mg/dL 0.6-1.3 N code = CREAT) TOTAL PROTEIN (test 7.6 g/dL 6.4-8.2 N code = PROT) ALBUMIN (test code = 4.20 g/dL 3.4-5.0 N ALB) CALCIUM (test code = 9.7 mg/dL 8.0-10.5 N CA) BILIRUBIN TOTAL 0.50 mg/dL 0.0-1.0 N (test code = BILT) SGOT/AST (test code 25 IUnit/L 15-37 N = AST) SGPT/ALT (test code 20 IUnit/L 30-65 L = ALT) ALKALINE PHOSPHATASE 48 IUnit/L 20-125 N TOTAL (test code = ALKP) [id number] 15:26:00 Test Item Value Reference Range Interpretation Comments MAGNESIUM (test code = MAG) 1.81 mg/dL 1.80-2.40 N TROP-I HIGH [id number] 15:26:00 Test Item Value Reference Range Interpretation Comments [...] results and URLs mayvar y by method. HCG SERUM [id number] 15:22:00 Test Item Value Reference Range Interpretation Comments HCG SERUM QUAL (test code = SERUM NEGATIVE NEGATIVE HCGQL) CBC W/AUTO [id number] 15:14:00 Test Item Value Reference Range Interpretation Comments WHITE BLOOD CELL (test code = 9.8 x10 3/uL 4.5-11.0 N WBC) RED BLOOD CELL (test code = 4.64 x10 6/uL 3.54-5.02 N RBC) HEMOGLOBIN (test code = HGB) 13.3 g/dL 11.0-15.0 N HEMATOCRIT (test code = HCT) 39.4 % 33.0-45.0 N MEAN CELL VOLUME (test code = 84.9 fL 81.0-99.0 N MCV) MEAN CELL HGB (test code = MCH) 28.7 pg 27.0-33.0 N MEAN CELL HGB CONCETRATION 33.8 g/dL 33.0-37.0 N (test code = MCHC) RED CELL DISTRIBUTION WIDTH CV 12.3 % 11.5-14.5 N (test code = RDW) RED CELL DISTRIBUTION WIDTH SD 38.2 fL 37.0-54.0 N (test code = RDW-SD) PLATELET COUNT (test code = 276 x10 3/uL 150-400 N PLT) MEAN PLATELET VOLUME (test code 10.4 fL 7.0-9.0 H = MPV) NEUTROPHIL % (test code = NT%) 56.7 % 56.0-77.0 N IMMATURE GRANULOCYTE % (test 0.3 % 0.0-2.0 N code = IG%) LYMPHOCYTE % (test code = LY%) 33.6 % 14.0-32.0 H MONOCYTE % (test code = MO%) 7.5 % 4.8-9.0 N EOSINOPHIL % (test code = EO%) 1.3 % 0.3-3.7 N BASOPHIL % (test code = BA%) 0.6 % 0.0-2.0 N NUCLEATED RBC % (test code = 0.0 % 0-0 N NRBC%) NEUTROPHIL # (test code = NT#) 5.54 x10 3/uL 2.0-7.6 N IMMATURE GRANULOCYTE # (test 0.03 x10 3/uL 0.00-0.03 N code = IG#) LYMPHOCYTE # (test code = LY#) 3.29 x10 3/uL 1.0-3.8 N MONOCYTE # (test code = MO#) 0.73 x10 3/uL 0.1-0.8 N EOSINOPHIL # (test code = EO#) 0.13 x10 3/uL 0.0-0.2 N BASOPHIL # (test code = BA#) 0.06 x10 3/uL 0.0-0.2 N NUCLEATED RBC # (test code = 0.00 x10 3/uL 0.0-0.1 N NRBC#) MANUAL DIFF REQUIRED (test code NO = MDIFF) DRUGS OF ABUSE SCREEN [id number] 01:17:00 Test Item Value Reference Range Interpretation Comments URN COCAINE (test code NEGATIVE NEGATIVE = COCAURN) URN CANNABINOIDS (test NEGATIVE NEGATIVE code = CANNABURN) URN AMPHETAMINE (test NEGATIVE NEGATIVE code = AMPHETURN) URN BARBITURATE (test NEGATIVE NEGATIVE code = BARBITURN) URN BENZODIAZEPINE NEGATIVE NEGATIVE Cut-off v alue:200 (test code = BENZOURN) ng/mL URN OPIATES (test code NEGATIVE NEGATIVE Cut-o ff value:2000 = OPIATURN) ng/mL URN PHENCYCLIDINE (PCP) NEGATIVE NEGATIVE Cuto ffs:Barbiturates (test code = PHENCURN) 200 ng/mLBenzodiaze pines 200 ng/mLTHC Cannabinoids 50 ng/mLOpiates(Mo rphine) 2000 ng/mLAmphe tamine 1000 ng/mLCocai ne 300 ng/mLPCP phency clidine 25 ng/mL Unconf irmed screening resul ts shouldnot be us ed for non-medical pur poses. TROP-I HIGH [id number] 01:08:00 Test Item Value Reference Range Interpretation [...] URLs mayvar y by method. BASIC METABOLIC [id number] 01:08:00 Test Item Value Reference Range Interpretation [...] the recommended for ermias for GFRby the Nat nal Kidney Foundati on for Adults.The GFR will not calculate if th e sex is unknown or if thepatient's ag e is <18 years. CREATININE (test 0.8 mg/dL 0.6-1.3 N code = CREAT) CALCIUM (test code = 9.3 mg/dL 8.0-10.5 N CA) HCG SERUM [id number] 00:55:00 Test Item Value Reference Range Interpretation Comments HCG SERUM QUAL (test code = SERUM NEGATIVE NEGATIVE HCGQL) CBC W/AUTO [id number] 00:50:00 Test Item Value Reference Range Interpretation [...] NO = MDIFF) - XR CHEST 1 [id number] 00:00:[address] [facility] [facility] 1995 Sex: F FAX:Devendra Stone MD [place]: St: REG Name: MEME HERNANDEZ [facility] : 1995 Age/S: 26/F [address] [place] [address] Unit #: [id number] Loc: [place] [address] Phys: Devendra Stone MD Acct: [id number] Dis Date: Status: [facility] ER PHONE #: [phone] Exam Date: 07/29/202231 FAX #: [phone] Reason: Chest Pain EXAMS: CPT CODE: [id number] XR CHEST 1 V [id number] PROCEDURE INFORMATION: Exam: XR Chest Exam dateand time: 07/29/2022 12:30 AM Age: 26 years old Clinical indication: Other: Chest pain TECHNIQUE: Imaging protocol: Radiologic exam of the chest. Views: 1 view. COMPARISON: DX XR CHEST 2 V 02/19/2019 12:37 PM FINDINGS: Lungs: The lungs are clear. Pleural spaces: No pleural effusion. No pneumothorax. Heart/Mediastinum: Cardiomediastinal silhouette is normal in size. Bones/joints: No acute bony finding.IMPRESSION: No evidence for acute cardiopulmonary disease. at 0049 Reported and signed by: Clovis Solano M.D. CC: Devendra Koch Technologist: RT Lavelle(Ignacio) Trnscrd Date/Time/By: 07/29/2022 (0049) : By: [email or web address] Orig Print D/T: S: 07/29/2022 (005) PAGE 1 Signed ReportPREGNANCY TEST, [id number] 02:18:10 Test Item Value Reference Range Interpretation Comments PREG SERUM (test code Negative = 4084734031) SILVA (test code = SILVA) Less than 10 IU/L. ?If low titer or ectopic is suspected, resubmit specimen in 48-72 hours. [facility]. METABOLIC PANEL ([id number])2021-11-01 02:01:26 Test Item Value Reference Range Interpretation Comments NA (test code = 137 mmol/L 135-145 7255336670) K (test code = 3.9 mmol/L 3.5-5.0 4221457160) CL (test code = 107 mmol/L 98-108 8737357363) CO2 TOTAL (test code 24 mmol/L 23-31 = 0406760612) AGAP (test code = 2-16 8328912937) BUN (test code = 10 mg/dL 7-23 7749095453) GLUCOSE (test code = 87 mg/dL 70-110 8242250206) CREATININE (test code 0.59 mg/dL 0.50-1.04 = 6620043924) TOTAL BILI (test code 0.6 mg/dL 0.1-1.1 = 1873741924) CALCIUM (test code = 9.1 mg/dL 8.6-10.6 1145072501) T PROTEIN (test code 7.2 g/dL 6.3-8.2 = 7191944876) ALBUMIN (test code = 4.4 g/dL 3.5-5.0 7917564876) ALK PHOS (test code = 42 U/L 34-122 9998014575) ALTv (test code = 14 U/L 5-35 1742-6) AST(SGOT) (test code 20 U/L 13-40 = 3255080129) eGFR (test code = mL/min/1.73m2 4292211188) SILVA (test code = SILVA) Association of [...] or urine or abnormalities in imaging tests). [facility] Test Item Value Reference Range Interpretation Comments LIPASE (test code = [id number]) 65 U/L 0-220 Lab Interpretation (test code = Normal 13213-7) [facility] [id number] 01:46:02 Test Item Value Reference Range Interpretation Comments WBC (test code = See_Comment [Automated message] 6690-2) The system [employer] generated this result transmitted ref erence range: 4.30 - 1 1.10 10*3/?L. The re ference range was not u sed to interpret this result as normal/abnor mal. RBC (test code = See_Comment [Automated message] 789-8) The system [employer] generated this result transmitted ref erence range: [...] RDW-SD (test code 45.6 fL 39.0-49.9 = 12599-9) RDW-CV (test code 14.8 % 12.0-15.5 = 788-0) PLT (test code = See_Comment [Automated message] 777-3) The system Kw[employer] generated this result transmitted ref erence range: 166 - 35 8 10*3/?L. The re ference range was not u sed to interpret this result as normal/abnor mal. MPV (test code = 11.6 fL 9.5-12.9 44104-7) NRBC/100 WBC (test See_Comment [Automat ed message] code = 6052297721) The syste m which generated this result transmitted ref erence range: 0.0 - 10 .0 /100 WBCs. The refer ence range was not u sed to interpret this result as normal/abnor mal. NRBC x10^3 (test <0.01 See_Comment [Automated message] code = 0138157391) The syste m which generated this result transmitted ref erence range: 10*3/?L. The reference range was not used to interpr et this result as normal/abnormal . GRAN MAT (NEUT) % 59.9 % (test code = 770-8) IMM GRAN % (test 0.20 % code = 1686227253) LYMPH % (test code 31.7 % = 736-9) MONO % (test code 6.8 % = 5905-5) EOS % (test code = 0.9 % 713-8) BASO % (test code 0.5 % = 706-2) GRAN MAT 5.20 10*3/uL 1.88-7.09 x10^3(ANC) (test code = 2726015007) IMM GRAN x10^3 <0.03 0.00-0.06 (test code = 6615850625) LYMPH x10^3 (test 2.75 10*3/uL 1.32-3.29 code = 731-0) MONO x10^3 (test 0.59 10*3/uL 0.33-0.92 code = 742-7) EOS x10^3 (test 0.08 10*3/uL 0.03-0.39 code = 711-2) BASO x10^3 (test 0.04 10*3/uL 0.01-0.07 code = 704-7) [facility] [place]- US PELVIS [id number] 11:04:00 [facility] 1995 Sex: F Patient Name: MEME HERNANDEZ Unit No: [id number] EXAMS: CPT CODE: [id number] US PELVIS COMPLETE 32302 EXAM: US, US TRANSVAGINAL W/PELVIS: 08/21/2020, 0035 [...] the pelvis may be performed. IMPRESSION: [facility] NAME: KIRSTIETEDCHLOEMEME Radiology Department PHYS: [facility] [address] : 1995 AGE: 24 SEX: F [place], [place] [address] LOC: CLARKE PHONE #: [phone] EXAM DATE: 08/21/2020 STATUS: DEP ER FAX #: [phone] RAD NO: Page 1 Signed Report (CONTINUED) Patient Name: MEME HERNANDEZ Unit No: [id number] EXAMS: CPT CODE: [id number] US PELVIS COMPLETE 90734 (Continued) 1. Left ovarian cyst 2. Small free fluid seen in the cul-de-sac. SL: JSYED-H at 1104 Reported and signed by: Td Hylton M.D. CC: Lawson Moreland MD Technologist: TAI MCKEON RDMS, RVT Probe: Trnscrbd D/ (1104) Champ.JS38 Orig Print D/T: S: 08/22/2020 (110) [facility] NAME: TEDVTMARIANOMEME Radiology Department PHYS: Lawson Regalado [address]OB: 1995 AGE: 24 SEX: F [place] [address] LOC: Lu.ERS PHONE #: [phone] EXAM DATE: 08/21/2020 STATUS: DEP ER FAX #: [phone] RAD NO: Page 2 Signed Report PatientName: MEME HERNANDEZ Unit No: [id number] EXAMS: CPT CODE: [id number] US PELVIS COMPLETE 79405 (Continued) [facility] NAME: TEDVTMEME Radiology Department PHYS: Lawson Regalado [address] : 1995 AGE: 24 SEX: F [place] [address] LOC: Lu.ERS PHONE #: [phone] EXAM DATE: 08/21/2020 STATUS: DEP ER FAX #: [phone] RAD NO: Page 3 Signed Report- DUP AB/PEL/SC/[id number] 02:25:00 [facility] : 1995 Sex: F Patient Name: MEME HERNANDEZ Unit No: [id number] EXAMS: CPT CODE: [id number] DUP AB/PEL/SC/LTD 28188 EXAM:US, US TRANSVAGINAL W/PELVIS: 08/21/2020, 0035 hours [...] the pelvis may be performed. IMPRESSION: [facility] NAME: MEME HERNANDEZ Radiology Department PHYS: Lawson Regalado [address] : 1995 AGE: 24 SEX: F [place], [place] [address] LOC: CLARKE PHONE #: [phone] EXAM DATE: 08/21/2020 STATUS: REG ER FAX #: [phone] RAD NO: Page 1Signed Report (CONTINUED) Patient Name: MEME HERNANDEZ Unit No: [id number] EXAMS: CPT CODE: [id number] AB/PEL/SC/LTD 10584 (Continued) 1. Left ovarian cyst 2. Small free fluid seen in the cul-de-sac.SL: DANYELL at 0225 Reported and signedby: Td Hylton M.D. CC: Lawson Moreland MD Technologist: TAI MCKEON RDMS, RVT Probe: Trnscrbd D/ (0225) [email or web address] Orig Print D/T: S: 08/21/2020 (0228) [facility] Department PHYS: Lawson Regalado [address] : 1995 AGE: 24 SEX: F [place] [address] LOC: CLARKE PHONE #: [phone] EXAM DATE: 08/21/2020 STATUS: REG ER FAX #: [phone] RAD NO: Page 2 Signed Report Patient Name: MEME HERNANDEZ Unit No: [id number] EXAMS: CPT CODE: [id number] [facility] AB/PEL/SC/LTD 28257 (Continued) [facility] Rad[facility] Department PHYS: Lawson Regalado [address] : 1995 AGE: 24 SEX: F [place] [address] LOC: CLARKE PHONE #: [phone] EXAM DATE: 08/21/2020 STATUS: REG ER FAX #: [phone] RAD NO: Page 3 Signed Report- US TRANSVAGINAL W/[id number] 02:25:00 [facility] : 1995 Sex: F Patient Name: MEME HERNANDEZ Unit No: [id number] EXAMS: CPT CODE: [id number] US TRANSVAGINAL W/PELVIS 53658RNGF: US, US TRANSVAGINAL W/PELVIS: 08/21/2020, 0035 hours [...] uterus measuring 8.7 x 4.3 x 5.2 cmin size. Normal uterine contour and morphology. There [...] OTHER FINDINGS: Small free fluid in the cul-de-s ac. If there is further concern, followup pelvic sonography or MRI of the pelvis may be performed. IMPRESSION: [facility] NAME[facility] Rad[facility] Department PHYS: Lawson Regalado [address] : 1995 AGE: 24 SEX: F [place] [address] LOC: PattieERS PHONE #: [phone] EXAM DATE: 08/21/2020 STATUS: REG ER FAX #: [phone] RAD NO: Page 1 Signed Report (CONTINUED) Patient Name: JACINTO HERNANDEZA Unit No: [id number] EXAMS: CPT CODE: [id number] US TRANSVAGINAL W/PELVIS 91276 (Continued) 1. Left ovarian cyst 2. Small free fluid seen in the cul-de-sac. SL: DANYELL at 0225 Reported and signed by: Td Hylton M.D. CC: Lawson Moreland MD Technologist: TAI MCKEON RDMS, T Probe: [id number] Trnscrbd D/ (022) [id number] Orig Print D/T: S: 08/21/2020 (0228) [facility] NAME: [facility] Radiology Department PHYS: Lawson Regalado [address] : 1995 AGE: 24 SEX: F [place] [address] LOC: PattieERS PHONE #: [phone] EXAM DATE: 08/21/2020 STATUS: REG ER FAX #: [phone] RAD NO: Page 2 Signed Report Patient Name: MEME HERNANDEZ Unit No: [id number] EXAMS: CPT CODE: [id number] US TRANSVAGINAL W/PELVIS 28616 (Continued) [facility] NAME: MEME HERNANDEZ Radiology Department PHYS: Lawson Barrett [address] : 1995 AGE: 24 SEX: F [place], [place] [address] LOC: Lu.ERS PHONE #: [phone] EXAM DATE: 08/21/2020 STATUS: REG ER FAX #:[phone] RAD NO: Page 3 Signed ReportUA RFLX MICR CULT IF [id number] 00:47:00 Test Item Value Reference Range Interpretation [...] culture: Suprapubic PainSpecimen Description: CLEAN CATCHUR HCG [id number] 00:47:00 Test Item Value Reference Range Interpretation [...] Description: CLEAN CATCHUA RFLX MICR CULT IF [id number] 00:31:00 Test Item Value Reference Range Interpretation [...] culture: Suprapubic PainSpecimen Description: CLEAN CATCHUR HCG [id number] 00:31:00 Test Item Value Reference Range Interpretation [...] Suprapubic PainSpecimen Description: CLEAN CATCH- US TRANSVAGINAL W/[id number] 03:14:00 Patient Name: MEME HERNANDEZ Unit No: [id number] EXAMS: CPT CODE: [id number] US TRANSVAGINAL [id number] Pelvic and transvaginal ultrasound dated 08/04/2019. HISTORY: [...] Cuevas DO Technologist: Martha Wan RDMS Probe: [id number] Trnscrbd D/ (0314) Tray Orig Print D/T: S: 08/04/2019 (0317) [facility] NAME: MEME HERNANDEZ Radiology Department PHYS: Jose Padilla MD [address] : 1995 AGE: 23 SEX: F [place], [place] [address] LOC: PattieERS PHONE #: [phone] EXAM DATE: 08/04/2019 STATUS: REG ER FAX #: [phone] RAD NO: Page 1 Signed Report Patient Name: MEME HERNANDEZ Unit No: [id number] EXAMS: CPT CODE: [id number] US TRANSVAGINAL W/PELVIS 03909 (Continued) [facility] NAME: MEME HERNANDEZ Radiology Department PHYS: Jose Walker MD [address] : 1995 AGE: 23 SEX: F [place], [place] [address] LOC: CLARKE PHONE #: [phone] EXAM DATE: 08/04/2019 STATUS: REG ER FAX #: [phone] RAD NO: Page 2 Signed Report- DUP AB/PEL/SC/[id number] 03:14:00 Patient Name: MEME HERNANDEZ Unit No: [id number] EXAMS: CPT CODE: [id number] DUP AB/PEL/SC/LTD 53701Beimnl and transvaginal ultrasound dated 08/04/2019. HISTORY: Pelvic pain. Vomiting. A transabdominal pelvic ultrasound was performed with subsequent transvaginal imaging to better visualize the endometrium and adnexa. Correlation is made with a prior pelvic ultrasound dated 10/07/2017. The uterus measures approximately 7.0 x 4.4 x 5.6 cm and has a normal contour. The myometrium appears heterogeneous wi th prominence of the myometrial vessels. No myometrial [...] Martha Wan RDMS Probe: Trnscrbd D/ (0314) Tray Orig Print D/T: S: 08/04/2019 (7) [facility] NAME: MEME HERNANDEZ Radiology Department PHYS: Jose Padilla MD [address] : 1995 AGE: 23 SEX: F [place] [address] LOC: CLARKE PHONE #: [phone] EXAM DATE: 08/04/2019 STATUS: REG ER FAX #: [phone] RAD NO: Page 1 Signed Report Patient Name: MEME HERNANDEZ Unit No: [id number] EXAMS: CPT CODE: [id number] DUP AB/PEL/SC/LTD 03222 (Continued) [facility] NAME: MEME HERNANDEZ Radiology Department PHYS: Jose Padilla MD [address] : 1995 AGE: 23 SEX: F [place] [address] [email or web address] PHONE #: [phone] EXAM DATE: 08/04/2019 STATUS: REG ER FAX #: [phone] RAD NO: Page 2 Signed Report- US PELVIS COMPLETE 2019-08-04 03:14:00 Patient Name: MEME HERNANDEZ Unit No: [id number] EXAMS: CPT CODE: [id number] US PELVIS COMPLETE 51215 Pelvic and transvaginal ultrasound dated 08/04/2019. HISTORY: [...] Orig Print D/T: S: 08/04/2019 (0317) [facility] Radiology Department PHYS: Jose Padilla MD [address] : 1995 AGE: 23 SEX: F [place] [address] LOC: PattieERS PHONE #: [phone] EXA DATE: 08/04/2019 STATUS: REG ER FAX #: [phone] RAD NO: Page 1 Signed Report Patient Name: MEME HERNANDEZ Unit No: [id number] EXAMS: CPT CODE: [id number] US PELVIS COMPLETE 39289 (Continued) [facility] NAME: [facility] Radiology Department PHYS: Jose Padilla MD[address] : 1995 AGE: 23 SEX: F [place] [address] LOC: PattieERS PHONE #: [phone] EXAM DATE: 08/04/2019 STATUS: REG ER FAX #: [phone] RAD NO: Page 2 Signed ReportCBC W/AUTO [id number] 23:55:00 Test Item Value Reference Range Interpretation [...] (test NORMAL NORMAL code = PLTMR) HCG [id number] 23:40:00 Test Item Value Reference Range Interpretation [...] SHOULD BE CONSI DERED NEGATIVE CHEMISTRY 7 [id number] 23:27:00 Test Item Value Reference Range Interpretation [...] = CA) 8.7 mg/dL 8.4-10.2 N LIVER [id number] 23:27:00 Test Item Value Reference Range Interpretation [...] 57 units/L 46-116 N code = ALKP) [id number] 23:27:00 Test Item Value Reference Range Interpretation Comments LIPASE (test code = LIP) 129 units/L 73-393 N UA RFLX MICR CULT IF [id number] 22:56:00 Test Item Value Reference Range Interpretation [...] SEEN Indication for culture: Suprapubic PainPLACENTA THIRD [id number] 18:16:00 RUN DATE: 02/21/19 [facility] PAGE 1 RUN TIME: 758 Specimen Inquiry RUN USER: INTERFACE --PATIENT: MEME HERNANDEZ LOC: DURGA U #: [id number] AGE/SX: / ROOM: RE02/17/19REG DR:Gm Cuevas DO : [birth year] BED: A DIS: 02/19/19 STATUS: DIS IN TLOC: SPEC #: [id number] RECD: 02/18/19 STATUS: DESMOND LAFLEUR #: [id number] MAURISIO: 02/18/19- SUBM DR: Gm Cuevas DO ENTERED: 02/19/19 SP TYPE: PLACIII OTHR DR: ORDERED: LEVEL V SURGICA/3 CODES: L89523 - FALLOPIAN TUBE WU0815- PLACENTA, NOS PROCEDURES: LEVEL V SURGICA (Incomplete) [...] of inflammation Tissue code 1 CPT code(s): 32227 x2, 06232 [facility] 02/20/19 GROSS DESCRIPTION ANATOMIC SOURCE OF [...] Specimen Inquiry RUN USER: INTERFACE SPEC #: [id number] PATIENT: MEME HERNANDEZ #[id number] (Contin ued) GROSS DESCRIPTION (Continued) pinpoint. Hard Candy Spinner sections are submitted as A1. Specimen #2 is designated "left" and consists of a 1.2 cm in length and 0.4 cm in diameter pink-purple and hyperemic segment of fallopian tube. The lumen is pinpoint. Hard Candy Spinner sections are submitted as B1. The specimen was received in a container, labeled with the patient's name, unit number and designated "placenta". The following attributes are observed: Cord insertion: 2 cm from margin Cord length: 34 cm Number of vessels: 3 Cord color: Beltran Other cord findings: Slightly edematous surface findings: Steelblue, wrinkled, glistening with focal subchorionic fibrin deposition [...] the placental parenchyma Cassettes: C1 through C4 mary/george02/19/19 @ 1334 Signed Zo Mahan MD 02/20/19 1816 END OF REPORT - CT ANGIO [id number] 14:14:00 Patient Name: MEME HERNANDEZ Unit No: [id number] EXAMS: CPT CODE: [id number] CT ANGIO CHEST 19182 EXAMINATION: CTA of the chest with contrast [...] Consider further evaluation with thyroid ultrasound. [facility] NAME: MEME HERNANDEZ Radiology Department PHYS: Laura Dash MD [address] : 1995 AGE: 23 SEX: F [place] [address] LOC: A PHONE #: [phone] EXAM DATE: 02/19/2019 STATUS: ADM IN FAX #: [phone] RAD NO: Page 1 Signed Report 1 Patient Name: MEME FRIEND Unit No: [id number] EXAMS: CPT CODE: [id number] CT ANGIO CHEST 15100 (Continued) at 1414 Reported and signed by: Geno Rosario MD CC: Gm Cuevas DO; Laura Pryor MD Technologist: RT Dariana, CT CTDI: 31.08 DLP: 736.35 Trnscrbd D/ (1414) [facility] PHYS: Laura Dash MD [address] : 1995 AGE: 23 SEX: F [place] [address] LOC: A PHONE #: [phone] EXAM DATE: 02/19/2019 STATUS: ADM IN FAX #: [phone] RAD NO: Page 2 Signed Report 1 Patient Name: MEME HERNANDEZ Unit No: [id number] EXAMS: CPT CODE: [id number] CT ANGIO CHEST 07374 (Continued) Orig Print D/T: S: 02/19/2019 (2007) [facility] NAME: MEME HERNANDEZ Radiology Department PHYS: Laura Dash MD [address] : 1995 AGE: 23 SEX: F [place], [place] [address] LOC: F.2013 A PHONE #: [phone] EXAM DATE: 02/19/2019 STATUS: ADM IN FAX #: [phone] RAD NO: Page 3Signed Report 1BLOOD UREA [id number] 14:03:00 Test Item Value Reference Range Interpretation Comments BLOOD UREA NITROGEN (test code = BUN) 5 mg/dL 7-18 L [id number] 14:03:00 Test Item Value Reference Range Interpretation Comments CREATININE (test code = CREAT) 0.5 mg/dL 0.5-1.0 N - XR CHEST 2 [id number] 12:45:00 Patient Name: MEME HERNANDEZ Unit No: [id number] EXAMS: CPT CODE: [id number] XR CHEST 2 V 34668 CLINICAL HISTORY: chest pain; sob COMPARISON: December 13, 2014. PA and lateral films of the chest demonstrate that heart size is normal. Lung horton are clear. No evidence of pneumonia or congestive failure is seen. There is no evidence of pleural effusion or pneumothorax. Regional skeletal structures are withinnormal limits. Small amount of free peritoneal air is seen thought to be related to recent . IMPRESSION: No evidence of pneumonia or congestive failure is seen. at 1246 Reported and signed by: Frantz Demarco MD CC: Gm Cuevas DO; Laura Pryor MD Technologist: RT Stone Trnscrbd D/ (9913) Ragini Orig Print D/T: S: 02/19/2019 (9778) [facility] NAME: MEME HERNANDEZ Radiology Department PHYS: Laura Dash MD [address] : 1995 AGE: 23 SEX: F [place], [place] [address] LOC: Pattie2013 A PHONE #: [phone] EXAM DATE: 02/19/2019 STATUS: ADM IN FAX #: [phone] RAD NO: Page 1 Signed ReportHGB [id number] 07:21:00 Test Item Value Reference Range Interpretation Comments HEMOGLOBIN (test code = HGB) 9.9 g/dL 10.7-13.9 L HEMATOCRIT (test code = HCT) 30.7 % 32.1-42.1 L DRUGS OF ABUSE [id number] 02:15:00 Test Item Value Reference Range Interpretation [...] PHENCU) 25 ng/m L AG HEPATITIS B [id number] 01:20:00 Test Item Value Reference Range Interpretation Comments AG HEPATITIS B SURFACE (test code NONREACTIVE NONREACTIVE = HBSAG) Comments to Email Marketing Manager: LDO AIS CONSENT FORM SIGNED FOR HIV TESTING? YAB HEPATITIS C [id number] 01:20:00 Test Item Value Reference Range Interpretation Comments AB HEPATITIS C (test code = NONREACTIVE NONREACTIVE HCVAB) SIGNAL TO CUTOFF (test code = 0.05 <0.80 N CUTOFF) Comments to Email Marketing Manager: LDO AIS CONSENT FORM SIGNED FOR HIV TESTING? YRUBELLA [id number] 01:20:00 Test Item Value Reference Range Interpretation Comments RUBELLA SCREEN 10.9 IUnit/ml Results >10. 0IUnits/ml (test code = are considered positive RUBSC) inaccordance wi th the CLSI guidelines and based on the [employer] S tandard for Anti-Rubell a serum as anindicator of immune status and a br eakpoint to detect mostseropositiv e persons. Comments to Email Marketing Manager: LDO AIS CONSENT FORM SIGNED FOR HIV TESTING? YAB [id number] 01:20:00 Test Item Value Reference Range Interpretation Comments AB TREPONEMA (test code = TREPAB) NONREACTIVE NONREACTIVE Comments to Email Marketing Manager: LDO AIS CONSENT FORM SIGNED FOR HIV TESTING? YAB HIV 1 01:20:00 Test Item Value Reference Range Interpretation Comments AB HIV 1 2 (test NONREACTIVE NONREACTIVE Done by Sie Aper[employer]ita [employer]aur code = BMD94FX) 4th Gen HIV Ag/Ab Combo Screen Comments to Email Marketing Manager: LDO AIS CONSENT FORM SIGNED FOR HIV TESTING? Y URINALYSIS [id number] 01:01:00 Test Item Value Reference Range Interpretation [...] NONE SEEN URINE SAMPLE: CLEAN CATCHCBC W/AUTO [id number] 00:11:00 Test Item Value Reference Range Interpretation [...] NORMAL NORMAL code = PLTMR) - US [id number] 23:45:00 Patient Name: MEME HERNANDEZ Unit No: [id number] EXAMS: CPT CODE: [id number] [place] LTD 82718 Limited obstetrical ultrasound dated 02/17/2019. HISTORY: 34 [...] intrauterine in cephalic position. SL: 131 at 2347 Reported and signed by: Aneudy Ortega MD CC: Gm Cuevas DO Technologist: Elaine Zhao RDMS Probe: Trnscrbd D/ (3525) t.LON Orig Print D/T: S: 02/17/2019 (9186) [facility] NAME: MEME HERNANDEZ Radiology Department PHYS: Gm Beltran DO [address] : 1995 AGE: 23 SEX: F [place] [address] LOC: F.016 A PHONE #: [phone] EXAM DATE: 02/17/2019 STATUS: ADM IN FAX #: [phone] RAD NO: Page 1 Signed ReportPatient Name: MEME HERNANDEZ Unit No: [id number] EXAMS: CPT CODE: [id number] [place] LTD 06377 (Continued) [facility] NAME: MEME HERNANDEZ Radiology Department PHYS: Gm Beltran DO [address] : 1995 AGE: 23 SEX: F [place] [address] LOC: F.016 A PHONE #: [phone] EXAM DATE: 02/17/2019 STATUS: ADM IN FAX #: [phone] RAD NO:Page 2 Signed Report- US FLW [id number] 15:54:00 Patient Name: MEME HERNANDEZ Unit No: [id number] EXAMS: [place]: [id number] [address] [facility] [address] [place], [place] [address] OBSTETRICAL ULTRASOUND REPORT --------- Pat. Name: MEME HERNANDEZ Pat. No: [id number] Study Date: 12/13/2018 2:18pm , Age: 05 1995, 22 Pregnancies: 5, Para 4 LMP: Unknown GA by 1st: 23w1d GA by US: 22w4d GA Selected: 23w1d (From Known E) SUSAN: 04/10/2019 Referring MD: Bennett Collins M.D. Traffic Clerk: Michelle Cotto RDMS CPT4: USPREGLTD Hist/Ind: Scan 2: previousc/s/ abd pain ( c/s scar ) KIM SUREMENTS AGE GROWTH EVALUATION Measurement GA Range Srce %for GA Ratios ----- ---- ------- BPD 5.3 cm 22w1d (76a7u-25o5f) Hadl BPD 21% FL/BPD 0.81 (0.71 - 0.87) HC 19.8 cm 21w6d (54e0m-41z3a) Hadl HC 13% FL/AC 0.24 (0.20 - 0.24) APD 5.9 cm APD HC/AC 1.09 (1.03 - 1.22) TAD 5.7 cm TAD CI 0.79 (0.70 - 0.86) AC 18.2 cm 22w6d (20w6d- 24w6d) Hadl AC 43% FL 4.3 cm 23w5d (96m8z-87v6o) Hadl FL 62% HL 4.1 cm 24w5d (48z7r-67b0d) Dionisio HL 77% GA forsonogram 22w4d (63e8k-26n6a) Weight Estimate: based on (BPD,HC,AC,FL) Hadlock Weight: 580 gm (495-665) Hadlock : 1lbs, 4oz Normal: 563 gm (377-1003) Aylin Wt% 52% for 23.1 wks Cervical Length:3.3 [...] seen: heart motion seen Placental location: Posterior [facility] NAME: MARIANO HERNANDEZERRA Radiology Department PHYS: Tristan Lares III, MD [address] : 1995 AGE: 22 SEX: Lu [place] [address] LOC: CUCO PHONE #: [phone] EXAM DATE: 12/13/2018 STATUS: REG ER FAX #: [phone] RAD NO: Page 1 Signed Report (CONTINUED) Patient Name: MEME HERNANDEZ Unit No: [id number] EXAMS: CPT CODE: [id number] [place] [address] (Continued) Placental maturity : Grade 2 There is no evidence of placenta previa. Amniotic fluid v olume is normal. Uterus and adnexa: No significant abnormality is seen. Serena Bean M.D. Electronic Signature 12/13/2018 03:54pm at 1554 Reported and signed by: Serena Bean MD CC: Tristan Sarmiento III, MD Technologist: Michelle Cotto RDMS Probe: Trnscrbd D/ (9579) Pierce Orig Print D/T: S: 12/13/2018 (5304) [facility] NAME: MARIANO HERNANDEZERRA Radiology Department PHYS: Tristan Lares III, MD [address] : 1995 AGE: 22 SEX: Lu [place] [address] LOC: F.CLAY PHONE #: [phone] EXAM DATE: 12/13/2018 STATUS: REG ER FAX #: [phone] RAD NO: Page 2 Signed Report Patient Name: MEME HERNANDEZ Unit No: [id number] EXAMS: CPT CODE: [id number] [place] [address] (Continued) [facility] NAME: MEME HERNANDEZ Radiology Department PHYS:Tristan Lares III, MD [address] : 1995 AGE: 22 SEX: F [place], [place] [address] ACCT NO: [id number] LOC: PattieCLAY PHONE #: [phone] EXAM DATE: 12/13/2018 STATUS: REG ER FAX #: [phone] RAD NO: Page 3 Signed ReportPROTHROMBIN [id number] 14:52:00 Test Item Value Reference Range Interpretation Comments PROTHROMBIN TIME PATIENT (test code 12.4 secs 10.4-12.4 N = PTP) THROMBOPLASTIN TIME [id number] 14:52:00 Test Item Value Reference Range Interpretation Comments THROMBOPLASTIN TIME PARTIAL (test 30.7 secs 22-38 N code = PTT) [id number] 14:52:00 Test Item Value Reference Range Interpretation Comments FIBRINOGEN (test code = FIB) 399 mg/dL 309-518 N DRUGS OF ABUSE [id number] 13:00:00 Test Item Value Reference Range Interpretation [...] = PHENCU) 25 ng/m L COMPREHENSIVE METABOLIC [id number] 12:54:00 Test Item Value Reference Range Interpretation [...] units/L 46-116 N code = ALKP) URINALYSIS [id number] 12:42:00 Test Item Value Reference Range Interpretation [...] = MUCU) 2+ NONE SEEN Comments to Email Marketing Manager: DAGOBERTO SEPULVEDA SAMPLE: CLEAN CATCHCBC W/AUTO [...] SPECIMEN RECEIVED DATE A ND TIME: [facility]] URINALYSIS, [id number] 13:09:00 Test Item Value Reference Range Interpretation Comments COLOR; Normal (test YELLOW YELLOW N code = 5778-6) APPEARANCE (test code CLEAR CLEAR N = APPEARANCE) SPECIFIC GRAVITY; 1.025 1.001-1.035 N Normal (test code = 2965-2) PH; Normal (test code 6.0 5.0-8.0 N = 2756-5) GLUCOSE; Normal (test NEGATIVE NEGATIVE N code = 1547-9) BILIRUBIN; Normal NEGATIVE NEGATIVE N (test code = 11422-5) KETONES; Normal (test NEGATIVE NEGATIVE N code = 70429-0) OCCULT BLOOD; Normal NEGATIVE NEGATIVE N (test code = 21056-0) PROTEIN; Normal (test NEGATIVE NEGATIVE N code = 53711-4) NITRITE; Normal (test NEGATIVE NEGATIVE N code = 42978-6) LEUKOCYTE ESTERASE NEGATIVE NEGATIVE N (test code = LEUKOCYTE ESTERASE) WBC; Normal (test 0-5 < OR = 5 N code = 6690-2) RBC; Normal (test NONE SEEN < OR = 2 N code = 789-8) SQUAMOUS EPITHELIAL 0-5 < OR = 5 CELLS (test code = 58624-6) BACTERIA; Normal NONE SEEN NONE SEEN N (test code = 630-4) HYALINE CAST; Normal NONE SEEN NONE SEEN N SPECIME N RECEIVED DATE (test code = 10830-8) AND TI ME: [id number] [facility][QH] [id number] DEHYDROGENASE, QUANT.2018-11-08 13:09:00 Test Item Value Reference Range Interpretation Comments [id number] 19.3 {U/g 7.0-20.5 SPECIMEN RECEIVED DEHYDROGENASE (test Hgb} DATE AND TIME: code = 633936828998 [id number] DEHYDROGENASE) [facility][Q] QUAD [id number] 13:09:00 Test Item Value Reference Interpretation Comments Range INTERPRETATION: See Comment Screen negat clara for open (test code = NTD, Down syndr ome INTERPRETATION:) andTrisomy 18. MSAFP RISK OPEN <1 IN 5000 NTD (test code = 27027-7) AGE RISK DOWN 1 IN 1164 SYNDROME (test code = AGE RISK DOWN SYNDROME) QUAD RISK DOWN <1 IN 5000 SYNDROME (test code = QUAD RISK DOWN SYNDROME) MSS3 TRISOMY 18 <1 IN 5000 RISK (test code = MSS3 TRISOMY 18 RISK) MSAFP (test code 37.1 ng/ml = 18663-9) ADJ MULTIPLE OF 0.41 MEDIAN (test code [...] See Below) not a diag nostic test. Shelley culver establishing th e risk of chromosomeabnor malities [...] assistance with recalculations, please call your local [email or web address] lab oratory. Forassistance w ith interpretation of these results, please contact your local [facility] [facility] deputy county counsel oror call [phone]( [phone]). Interpretive Cu t-offsScreen Positive For Op en [...] AND (test code = TIME: Cigarette smoker) [facility][Q] TREPONEMA PALLIDUM AB, PARTICLE [id number] 13:09:00 Test Item Value Reference Range Interpretation Comments TREPONEMA PALLIDUM NONREACTIVE Reference Range: AB, PARTICLE NonreactiveSPEC IMEN AGGLUTINATION (test RECEIVED DATE AND TIME: code = TREPONEMA 62736199921 8 PALLIDUM AB, PARTICLE AGGLUTINATION) [facility]] CULTURE, URINE, [id number] 13:09:00 Test Item Value Reference Range Interpretation [...] DATE A ND TIME: [facility][Q] OBSTETRIC [id number] 13:09:00 Test Item Value Reference Range Interpretation Comments WHITE BLOOD CELL 9.0 {Thousand/u} 3.8-10.8 N COUNT (test code = WHITE BLOOD CELL COUNT) RED BLOOD CELL 4.04 3.80-5.10 N COUNT (test code = {Million/uL} RED BLOOD CELL COUNT) HEMAGLOBIN; Below 11.5 g/dl 11.7-15.5 Low Threshold (test code = 10159-7) HEMATOCRIT; Below 34.2 % 35.0-45.0 Low Threshold (test code = 4544-3) MCV; Normal (test 84.7 fL 80.0-100.0 N code = 787-2) MCHC; Normal (test 33.6 g/dl 32.0-36.0 N code = 19859-0) RDW; Above High 15.2 % 11.0-15.0 Threshold (test code = 788-0) PLATELET COUNT; 168 {Thousand/u} 140-400 N Normal (test code = 777-3) MPV; Normal (test 12.4 fL 7.5-12.5 N code = 19485-8) ABSOLUTE 6426 {cells/uL} 1459-4399 N NEUTROPHILS (test code = ABSOLUTE NEUTROPHILS) [...] Normal 5.0 % N (test code = 40708-5) EOSINOPHILS; Normal 1.4 % N (test code = 50533-8) BASOPHILS; Normal 0.3 % N SPECIMEN R ECEIVED (test code = DATE AND TIME: 40385-2) [id number] ANTIBODY SCREEN, NO ANTIBODIES N Reference range [...] code RH(D) POSITIVE SPECIME N RECEIVED = 49583-1) DATE AND TIME: 480105884812 RPR (DX) W/REFL NON-REACTIVE NON-REACTIVE N SPECIMEN REC EIVED TITER AND DATE AND TIME: CONFIRMATORY 347027087784 TESTING (test code = RPR (DX) W/REFL TITER AND CONFIRMATORY TESTING) HEPATITIS B SURFACE NON-REACTIVE NON-REACTIVE N SPECIMEN RECEIVED ANTIGEN; Normal DATE AND CADEN E: (test code = 347874188897 5195-3) RUBELLA ANTIBODY <0.90 Index Inter pretation (IGG); Below Low ----- ----- --------- Threshold (test <0.90 Not co nsistent code = 67709-1) with Immunit y 0.90-0.99 Equiv ocal > or = 1.00 Consistent with Immunity The presence of rub sowmya IgG antibody suggests immunization or past or current infe ction withrubella virus.SPECIMEN RECEIVED DATE A ND TIME: 318 [facility][Q] HIV-1/2 Antigen and Antibodies, Fourth Generation, with [id number] 13:09:00 Test Item Value Reference Range Interpretation Comments HIV AG/AB, 4TH NON-REACTIVE NON-REACTIVE N HIV-1 antigen and GEN; Normal HIV-1/HIV-2 ant ibodies were (test code = [place] [address]-9) laboratory evid ence of HIVinfection. P LEASE NOTE: This informatio n has been disclosed toyou from records whose confidentiality may beprotected by state law. If your state r equires suchprotection, then the state law prohi bits you frommaking any further disclosure of t he informationwith out the specific writte n consent of the personto om it pertains, or as otherwise permitted by la w.A general authorization f or the release of medi jeanine orother information is NOT sufficient for this purpose. For ad ditional information ple ase refer tohttp://educat ion.Turn/fa q/XVQ757(Thi s link is being provided for informational/e ducational purposes only.) The performance of this assay has not been clinicallyvalid ated in patients less t encinas 2 years old. SPECIMEN R ECEIVED DATE AND TIME: 4352022 [facility]. [facility] - Affirm VPIII (BV Panel)2018-11-08 00:00:00 Test Item Value Reference Range Interpretation Comments Affirm VPIII (BV Panel) REPORT See Comment (test code = Affirm VPIII (BV Panel) REPORT) [facility]iciansCOMPREHENSIVE METABOLIC [id number] 20:23:00 Test Item Value Reference Range Interpretation [...] units/L 46-116 L code = ALKP) HCG [id number] 20:23:00 Test Item Value Reference Range Interpretation [...] DERED NEGATIVE UA RFLX MICR CULT IF [id number] 20:15:00 Test Item Value Reference Range Interpretation [...] code = BACU) RARE /HPF RARE-FEW PROTHROMBIN [id number] 20:06:00 Test Item Value Reference Range Interpretation Comments PROTHROMBIN TIME PATIENT (test code 12.3 secs 10.4-12.4 N = PTP) THROMBOPLASTIN TIME [id number] 20:06:00 Test Item Value Reference Range Interpretation Comments THROMBOPLASTIN TIME PARTIAL (test 30.1 secs 22-38 N code = PTT) [id number] 20:06:00 Test Item Value Reference Range Interpretation Comments FIBRINOGEN (test code = FIB) 385 mg/dL 309-518 N - US PREG AFTER [id number] 19:04:00 Patient Name: MEME HERNANDEZ Unit No: [id number] EXAMS: CPT CODE: [id number] US PREG AFTER TRI 98943 TRANSABDOMINAL OBSTETRICAL PELVIC ULTRASOUND INDICATION: 21 WEEKS, [...] amniotic fluid volume appears qualitatively normal. [facility] NAME: JACINTO HERNANDEZA Radiology Department PHYS: Sarah Arboleda MD [address] : 1995 AGE: 22 SEX: F [place], [place] [address] LOC: [place] PHONE #: [phone] EXAM DATE: 11/05/2018 STATUS: REG ER FAX #: [phone] RAD NO: Page 1 Signed Report (CONTINUED) Patient Name: MEME HERNANDEZ Unit No: [id number] EXAMS: CPT CODE: [id number] US PREG AFTER TRI 15010 (Continued) at 1904 Reported and signed by: Devendra Chappell DO CC: Sarah Lopez MD Technologist: Elaine Zhao RDMS Probe: Trnscrbd D/ (1903) [email or web address] Orig Print D/T: S: 11/05/2018 (1906) [facility] NAME: MARIANO HERNANDEZERRA Radiology Department PHYS: Sarah Arboleda MD [address] : 1995 AGE: 22 SEX: F [place] [address] LOC: [facility] PHONE #: EXAM DATE: 11/05/2018 STATUS: REG ER FAX #: [phone] RAD NO: Page 2 Signed Report Patient Name: MEME HERNANDEZ Unit No: [id number] EXAMS: CPT CODE: [id number] US PREG AFTER TRI 31388 (Continued) [facility] PHYS: Sarah Arboleda MD [address] : 1995 AGE: 22 SEX: F [place] [address] LOC: [facility] PHONE #: [phone] EXAM DATE: 11/05/2018 STATUS: REG ER FAX #: [phone] RAD NO: Page 3 Signed ReportCBC W/AUTO [id number] 18:24:00 Test Item Value Reference Range Interpretation [...] NORMAL NORMAL code = PLTMR) PLACENTA THIRD [id number] 14:26:00 RUN DATE: 04/04/18 [facility] PAGE 1 RUN TIME: 1704 Specimen Inquiry RUN USER: INTERFACE -PATIENT: MEME HERNANDEZ LOC: [facility] U #: [id number] AGE/SX: 22/ [facility]: Yaneth Guidry MD : [birth year] BED: A DIS: 04/04/18 STATUS: DIS IN TLOC: SPEC #: [id number] RECD: 04/02/18 STATUS: DESMOND RELauri #: [id number] MAURISIO: 04/02/18- SUBM DR: Yaneth Guidry MD ENTERED: 04/03/18 SP TYPE: PLACIII OTHR DR: Norris Gonsalves MD ORDERED: LEVEL V SURGICA CODES: [id number] - PLACENTA, NOS COPIES TO: Yaneth Guidry MD [address] [facility] [address] [place], [place] [id number] Norris Gonsalves MD [address] [facility] [address] [place] [address] PROCEDURES: LEVEL V SURGICA (Incomplete) TISSUES:PLACENTA, NOS - PLACENTA CLINICAL HISTORY 22 year old, 29.3 weeks, , section, IUGR, mykel aturity, previa (kr) FINAL DIAGNOSIS Placenta, section: - [...] - free of inflammation COMMENT: The presence ofaccelerated villous maturation, distal villous hypoplasia, and decidual [...] TIME: 1704 Specimen Inquiry RUN USER: INTERFACE - SPEC #: [id number] PATIENT: MEME HERNANDEZ #[id number] (Continued) FINAL DIAGNOSIS (Continued) Tissue code 1 CPT code(s): 20137 pkg/wpd 04/04/18 @ 1419 GROSS DESCRIPTION The [...] Parenchyma lesions: None Cassettes: A through D chai/wpd 04/03/18 @ 1156 MICROSCOPIC DESCRIPTIONThe placenta is composed of small [...]
[2022-10-20 18:32] LABS: Urine Blood 3+ (Negative); Urine Glucose Negative (Negative); Urine Protein Trace (Negative)
--- NOTE | 2022-10-20 19:06 | RAD REPORT ---
EXAM DESCRIPTION: US - Transvaginal OB - 10/20/2022 6:59 pm CLINICAL HISTORY: ABD CRAMPING, COMPARISON: No comparisons FINDINGS: No IUP seen. Normal sized uterus. Endometrium measures 6 mm. The maternal adnexa and ovaries are within normal limits. Normal Doppler blood flow was demonstrated to both ovaries. IMPRESSION: No IUP visualized. In the setting of a positive HCG level, this would indicate of unknown location. Follow-up pelvic sonography and serial HCG levels would be recommended.
[2022-10-20 19:26] LABS: Absolute Lymphocytes (CBC) 2.9 K/uL (0.7-4.9); Hematocrit 39.9 % (36.0-45.0); Lymphocytes % 29.1 % (15.3-44.8); MCV 84.7 fL (80-100); MPV 8.7 fL (7.6-11.3); RBC Red Blood Cell Count 4.71 M/uL (3.86-4.86)
[2022-10-20 19:47] LABS: BUN Blood Urea Nitrogen 10 mg/dL (7-18); Bicarbonate 26 mmol/L (21-32); Glomerular Filtration Rate 114 ml/min (=/>90); Glucose Level 93 mg/dL (74-106); Potassium 3.7 mmol/L (3.5-5.1); Sodium Level 138 mmol/L (136-145)
[2022-10-20 19:55] LABS: HCG, Quantitative < 1 mIU/mL (1-3)
[2022-10-20] MEDS ORDERED: DICYCLOMINE HCL 20 MG/2 ML AMP IM ONE (20:33)
--- NOTE | 2022-10-20 20:51 | EDPHYS ---
Physician Documentation [facility] Name: Lilliana Treviño Age: 26 yrs Sex: Female : 1995 Arrival Date: 10/20/2022 Time: 18:00 Bed 14 Private MD: ED Physician Leandro Tate HPI: 10/20 18:30 This 26 yrs old Female presents to ER via Ambulatory with complaints of Vaginal cp Bleeding, + Preg <12wks. 18:30 The patient presents with vaginal bleeding that is heavy, with clots. Onset: The cp symptoms/episode began/occurred this morning. 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 - Social history:: Smoking status: Patient denies any tobacco usage or history of. Vital Signs: 18:15 BP 132 / 85; Pulse 62; Resp 16; Temp 98.4; Pulse Ox 100% ; Weight 63.5 kg; Height 5 ft. mb9 2 in. ; Pain 8/10; 20:33 BP 122 / 93; Pulse 65; Resp 16; Pulse Ox 99% ; vc1 18:15 Body Mass Index 25.61 (63.50 kg, 157.48 cm) mb9 18:15 Pain Scale: Adult mb9 MDM: 18:20 Patient medically screened. cp 10/20 18:27 Order name: IV Saline Lock; Complete Time: 19:21 cp 10/20 18:27 Order name: Labs collected and sent; Complete Time: 19:21 cp 10/20 18:27 Order name: NPO; Complete Time: 19:21 cp 10/20 18:27 Order name: Urine Dipstick-Ancillary (obtain specimen); Complete Time: 18:31 cp 10/20 18:27 Order name: Urine Test (obtain specimen); Complete Time: 18:31 cp 10/20 18:35 Order name: Urine --Ancillary (enter results) bd 10/20 18:27 Order name: Abo/rh Typing; Complete Time: 20:09 cp 10/20 18:27 Order name: CBC with Diff; Complete Time: 20:09 cp 10/20 18:27 Order name: Quantitative Hcg; Complete Time: 20:09 cp 10/20 20:09 Interpretation: Reviewed. cp 10/20 18:27 Order name: Basic Metabolic Panel; Complete Time: 20:09 cp 10/20 20:09 Interpretation: Reviewed. cp 10/20 18:32 Order name: Urine Dipstick-Ancillary; Complete Time: 18:43 EDMS 10/20 18:44 Interpretation: Normal except: UBLD 3+; UPROT Trace; UESTR Trace. cp 10/20 18:45 Order name: Transvaginal OB; Complete Time: 20:09 EDMS Administered Medications: 20:33 Drug: Dicyclomine IM 20 mg Route: IM; Site: left gluteus; vc1 Point of Care Testing: Urine : 20:37 hCG Reading: Negative; Control Reading: Positive; vc1 Disposition Summary: 10/20/22 20:50 Discharge Ordered Location: Home cp Problem: new cp Symptoms: have improved cp Condition: Stable cp Diagnosis - Abnormal uterine and vaginal bleeding, unspecified cp Followup: cp - With: Private Physician - When: 1 week - Reason: symptoms continue Forms: - Medication Reconciliation Form cp - Thank You Letter cp - Antibiotic Education cp - Prescription Opioid Use cp Signatures: Dispatcher [employer] EDMS Anam Scott PA PA cp Calcote, Vanessa RN RN vc1 Radha Hardy RN RN mb9 Corrections: (The following items were deleted from the chart) 18:45 18:28 OB Limited+US.RAD.PATRICIO ordered. EDMS EDMS
--- NOTE | 2022-10-20 20:51 | ER ---
Nurse's Notes [facility] Name: Lilliana Treviño Age: 26 yrs Sex: Female : 1995 Arrival Date: 10/20/2022 Time: 18:00 Bed 14 Private MD: Diagnosis: Abnormal uterine and vaginal bleeding, unspecified Presentation: 10/20 18:15 Chief complaint: Patient states: "I'm not sure if I'm having a miscarriage. My last mb9 period was September 13 and took a last week and it was positive. This morning I had a severe stomach pain and then a gush of blood. I've been filling up three pads of blood every hour since this morning around 6am. There are small clots. I have hip pain and cramping". Coronavirus screen: At this time, the client does not indicate any symptoms associated with coronavirus-19. Ebola Screen: No symptoms or risks identified at this time. Initial Sepsis Screen: Does the patient meet any 2 criteria? No. Patient's initial sepsis screen is negative. Does the patient have a suspected source of infection? No. Patient's initial sepsis screen is negative. Risk Assessment: Do you want to hurt yourself or someone else? Patient reports no desire to harm self or others. Onset of symptoms was October 20, 2022. 18:15 Method Of Arrival: Ambulatory mb9 18:15 Acuity: CRISTAL 3 mb9 Triage Assessment: 20:26 General: Appears in no apparent distress. uncomfortable, Behavior is calm, cooperative, vc1 appropriate for age. 20:38 Pain: Complains of pain in abdomen. : Reports vaginal bleeding that is bright red, vc1 with clots, heavy flow. 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 - Social history:: Smoking status: Patient denies any tobacco usage or history of. Screenin:26 [facility] ED Fall Risk Assessment (Adult) History of falling in the last 3 months, vc1 including since admission No falls in past 3 months (0 pts) Confusion or Disorientation No (0 pts) Intoxicated or Sedated No (0 pts) Impaired Gait No (0 pts) Mobility Assist Device Used No (0 pt) Altered Elimination No (0 pt) Score/Fall Risk Level 0 - 2 = Low Risk Oriented to surroundings, Maintained a safe environment. Abuse screen: Denies threats or abuse. Nutritional screening: No deficits noted. Tuberculosis screening: No symptoms or risk factors identified. Assessment: 20:26 Obstetrical Assessment: early in . vc1 Vital Signs: 18:15 BP 132 / 85; Pulse 62; Resp 16; Temp 98.4; Pulse Ox 100% ; Weight 63.5 kg; Height 5 ft. mb9 2 in. ; Pain 8/10; 20:33 BP 122 / 93; Pulse 65; Resp 16; Pulse Ox 99% ; vc1 18:15 Body Mass Index 25.61 (63.50 kg, 157.48 cm) mb9 18:15 Pain Scale: Adult mb9 Vitals: 20:38 Heart Tones neg test; if not far enough along. vc1 ED Course: 18:00 Patient arrived in ED. mr 18:05 Arm band placed on. mb9 18:18 Triage completed. mb9 18:20 Anam Scott PA is PHCP. cp 18:20 Leandro Tate MD is Attending Physician. cp 19:01 Transvaginal OB In Process Unspecified. EDMS 19:21 Abo/rh Typing Sent. bc6 19:21 Basic Metabolic Panel Sent. bc6 19:21 CBC with Diff Sent. bc6 19:21 Quantitative Hcg Sent. bc6 19:22 Initial lab(s) drawn, by ks, sent to lab. Inserted saline lock: 22 gauge in right bc6 antecubital area, using aseptic technique. 20:26 Evelyn Butler, RN is Primary Nurse. vc1 20:39 Patient has correct armband on for positive identification. Bed in low position. Call vc1 light in reach. Pulse ox on. NIBP on. Administered Medications: 20:33 Drug: Dicyclomine IM 20 mg Route: IM; Site: left gluteus; vc1 Medication: 18:19 VIS not applicable for this client. mb9 Point of Care Testing: Urine : 20:37 hCG Reading: Negative; Control Reading: Positive; vc1 Outcome: 20:50 Discharge ordered by MD. pereira Signatures: Dispatcher [employer] Radha Ferreira mr Sonia, Anam, Evelyn Verdugo cp RN RN vc1 Radha Hardy RN RN mb9 Jennifer Kruger bc6 Corrections: (The following items were deleted from the chart) 18:18 18:15 Chief complaint: Patient states: "I'm not sure if I'm having a miscarriage. My mb9 last period was September 13 and took a last week and it was positive. This morning I had a severe stomach pain and then a gush of blood. I've been filling up three pads of blood every hour since this morning around 6am. There are small clots." mb9
[2022-10-21 05:03] VITALS: TEMP 98.4
[2022-10-21 05:04] VITALS: BP 122/93; O2SAT 99
== END 2022-10-20 21:17 | disposition home or self-care (01) ==
LOC: ER 17:57
DX: N93.9 Abnormal uterine and vaginal bleeding, unspecified (principal)
CPT/HCPCS: 85025; 80048; 36415; 86900; 81025; 86901; 84702; 81003; 76817; J0500